=== PATIENT | male | born 1935 | race Caucasian/White ===

== ENCOUNTER 2019-02-04 09:13 | Emergency (ER) | payer OTHER ==
--- OUTSIDE RECORDS SUMMARY | 2019-02-04 09:15 | XMS REPORT ---
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
--- OUTSIDE RECORDS SUMMARY | 2019-02-04 09:15 | XMS REPORT ---
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 Problem Lumbago M54.5 Active Problem Benign hypertension I10 Active Problem Male erectile disorder N52.9 Active Problem Peripheral vascular disease I73.9 Active Medications Medication Code Code Instructions Start End Status Dosage System Date Date Verapamil HCl [facility] 64965299465 180 MG Orally Active 1 tablet ER Once a day Lisinopril [facility] 80816431294 40 MG Active TAKE 1 TABLET BY MOUTH ONCE DAILY Bactroban [facility] 76808960704 2 % Externally May Active 1 application Three times a 2018 to affected day area PredniSONE ND 22230917582 20 MG Oral Active not defined Verapamil HCl ND 96091236011 240 MG Orally April Active 1 tablet ER Once a day 2018 Atorvastatin ND 61299819497 20 MG Orally Active 1 tablet Calcium Once a day Results No Known Results Summary Purpose eClinicalWorks Submission
[2019-02-04] MEDS ORDERED: KETOROLAC 30 MG/ML INJ ONE (09:53)
[2019-02-04 10:03] LABS: Absolute Lymphocytes (CBC) 0.8 K/uL (0.7-4.9); Basophils % 0.6 % (0-1.3); Hematocrit 40.3 % (39.6-49.0); MPV 8.7 fL (7.6-11.3); RBC Red Blood Cell Count 4.33 M/uL (4.33-5.43)
[2019-02-04 10:16] LABS: Albumin 3.6 g/dL (3.4-5.0); Bilirubin Direct 0.2 mg/dL (0-0.2); Bilirubin Total 0.7 mg/dL (0.2-1.0); Potassium 4.7 mmol/L (3.5-5.1); Protein, Total 7.6 g/dL (6.4-8.2)
--- NOTE | 2019-02-04 10:17 | RAD REPORT ---
EXAM DESCRIPTION: CT - Stone Protocol - 02/04/2019 9:54 am CLINICAL HISTORY: Abdominal pain. COMPARISON: None. TECHNIQUE: Computed axial tomography of the abdomen pelvis was obtained without oral or IV contrast. Lack of IV and oral contrast limits evaluation of solid organs, bowel, and vessels. Coronal reformat donna images were obtained and reviewed. All CT scans are performed using dose optimization technique as appropriate and may include automated exposure control or mA/KV adjustment according to patient size. FINDINGS: Small bilateral nonobstructing renal calculi. No hydronephrosis. A ureteral calculus is no t seen. No bladder calculus. 2.7 centimeter low-density mass right kidney. Cholecystectomy A 4.1 centimeter partially calcified mass lies anterior superiorly to the pancreatic neck. Pancreas o therwise appears unremarkable The liver, spleen,and adrenals appear grossly normal Diverticula stem from the colon. Mild to moderate stranding adjacent to the mid descending colon. No free air Small umbilical hernia small bilateral inguinal hernias. 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 Exophytic pancreatic mass is less likely. It is recommended that the patient have an MRI with contrast for further evaluation
--- NOTE | 2019-02-04 11:17 | ER ---
Nurse's Notes [facility] [place], [place] Name: Carlos Guerra Age: 83 yrs Sex: Male : 1935 Arrival Date: 02/04/2019 Time: 09:14 Bed 19 Private MD: Luis Fontana Diagnosis: Left sided colitis;Left sided colitis without complications Presentation: 02/04 09:29 Presenting complaint: Patient states: left flank pain since yesterday, worse today, iw denies urinary s/s, feels like a kidney stone, no fever, no injury. Transition of care: patient was not received from another setting of care. Onset of symptoms was February 04, 2019. Risk Assessment: Do you want to hurt yourself or someone else? Patient reports no desire to harm self or others. Initial Sepsis Screen: Does the patient meet any 2 criteria? No. Patient's initial sepsis screen is negative. Does the patient have a suspected source of infection? No. Patient's initial sepsis screen is negative. Care prior to arrival: None. 09:29 Method Of Arrival: Wheelchair iw 09:29 Acuity: CLAIRE 3 iw Historical: - Allergies: 09:37 Codeine; sedation; iw - PMHx: 09:37 GERD; Hypertension; shingles; iw - PSHx: 09:37 Carotid surgery; back; shoulder - left; iw - Immunization history:: Adult Immunizations up to date. - Social history:: Smoking status: Patient/guardian denies using tobacco. - Ebola Screening: : Patient negative for fever greater than or equal to 101.5 degrees Fahrenheit, and additional compatible Ebola Virus Disease symptoms Patient denies exposure to infectious person Patient denies travel to an Ebola-affected area in the 21 days before illness onset No symptoms or risks identified at this time. Screenin:59 Abuse screen: Denies threats or abuse. Nutritional screening: No deficits noted. em Tuberculosis screening: No symptoms or risk factors identified. Fall Risk None identified. Assessment: 09:55 General: Appears in no apparent distress. comfortable, Behavior is calm, cooperative, em Denies fever. Pain: Complains of pain in left low back Pain currently is 6 out of 10 on a pain scale. Pain began 1 day ago. Neuro: Level of Consciousness is awake, alert, obeys commands, Oriented to person, place, time, situation, Appropriate for age. Cardiovascular: Denies chest pain, shortness of breath, Capillary refill < 3 seconds Patient's skin is warm and dry. Respiratory: GI: Abdomen is flat, Patient currently denies diarrhea, nausea, vomiting. : Denies burning with urination. Derm: Skin is intact, is healthy with good turgor, Skin is pink, warm \T\ dry. Musculoskeletal: Capillary refill < 3 seconds, Range of motion: intact in all extremities. 10:30 Reassessment: Patient appears in no apparent distress at this time. Patient and/or em family updated on plan of care and expected duration. Pain level reassessed. Patient is alert, oriented x 3, equal unlabored respirations, skin warm/dry/pink. Patient states feeling better. Patient states symptoms have improved. Vital Signs: 09:37 BP 165 / 83; Pulse 77; Resp 16; Temp 98.4; Pulse Ox 100% on R/A; Weight 44 kg; Pain iw 5/10; 10:45 BP 170 / 64; Pulse 63; Resp 20; Pulse Ox 97% on R/A; em ED Course: 09:14 Patient arrived in ED. mr 09:15 Madhu Reis MD is Attending Physician. kdr 09:22 Luis Fontana MD is Private Physician. mr 09:36 Triage completed. iw 09:38 Arm band placed on. iw 09:39 Zeferino Blackwood LVN is Primary Nurse. em 09:54 CT completed. Patient tolerated procedure well. Patient moved back from CT. bq 09:55 CT Stone Protocol In Process Unspecified. EDMS 09:59 Patient has correct armband on for positive identification. Placed in gown. Bed in low em position. Call light in reach. Adult w/ patient. Pulse ox on. NIBP on. 10:39 Inserted saline lock: 22 gauge in right forearm, using aseptic technique. Blood jb1 collected. 11:16 Luis Fontana MD is Referral Physician. kdr 11:33 No provider procedures requiring assistance completed. IV discontinued, intact, em bleeding controlled, No redness/swelling at site. Pressure dressing applied. Administered Medications: 10:00 Drug: TORadol - Ketorolac 15 mg Route: IVP; Site: right forearm; iw 10:30 Follow up: Response: No adverse reaction; Pain is decreased em Outcome: 11:17 Discharge ordered by . kdr 11:34 Discharged to home via wheelchair, with family. em 11:34 Condition: good 11:34 Discharge instructions given to patient, family, Instructed on discharge instructions, follow up and referral plans. medication usage, Demonstrated understanding of instructions, follow-up care, medications, Prescriptions given X 3. 11:34 Patient left the ED. em Signatures: Dispatcher [employer] Mick Nobles [email or web address] Madhu Reis MD MD kdr Rivera, Mary mr Priti Polk Edgar, IMPROVEMENT LEADER IMPROVEMENT LEADER Nemo Castillo, RN RN iw
--- NOTE | 2019-02-04 11:17 | EDPHYS ---
Physician Documentation [facility] Name: Carlos Guerra Age: 83 yrs Sex: Male : 1935 Arrival Date: 02/04/2019 Time: 09:14 Bed 19 Private MD: Luis Fontana ED Physician Madhu Reis HPI: 02/04 09:32 This 83 yrs old Male presents to ER via Unassigned with complaints of Flank kdr Pain. 09:32 The patient complains of pain in the left low back. The pain does not radiate. Onset: kdr The symptoms/episode began/occurred suddenly, this morning. Modifying factors: The symptoms are alleviated by nothing. the symptoms are aggravated by movement. Associated signs and symptoms: The patient has no apparent associated signs or symptoms. Severity of pain: At its worst the pain was mild moderate just prior to arrival, in the emergency department the pain is unchanged. The patient has not recently seen a physician. Historical: - Allergies: 09:37 Codeine; sedation; iw - PMHx: 09:37 GERD; Hypertension; shingles; iw - PSHx: 09:37 Carotid surgery; back; shoulder - left; iw - Immunization history:: Adult Immunizations up to date. - Social history:: Smoking status: Patient/guardian denies using tobacco. - Ebola Screening: : Patient negative for fever greater than or equal to 101.5 degrees Fahrenheit, and additional compatible Ebola Virus Disease symptoms Patient denies exposure to infectious person Patient denies travel to an Ebola-affected area in the 21 days before illness onset No symptoms or risks identified at this time. ROS: 09:32 Constitutional: Negative for fever, chills, and weight loss, Eyes: Negative for injury, kdr pain, redness, and discharge, ENT: Negative for injury, pain, and discharge, Neck: Negative for injury, pain, and swelling, Cardiovascular: Negative for chest pain, palpitations, and edema, Respiratory: Negative for shortness of breath, cough, wheezing, and pleuritic chest pain, Back: Negative for injury and pain, : Negative for injury, bleeding, discharge, and swelling, MS/Extremity: Negative for injury and deformity, Skin: Negative for injury, rash, and discoloration, Neuro: Negative for headache, weakness, numbness, tingling, and seizure activity. Psych: Negative for depression, anxiety, suicide ideation, homicidal ideation, and hallucinations, Allergy/Immunology: Negative for hives, rash, and allergies, Endocrine: Negative for neck swelling, polydipsia, polyuria, polyphagia, and marked weight changes, Hematologic/Lymphatic: Negative for swollen nodes, abnormal bleeding, and unusual bruising. 09:32 Abdomen/GI: Positive for Left flank pain, Negative for nausea and vomiting, nausea, vomiting, and diarrhea, abdominal cramps, abdominal distension, black/tarry stool, rectal pain, Pain is brief/sharp and occasionally stabbing. Exam: 09:32 Constitutional: This is a well developed, well nourished patient who is awake, alert, kdr and in no acute distress. Head/Face: Normocephalic, atraumatic. Eyes: Pupils equal round and reactive to light, extra-ocular motions intact. Lids and lashes normal. Conjunctiva and sclera are non-icteric and not injected. Cornea within normal limits. Periorbital areas with no swelling, redness, or edema. Neck: Trachea midline, no thyromegaly or masses palpated, and no cervical lymphadenopathy. Supple, full range of motion without nuchal rigidity, or vertebral point tenderness. No Meningismus. Chest/axilla: Normal chest wall appearance and motion. Nontender with no deformity. No lesions are appreciated. Cardiovascular: Regular rate and rhythm with a normal S1 and S2. No gallops, murmurs, or rubs. Normal PMI, no JVD. No pulse deficits. Respiratory: Lungs have equal breath sounds bilaterally, clear to auscultation and percussion. No rales, rhonchi or wheezes noted. No increased work of breathing, no retractions or nasal flaring. Back: No spinal tenderness. No costovertebral tenderness. Full range of motion. Skin: Warm, dry with normal turgor. Normal color with no rashes, no lesions, and no evidence of cellulitis. MS/ Extremity: Pulses equal, no cyanosis. Neurovascular intact. Full, normal range of motion. Neuro: Awake and alert, GCS 15, oriented to person, place, time, and situation. Cranial nerves II-XII grossly intact. Motor strength 5/5 in all extremities. Sensory grossly intact. Cerebellar exam normal. Normal gait. Psych: Awake, alert, with orientation to person, place and time. Behavior, mood, and affect are within normal limits. 09:32 Abdomen/GI: Inspection: abdomen appears normal, Bowel sounds: active, Palpation: abdomen is soft and non-tender, rebound tenderness, is not appreciated. Vital Signs: 09:37 BP 165 / 83; Pulse 77; Resp 16; Temp 98.4; Pulse Ox 100% on R/A; Weight 44 kg; Pain iw 5/10; 10:45 BP 170 / 64; Pulse 63; Resp 20; Pulse Ox 97% on R/A; em MDM: 11:17 Patient medically screened. kdr 11:26 Data reviewed: vital signs, nurses notes, lab test result(s), radiologic studies. kdr Counseling: I had a detailed discussion with the patient and/or guardian regarding: the historical points, exam findings, and any diagnostic results supporting the discharge/admit diagnosis, lab results, radiology results, the need for outpatient follow up. 02/04 09:32 Order name: Basic Metabolic Panel; Complete Time: 10:21 kdr 02/04 09:32 Order name: CBC with Diff; Complete Time: 10:21 kdr 02/04 09:32 Order name: Creatinine for Radiology; Complete Time: 10:21 kdr 02/04 09:32 Order name: Hepatic Function; Complete Time: 10:21 kdr 02/04 09:32 Order name: Lipase; Complete Time: 10:21 kdr 1207 11:09 Order name: Urine Dipstick--Ancillary (enter results) eb 02/04 09:32 Order name: IV Saline Lock; Complete Time: 10:09 kdr 02/04 09:32 Order name: Labs collected and sent; Complete Time: 10:09 kdr 02/04 09:32 Order name: CT Stone Protocol; Complete Time: 10:49 kdr 02/04 09:32 Order name: Urine Dipstick-Ancillary (obtain specimen); Complete Time: 11:33 kdr Administered Medications: 10:00 Drug: TORadol - Ketorolac 15 mg Route: IVP; Site: right forearm; iw 10:30 Follow up: Response: No adverse reaction; Pain is decreased em Disposition: 02/04/19 11:17 Discharged to Home. Impression: Left sided colitis, Left sided colitis without complications. - Condition is Stable. - Discharge Instructions: Abdominal Pain, Adult, Oxvn-bh-Gktd, Flank Pain, Iarb-ee-Roht, Colitis. - Prescriptions for Cipro 500 mg Oral Tablet - take 1 tablet by ORAL route every 12 hours for 10 days; 20 tablet. Flagyl 500 mg Oral Tablet - take 1 tablet by ORAL route every 6 hours for 10 days; 40 tablet. Tramadol 50 mg Oral Tablet - take 1 tablet by ORAL route every 8 hours as needed; 12 tablet. - Medication Reconciliation Form, Thank You Letter, Antibiotic Education, Prescription Opioid Use form. - Follow up: Luis Fontana MD; When: 2 - 3 days; Reason: If symptoms return, Further diagnostic work-up, Recheck today's complaints, Continuance of care, Re-evaluation by your physician. - Problem is new. - Symptoms have improved. Signatures: Dispatcher [employer] Madhu Mcgrath MD MD [facility] Zeferino Blackwood, SENIOR BACKUP ADMINISTRATOR SENIOR BACKUP ADMINISTRATOR em Nemo Castrejon RN RN iw Corrections: (The following items were deleted from the chart) 11:34 11:17 02/04/2019 11:17 Discharged to Home. Impression: Left sided colitis; Left sided em colitis without complications. Condition is Stable. Forms are Medication Reconciliation Form, Thank You Letter, Antibiotic Education, Prescription Opioid Use. Follow up: Luis Fontana; When: 2 - 3 days; Reason: If symptoms return, Further diagnostic work-up, Recheck today's complaints, Continuance of care, Re-evaluation by your physician. Problem is new. Symptoms have improved. kdr
[2019-02-04 12:03] LABS: Urine Blood NEGATIVE (NEG); Urine Glucose NEGATIVE (NEG); Urine Protein 1+ (NEG); Urine Specific Gravity 1.025 (1.005-1.030); Urine pH 5.5 (5.0-7.0)
[2019-02-04 12:13] VITALS: BP 116/85; TEMP 97.4; O2SAT 98
== END 2019-02-04 11:34 | disposition home or self-care (01) ==
LOC: ER 09:13
DX: K52.9 Noninfective gastroenteritis and colitis, unspecified (principal); Z88.6 Allergy status to analgesic agent
CPT/HCPCS: 36415; 74176; 76377; 80048; 80076; 81003; 83690; 85025; 96374; 99284

== ENCOUNTER 2019-02-17 17:33 | Emergency (ER) | payer OTHER ==
--- OUTSIDE RECORDS SUMMARY | 2019-02-17 17:35 | XMS REPORT ---
[...] Status Dosage System Date Date Verapamil HCl [facility] 86458706014 180 MG Orally Active 1 tablet ER Once a day Lisinopril [facility] 08793795603 40 MG Active TAKE 1 TABLET BY MOUTH ONCE DAILY Bactroban [facility] 04372268036 2 % Externally May Active 1 application Three times a 2018 to affected day area PredniSONE ND 47835296423 20 MG Oral Active not defined Verapamil HCl ND 51184626775 240 MG Orally April Active 1 tablet ER Once a day 2018 Atorvastatin ND 10578340384 20 MG Orally Active 1 tablet Calcium Once a day Results No Known Results Summary Purpose eClinicalWorks Submission
--- OUTSIDE RECORDS SUMMARY | 2019-02-17 17:35 | XMS REPORT ---
[...] Date Status Dosage System Date Verapamil HCl [facility] 90055287615 180 MG Orally Active 1 tablet ER Once a day Results No Known Results Summary Purpose eClinicalWorks Submission
[2019-02-17] MEDS ORDERED: MORPHINE 2 MG/ML SYR ONE (18:19)
[2019-02-17] MEDS ORDERED: ONDANSETRON 4 MG/2 ML VIAL ONE (18:19)
[2019-02-17 18:29] LABS: Absolute Lymphocytes (CBC) 0.6 K/uL (0.7-4.9); Basophils % 0.2 % (0-1.3); Hematocrit 39.6 % (39.6-49.0); Lymphocytes % 5.5 % (15.3-44.8); MPV 8.9 fL (7.6-11.3); RBC Red Blood Cell Count 4.27 M/uL (4.33-5.43)
[2019-02-17 18:48] LABS: Albumin 3.3 g/dL (3.4-5.0); Bilirubin Total 0.5 mg/dL (0.2-1.0); Potassium 4.8 mmol/L (3.5-5.1); Protein, Total 6.9 g/dL (6.4-8.2)
--- NOTE | 2019-02-17 18:54 | RAD REPORT ---
EXAM DESCRIPTION: RAD - Knee Left 3 View - 02/17/2019 6:24 pm CLINICAL HISTORY: Left knee pain FINDINGS: No fracture or dislocation is seen. The bones are osteoporotic. Mild medial joint space narrowing. Vascular calcifications
--- NOTE | 2019-02-17 20:02 | ER ---
Nurse's Notes [facility] Name: Carlos Guerra Age: 84 yrs Sex: Male : 1935 Arrival Date: 02/17/2019 Time: 17:41 Bed 19 Private MD: Diagnosis: Synovial cyst of popliteal space [Hernández] Presentation: 02/17 17:41 Presenting complaint: EMS states: he was just on bed 2 days ago when he started mg2 complaining of pain in the left leg and neck pain today. denies trauma. tylenol 1 gm taken \T\ 1300 and it relieved him. Transition of care: patient was not received from another setting of care. Onset of symptoms was February 16, 2019. Risk Assessment: Do you want to hurt yourself or someone else? Patient reports no desire to harm self or others. Initial Sepsis Screen: Does the patient meet any 2 criteria? No. Patient's initial sepsis screen is negative. Does the patient have a suspected source of infection? No. Patient's initial sepsis screen is negative. Care prior to arrival: Medication(s) given: Tylenol, 1000 mg, \T\ 1720. 17:41 Method Of Arrival: EMS: [facility] mg2 17:41 Acuity: CLAIRE 4 mg2 Historical: - Allergies: 17:45 Codeine; sedation; mg2 - Home Meds: 17:45 Hydrochlorothiazide Oral [Active]; Lipitor 10 mg Oral tab [Active]; lisinopril Oral mg2 [Active]; Norvasc Oral [Active]; - PMHx: 17:45 GERD; Hypertension; shingles; mg2 - Immunization history:: Flu vaccine is up to date. - Social history:: Smoking status: Patient/guardian denies using tobacco, Patient/guardian denies using alcohol, street drugs, IV drugs. - Ebola Screening: : No symptoms or risks identified at this time. Screenin:01 Abuse screen: Denies threats or abuse. Denies injuries from another. Nutritional mg2 screening: No deficits noted. Tuberculosis screening: No symptoms or risk factors identified. Fall Risk Gait- Weak (10 pts.). Assessment: 17:59 General: Appears in no apparent distress. comfortable, Behavior is calm, cooperative. mg2 Pain: Complains of pain in neck and left knee or leg Pain does not radiate. Pain currently is 6 out of 10 on a pain scale. Quality of pain is described as aching, Pain began gradually, 2-3 days ago. Is intermittent. Neuro: Level of Consciousness is awake, alert, obeys commands, Oriented to person, place, time, situation. Cardiovascular: Capillary refill < 3 seconds Patient's skin is warm and dry. Respiratory: Airway is patent Respiratory effort is even, unlabored, Respiratory pattern is regular, symmetrical. GI: No signs and/or symptoms were reported involving the gastrointestinal system. : No signs and/or symptoms were reported regarding the genitourinary system. EENT: No signs and/or symptoms were reported regarding the EENT system. Derm: Skin is intact, is healthy with good turgor, Skin is pink, warm \T\ dry. normal. Musculoskeletal: Circulation, motion, and sensation intact. Capillary refill < 3 seconds, Reports pain in left leg and neck. 19:45 Reassessment: Patient and/or family updated on plan of care and expected duration. Pain ch2 level reassessed. Patient is alert, oriented x 3, equal unlabored respirations, skin warm/dry/pink. physician at bedside, discussing discharge plan. General: Appears in no apparent distress. comfortable, Behavior is calm, cooperative, appropriate for age. Neuro: No deficits noted. Level of Consciousness is awake, alert, obeys commands, Oriented to person, place, time, situation, Appropriate for age. Cardiovascular: Capillary refill Patient's skin is warm and dry. Respiratory: Respiratory effort is even, unlabored, Respiratory pattern is regular, symmetrical. Musculoskeletal: Reports weakness in right leg and left leg. Vital Signs: 17:43 BP 158 / 53; Pulse 84; Resp 18; Temp 98.4; Pulse Ox 98% on R/A; Weight 74.84 kg; Height mg2 6 ft. 2 in. (187.96 cm); Pain 6/10; 19:43 BP 167 / 76; Pulse 80; Resp 18; Pulse Ox 99% ; ch2 17:43 Body Mass Index 21.18 (74.84 kg, 187.96 cm) mg2 ED Course: 17:41 Patient arrived in ED. mg2 17:43 Triage completed. mg2 17:45 Arm band placed on. mg2 17:47 Darinel Don PA is PHCP. [facility] 17:47 Randy Mejía MD is Attending Physician. mary 17:59 Jin Rodriguez, RN is Primary Nurse. mg2 18:02 Patient has correct armband on for positive identification. mg2 18:02 No provider procedures requiring assistance completed. Patient did not have IV access mg2 during this emergency room visit. 18:24 Knee Left 3 View XRAY In Process Unspecified. EDMS 19:29 US Extremity Venous Unilateral Ltd In Process Unspecified. EDMS Administered Medications: 18:58 Drug: Zofran 4 mg Route: IVP; Site: right antecubital; mg2 18:58 Drug: morphine 2 mg Route: IVP; Site: right antecubital; mg2 19:06 Not Given (Physician Discretion): fentaNYL (PF) 25 mcg IVP once; RASS on ADMIN: mg2 Combtv4, Very Agttd3, Agttd2, Rstlss1, AlertClm0, Drwsy-1, Lt Sdtn-2, Mod Sdtn-3, Dp Sdtn-4, UnArsble-5 Outcome: 20:01 Discharge ordered by . juliette 20:34 Discharged to home via wheelchair, with family. ch2 20:34 Condition: stable 20:34 Discharge instructions given to patient, significant other, Instructed on discharge instructions, follow up and referral plans. Demonstrated understanding of instructions, follow-up care, medications, Prescriptions given X 1. 20:35 Patient left the ED. ch2 Signatures: Dispatcher [employer] EDMS Darinel Don PA PA jmm Hanna, Candace, RN RN ch2 Jin Rodriguez, RN RN mg2
--- NOTE | 2019-02-17 20:02 | EDPHYS ---
Physician Documentation [facility] Name: Carlos Guerra Age: 84 yrs Sex: Male : 1935 Arrival Date: 02/17/2019 Time: 17:41 Bed 19 Private MD: ED Physician Randy Mejía HPI: 02/17 19:52 This 84 yrs old Male presents to ER via EMS with complaints of left knee pain.jmm 19:52 The patient presents with pain. Onset: The symptoms/episode began/occurred gradually, 2 jmm day(s) ago. Modifying factors: the symptoms are aggravated by bending knee. Associated signs and symptoms: Pertinent negatives fever. This is an 84 year old male with a history of htn, shingles, that presents to the ED with complaints of left knee pain for 2 days and neck pain beginning today. Denies fever or chills. . Historical: - Allergies: 17:45 Codeine; sedation; mg2 - Home Meds: 17:45 Hydrochlorothiazide Oral [Active]; Lipitor 10 mg Oral tab [Active]; lisinopril Oral mg2 [Active]; Norvasc Oral [Active]; - PMHx: 17:45 GERD; Hypertension; shingles; mg2 - Immunization history:: Flu vaccine is up to date. - Social history:: Smoking status: Patient/guardian denies using tobacco, Patient/guardian denies using alcohol, street drugs, IV drugs. - Ebola Screening: : No symptoms or risks identified at this time. ROS: 19:52 Constitutional: Negative for fever, chills, and weight loss, Cardiovascular: Negative jmm for chest pain, palpitations, and edema, Respiratory: Negative for shortness of breath, cough, wheezing, and pleuritic chest pain. 19:52 Neck: Positive for pain with movement. 19:52 MS/extremity: Positive for pain, swelling. 19:52 All other systems are negative. Exam: 19:52 Constitutional: This is a well developed, well nourished patient who is awake, alert, jmm and in no acute distress. Head/Face: atraumatic. Eyes: EOMI, no conjunctival erythema appreciated ENT: Moist Mucus Membranes 19:52 Chest/axilla: Normal chest wall appearance and motion. Cardiovascular: Regular rate and rhythm. No edema appreciated Respiratory: Normal respirations, no respiratory distress appreciated Abdomen/GI: Non distended, soft Back: Normal ROM Skin: General appearance color normal 19:52 Neck: ROM/movement: is normal. 19:52 Musculoskeletal/extremity: left knee swelling, painful rom, compartments are soft, NVI. 19:52 Skin: Appearance: Color: normal in color. 19:52 Neuro: Orientation: is normal, Mentation: is normal, Memory: is normal. 19:52 Psych: Behavior/mood is pleasant, cooperative. Vital Signs: 17:43 BP 158 / 53; Pulse 84; Resp 18; Temp 98.4; Pulse Ox 98% on R/A; Weight 74.84 kg; Height mg2 6 ft. 2 in. (187.96 cm); Pain 6/10; 19:43 BP 167 / 76; Pulse 80; Resp 18; Pulse Ox 99% ; ch2 17:43 Body Mass Index 21.18 (74.84 kg, 187.96 cm) mg2 MDM: 17:53 Patient medically screened. [facility] 19:48 Data reviewed: vital signs, nurses notes. Counseling: I had a detailed discussion with [facility] the patient and/or guardian regarding: the historical points, exam findings, and any diagnostic results supporting the discharge/admit diagnosis, the need for outpatient follow up, to return to the emergency department if symptoms worsen or persist or if there are any questions or concerns that arise at home. 19:58 ED course: I do not suspect septic joint. Afebrile, non toxic. Advised to follow up [facility] with ortho for reevaluation and otherwise given strict return precautions. Patient understood and agrees with the plan of care. . 02/17 18:04 Order name: CBC with Diff; Complete Time: 18:32 [facility] 02/17 18:04 Order name: CMP; Complete Time: 18:52 [facility] 02/17 18:04 Order name: US Extremity Venous Unilateral Ltd [facility] 02/17 18:04 Order name: Knee Left 3 View XRAY; Complete Time: 18:58 [facility] 02/17 18:06 Order name: Uric Acid; Complete Time: 18:52 [facility] 02/17 18:07 Order name: ESR; Complete Time: 18:52 [facility] 02/17 18:04 Order name: Saline Lock; Complete Time: 18:14 [facility] Administered Medications: 18:58 Drug: Zofran 4 mg Route: IVP; Site: right antecubital; mg2 18:58 Drug: morphine 2 mg Route: IVP; Site: right antecubital; mg2 19:06 Not Given (Physician Discretion): fentaNYL (PF) 25 mcg IVP once; RASS on ADMIN: mg2 Combtv4, Very Agttd3, Agttd2, Rstlss1, AlertClm0, Drwsy-1, Lt Sdtn-2, Mod Sdtn-3, Dp Sdtn-4, UnArsble-5 Disposition: 02/17/19 20:01 Discharged to Home. Impression: Synovial cyst of popliteal space [Hernández]. - Condition is Stable. - Discharge Instructions: Hernández Cyst. - Prescriptions for Ultracet 37.5- 325 mg Oral Tablet - take 1 tablet by ORAL route every 6 hours - for up to 5 days; do not exceed 8 tablets per day.; 12 tablet. - Medication Reconciliation Form, Thank You Letter, Antibiotic Education, Prescription Opioid Use form. - Follow up: Private Physician; When: 2 - 3 days; Reason: Recheck today's complaints, Continuance of care, Re-evaluation by your physician. Addendum: 02/23/2019 07:07 Co-signature as Attending Physician, Randy Mejía MD. r n Signatures: Dispatcher [employer] EDMS Darinel Don PA PA jm Randy Mejía MD MD rn Hanna, Candace, RN RN ch2 Jin Rodriguez RN RN mg2 Corrections: (The following items were deleted from the chart) 02/17 20:35 20:01 02/17/2019 20:01 Discharged to Home. Impression: Synovial cyst of popliteal space ch2 [Hernández]. Condition is Stable. Forms are Medication Reconciliation Form, Thank You Letter, Antibiotic Education, Prescription Opioid Use. Follow up: Private Physician; When: 2 - 3 days; Reason: Recheck today's complaints, Continuance of care, Re-evaluation by your physician. cornel
--- NOTE | 2019-02-17 20:49 | RAD REPORT ---
EXAM DESCRIPTION: USExtremity Venous Uni Ltd02/17/2019 7:29 pm CLINICAL HISTORY: left leg pain and swelling. COMPARISON: None. FINDINGS: Left common femoral, superficial femoral, popliteal and posterior tibial veins are compre ssible and demonstrate augmentation. Doppler demonstrates good flow. 4 centimeter Hernández's cyst IMPRESSION: No evidence of deep venous thrombosis involving the left lower extremity. 4 centimeter Hernández's cyst
[2019-02-17 23:00] VITALS: TEMP 98.4
[2019-02-17 23:01] VITALS: BP 167/76; O2SAT 99
== END 2019-02-17 20:35 | disposition home or self-care (01) ==
LOC: ER 17:33
DX: M71.22 Synovial cyst of popliteal space [Baker], left knee (principal); Z88.6 Allergy status to analgesic agent; I10 Essential (primary) hypertension
CPT/HCPCS: 36415; 80053; 84550; 85025; 85652; 93971; 96374; 96375; 99284; J2270; J2405

== ENCOUNTER 2019-02-18 16:46 | Inpatient (IN) | payer OTHER ==
--- OUTSIDE RECORDS SUMMARY | 2019-02-18 16:48 | XMS REPORT ---
[...] Status Dosage System Date Date Verapamil HCl [facility] 76487970590 180 MG Orally Active 1 tablet ER Once a day Lisinopril [facility] 82637584952 40 MG Active TAKE 1 TABLET BY MOUTH ONCE DAILY Bactroban [facility] 47051493989 2 % Externally May Active 1 application Three times a 2018 to affected day area Predni[place] 33530714030 20 MG Oral Active not defined Verapamil HCl ND 90258589483 240 MG Orally April Active 1 tablet ER Once a day 2018 Atorvastatin [place] 71891776490 20 MG Orally Active 1 tablet Calcium Once a day Results No Known Results Summary Purpose eClinicalWorks Submission
--- OUTSIDE RECORDS SUMMARY | 2019-02-18 16:48 | XMS REPORT ---
[...] Date Status Dosage System Date Verapamil HCl [facility] 31841088436 180 MG Orally Active 1 tablet ER Once a day Results No Known Results Summary Purpose eClinicalWorks Submission
[2019-02-18] MEDS ORDERED: NA CHLORIDE 0.9% 1,000 ML ONE (17:52)
[2019-02-18 18:07] LABS: Protime INR 1.16
[2019-02-18 18:08] LABS: Absolute Lymphocytes (CBC) 0.7 K/uL (0.7-4.9); Basophils % 0.4 % (0-1.3); Hematocrit 41.7 % (39.6-49.0); Lymphocytes % 5.1 % (15.3-44.8); MPV 8.9 fL (7.6-11.3); RBC Red Blood Cell Count 4.42 M/uL (4.33-5.43)
--- NOTE | 2019-02-18 18:14 | RAD REPORT ---
EXAM DESCRIPTION: Elizabeth Single View02/18/2019 5:42 pm CLINICAL HISTORY: cough COMPARISON: none FINDINGS: The lungs appear clear of acute infiltrate. The heart is normal size IMPRESSION: No acute abnormalities displayed
[2019-02-18 18:28] LABS: ALT/SGPT 25 U/L (12-78); AST/SGOT 54 U/L (15-37); Alkaline Phosphatase 74 U/L (45-117); BUN Blood Urea Nitrogen 24 mg/dL (7-18); Bicarbonate 24 mmol/L (21-32); Bilirubin Direct 0.3 mg/dL (0-0.2); Bilirubin Total 0.9 mg/dL (0.2-1.0); Glucose Level 126 mg/dL (74-106); Magnesium 2.1 mg/dL (1.8-2.4); NT PRO-BNP 2067 pg/mL (<450); Potassium 4.8 mmol/L (3.5-5.1); Sodium Level 135 mmol/L (136-145); Troponin (Emerg Dept Use Only) < 0.02 ng/mL (0.0-0.045)
[2019-02-18] MEDS ORDERED: HYDRALAZINE HCL 20 MG/ML VIAL ONE (18:55)
[2019-02-18] MEDS ORDERED: LIDOCAINE 1% MPF 30 ML VIAL ONE (19:11)
[2019-02-18] MEDS ORDERED: NA CHLORIDE 0.9% 500 ML ONE (20:34)
[2019-02-18] MEDS ORDERED: VANCOMYCIN 1 GM/VIAL ONE (20:34)
[2019-02-18] MEDS ORDERED: CEFEPIME 1 GM/100 ML BAG IV ONE (20:34)
[2019-02-18] MEDS ORDERED: NA CHLORIDE 0.9% 250 ML ONE (20:34)
--- NOTE | 2019-02-18 21:08 | ER ---
Nurse's Notes [facility] Name: Carlos Guerra Age: 84 yrs Sex: Male : 1935 Arrival Date: 02/18/2019 Time: 17:10 Bed 13 Private MD: Diagnosis: Cellulitis of left lower limb Presentation: 02/18 17:54 Presenting complaint: EMS states: he is complaining of left leg pain and on the way rv here he complained of neck and back pain. Child states: he is not eating and drinking well at home. he was here yesterday for leg pain and he is not getting better. Transition of care: patient was not received from another setting of care. Onset of symptoms was February 18, 2019 at 15:00. Risk Assessment: Do you want to hurt yourself or someone else? Patient reports no desire to harm self or others. Initial Sepsis Screen: Does the patient meet any 2 criteria? No. Patient's initial sepsis screen is negative. Does the patient have a suspected source of infection? No. Patient's initial sepsis screen is negative. Care prior to arrival: None. 17:54 Method Of Arrival: EMS: [facility] rv 17:54 Acuity: CLAIRE 3 rv Historical: - Allergies: 17:31 Codeine; sedation; rv - PMHx: 17:31 GERD; Hypertension; shingles; rv - Immunization history:: Adult Immunizations up to date. - Social history:: Smoking status: Patient/guardian denies using tobacco. - Ebola Screening: : No symptoms or risks identified at this time. Screenin:58 Abuse screen: Denies threats or abuse. Denies injuries from another. Nutritional rv screening: No deficits noted. Tuberculosis screening: No symptoms or risk factors identified. Fall Risk None identified. Assessment: 17:57 General: Appears in no apparent distress. Behavior is calm, cooperative. Pain: rv Complains of pain in neck, back, left leg. Neuro: Level of Consciousness is awake, alert, obeys commands, Oriented to person, place, time, situation. Cardiovascular: Patient's skin is warm and dry. Respiratory: Airway is patent. GI: Parent/caregiver reports the patient having anorexia. Derm: Skin with poor turgor. Vital Signs: 17:00 BP 198 / 81; Pulse 16; Resp 99; Temp 98.7; Pulse Ox 100% on R/A; Pain 8/10; rv 17:59 BP 151 / 75; Pulse 117; Resp 19; Pulse Ox 96% on R/A; rv 18:30 BP 170 / 82; Pulse 113; Resp 19; Pulse Ox 97% on R/A; rv 19:00 BP 158 / 79; Pulse 112; Resp 17; Pulse Ox 96% on R/A; rv 19:15 BP 149 / 68; Pulse 114; Resp 18; Pulse Ox 96% on R/A; rv 20:00 BP 155 / 81; Pulse 113; Resp 18; Pulse Ox 98% on R/A; rv 20:30 BP 147 / 78; Pulse 106; Resp 18; Pulse Ox 99% on R/A; rv 21:00 BP 150 / 79; Pulse 101; Resp 18; Pulse Ox 98% on R/A; rv 22:00 BP 130 / 94; Pulse 99; Resp 17; Pulse Ox 99% on R/A; rv 22:30 BP 142 / 71; Pulse 95; Resp 18; Pulse Ox 98% on R/A; rv ED Course: 17:10 Patient arrived in ED. jr8 17:11 José Oswald PA is PHCP. jr8 17:11 Karen Manning MD is Attending Physician. jr8 17:30 Arm band placed on. rv 17:34 Rivera Marcos, BOBBY is Primary Nurse. rv 17:43 XRAY Chest (1 view) In Process Unspecified. EDMS 17:45 Inserted saline lock: 20 gauge in right forearm, using aseptic technique. Blood rv collected. 17:45 First set of blood cultures drawn by me. rv 17:57 Triage completed. rv 17:58 Patient has correct armband on for positive identification. Bed in low position. Call rv light in reach. Side rails up X 1. Pulse ox on. NIBP on. 21:06 Karen Solorio MD is Hospitalizing Provider. jr8 23:05 No provider procedures requiring assistance completed. IV discontinued, intact, rv bleeding controlled, No redness/swelling at site. Pressure dressing applied. Administered Medications: 17:59 Drug: NS 0.9% 1000 ml Route: IV; Rate: 1000 ml; Site: right forearm; rv 19:21 Follow up: IV Status: Completed infusion; IV Intake: 1000ml rv 19:02 Drug: hydrALAZINE 10 mg Route: IV; Rate: calculated rate; Site: right antecubital; rv 22:56 Follow up: Response: Blood pressure is lowered; IV Status: Completed infusion rv 20:48 Drug: vancoMYCIN 1 grams Route: IVPB; Infused Over: 2 hrs; Site: right forearm; rv 22:57 Follow up: IV Status: Completed infusion; IV Intake: 250ml rv 20:49 Drug: Cefepime 1 grams Route: IVPB; Rate: 200 ml/hr; Infused Over: 30 mins; Site: right rv forearm; 22:57 Follow up: IV Status: Completed infusion; IV Intake: 100ml rv 20:49 Drug: NS 0.9% 1000 ml Route: IV; Rate: 75 ml/hr; Site: right forearm; rv 22:57 Follow up: IV Status: Completed infusion rv 22:40 Drug: fentaNYL (PF) 50 mcg {Note: rass 0.} Route: IVP; Site: right forearm; rv 22:58 Follow up: Response: No adverse reaction; RASS: Alert and Calm (0) rv 22:40 Drug: Zofran 4 mg Route: IVP; Site: right forearm; rv 22:58 Follow up: Response: No adverse reaction rv Intake: 19:21 IV: 1000ml; Total: 1000ml. rv 22:57 IV: 250ml; Total: 1250ml. rv 22:57 IV: 100ml; Total: 1350ml. rv Outcome: 21:06 Decision to Hospitalize by Provider. angie 23:05 Admitted to Med/surg accompanied by nurse, via wheelchair, room 232, with chart, Report rv called to [facility] 23:05 Condition: good 23:05 Instructed on the need for admit. 23:06 Patient left the ED. rv Signatures: Dispatcher [employer] EDMS José Oswald PA PA jr8 Rivera Marcos, RN RN rv
--- NOTE | 2019-02-18 21:09 | EDPHYS ---
Physician Documentation [facility] Name: Carlos Guerra Age: 84 yrs Sex: Male : 1935 Arrival Date: 02/18/2019 Time: 17:10 Bed 13 Private MD: ED Physician Karen Manning HPI: 02/18 21:02 This 84 yrs old Male presents to ER via EMS with complaints of knee pain. jr8 21:02 The complaints affect the left knee. Onset: The symptoms/episode began/occurred jr8 gradually, 2 day(s) ago. Modifying factors: The symptoms are alleviated by nothing. the symptoms are aggravated by movement, weight bearing, bending knee. Associated signs and symptoms: Pertinent positives: swelling, weakness. Severity of symptoms: At their worst the symptoms were moderate, in the emergency department the symptoms are unchanged. The patient has not experienced similar symptoms in the past. The patient has not recently seen a physician. Patient seen yesterday for knee pain and diagnosed with bakers cyst. Stated that today pain is worse and feeling fatigued. Not wanting to eat or drink . Historical: - Allergies: 17:31 Codeine; sedation; rv - PMHx: 17:31 GERD; Hypertension; shingles; rv - Immunization history:: Adult Immunizations up to date. - Social history:: Smoking status: Patient/guardian denies using tobacco. - Ebola Screening: : No symptoms or risks identified at this time. ROS: 21:02 Eyes: Negative for injury, pain, redness, and discharge, ENT: Negative for injury, jr8 pain, and discharge, Neck: Negative for injury, pain, and swelling, Cardiovascular: Negative for chest pain, palpitations, and edema, Respiratory: Negative for shortness of breath, cough, wheezing, and pleuritic chest pain, Abdomen/GI: Negative for abdominal pain, nausea, vomiting, diarrhea, and constipation, Back: Negative for injury and pain, Skin: Negative for injury, rash, and discoloration, Neuro: Negative for headache, weakness, numbness, tingling, and seizure. 21:02 MS/extremity: Positive for decreased range of motion, erythema, pain, swelling, tenderness, warmth, of the left knee. Exam: 21:02 Eyes: Pupils equal round and reactive to light, extra-ocular motions intact. Lids and jr8 lashes normal. Conjunctiva and sclera are non-icteric and not injected. Cornea within normal limits. Periorbital areas with no swelling, redness, or edema. ENT: Nares patent. No nasal discharge, no septal abnormalities noted. Tympanic membranes are normal and external auditory canals are clear. Oropharynx with no redness, swelling, or masses, exudates, or evidence of obstruction, uvula midline. Mucous membranes moist. Neck: Trachea midline, no thyromegaly or masses palpated, and no cervical lymphadenopathy. Supple, full range of motion without nuchal rigidity, or vertebral point tenderness. No Meningismus. Cardiovascular: Regular rate and rhythm with a normal S1 and S2. No gallops, murmurs, or rubs. Normal PMI, no JVD. No pulse deficits. Respiratory: Lungs have equal breath sounds bilaterally, clear to auscultation and percussion. No rales, rhonchi or wheezes noted. No increased work of breathing, no retractions or nasal flaring. Abdomen/GI: Soft, non-tender, with normal bowel sounds. No distension or tympany. No guarding or rebound. No evidence of tenderness throughout. Back: No spinal tenderness. No costovertebral tenderness. Full range of motion. Skin: Warm, dry with normal turgor. Normal color with no rashes, no lesions, and no evidence of cellulitis. Neuro: Awake and alert, GCS 15, oriented to person, place, time, and situation. Cranial nerves II-XII grossly intact. Motor strength 5/5 in all extremities. Sensory grossly intact. Cerebellar exam normal. Normal gait. 21:02 Musculoskeletal/extremity: Extremities: grossly normal except: noted in the left knee: decreased ROM, erythema, pain, swelling, tenderness, anterior effusion noted to left knee with surrounding erythema and warmth, ROM: Decreased ROM secondary to pain and effusion , Circulation is intact in all extremities. Sensation intact. Vital Signs: 17:00 BP 198 / 81; Pulse 16; Resp 99; Temp 98.7; Pulse Ox 100% on R/A; Pain 8/10; rv 17:59 BP 151 / 75; Pulse 117; Resp 19; Pulse Ox 96% on R/A; rv 18:30 BP 170 / 82; Pulse 113; Resp 19; Pulse Ox 97% on R/A; rv 19:00 BP 158 / 79; Pulse 112; Resp 17; Pulse Ox 96% on R/A; rv 19:15 BP 149 / 68; Pulse 114; Resp 18; Pulse Ox 96% on R/A; rv 20:00 BP 155 / 81; Pulse 113; Resp 18; Pulse Ox 98% on R/A; rv 20:30 BP 147 / 78; Pulse 106; Resp 18; Pulse Ox 99% on R/A; rv 21:00 BP 150 / 79; Pulse 101; Resp 18; Pulse Ox 98% on R/A; rv 22:00 BP 130 / 94; Pulse 99; Resp 17; Pulse Ox 99% on R/A; rv 22:30 BP 142 / 71; Pulse 95; Resp 18; Pulse Ox 98% on R/A; rv Procedures: 21:02 Joint Treatment: Aspiration of left knee using 18 gauge needle, Lidocaine, Removed 25 jr8 ml's of yellow fluid, Specimen sent to lab. Dressed with 4x4s, Patient tolerated well. MDM: 17:11 Patient medically screened. jr8 21:02 Data reviewed: vital signs, nurses notes, old medical records, lab test result(s), and jr8 as a result, I will admit patient. Data interpreted: Pulse oximetry: on room air is 96 %. Interpretation: normal. Counseling: I had a detailed discussion with the patient and/or guardian regarding: the historical points, exam findings, and any diagnostic results supporting the discharge/admit diagnosis, lab results, radiology results, the need for further work-up and treatment in the hospital. ED course: Dr. Solorio consulted and will admit patient . 22:19 ED course: Dr. Pritchett consulted and will see patient . 02/18 17:25 Order name: Blood Culture Adult (2) 02/18 17:25 Order name: Procalcitonin; Complete Time: 19:06 8 02/18 17:25 Order name: Basic Metabolic Panel; Complete Time: 19:06 8 02/18 17:25 Order name: CBC with Diff; Complete Time: 19:06 8 02/18 17:25 Order name: LFT's; Complete Time: 19:06 8 02/18 17:25 Order name: Magnesium; Complete Time: 19:06 8 02/18 17:25 Order name: NT PRO-BNP; Complete Time: 19:06 jr8 21 17:25 Order name: PT-INR; Complete Time: 19:06 02/18 17:25 Order name: Troponin (emerg Dept Use Only); Complete Time: 19:02/18 17:25 Order name: XRAY Chest (1 view); Complete Time: 19:06 02/18 20:26 Order name: Fluid Crystals; Complete Time: 20:56 02/18 20:26 Order name: Fluid Cell Count,Body; Complete Time: 22:29 02/18 20:26 Order name: Fluid Source 02/18 17:25 Order name: EKG; Complete Time: 17:26 02/18 17:25 Order name: Cardiac monitoring; Complete Time: 18:07 02/18 17:25 Order name: EKG - Nurse/Tech; Complete Time: 18:07 02/18 17:25 Order name: IV Saline Lock; Complete Time: 18:07 02/18 17:25 Order name: Labs collected and sent; Complete Time: 18:07 02/18 17:25 Order name: O2 Per Protocol; Complete Time: 18:07 02/18 17:25 Order name: O2 Sat Monitoring; Complete Time: 18:07 Administered Medications: 17:59 Drug: NS 0.9% 1000 ml Route: IV; Rate: 1000 ml; Site: right forearm; rv 19:21 Follow up: IV Status: Completed infusion; IV Intake: 1000ml rv 19:02 Drug: hydrALAZINE 10 mg Route: IV; Rate: calculated rate; Site: right antecubital; rv 22:56 Follow up: Response: Blood pressure is lowered; IV Status: Completed infusion rv 20:48 Drug: vancoMYCIN 1 grams Route: IVPB; Infused Over: 2 hrs; Site: right forearm; rv 22:57 Follow up: IV Status: Completed infusion; IV Intake: 250ml rv 20:49 Drug: Cefepime 1 grams Route: IVPB; Rate: 200 ml/hr; Infused Over: 30 mins; Site: right rv forearm; 22:57 Follow up: IV Status: Completed infusion; IV Intake: 100ml rv 20:49 Drug: NS 0.9% 1000 ml Route: IV; Rate: 75 ml/hr; Site: right forearm; rv 22:57 Follow up: IV Status: Completed infusion rv 22:40 Drug: fentaNYL (PF) 50 mcg {Note: rass 0.} Route: IVP; Site: right forearm; rv 22:58 Follow up: Response: No adverse reaction; RASS: Alert and Calm (0) rv 22:40 Drug: Zofran 4 mg Route: IVP; Site: right forearm; rv 22:58 Follow up: Response: No adverse reaction rv Disposition: 02/18/19 21:06 Hospitalization ordered by Karen Solorio for Inpatient Admission. Preliminary diagnosis is Cellulitis of left lower limb. - Bed requested for Telemetry/MedSurg (Inpatient). - Status is Inpatient Admission. rv - Condition is Stable. - Problem is new. - Symptoms have improved. UTI on Admission? No Addendum: 02/20/2019 15:17 Co-signature as Attending Physician, Karen Manning MD. m a2 Signatures: Dispatcher [employer] EDCT Shirlene Dickerson RN RN mw Roszak, Josh, PA PA jr8 Karen Manning MD MD il2 Rivera Marcos RN RN rv Corrections: (The following items were deleted from the chart) 02/18 22:03 21:06 Hospitalization Ordered by Karen Solorio MD for Inpatient Admission. Preliminary diagnosis is Cellulitis of left lower limb. Bed requested for Telemetry/MedSurg (Inpatient). Status is Inpatient Admission. Condition is Stable. Problem is new. Symptoms have improved. UTI on Admission? No. jr8 23:06 22:03 02/18/2019 21:06 Hospitalization Ordered by Karen Solorio MD for Inpatient rv Admission. Preliminary diagnosis is Cellulitis of left lower limb. Bed requested for Telemetry/MedSurg (Inpatient). Status is Inpatient Admission. Condition is Stable. Problem is new. Symptoms have improved. UTI on Admission? No. mw
[2019-02-18 21:19] LABS: Body Fluid Source SYNOVIAL
[2019-02-18 21:33] LABS: Appearance TURBID (CLEAR)
[2019-02-18 21:34] LABS: Color of fluid Pink (COLORLESS)
[2019-02-18 22:21] LABS: Body Fluid WBC 18092 /mm^3
[2019-02-18] MEDS ORDERED: ONDANSETRON 4 MG/2 ML VIAL ONE (22:37)
[2019-02-18] MEDS ORDERED: FENTANYL CITR 100 MCG/2 ML ONE (22:37)
[2019-02-18] MEDS ORDERED: PNEUMOCOCCAL VACCINE 0.5 ML IMVAC ONE (23:03)
[2019-02-18] MEDS: NA CHLORIDE 0.9% 1,000 ML IV SCH (23:22)
[2019-02-18 23:46] LABS: Urine Appearance CLEAR; Urine Bilirubin NEGATIVE (NEG); Urine Blood 1+ (NEG); Urine Color YELLOW; Urine Glucose NEGATIVE (NEG); Urine Protein 1+ (NEG); Urine Specific Gravity 1.015 (1.005-1.030); Urine Urobilinogen 0.2 mg/dL (0.2-1.0)
[2019-02-19 00:10] LABS: Urine Microscopic Reflex ORDER UMIC
[2019-02-19] MEDS: ONDANSETRON 4 MG/2 ML VIAL IV PRN ×2 (01:01→05:05)
[2019-02-19] MEDS: MORPHINE 4 MG/ML SYR IV PRN ×4 (01:01→20:32)
[2019-02-19 01:08] LABS: Urine Bacteria <20 /HPF (NONE SEEN); Urine Culture Reflex Order NOT NEEDED; Urine RBC <5 /HPF (NONE SEEN)
[2019-02-19 02:38] VITALS: BMI 19.9
--- NOTE | 2019-02-19 04:00 | P.HP ---
Certification for Inpatient Patient admitted to: Observation With expected LOS: <2 Midnights Patient will require the following post-hospital care: None Practitioner: I am a practitioner with admitting privileges, knowledge of patient current condition, hospital course, and medical plan of care. Services: Services provided to patient in accordance with Admission requirements found in Title 42 Section 412.3 of the Code of Federal Regulations Patient History Date of Service: 02/18/19 Reason for admission: Joint pain and joint effusion History of Present Illness: Patient is an 84-year-old gentleman who is been in the emergency room on multiple occasions for musculoskeletal pain and abdominal pain. His workups have been unremarkable. He started having pain in his left knee any came into the emergency room for evaluation. He had actually called EMS to bring him out to the hospital. His left knee is erythematous and swollen. He had minimal fluid drained from his left knee by the physician assistant professor of education in the emergency room. The laboratory data from the fluids are pending. I was told why the emergency room that he had calcium pyrophosphate crystals. 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 He will be admitted to the hospital for further evaluation. I was also notified that the skin overlying the left leg was also erythema this. I evaluated him after he had the arthrocentesis, and he does have some erythema and tenderness. this may be related to an inflammatory condition affecting the left knee. I doubt this is cellulitis. Will await labs before discontinuing the antibiotics. Allergies codeine Allergy (Verified 02/18/19 22:58) Rash Home Medications: Verapamil HCl [Verapamil ER] 1 tab PO DAILY 02/18/19 lisinopriL [Lisinopril] 1 tab PO DAILY 02/18/19 - Past Medical/Surgical History Diabetic: No -: gerd -: hypertension -: shingles -: carpel tunnel surgery -: carotid endarterectomy 1999 -: gall baldder removed -: colitis - Family History Mother Medical History: Cancer Father Medical History: Cancer - Social History Smoking Status: Never smoker Alcohol use: No CD- Drugs: No Caffeine use: Yes Place of Residence: Home Review of Systems 10-point ROS is otherwise unremarkable Physical Examination - Vital Signs Temperature: 98.1 F Blood Pressure: 170/82 Pulse: 108 Respirations: 20 Pulse Ox (%): 97 - Physical Exam General: Alert, In no apparent distress, Oriented x3 HEENT: Atraumatic, PERRLA, Mucous membr. moist/pink, EOMI, Sclerae nonicteric Neck: Supple, 2+ carotid pulse no bruit, No LAD, Without JVD or thyroid abnormality Respiratory: Clear to auscultation bilaterally, Normal air movement Cardiovascular: Regular rate/rhythm, Normal S1 S2, Systolic murmur Gastrointestinal: Normal bowel sounds, Soft and benign, Non-distended, No tenderness Musculoskeletal: Swelling, Erythema, Tenderness Integumentary: No rashes Neurological: Normal speech, Normal tone, Sensation intact, Cranial nerves 3-12 intact, Normal affect, Abnormal gait, Abnormal strength Lymphatics: No axilla or inguinal lymphadenopathy - Studies Laboratory Data (last 24 hrs) 02/18/19 17:45: PT 13.6 H, INR 1.16 02/18/19 17:45: WBC 13.5 H D, Hgb 13.6, Hct 41.7, Plt Count 192 02/18/19 17:45: Sodium 135 L, Potassium 4.8, BUN 24 H, Creatinine 1.73 H, Glucose 126 H, Magnesium 2.1, Total Bilirubin 0.9, AST 54 H, ALT 25, Alkaline Phosphatase 74 Assessment & Plan - Problems (Diagnosis) (1) Effusion of knee joint, left Current Visit: Yes Status: Acute (2) Cellulitis of leg, left Current Visit: Yes Status: Acute - Plan 1. Continue with IV antibiotic 2. Continue with local wound care 3. Orthopedic consultation 4. Gentle IV hydration 5. Monitor inflammatory markers; await cell count and Gram stain results 6. Strict blood sugar monitoring 7. Pain control with anti-inflammatories 8. GI and DVT prophylaxis Discharge Plan: Home Plan to discharge in: 48 Hours - Advance Directives Does patient have a Living Will: No Does patient have a Durable POA for Healthcare: No - Code Status/Comfort Care Code Status Assessed: Yes Code Status: Full Code Critical Care: No Time Spent Managing PTS Care (In Minutes): 45
[2019-02-19] MEDS: HYDROCORTISONE SUC 100 MG INJ IV SCH ×3 (05:05→20:33)
[2019-02-19 05:38] LABS: Absolute Lymphocytes (CBC) 0.8 K/uL (0.7-4.9); Basophils % 0.5 % (0-1.3); Hematocrit 36.7 % (39.6-49.0); Lymphocytes % 6.4 % (15.3-44.8); MPV 8.9 fL (7.6-11.3); RBC Red Blood Cell Count 3.94 M/uL (4.33-5.43)
[2019-02-19 05:57] LABS: Albumin 2.6 g/dL (3.4-5.0); Bilirubin Total 0.7 mg/dL (0.2-1.0); Potassium 4.7 mmol/L (3.5-5.1); Protein, Total 6.4 g/dL (6.4-8.2)
[2019-02-19] MEDS ORDERED: VANCOMYCIN 1.25 GM in NA CHLORIDE 0.9% 250 ML IVPB SCH (08:00)
[2019-02-19] MEDS ORDERED: VANCOMYCIN 1 GM in NA CHLORIDE 0.9% 500 ML IVPB SCH (09:00)
[2019-02-19] MEDS: lisinopriL 20 MG TAB PO SCH (09:06)
[2019-02-19] MEDS: VERAPAMIL SR 180 MG TAB PO SCH (09:07)
[2019-02-19] MEDS: ACETAMINOPHEN 500 MG TAB PO PRN (09:09)
[2019-02-19] MEDS ORDERED: PNEUMOCOCCAL VACCINE 0.5 ML IMVAC ONE (10:00)
[2019-02-19] MEDS: AMPICILLIN/SULB 1.5 GM/100 ML BAG IV SCH ×3 (10:08→16:00)
--- NOTE | 2019-02-19 10:41 | P.PN ---
Subjective Date of Service: 02/19/19 Chief Complaint: Joint pain and joint effusion Patient states his left knee pain and swelling have gone down. He is afebrile. Status post joint in the ED. Fluid analysis demonstrating crystals and elevated WBC. He is also complaining of posterior neck pain. Physical Examination - Vital Signs Temperature: 98.3 F Blood Pressure: 189/82 Pulse: 85 Respirations: 17 Pulse Ox (%): 97 - Physical Exam General: Alert, In no apparent distress, Oriented x3 Neck: Supple Respiratory: Clear to auscultation bilaterally, Normal air movement Cardiovascular: No edema, Regular rate/rhythm Gastrointestinal: Normal bowel sounds, Soft and benign, No tenderness Musculoskeletal: Other (Left knee is swollen and tender to palpation, and has reduced ROM.) - Studies Laboratory Data (last 24 hrs) 02/18/19 17:45: PT 13.6 H, INR 1.16 02/18/19 17:45: WBC 13.5 H D, Hgb 13.6, Hct 41.7, Plt Count 192 02/18/19 17:45: Sodium 135 L, Potassium 4.8, BUN 24 H, Creatinine 1.73 H, Glucose 126 H, Magnesium 2.1, Total Bilirubin 0.9, AST 54 H, ALT 25, Alkaline Phosphatase 74 Assessment And Plan - Current Problems (Diagnosis) (1) Pseudogout Current Visit: Yes Status: Acute (2) Effusion of knee joint, left Current Visit: Yes Status: Acute (3) Essential hypertension Current Visit: Yes Status: Acute - Plan Orthopedic input appreciated. Will continue IV steroid and antibiotics Pain management. PT and OT Follow joint fluid culture. Obtain CT cervical spine to further evaluate neck pain. Continue home antihypertensives.
--- NOTE | 2019-02-19 11:49 | RAD REPORT ---
EXAM DESCRIPTION: CT - C Spine Wo Con - 02/19/2019 11:38 am CLINICAL HISTORY: neck pain Headache, neck pain, radiculopathy COMPARISON: Chest Single View dated 02/18/2019 FINDINGS: The bones are mildly osteopenic. The cervical vertebral body heights and disc spaces are m aintained. Mild facet hypertrophy. The lower cervical spine. No evidence of acute cervical spine fracture or subluxation. Prevertebral soft tissues are normal in thickness. Atherosclerosis. IMPRESSION: Negative for acute cervical spine abnormality. Mild mid and lower cervical degenerative changes. All CT scans are performed using dose optimization technique as appropriate and may include automated exposure control or mA/KV adjustment according to patient size.
[2019-02-19] MEDS ORDERED: AMPICILLIN/SULBACT 1.5GM VIAL IVPB SCH (12:00)
[2019-02-19] MEDS: NA CHLORIDE 0.9% 1,000 ML IV SCH (12:51)
--- NOTE | 2019-02-19 16:46 | CON ---
Date of Consultation: 02/19/2019 Reason For Consultation: Left knee pain. History Of Present Illness: Mr. Guerra is an 84-year-old male, who reports increasing pain in his left knee over the last 2 weeks. He denies any injury to the left knee. He reports progressive pain with difficulty with ambulation. Patient denies any prior knee pain similar to this episode or any other joint pain similar to this type of pain. While in the emergency room he had an aspiration of his left knee, which demonstrated calcium pyrophosphate crystals. He was admitted to the floor for further evaluation and treatment recommendations. Past Medical History: Includes hypertension, GERD. Past Surgical History: Includes carpal tunnel surgery, carotid endarterectomy, and cholecystectomy. Social History: Denies tobacco, alcohol, or drug use. Lives at home. Physical Examination: General: No apparent distress. HEENT: Normocephalic, atraumatic. Neck: Supple. Cardiovascular: Brisk cap refill to all digits. Chest: Nonlabored breathing. Abdomen: Nondistended. Psychiatric: Response to exam. Musculoskeletal: Left lower extremity pain with range of motion in the left knee. Mild effusion of the left knee. No significant erythema or signs of an infection. Range of motion from 10 to 100 degrees with pain at extreme motion. Bilateral upper extremities functional range of motion without pain. No gross deformities, no obvious dislocations. Right lower extremity functional range of motion without pain. No gross deformities. No obvious dislocations. X-rays: X-rays of the left knee demonstrate no obvious fractures or dislocations. There are some degenerative changes with joint space narrowing and osteophyte formation, calcification of his vessels in the popliteal fossa also noted. Assessment And Plan: Mr. Guerra is an 84-year-old male with pseudogout flare up of his left knee. I discussed with Dr. Russo treatment measures. No surgical intervention indicated at this time. May proceed with conservative treatment measures. Appears to be a pseudogout flare up and proceeded to anti- inflammatories. Once patient is stable, mobilizing safely, may be discharged and can follow up in clinic as needed. CV/MODL Voice ID: [id number] Report ID: [id number] YUMIKO
[2019-02-20] MEDS: AMPICILLIN/SULB 1.5 GM/100 ML BAG IV SCH ×3 (00:45→16:34)
[2019-02-20] MEDS: NA CHLORIDE 0.9% 1,000 ML IV SCH ×3 (00:47→14:36)
[2019-02-20 05:02] LABS: Absolute Lymphocytes (CBC) 0.5 K/uL (0.7-4.9); Basophils % 0.2 % (0-1.3); Hematocrit 36.9 % (39.6-49.0); Lymphocytes % 3.5 % (15.3-44.8); MPV 8.8 fL (7.6-11.3); RBC Red Blood Cell Count 3.93 M/uL (4.33-5.43)
[2019-02-20 05:13] LABS: Potassium 4.7 mmol/L (3.5-5.1); Uric Acid 5.5 mg/dL (3.5-7.2)
[2019-02-20 05:22] LABS: Blood Morphology Comment NOT SEEN (NOT SEEN); Platelet Estimate ADEQ
[2019-02-20] MEDS: ACETAMINOPHEN 500 MG TAB PO PRN (08:37)
[2019-02-20] MEDS: VERAPAMIL SR 180 MG TAB PO SCH (08:38)
[2019-02-20] MEDS: lisinopriL 20 MG TAB PO SCH (08:38)
[2019-02-20] MEDS: HYDROCORTISONE SUC 100 MG INJ IV SCH (08:39)
[2019-02-20 10:49] VITALS: O2SAT 97
--- NOTE | 2019-02-20 12:44 | P.DS ---
Admission Date: 02/20/19 Discharge Date: 02/20/19 Disposition: ID HOME/HOME HEALTH CARE Discharge Condition: FAIR Reason for Admission: Joint pain and joint effusion Consultations: Orthopedic surgery-Dr. Pritchett. - Problems (1) Pseudogout Current Visit: Yes Status: Acute (2) Effusion of knee joint, left Current Visit: Yes Status: Acute (3) Essential hypertension Current Visit: Yes Status: Acute Brief History of Present Illness: 84-year-old gentleman with a history of hypertension presents to the ED with a complaint of left knee pain and swelling. He had mild leukocytosis in the ED. Joint aspiration was done in the ED and patient noted to have crystals. Joint fluid WBC count was up to 18,000. The patient was admitted for further management. Hospital Course: Patient admitted to the medical floor and started on IV steroid and IV antibiotic-Unasyn and vancomycin. He was seen and evaluated by Orthopedic Surgery-Dr. Pritchett recommended medical treatment with steroids. He received 2 days of antibiotics and IV steroid. His knee pain and swelling improved significantly. The patient reported very much improvement in his knee pain. ROM about the left knee joint also improved significantly. The patient was able to ambulate without assistance. He and the spouse was to follow up with Dr. Penaloza within 1 week. He is prescribed a short course of prednisone and empirical Augmentin. Weightbearing as tolerated. He is deemed clinically stable for discharge. Vital Signs/Physical Exam: Temp Pulse Resp BP Pulse Ox 97.9 F 78 20 165/77 H 97 02/20/19 08:00 02/20/19 08:38 02/20/19 08:00 02/20/19 08:38 02/20/19 08:00 General: Alert, In no apparent distress, Oriented x3 HEENT: Mucous membr. moist/pink Neck: Supple, JVD not distended Respiratory: Clear to auscultation bilaterally, Normal air movement Cardiovascular: No edema, Regular rate/rhythm, Normal S1 S2 Gastrointestinal: Soft and benign, No tenderness Musculoskeletal: Other (Left knee joint swelling and tenderness have resolved.) Integumentary: No rashes, No erythema Neurological: Normal speech, Normal strength at 5/5 x4 extr Laboratory Data at Discharge: WBC 13.3 K/uL (4.3-10.9) H 02/20/19 04:40 Hgb 12.2 g/dL (13.6-17.9) L 02/20/19 04:40 Hct 36.9 % (39.6-49.0) L 02/20/19 04:40 Plt Count 201 K/uL (152-406) 02/20/19 04:40 PT 13.6 SECONDS (9.5-12.5) H 02/18/19 17:45 INR 1.16 02/18/19 17:45 Sodium 138 mmol/L (136-145) 02/20/19 04:40 Potassium 4.7 mmol/L (3.5-5.1) 02/20/19 04:40 BUN 23 mg/dL (7-18) H 02/20/19 04:40 Creatinine 1.51 mg/dL (0.55-1.3) H 02/20/19 04:40 Glucose 129 mg/dL (74-106) H 02/20/19 04:40 Uric Acid 5.5 mg/dL (3.5-7.2) D 02/20/19 04:40 Magnesium 2.1 mg/dL (1.8-2.4) 02/18/19 17:45 Total Bilirubin 0.7 mg/dL (0.2-1.0) 02/19/19 05:23 AST 55 U/L (15-37) H 02/19/19 05:23 ALT 24 U/L (12-78) 02/19/19 05:23 Alkaline Phosphatase 68 U/L (45-117) 02/19/19 05:23 Home Medications: Verapamil HCl [Verapamil ER] 1 tab PO DAILY 02/18/19 lisinopriL [Lisinopril] 1 tab PO DAILY 02/18/19 Amox/Clavulanate [Augmentin 875-125 Tab] 1 each PO BID #14 tab 02/20/19 Tramadol HCl [Ultram] 50 mg PO Q6H PRN #30 tablet 02/20/19 predniSONE [Deltasone] 20 mg PO DAILY #5 tab 02/20/19 New Medications: Amox/Clavulanate [Augmentin 875-125 Tab] 1 each PO BID #14 tab predniSONE [Deltasone] 20 mg PO DAILY #5 tab Tramadol HCl [Ultram] 50 mg PO Q6H PRN #30 tablet PRN Reason: Knee pain Diet: AHA Activity: Fall precautions Followup: Hunter Penaloza MD [ACTIVE - CAN ADMIT] - 1 Week Time spent managing pt's care (in minutes): 36
[2019-02-20 13:56] LABS: Rheumatoid Factor NEG (NEG)
[2019-02-20 17:59] VITALS: BP 171/74; TEMP 97.1
== END 2019-02-20 18:49 | disposition home health service (06) | DRG 554 ==
LOC: ER 16:46 → 2ND 22:15 → OBSVTOIN 02-20 08:02
PROVIDERS: ADMIT Hospitalist; ATTEND Internal Medicine
PROC: 0S9D3ZX Drainage of Left Knee Joint, Percutaneous Approach, Diagnostic (ICD-10-PCS; principal; 2019-02-20)
DX: M11.262 Other chondrocalcinosis, left knee (principal); M25.462 Effusion, left knee; I10 Essential (primary) hypertension; K21.9 Gastro-esophageal reflux disease without esophagitis
CPT/HCPCS: 36415; 71045; 72125; 80048; 80053; 80076; 81003; 81015; 83735; 83880; 84145; 84484; 84550; 85025; 85610; 85652; 86038; 86140; 86200; 86225; 86430; 87040; 89050; 89060; 90471; 90670; 93971; 96361; 96365; 96366; 96367; 96368; 96374; 96375; 97116; 97161; 97530; 99284; 99285; G0378; J0295; J0360; J0692; J1720; J2270; J2405; J3010; J7030; J7040

== ENCOUNTER 2019-03-01 13:13 | Observation (INO) | payer OTHER ==
--- OUTSIDE RECORDS SUMMARY | 2019-03-01 13:15 | XMS REPORT ---
[...] Date Status Dosage System Date Verapamil HCl [facility] 92462363223 180 MG Orally Active 1 tablet ER Once a day Results No Known Results Summary Purpose eClinicalWorks Submission
--- OUTSIDE RECORDS SUMMARY | 2019-03-01 13:15 | XMS REPORT ---
[...] Status Dosage System Date Date Verapamil HCl [facility][NOTE 3] 98870461228 180 MG Orally Active 1 tablet ER Once a day Lisinopril [facility][NOTE 3] 35591710155 40 MG Active TAKE 1 TABLET BY MOUTH ONCE DAILY Bactroban [facility][NOTE 3] 17989345691 2 % Externally May Active 1 application Three times a 2018 to affected day area PredniSONE ND 38419991470 20 MG Oral Active not defined Verapamil HCl ND 26023275990 240 MG Orally April Active 1 tablet ER Once a day 2018 Atorvastatin ND 02763391472 20 MG Orally Active 1 tablet Calcium Once a day Results No Known Results Summary Purpose eClinicalWorks Submission
[2019-03-01 14:23] LABS: Absolute Lymphocytes (CBC) 0.6 K/uL (0.7-4.9); Basophils % 0.2 % (0-1.3); Hematocrit 41.7 % (39.6-49.0); Lymphocytes % 5.2 % (15.3-44.8); MPV 9.1 fL (7.6-11.3); RBC Red Blood Cell Count 4.46 M/uL (4.33-5.43)
[2019-03-01 14:26] LABS: Bilirubin Total 0.8 mg/dL (0.2-1.0); Potassium 5.3 mmol/L (3.5-5.1); Protein, Total 7.4 g/dL (6.4-8.2)
[2019-03-01] MEDS ORDERED: KETOROLAC 30 MG/ML INJ ONE (14:26)
[2019-03-01] MEDS ORDERED: METHYLPREDNISOLONE 125 MG INJ ONE (14:26)
[2019-03-01] MEDS ORDERED: NA CHLORIDE 0.9% 1,000 ML ONE (14:27)
[2019-03-01] MEDS ORDERED: ALBUTEROL 2.5 MG/3 ML NEB SOL ONE (15:32)
[2019-03-01] MEDS ORDERED: FUROSEMIDE 20 MG/ 2ML VIAL ONE (15:32)
[2019-03-01] MEDS ORDERED: D50W 25 GM/50 ML SYRINGE/VIAL IV ONE (15:33)
[2019-03-01] MEDS ORDERED: INSULIN -REGULAR HUMAN 50 UNIT/0.5 ML ML ONE (15:33)
--- NOTE | 2019-03-01 15:35 | ER ---
Nurse's Notes [facility] Name: Carlos Guerra Age: 84 yrs Sex: Male : 1935 Arrival Date: 03/01/2019 Time: 13:11 Bed 20 Private MD: Diagnosis: Other specified arthritis, left knee Presentation: 03/01 13:13 Presenting complaint: EMS states: Left knee pain that began yesterday, redness and sg swelling to the left knee that began today, reports having fluid removed from the knee several weeks ago, this is similar to that event. pt complaining of pain only in knee at this time, denies trauma or injury. Transition of care: patient was not received from another setting of care. Onset of symptoms was March 01, 2019. Risk Assessment: Do you want to hurt yourself or someone else? Patient reports no desire to harm self or others. Initial Sepsis Screen: Does the patient meet any 2 criteria? No. Patient's initial sepsis screen is negative. Does the patient have a suspected source of infection? No. Patient's initial sepsis screen is negative. Care prior to arrival: Medication(s) given: Tylenol, 1000 mg. 13:13 Method Of Arrival: EMS: [facility] sg 13:13 Acuity: CLAIRE 4 sg Historical: - Allergies: 13:15 Codeine; sedation; sg - Home Meds: 16:57 Hydrochlorothiazide Oral [Active]; Lipitor 10 mg Oral tab [Active]; lisinopril Oral iw [Active]; Norvasc Oral [Active]; - PMHx: 13:15 GERD; Hypertension; shingles; sg - Immunization history:: Adult Immunizations up to date. - Social history:: Smoking status: Patient/guardian denies using tobacco, Patient/guardian denies using alcohol, street drugs, The patient lives with family, . - Ebola Screening: : Patient negative for fever greater than or equal to 101.5 degrees Fahrenheit, and additional compatible Ebola Virus Disease symptoms Patient denies exposure to infectious person Patient denies travel to an Ebola-affected area in the 21 days before illness onset No symptoms or risks identified at this time. - Family history:: not pertinent. Screenin:20 Abuse screen: Denies threats or abuse. Denies injuries from another. Nutritional sg screening: No deficits noted. Tuberculosis screening: No symptoms or risk factors identified. Never had TB. Fall Risk None identified. Assessment: 13:20 General: Appears in no apparent distress. well groomed, well developed, well nourished, sg Behavior is calm, cooperative, appropriate for age. Pain: Complains of pain in left knee Quality of pain is described as aching, throbbing. Neuro: Level of Consciousness is awake, alert, obeys commands, Oriented to person, place, time, Speech is normal. Cardiovascular: Denies chest pain, diaphoresis, fatigue, lightheadedness, Capillary refill is brisk in bilateral fingers Chest pain is denied. Respiratory: Airway is patent Respiratory effort is even, unlabored, Respiratory pattern is regular, symmetrical. GI: Abdomen is flat, non-distended, Reports tolerance of fluids, tolerance of food. : No signs and/or symptoms were reported regarding the genitourinary system. EENT: No signs and/or symptoms were reported regarding the EENT system. Derm: Skin is pink, warm \T\ dry. Musculoskeletal: Circulation, motion, and sensation intact. Range of motion: intact in all extremities, Reports pain in left knee. Vital Signs: 13:12 BP 150 / 76; Pulse 83; Resp 20; Temp 97.6; Pulse Ox 97% on R/A; Weight 74.84 kg; Height sg 5 ft. 10 in. (177.80 cm); Pain 6/10; 16:40 BP 148 / 72; Pulse 82; Resp 20; Temp 97.6; Pulse Ox 98% on R/A; Pain 3/10; sg 13:12 Body Mass Index 23.67 (74.84 kg, 177.80 cm) ED Course: 13:11 Patient arrived in ED. sg 13:12 Karen Manning MD is Attending Physician. ma2 13:13 Arm band placed on. sg 13:15 Triage completed. sg 13:16 Hunter Dorado RN is Primary Nurse. sg 13:20 Patient has correct armband on for positive identification. Bed in low position. Call sg light in reach. Pulse ox on. NIBP on. 15:33 Luis Fontana MD is Hospitalizing Provider. ma2 17:10 No provider procedures requiring assistance completed. Patient admitted, IV remains in sg place. intact, No redness/swelling at site. Administered Medications: 14:30 Drug: NS 0.9% 1000 ml Route: IV; Rate: 1 bolus; Site: right forearm; sg 15:30 Follow up: Response: No adverse reaction; IV Status: Completed infusion; IV Intake: sg 1000ml 14:30 Drug: MethylPrednisoLONE 125 mg Route: IVP; Site: right forearm; sg 15:00 Follow up: Response: No adverse reaction sg 14:30 Drug: TORadol 30 mg Route: IVP; Site: right forearm; sg 15:40 Follow up: Response: No adverse reaction sg 15:40 Drug: Albuterol 2.5 mg Route: Inhalation; sg 15:40 Drug: Insulin Regular Human 5 units {Co-Signature: sv (Chely Plaza RN).} Route: sg IVP; Site: right forearm; 16:15 Follow up: Response: No adverse reaction sg 15:40 Drug: D50W 50 ml Route: IVP; Site: right forearm; sg 16:15 Follow up: Response: No adverse reaction sg 15:40 Drug: Lasix 20 mg Route: IVP; Site: right forearm; sg 16:00 Follow up: Response: No adverse reaction sg Intake: 15:30 IV: 1000ml; Total: 1000ml. sg Outcome: 15:34 Decision to Hospitalize by Provider. sherrill 17:10 Admitted to Med/surg sg 17:10 Condition: good 17:10 Instructed on the need for admit, safety practices, Demonstrated understanding of instructions. 17:17 Patient left the ED. sg Signatures: Hunter Dorado RN RN Nemo Castrejon RN RN Karen Manning MD MD nvIsaac patterson Corrections: (The following items were deleted from the chart) 13:48 13:20 Musculoskeletal: Circulation, motion, and sensation intact. Range of motion: sg intact in all extremities, sg
[2019-03-01] MEDS ORDERED: ACETAMINOPHEN 500 MG TAB PO PRN (15:36)
--- NOTE | 2019-03-01 15:36 | EDPHYS ---
Physician Documentation [facility] Name: Carlos Guerra Age: 84 yrs Sex: Male : 1935 Arrival Date: 03/01/2019 Time: 13:11 Bed 20 Private MD: ED Physician Karen Manning HPI: 03/01 15:25 This 84 yrs old Male presents to ER via EMS with complaints of Knee Pain. ma2 15:25 This 84 yrs old Male presents to ER via EMS with complaints of Knee Pain. ma2 15:25 Left knee arthritis diagnosed with pseudogout 10 days ago, resolved and now recurrent. ma2 Onset: The symptoms/episode began/occurred gradually, 1 week(s) ago. Severity of symptoms: At their worst the symptoms were severe in the emergency department the symptoms are unchanged. The patient has experienced a previous episode. Historical: - Allergies: 13:15 Codeine; sedation; sg - Home Meds: 16:57 Hydrochlorothiazide Oral [Active]; Lipitor 10 mg Oral tab [Active]; lisinopril Oral iw [Active]; Norvasc Oral [Active]; - PMHx: 13:15 GERD; Hypertension; shingles; sg - Immunization history:: Adult Immunizations up to date. - Social history:: Smoking status: Patient/guardian denies using tobacco, Patient/guardian denies using alcohol, street drugs, The patient lives with family, . - Ebola Screening: : Patient negative for fever greater than or equal to 101.5 degrees Fahrenheit, and additional compatible Ebola Virus Disease symptoms Patient denies exposure to infectious person Patient denies travel to an Ebola-affected area in the 21 days before illness onset No symptoms or risks identified at this time. - Family history:: not pertinent. ROS: 15:25 Constitutional: Negative for fever, chills, and weight loss. ma2 15:25 All other systems are negative. Exam: 15:25 Constitutional: This is a well developed, well nourished patient who is awake, alert, ma2 and in no acute distress. Chest/axilla: Normal chest wall appearance and motion. Nontender with no deformity. No lesions are appreciated. Cardiovascular: Regular rate and rhythm with a normal S1 and S2. No gallops, murmurs, or rubs. Normal PMI, no JVD. No pulse deficits. Respiratory: Lungs have equal breath sounds bilaterally, clear to auscultation and percussion. No rales, rhonchi or wheezes noted. No increased work of breathing, no retractions or nasal flaring. Abdomen/GI: Soft, non-tender, with normal bowel sounds. No distension or tympany. No guarding or rebound. No evidence of tenderness throughout. Skin: Warm, dry with normal turgor. Normal color with no rashes, no lesions, and no evidence of cellulitis. MS/ Extremity: + left knee effusion, Pulses equal, no cyanosis. Neurovascular intact. Full, normal range of motion. Neuro: Awake and alert, GCS 15, oriented to person, place, time, and situation. Cranial nerves II-XII grossly intact. Motor strength 5/5 in all extremities. Sensory grossly intact. Cerebellar exam normal. Normal gait. Vital Signs: 13:12 BP 150 / 76; Pulse 83; Resp 20; Temp 97.6; Pulse Ox 97% on R/A; Weight 74.84 kg; Height sg 5 ft. 10 in. (177.80 cm); Pain 6/10; 16:40 BP 148 / 72; Pulse 82; Resp 20; Temp 97.6; Pulse Ox 98% on R/A; Pain 3/10; sg 13:12 Body Mass Index 23.67 (74.84 kg, 177.80 cm) sg MDM: 13:12 Patient medically screened. ma2 15:25 Differential Diagnosis. Differential Diagnosis left knee arthritis, pseudogout vs gout ma2 . Data reviewed: vital signs, nurses notes. Counseling: I had a detailed discussion with the patient and/or guardian regarding: the historical points, exam findings, and any diagnostic results supporting the discharge/admit diagnosis, the presence of at least one elevated blood pressure reading (>120/80) during this emergency department visit, the need for outpatient follow up. Response to treatment: the patient's symptoms have mildly improved after treatment, the patient's symptoms have markedly improved after treatment. ED course: patient was diagnosed with pseudogout on 18/02/2019, that resolved with steroids, now he is back with same pain. also has hyperkalemia, given hyperkalemic treatment and steroid, he meets admission criteria as he is unable to walk, discussed with dr. Gallo, admitting physician, who advised to hold off IV steroid. . 03/01 13:40 Order name: CBC with Diff; Complete Time: 15:05 nc2 03/01 13:40 Order name: CMP; Complete Time: 14:44 nc2 03/01 13:40 Order name: ESR; Complete Time: 15:05 nc2 03/01 15:10 Interpretation: Abnormal. [facility] 03/01 13:40 Order name: CRP; Complete Time: 14:44 [facility] 03/01 15:42 Order name: CBC with Automated Diff EDMS 03/01 15:42 Order name: CBC with Automated Diff EDMS 03/01 15:42 Order name: Comprehensive Metabolic Panel EDMS 03/01 15:42 Order name: Comprehensive Metabolic Panel EDMS 03/01 15:42 Order name: CONS Pharmacy Consult EDMS 03/01 15:42 Order name: Regular EDMS 03/01 16:37 Order name: Diet Regular; Complete Time: 16:37 ms Administered Medications: 14:30 Drug: NS 0.9% 1000 ml Route: IV; Rate: 1 bolus; Site: right forearm; sg 15:30 Follow up: Response: No adverse reaction; IV Status: Completed infusion; IV Intake: sg 1000ml 14:30 Drug: MethylPrednisoLONE 125 mg Route: IVP; Site: right forearm; sg 15:00 Follow up: Response: No adverse reaction sg 14:30 Drug: TORadol 30 mg Route: IVP; Site: right forearm; sg 15:40 Follow up: Response: No adverse reaction sg 15:40 Drug: Albuterol 2.5 mg Route: Inhalation; sg 15:40 Drug: Insulin Regular Human 5 units {Co-Signature: sv Taylor Plaza RN).} Route: sg IVP; Site: right forearm; 16:15 Follow up: Response: No adverse reaction sg 15:40 Drug: D50W 50 ml Route: IVP; Site: right forearm; sg 16:15 Follow up: Response: No adverse reaction sg 15:40 Drug: Lasix 20 mg Route: IVP; Site: right forearm; sg 16:00 Follow up: Response: No adverse reaction sg Disposition: 03/01/19 15:34 Hospitalization ordered by Luis Fontana for Observation. Preliminary diagnosis is Other specified arthritis, left knee. - Bed requested for Telemetry/MedSurg (observation). - Status is Observation. sg - Condition is Stable. - Problem is new. - Symptoms are unchanged. UTI on Admission? No Signatures: Dispatcher [employer] Ruma Canales RN Hunter Youssef, RN Nemo Caro, RN BOBBY Karen Manning MD MD ma2 Chely Plaza RN sv Corrections: (The following items were deleted from the chart) 16:16 15:34 Hospitalization Ordered by Luis Fontana MD for Observation. Preliminary diagnosis dw is Other specified arthritis, left knee. Bed requested for Telemetry/MedSurg (observation). Status is Observation. Condition is Stable. Problem is new. Symptoms are unchanged. UTI on Admission? No. ma2 17:17 16:16 03/01/2019 15:34 Hospitalization Ordered by Luis Fontana MD for Observation. sg Preliminary diagnosis is Other specified arthritis, left knee. Bed requested for Telemetry/MedSurg (observation). Status is Observation. Condition is Stable. Problem is new. Symptoms are unchanged. UTI on Admission? No. dw
[2019-03-01 17:34] VITALS: O2SAT 98
[2019-03-01 17:54] VITALS: BMI 24.8
[2019-03-01] MEDS ORDERED: BISACODYL E.C. 5 MG TAB PO PRN (18:32)
[2019-03-01] MEDS ORDERED: IBUPROFEN 200 MG TAB PO PRN (18:32)
[2019-03-01] MEDS ORDERED: TRAMADOL HCL 50 MG TAB PO PRN (18:32)
[2019-03-01] MEDS ORDERED: ACETAMINOPHEN 325 MG TABLET PO PRN (18:32)
--- NOTE | 2019-03-01 18:44 | P.HP ---
Certification for Inpatient Patient admitted to: Observation With expected LOS: <2 Midnights Patient will require the following post-hospital care: Home Health Services Practitioner: I am a practitioner with admitting privileges, knowledge of patient current condition, hospital course, and medical plan of care. Services: Services provided to patient in accordance with Admission requirements found in Title 42 Section 412.3 of the Code of Federal Regulations Patient History Date of Service: 03/01/19 Primary Care Provider: Addi Reason for admission: Pseudogout History of Present Illness: Patient is an office patient of [employer]. He was in the hospital on 02/18. Had drainage of his knee which showed Calcium crystals. Was seen by Dr. Pritchett. There is no documentation of intrarticular injection. Was treated conservatively with NSAIDs. He went home. Was a little less active than normal. However for the past 3 days the patient has not been able to walk well. He has not fallen. Does not have any reported falls. The patient did not have injuries. He came to the ER. Was given IV steroids tonight. Which is not in the guidelines that I know of. Considering his advanced age and the risk of myopathy I felt it was prudent to keep him. Allergies codeine Allergy (Verified 03/01/19 17:25) Rash Home Medications: Verapamil HCl [Verapamil ER] 1 tab PO DAILY 02/18/19 lisinopriL [Lisinopril] 1 tab PO DAILY 02/18/19 Tramadol HCl [Ultram] 50 mg PO Q6H PRN #30 tablet 02/20/19 Acetaminophen [Tylenol] 1,000 mg PO Q6HP PRN 03/01/19 Ibuprofen [Advil] 200 mg PO Q6HP PRN 03/01/19 bisacodyL [Dulcolax] 5 mg PO DAILYPRN PRN 03/01/19 - Past Medical/Surgical History Has patient received pneumonia vaccine in the past: Yes Diabetic: No -: gerd -: hypertension -: shingles -: colitis -: carpel tunnel surgery -: carotid endarterectomy 1999 -: gall baldder removed -: colitis - Family History Mother -: Heart disease, Hypertension Notes: [place] Father -: Cancer - Social History Smoking Status: Former smoker Alcohol use: No CD- Drugs: No Caffeine use: Yes Place of Residence: Home Review of Systems 10-point ROS is otherwise unremarkable Musculoskeletal: Other (left knee pain) Physical Examination - Vital Signs Temperature: 97.6 F Blood Pressure: 148/72 Pulse: 82 Respirations: 20 - Physical Exam General: Alert, In no apparent distress HEENT: Atraumatic, PERRLA, Mucous membr. 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 ) Integumentary: No rashes Neurological: Normal gait, Normal speech, Normal strength at 5/5 x4 extr, Normal tone, Normal affect Lymphatics: No axilla or inguinal lymphadenopathy - Studies Laboratory Data (last 24 hrs) 03/01/19 13:59: Sodium 135 L, Potassium 5.3 H, BUN 28 H, Creatinine 1.73 H, Glucose 116 H, Total Bilirubin 0.8, AST 11 L, ALT 20, Alkaline Phosphatase 85 03/01/19 13:59: WBC 12.5 H, Hgb 13.7, Hct 41.7, Plt Count 243 D Assessment and Plan - Problems (Diagnosis) (1) Pseudogout Current Visit: No Status: Acute Plan: Will consider giving and intrarticular injection of the joint in the morning. Can continue the NSAIds. Will also see about having him evaluated by PT. Will see if we can get social problems specialist to get him some home health (2) Essential hypertension Current Visit: No Status: Acute Plan: Will start his verapamil. Control his pain. Adjust as needed (3) Protein-energy malnutrition Current Visit: Yes Status: Acute Plan: will check his albumin. However not needed for the diagnosis. He is an elderly patient who is less active. Will consider protein supplementations and PT Qualifiers: Protein-calorie malnutrition severity: mild Qualified Code(s): E44.1 - Mild protein-calorie malnutrition Discharge Plan: Home Plan to discharge in: 24 Hours - Advance Directives Does patient have a Living Will: No Does patient have a Durable POA for Healthcare: Yes - Code Status/Comfort Care Code Status Assessed: Yes Code Status: Do Not Attempt Resuscitat Physician Review: Patient Assessed, Agree with Above Assessment and Plan Critical Care: No Time Spent Managing Pts Care (In Minutes): 45
[2019-03-01] MEDS: INDOMETHACIN 25 MG CAP PO SCH (20:49)
[2019-03-02 04:25] LABS: Absolute Lymphocytes (CBC) 0.4 K/uL (0.7-4.9); Basophils % 0.1 % (0-1.3); Hematocrit 36.5 % (39.6-49.0); Lymphocytes % 2.6 % (15.3-44.8); MPV 9.3 fL (7.6-11.3); RBC Red Blood Cell Count 3.91 M/uL (4.33-5.43)
[2019-03-02 04:41] LABS: Albumin 2.5 g/dL (3.4-5.0); Bilirubin Total 0.5 mg/dL (0.2-1.0); Potassium 5.5 mmol/L (3.5-5.1); Protein, Total 6.6 g/dL (6.4-8.2)
[2019-03-02 06:59] LABS: Blood Morphology Comment NOT SEEN (NOT SEEN); Platelet Estimate ADEQ
[2019-03-02] MEDS ORDERED: lisinopriL 20 MG TAB PO SCH (09:00)
[2019-03-02] MEDS ORDERED: VERAPAMIL SR 180 MG TAB PO SCH (09:00)
[2019-03-02] MEDS ORDERED: TRIAMCINOLONE ACETON 40 MG/ML VIAL IM ONE (09:00)
[2019-03-02] MEDS ORDERED: LIDOCAINE 1% W/EPI 1:100,000 10 ML VIAL IV ONE (09:00)
[2019-03-02] MEDS: INDOMETHACIN 25 MG CAP PO SCH ×2 (10:30→15:58)
[2019-03-02] MEDS ORDERED: NA CHLORIDE 0.9% 500 ML IV SCH (11:00)
--- NOTE | 2019-03-02 11:08 | P.DS ---
Admission Date: 03/01/19 Discharge Date: 03/02/19 Primary Care Provider: Addi Disposition: ROUTINE DISCHARGE Discharge Condition: GOOD Reason for Admission: Pseudogout - Problems (1) Pseudogout Current Visit: No Status: Acute (2) Essential hypertension Current Visit: No Status: Acute (3) Protein-energy malnutrition Current Visit: Yes Status: Acute Qualifiers: Protein-calorie malnutrition severity: mild Qualified Code(s): E44.1 - Mild protein-calorie malnutrition (4) Hyperkalemia Current Visit: Yes Status: Acute (5) Acute on chronic renal failure Current Visit: Yes Status: Acute Qualifiers: Chronic kidney disease stage: stage 2 (mild) Brief History of Present Illness: Patient is an office patient of [employer]. He was in the hospital on 02/18. Had drainage of his knee which showed Calcium crystals. Was seen by Dr. Pritchett. There is no documentation of intrarticular injection. Was treated conservatively with NSAIDs. He went home. Was a little less active than normal. However for the past 3 days the patient has not been able to walk well. He has not fallen. Does not have any reported falls. The patient did not have injuries. He came to the ER. Was given IV steroids tonight. Which is not in the guidelines that I know of. Considering his advanced age and the risk of myopathy I felt it was prudent to keep him. Hospital Course: Patient presented for left knee pain. He was admitted as he was given 125mg of iv solumedrol. This concerned me for the risk of steroid myopathy. His knee pain is doing better after the steroid. His is at the bedside this morning. She gives more of the history. He was admitted for pseudogout on . Sent home on prednisone, tramadol and augmentin. The patients pain was controlled for 5 days, then he finished the course of prednisone. As per last night he then had 10 days of worsening pain. As this is his second admission for pseudogout made the decision to inject the knee. Will give him a list of probiotics to prevent diarrhea. Will send him home with indomethicin and protonix. Will also give him fluids for the hyperkalemia and the slight bump in his creatine. Will have him follow up with me. Thank you for allowing me to take part in her care Vital Signs/Physical Exam: Temp Pulse Resp BP Pulse Ox 97.3 F 57 18 185/80 H 96 03/02/19 08:00 03/02/19 08:00 03/02/19 08:00 03/02/19 08:00 03/02/19 08:00 General: Alert, In no apparent distress HEENT: Atraumatic, PERRLA, EOMI Neck: Supple, JVD not distended Respiratory: Clear to auscultation bilaterally, Normal air movement Cardiovascular: Regular rate/rhythm, Normal S1 S2 Gastrointestinal: Normal bowel sounds, No tenderness Musculoskeletal: No tenderness Integumentary: No rashes Neurological: Normal speech, Normal tone, Normal affect Lymphatics: No axilla or inguinal lymphadenopathy Laboratory Data at Discharge: WBC 14.5 K/uL (4.3-10.9) H D 03/02/19 03:50 Hgb 12.3 g/dL (13.6-17.9) L 03/02/19 03:50 Hct 36.5 % (39.6-49.0) L 03/02/19 03:50 Plt Count 224 K/uL (152-406) 03/02/19 03:50 Sodium 135 mmol/L (136-145) L 03/02/19 03:50 Potassium 5.5 mmol/L (3.5-5.1) H 03/02/19 03:50 BUN 35 mg/dL (7-18) H 03/02/19 03:50 Creatinine 1.95 mg/dL (0.55-1.3) H 03/02/19 03:50 Glucose 213 mg/dL (74-106) H 03/02/19 03:50 Total Bilirubin 0.5 mg/dL (0.2-1.0) 03/02/19 03:50 AST 8 U/L (15-37) L 03/02/19 03:50 ALT 17 U/L (12-78) 03/02/19 03:50 Alkaline Phosphatase 72 U/L (45-117) 03/02/19 03:50 Home Medications: RX: Verapamil HCl [Verapamil ER] 1 tab PO DAILY 02/18/19 RX: lisinopriL [Lisinopril] 1 tab PO DAILY 02/18/19 RX: Tramadol HCl [Ultram] 50 mg PO Q6H PRN #30 tablet 12/23/19 Acetaminophen [Tylenol] 1,000 mg PO Q6HP PRN 03/01/19 bisacodyL [Dulcolax] 5 mg PO DAILYPRN PRN 03/01/19 Pantoprazole Sodium [Protonix] 20 mg PO DAILY 14 Days #14 tablet. 03/02/19 RX: Indomethacin [Indocin*] 50 mg PO TID 6 Days #20 cap 03/02/19 New Medications: RX: Indomethacin [Indocin*] 50 mg PO TID 6 Days #20 cap Pantoprazole Sodium [Protonix] 20 mg PO DAILY 14 Days #14 tablet. Diet: AHA Activity: Fall precautions Time spent managing pt's care (in minutes): 45
[2019-03-02 18:27] VITALS: BP 144/63; TEMP 97.7
== END 2019-03-02 18:02 | disposition home health service (06) ==
LOC: ER 13:13 → ERHOLD 15:37 → 4TH 16:54
PROVIDERS: ADMIT Internal Medicine; ATTEND Internal Medicine
DX: M11.262 Other chondrocalcinosis, left knee (principal); I10 Essential (primary) hypertension; E44.1 Mild protein-calorie malnutrition; Z68.24 Body mass index [BMI] 24.0-24.9, adult; E87.5 Hyperkalemia; I12.9 Hypertensive chronic kidney disease with stage 1 through stage 4 chronic kidney disease, or unspecified chronic kidney disease; N18.2 Chronic kidney disease, stage 2 (mild); N17.9 Acute kidney failure, unspecified
CPT/HCPCS: 96361; 85025 ×2; 36415 ×2; 85652; 84134; 80053 ×2; 86140; 97116; 97161; 97530; 96375; 96374; 99285; J1940; J3301; J7040; J7030; J2930; G0378 ×3

== ENCOUNTER 2019-12-25 12:42 | Observation (INO) | payer OTHER ==
--- OUTSIDE RECORDS SUMMARY | 2019-12-25 12:50 | XMS REPORT | Clinical Summary ---
:1935 Author Organization [facility] Address [address] [place] [id number] Care Team Providers Name Role Phone Asked, No Pcp Primary Care Provider Unavailable Allergies Active Allergy Reactions Severity Noted Date Comments Codeine 12/03/2017 Hard to arouse Medications Medication Sig Dispensed Refills Start Date End Date Status lisinopril Take 20 mg by 0 Activ e (PRINIVIL,ZESTRIL) 20 mg mouth daily. tablet rivaroxaban (XARELTO) 20 Take 20 mg by 0 Active mg tablet mouth daily. metoprolol tartrate Take 25 mg by 0 Active (LOPRESSOR) 25 mg tablet mouth 2 (two) times a day. atorvastatin (LIPITOR) Take 40 mg by 0 Active 40 MG tablet mouth daily. amLODIPine (NORVASC) 10 Take 10 mg by 0 Active mg tablet mouth daily. Active Problems Not on file Surgical History Surgery Date Site/Laterality Comments CARDIAC ELECTROPHYSIOLOGY 12/03/2017 N/A Proced ure: Ep PROCEDURE cardioversion; Surgeon: Stacey Mir MD; Location: [facility]; Service: Cardiov ascular; Laterality: N/A; Medical History Medical History Date Comments Hypertension Hyperlipidemia Carotid artery occlusion Arrhythmia Social History Tobacco Use Types Packs/Day Years Used Date Former Smoker Smokeless Tobacco: Former User Alcohol Use Drinks/Week oz/Week Comments Yes Sex Assigned at Date Recorded Not on file Last Filed Vital Signs Not on file Plan of Treatment Not on file Results Not on fileafter 12/24/2018 Insurance Payer Benefit Plan / Subscriber ID Effective Phone Address T ype Group Dates MEDICARE MEDICARE PART [id number] 1999-Pres RHODES, T X Medicare A AND B ent STATE FARM INS STATE FARM INS [id number] 2017-Prese Commercial nt Advance Directives For more information, please contact: [phone] Type Date Recorded 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
--- OUTSIDE RECORDS SUMMARY | 2019-12-25 12:50 | XMS REPORT | Continuity of Care Document ---
:1935 Author Organization [employer] Care Team Providers Name Role Phone [employer] Unavailable Un available Problems No Data Provided for This Section Medications No Data Provided for This Section Allergies, Adverse Reactions, Alerts No Known Medication Allergies Immunizations No Data Provided for This Section Results No Data Provided for This Section Pathology Reports No Data Provided for This Section Diagnostic Reports No Data Provided for This Section Consultation Notes No Data Provided for This Section Discharge Summaries No Data Provided for This Section History and Physicals No Data Provided for This Section Vital Signs No Data Provided for This Section Encounters Location Location Encounter Encounter Reason Attending ADM TX Stat us Source Details Type Number For Provider Date Date Visit Outpatient [id number] ALY 04/13 Active [facility] [facility] Outside [id number] 06/22 06/24 [facility] Neurology Medical /2018 Neuro [place] Records Outpatient [id number] Aly 01/11 Active [facility] [place] Procedures No Data Provided for This Section Assessment and Plan No Data Provided for This Section Plan of Care No Data Provided for This Section Social History Social History Date Source No data available for this 06/24/2018 [facility] [place] Family History No Data Provided for This Section Advance Directives No Data Provided for This Section Functional Status No Data Provided for This Section
--- OUTSIDE RECORDS SUMMARY | 2019-12-25 12:50 | XMS REPORT | Continuity of Care Document ---
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 [facility] Pure Pure Problem Active [facility] hyperchole hyperchole Liana kes - sterolemia sterolemia [facility] BPH BPH Problem Active [facility] (benign (benign [facility] - prostatic prostatic Roger rio hypertroph hypertroph l y) with y) with Outpati urinary urinary ent obstructio obstructio Cl inics n n Male 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 [facility] 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 [facility] fibrillati fibrillati [facility] 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 l [facility]pat[facility] ent Clinics Allergies, Adverse Reactions, Alerts Allergy Allergy Status Severity Reaction(s) Onset Inactive Treating Comm ents Source Name Type Date Date Clinician Codeine Propensi Active 2017-03 Hard to [place] n ty to 0-05 arouse Methodi adverse 00:00: st reaction 00 s to drug codeine Adverse Active Info Not [facility] Reaction [facility] Social History Social Habit Start Date Stop Date Quantity Comments Source Sex Assigned At [facility] ethodi Social History 2018-06-24 2018-06-24 [facility] aleida 04:59:59 04:59:59 Tobacco use and 2017-12-09 2017-12-09 Former user [facility] [facility] exposure 00:00:00 00:00:00 Alcohol intake 2017-12-09 2017-12-09 Current drinker [place] [facility] 00:00:00 00:00:00 of alcohol (finding) Smoking Status Start Date Stop Date Source Former smoker 2017-12-09 00:00:00 2017-12-09 00:00:00 [facility] Medications Ordered Filled Start Stop Current Ordering Indication Dosage Frequency Signature Comments Components Source Medication Medication Date Date Medication? Clinician (SIG) Name Name lisinopril 2017-03 Yes 20mg QD Take 20 mg [place] (PRINIVIL,Z 0-05 by mouth Meth yasmine ESTRIL) 20 15:06: daily. st mg tablet 52 rivaroxaban 2017-03 Yes 20mg QD Take 20 mg [place] (XARELTO) 0-05 by mouth Method i 20 mg 15:06: daily. st tablet 52 metoprolol 2017-03 Yes 25mg Q.5D Take 25 mg [place] tartrate 0-05 by mouth 2 Metho di (LOPRESSOR) 15:06: (two) st 25 mg 52 times a tablet day. atorvastati 2017-03 Yes 40mg QD Take 40 mg [place] (LIPITOR) 0-05 by mouth Meth yasmine 40 MG 15:06: daily. st tablet 52 amLODIPine 2017-03 Yes 10mg QD Take 10 mg [place] (NORVASC) 0-05 by mouth Method i 10 mg 15:06: daily. st tablet 52 Verapamil Verapamil Yes Dave [address] [facility] HCl ER HCl ER [facility] ent Clinics Procedures This patient has no known procedures. Encounters Start End Encounter Admission Attending Care Care Encounter Source Date/Time Date/Time Type Type Clinicians Facility Department ID 2019-03-14 2019-03-14 Outpatient Jenni Domínguez [id number] [facility] 11:28:00 11:28:00 [facility] ent Clinics 2019-01-20 2019-01-20 Outpatient Jenni Domínguez [id number] [facility] 14:42:00 14:42:00 [facility] Medicine Outpati ent Clinics 2018-12-07 2018-12-07 [facility] [id number] [facility] 13:15:00 13:15:00 [facility] Medicine Outpati ent Clinics 2018-11-21 2018-11-21 [facility] [id number] [facility] 13:00:00 13:00:00 [facility] Medicine Outpati ent Clinics 2018-08-22 2018-08-22 [facility] [id number] [facility] 14:45:00 14:45:00 [facility] Medicine Outpat[facility] ent Clinics 2018-06-27 2018-06-27 [facility] [id number] [facility] 16:01:00 16:01:00 [facility] Medicine Outpat[facility] Clinics 2018-06-27 2018-06-27 [facility] [id number] [facility] 09:57:00 09:57:00 [facility] Medicine Outpat[facility] ent Clinics 2018-06-22 2018-06-23 Outpatient MHMISCHER MHMISCHER [id number] 13:07:00 23:59:59 00 2018-06-22 2018-06-23 Outpatient MHMISCHER MHMISCHER [id number] 13:07:00 23:59:59 00 2018-06-20 2018-06-20 [facility] [id number] [facility] 14:00:00 14:00:00 [facility] Medicine Outpat[facility] ent Clinics 2018-05-19 2018-05-19 [facility] [id number] [facility] 14:00:00 14:00:00 [facility] Medicine Out[facility] Clin[facility] 2018-05-05 2018-05-05 [facility] [id number] [facility] 14:30:00 14:30:00 [facility] Medicine Outpat[facility] ent Clinics 2017-09-07 2017-09-07 [facility] [id number] [address] 11:00:00 11:00:00 [facility] Medicine Outpati ent Clinics Results This patient has no known results.
--- NOTE | 2019-12-25 14:34 | RAD REPORT ---
EXAM DESCRIPTION: CT - Thorax Wo Con - 12/25/2019 2:04 pm CLINICAL HISTORY: right posterior rib pain, chest pain COMPARISON: Chest Single View dated 02/18/2019; Abdomen Wo Contrast dated 12/25/2019 TECHNIQUE: Axial 5 mm thick images of the chest were obtained without IV contrast. All CT scans are performed using dose optimization technique as appropriate and may include automated exposure control or mA/KV adjustment according to patient size. FINDINGS: Mild for age scarring changes are present in the lung parenchyma with no acute mass or inf iltrate. A few very small under 5 mm areas of nodularity are present. No pleural thickening or pleura l effusion. No pneumothorax. No abnormal mediastinal or hilar masses or lymphadenopathy seen. Ascending aorta is 3.9 cm in diamete r. Aortic arch is 3.2 cm in diameter in the midthoracic descending aorta is 2.9 cm in diameter. Calci fications are present in the vaca of the aortic arch and descending thoracic aorta. No displaced cherry cifications. Aortic assessment is incomplete in the absence of contrast. No pulmonary artery dilatati on. No pericardial effusion or thickening. No chest wall mass or abnormal axillary lymphadenopathy. No rib fracture or pathologic rib process. Upper thoracic kyphosis is present. No acute fracture. IMPRESSION: Chronic changes the chest as detailed. No acute findings.
--- NOTE | 2019-12-25 14:37 | RAD REPORT ---
EXAM DESCRIPTION: CT - Abdomen Wo Contrast - 12/25/2019 2:04 pm CLINICAL HISTORY: Right posterior rib pain s/p fall COMPARISON: No comparisons TECHNIQUE: Axial [address] imaging of the abdomen was performed. No IV contrast was adm inistered. No oral contrast administered. All CT scans are performed using dose optimization technique as appropriate and may include automated exposure control or mA/KV adjustment according to patient size. FINDINGS: No acute lung base finding. No rib fractures identified. No lumbar vertebral body compress ion fractures. Degenerative changes are present. No traumatic injury to the liver. Gallbladder is absent. No biliary tree dilatation. Pancreas and spl een show no suspicious findings. No hydronephrosis or suspicious renal mass. Isodense masses and pyelonephritis are not excluded on a non IV contrast study. A 1.7 centimeter cyst is present upper pole right kidney. A 2 point 8 centimet er cyst is present lower pole of the right kidney. No stranding or hematoma in the perinephric.No adr enal abnormality. No traumatic injury to the bowel. No acute bowel finding identifiable. No free air, free fluid or inf lammatory stranding. No mass or bulky lymphadenopathy. Exam sensitivity is decreased when no IV contrast is administered. IMPRESSION: Non contrast CT abdomen imaging showing no acute or emergent finding.
[2019-12-25] MEDS ORDERED: ACETAMINOPHEN 500 MG TAB ONE (14:52)
--- NOTE | 2019-12-25 14:59 | ER ---
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 Coronavirus screen: At this time, the client does not indicate any symptoms associated with coronavirus-19. Ebola Screen: Patient negative for fever greater than or equal to 101.5 degrees Fahrenheit, and additional compatible Ebola Virus Disease symptoms Patient denies exposure to infectious person. Patient denies travel to an Ebola-affected area in the 21 days before illness onset. No symptoms or risks identified at this time. Risk Assessment: Do you want to hurt yourself or someone else? Patient reports no desire to harm self or others. 12:55 Method Of Arrival: EMS: [facility] iw 12:55 Acuity: CLAIRE 3 iw 13:00 Initial Sepsis Screen: Does the patient meet any 2 criteria? No. Patient's initial iw sepsis screen is negative. Does the patient have a suspected source of infection? No. Patient's initial sepsis screen is negative. Onset of symptoms was December 09, 2019. Triage Assessment: 13:10 General: Appears in no apparent distress. Behavior is calm, cooperative. iw Musculoskeletal: Range of motion: intact in all extremities. Historical: - Allergies: 12:58 Codeine; sedation; iw - Home Meds: 16:15 verapamil 180 mg Oral C24P 1 cap once daily [Active]; finasteride 1 mg oral tab 1 tab iw once daily [Active]; Aricept 10 mg Oral tab 1 tab once daily [Active]; - PMHx: 12:58 GERD; Hypertension; shingles; iw - Immunization history:: Adult Immunizations up to date. - Social history:: Smoking status: Patient denies any tobacco usage or history of. Screenin:41 Abuse screen: Denies threats or abuse. Denies injuries from another. Nutritional iw screening: No deficits noted. Tuberculosis screening: No symptoms or risk factors identified. Fall Risk Fall in past 12 months (25 points). Assessment: 13:10 General: Appears in no apparent distress. Behavior is calm, cooperative, appropriate iw for age. Pain: Complains of pain in back and left leg. Neuro: Level of Consciousness is awake, alert, obeys commands, Oriented to person, place, time, situation, Moves all extremities. Full function. Cardiovascular: Denies chest pain, shortness of breath, Patient's skin is warm and dry. Respiratory: Respiratory effort is even, unlabored, Respiratory pattern is regular, symmetrical. GI: Abdomen is flat, non-distended. Derm: Skin is intact, is fragile, is thin. Musculoskeletal: Range of motion: intact in all extremities. 14:41 Reassessment: Patient appears in no apparent distress at this time. Patient and/or iw family updated on plan of care and expected duration. Pain level reassessed. pt requesting a tylenolMk notified. 15:09 Reassessment: Patient appears in no apparent distress at this time. Dr. Fontana at bedside to assess pt prior to d/c. 16:15 Reassessment: Patient appears in no apparent distress at this time. Patient and/or iw family updated on plan of care and expected duration. Pain level reassessed. Patient is alert, oriented x 3, equal unlabored respirations, skin warm/dry/pink. Vital Signs: 13:44 BP 215 / 103; Pulse 78; Resp 16; Temp 98.2; Pulse Ox 98% on R/A; iw 14:41 BP 198 / 96; Pulse 71; Resp 16; Pulse Ox 97% on R/A; iw 17:33 BP 159 / 85; Pulse 84; Resp 16; Pulse Ox 98% on R/A; iw ED Course: 12:44 Patient arrived in ED. iw 12:50 Nemo Castrejon, RN is Primary Nurse. iw 12:57 Triage completed. iw 12:58 Arm band placed on. iw 13:04 Mk Carter NP is PHCP. pm1 13:04 Jeffrey Dozier MD is Attending Physician. pm1 13:30 Patient has correct armband on for positive identification. iw 14:04 CT Chest Wo Con In Process Unspecified. EDMS 14:04 Abdomen Wo Contrast In Process Unspecified. EDMS 14:41 No provider procedures requiring assistance completed. Patient did not have IV access iw during this emergency room visit. 15:23 Luis Fontana MD is Hospitalizing Provider. pm1 15:50 Initial lab(s) drawn, by me, sent to lab. Inserted saline lock: 20 gauge in right iw antecubital area, using aseptic technique. Administered Medications: 14:42 Drug: Tylenol 500 mg Route: PO; iw 15:30 Follow up: Response: No adverse reaction iw 16:11 Drug: D5 -1/4 NS 250 ml Route: IV; Rate: bolus; Site: right antecubital; iw 16:49 Drug: hydrALAZINE 10 mg Route: IV; Rate: calculated rate; Site: right antecubital; iw Outcome: 14:58 Discharge ordered by . pm1 15:29 Decision to Hospitalize by Provider. pm1 17:46 Admitted to Med/surg accompanied by tech, family with patient, via stretcher, Report iw called to criselda 17:46 Condition: good 17:46 Discharge instructions given to patient, family, Instructed on the need for admit, Demonstrated understanding of instructions, follow-up care. 17:47 Patient left the ED. iw Signatures: Dispatcher [employer] Nemo Martinez RN RN iw Mk Carter NP RUBBER GOODS INSPECTOR pm1
--- NOTE | 2019-12-25 14:59 | EDPHYS ---
Physician Documentation [facility] Name: Carlos Guerra Age: 84 yrs Sex: Male : 1935 Arrival Date: 12/25/2019 Time: 12:44 Bed 13 Private MD: ED Physician Jeffrey Dozier HPI: 12/24 14:15 This 84 yrs old Male presents to ER via EMS with complaints of Left knee pm1 pain, Back Pain. 14:15 The patient presents with pain that is acute. The symptoms are located in the right mid pm1 back. Onset: The symptoms/episode began/occurred 2 week(s) ago. Associated signs and symptoms: Pertinent negatives: abdominal pain, chest pain, fever, headache, incontinence, numbness, tingling, weakness, shortness of breath. Severity of symptoms: in the emergency department the symptoms are unchanged. Patient with fall injury about two weeks ago. He was getting something out of the back of the car and when he tried to close the hatchback down he fell backwards. He fell against the closed garage door and slide down it. No headache, head injury or neck pain. He has had pain to right back area since the fall. No shortness of breath or chest pain present. Patient has chronic pain to left knee. Started March of this year. 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 No injury r swelling to left knee from fall. Historical: - Allergies: 12:58 Codeine; sedation; iw - Home Meds: 16:15 verapamil 180 mg Oral C24P 1 cap once daily [Active]; finasteride 1 mg oral tab 1 tab iw once daily [Active]; Aricept 10 mg Oral tab 1 tab once daily [Active]; - PMHx: 12:58 GERD; Hypertension; shingles; iw - Immunization history:: Adult Immunizations up to date. - Social history:: Smoking status: Patient denies any tobacco usage or history of. ROS: 14:15 Constitutional: Negative for fever, chills, and weight loss, Eyes: Negative for injury, pm1 pain, redness, and discharge, ENT: Negative for injury, pain, and discharge, Neck: Negative for injury, pain, and swelling, Cardiovascular: Negative for chest pain, palpitations, and edema, Respiratory: Negative for shortness of breath, cough, wheezing, and pleuritic chest pain, Abdomen/GI: Negative for abdominal pain, nausea, vomiting, diarrhea, and constipation. 14:15 Skin: Negative for injury, rash, and discoloration. 14:15 Back: Positive for injury or acute deformity, pain with movement, of the right mid back. 14:15 MS/extremity: Positive for pain, of the left knee, Negative for deformity, swelling. Exam: 14:15 Constitutional: This is a well developed, well nourished patient who is awake, alert, pm1 and in no acute distress. Head/Face: Normocephalic, atraumatic. Neck: Trachea midline, no thyromegaly or masses palpated, and no cervical lymphadenopathy. Supple, full range of motion without nuchal rigidity, or vertebral point tenderness. No Meningismus. 14:15 Skin: Warm, dry with normal turgor. Normal color with no rashes, no lesions, and no evidence of cellulitis. 14:15 Chest/axilla: Inspection: normal, Palpation: is normal. 14:15 Cardiovascular: Exam negative for acute changes, Rate: normal, Rhythm: regular, Pulses: no pulse deficits are appreciated. 14:15 Respiratory: Exam negative for acute changes, respiratory distress, shortness of breath. 14:15 Abdomen/GI: Exam negative for acute changes, Inspection: abdomen appears normal, Palpation: abdomen is soft and non-tender, in all quadrants. 14:15 Back: pain, that is mild, of the right mid back, tenderness, scoliosis vertebral tenderness, is not appreciated. 14:15 Musculoskeletal/extremity: Extremities: all appear grossly normal, with no appreciated pain with palpation, noted in the left knee: There is no evidence of deformity, pain, swelling, tenderness. 14:15 Neuro: Exam negative for acute changes, Orientation: is normal, Mentation: is normal, Motor: is normal, moves all fours, Sensation: is normal, no obvious gross deficits. Vital Signs: 13:44 BP 215 / 103; Pulse 78; Resp 16; Temp 98.2; Pulse Ox 98% on R/A; iw 14:41 BP 198 / 96; Pulse 71; Resp 16; Pulse Ox 97% on R/A; iw 17:33 BP 159 / 85; Pulse 84; Resp 16; Pulse Ox 98% on R/A; iw MDM: 13:04 Patient medically screened. hilda 14:40 ED course: Clarified with that she does not want imaging of his left knee because pm1 she said it is a chronic issue. 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 14:57 Data reviewed: vital signs. Data interpreted: Pulse oximetry: on room air is 97 %. pm1 Interpretation: normal. Counseling: I had a detailed discussion with the patient and/or guardian regarding: the historical points, exam findings, and any diagnostic results supporting the discharge/admit diagnosis, radiology results, the need for outpatient follow up, to return to the emergency department if symptoms worsen or persist or if there are any questions or concerns that arise at home. 15:21 Physician consultation: Luis Fontana MD in the emergency department to see patient at pm1 15:21, Labs, Food tray, bolus fluids and admission to the hospital. 16:20 ED course: Patient did not take his morning home medications. Blood pressure elevated. pm1 Will give hydralazine because patient will possibly be given home medication in the AM and I want to avoid overdosage with extended release verapamil. 12/24 15:20 Order name: CBC with Diff; Complete Time: 16:18 pm1 12/24 15:20 Order name: CMP; Complete Time: 16:28 pm1 12/24 13:33 Order name: CT Chest Wo Con; Complete Time: 14:41 pm1 12/24 15:20 Order name: Magnesium; Complete Time: 16:28 pm1 12/24 15:51 Order name: Vitamin D, 25 ([place]), TOTAL EDMS 12/24 13:41 Order name: Abdomen Wo Contrast; Complete Time: 14:41 EDMS 12/24 15:20 Order name: Diet Regular; Complete Time: 15:21 pm1 12/24 15:21 Order name: IV Saline Lock; Complete Time: 16:11 pm1 12/24 15:45 Order name: Social Service Consult EDMS Administered Medications: 14:42 Drug: Tylenol 500 mg Route: PO; iw 15:30 Follow up: Response: No adverse reaction iw 16:11 Drug: D5 -1/4 NS 250 ml Route: IV; Rate: bolus; Site: right antecubital; iw 16:49 Drug: hydrALAZINE 10 mg Route: IV; Rate: calculated rate; Site: right antecubital; iw Disposition: 12/25 08:02 Co-signature as Attending Physician, Jeffrey Dozier MD I agree with the assessment and hilda plan of care. Disposition: 12/25/19 15:29 Hospitalization ordered by Luis Fontana for Inpatient Admission. Preliminary diagnosis are Weakness - Generalized, Altered mental status, unspecified, Fall on same level, unspecified, Dorsalgia - right mid back. - Bed requested for Telemetry/MedSurg (Inpatient). - Status is Inpatient Admission. iw - Condition is Stable. - Problem is new. - Symptoms are unchanged. Signatures: Dispatcher [employer] EDND Ruma Dickson, Jeffrey Pinedo RN, MD MD cha Williams, Irene, RN RN iw Marinas, Patrick, WASH PLANT OPERATOR WASH PLANT OPERATOR pm1 Corrections: (The following items were deleted from the chart) 12/24 13:41 13:36 CT-ABDOMEN WITHOUT CONTRAST ordered. [facility] 15:18 14:58 12/25/2019 14:58 Discharged to Home. Impression: Contusion of right back wall of pm1 thorax. Condition is Stable. Forms are Medication Reconciliation Form, Thank You Letter, Antibiotic Education, Prescription Opioid Use. Follow up: Emergency Department; When: As needed; Reason: Worsening of condition. Follow up: Private Physician; When: 2 - 3 days; Reason: Recheck today's complaints, Continuance of care, Re-evaluation by your physician. Problem is new. Symptoms have improved. pm1 15:31 15:29 Hospitalization Ordered by Luis Fontana MD for Observation. Preliminary diagnosis pm1 is Weakness - Generalized; Altered mental status, unspecified. Bed requested for Telemetry/MedSurg (observation). Status is Observation. Condition is Stable. Problem is new. Symptoms are unchanged. pm1 15:32 15:31 12/25/2019 15:29 Hospitalization Ordered by Luis Fontana MD for Observation. pm1 Preliminary diagnosis is Weakness - Generalized; Altered mental status, unspecified; Fall on same level, unspecified; Dorsalgia - right mid back. Bed requested for Telemetry/MedSurg (observation). Status is Observation. Condition is Stable. Problem is new. Symptoms are unchanged. pm1 16:27 16:20 ED course: Patient did not take his morning home medications. Blood pressure pm1 elevated. Will order his home blood pressure medication. pm1 16:52 15:32 12/25/2019 15:29 Hospitalization Ordered by Luis Fontana MD for Inpatient dw Admission. Preliminary diagnosis is Weakness - Generalized; Altered mental status, unspecified; Fall on same level, unspecified; Dorsalgia - right mid back. Bed requested for Telemetry/MedSurg (Inpatient). Status is Inpatient Admission. Condition is Stable. Problem is new. Symptoms are unchanged. pm1 17:47 16:52 12/25/2019 15:29 Hospitalization Ordered by Luis Fontana MD for Inpatient iw Admission. Preliminary diagnosis is Weakness - Generalized; Altered mental status, unspecified; Fall on same level, unspecified; Dorsalgia - right mid back. Bed requested for Telemetry/MedSurg (Inpatient). Status is Inpatient Admission. Condition is Stable. Problem is new. Symptoms are unchanged. dw
--- NOTE | 2019-12-25 15:39 | P.HP ---
Certification for Inpatient Patient admitted to: Observation With expected LOS: <2 Midnights Patient will require the following post-hospital care: Retirement Practitioner: I am a practitioner with admitting privileges, knowledge of patient current condition, hospital course, and medical plan of care. Services: Services provided to patient in accordance with Admission requirements found in Title 42 Section 412.3 of the Code of Federal Regulations Patient History Date of Service: 12/25/19 Primary Care Provider: Addi Reason for admission: delirium History of Present Illness: Patient is an office patient of [employer]. He has a history of mild cognitive impairment and protein energy malnutrition. The patient was supposed to start home PT today. However his could not get him out of bed this morning She stated that he was too weak an could not stand up. As there was no way to get him up and she did not have anyone to call she called EMS. In the ER he had a negative ct scan of his back and had no complaints However his bp was very elevated. The patient asked repeatedly about going home. However his is not sure she can take him. He has had several near falls the entire time. Allergies codeine Allergy (Verified 03/01/19 17:25) Rash Home Medications: Verapamil HCl [Verapamil ER] 1 tab PO DAILY 02/18/19 lisinopriL [Lisinopril] 1 tab PO DAILY 02/18/19 Tramadol HCl [Ultram] 50 mg PO Q6H PRN #30 tablet 02/20/19 Acetaminophen [Tylenol] 1,000 mg PO Q6HP PRN 03/01/19 bisacodyL [Dulcolax] 5 mg PO DAILYPRN PRN 03/01/19 Indomethacin [Indocin*] 50 mg PO TID 6 Days #20 cap 03/02/19 Pantoprazole Sodium [Protonix] 20 mg PO DAILY 14 Days #14 tablet. 03/02/19 - Past Medical/Surgical History Diabetic: No -: gerd -: hypertension -: shingles -: colitis -: carpel tunnel surgery -: carotid endarterectomy 1999 -: gall baldder removed -: colitis - Family History Mother -: Heart disease, Hypertension Notes: [place] Father -: Cancer - Social History Alcohol use: No CD- Drugs: No Caffeine use: Yes Review of Systems 10-point ROS is otherwise unremarkable General: Weakness Musculoskeletal: Back Pain Neurological: Weakness, Confusion Physical Examination - Physical Exam General: Alert, In no apparent distress HEENT: Atraumatic, PERRLA, Mucous membr. moist/pink, EOMI, Sclerae nonicteric Neck: Supple, 2+ carotid pulse no bruit, No LAD, Without JVD or thyroid abnormality Respiratory: Clear to auscultation bilaterally, Normal air movement Cardiovascular: Regular rate/rhythm, Normal S1 S2 Gastrointestinal: Normal bowel sounds, No tenderness Musculoskeletal: No tenderness Integumentary: No rashes Neurological: Normal gait, Normal speech, Normal tone, Normal affect, Abnormal strength (He has slight weakness on the left side in comparison to the right. ) Lymphatics: No axilla or inguinal lymphadenopathy Assessment and Plan - Problems (Diagnosis) (1) Delirium due to another medical condition Current Visit: Yes Status: Acute Plan: patient has been geting weaker and more bed bound. He has been asking the same questions repeatedly. Has been having blood pressures in the 200's and is taking off his monitoring devices. Will admit. Put him on fall precautions. Have Pt ambulate the patient. (2) Severe protein-calorie malnutrition Current Visit: Yes Status: Acute Plan: As stated above. We may consider a snf or in pt rehab. However he is not very likely to qualify. Will discuss with the social work nurse in the morning. Hopefully if we can get him stronger and more mobile will improve his mentation and his home safety. (3) Essential hypertension Current Visit: No Status: Acute Plan: Patient is very elevated. He is on lisinopirl 40 only. Will check his kidney function. Start him on intermittent hydralazine to get his bp down to around 180 for tonight. Will try to get him lower tomorrow. However do not want to drop him too rapidly as that could be dangerous. Discharge Plan: LTAC Plan to discharge in: 48 Hours - Advance Directives Does patient have a Living Will: No Does patient have a Durable POA for Healthcare: Yes - Code Status/Comfort Care Code Status Assessed: Yes Code Status: Do Not Attempt Resuscitat Physician Review: Patient Assessed, Agree with Above Assessment and Plan Critical Care: No Time Spent Managing Pts Care (In Minutes): 45
[2019-12-25] MEDS ORDERED: D5 0.2 NS 1,000 ML IV ONE (15:44)
[2019-12-25 16:14] LABS: Absolute Lymphocytes (CBC) 0.9 K/uL (0.7-4.9); Basophils % 0.4 % (0-1.3); Hematocrit 45.6 % (39.6-49.0); Lymphocytes % 12.4 % (15.3-44.8); MPV 8.9 fL (7.6-11.3); RBC Red Blood Cell Count 4.87 M/uL (4.33-5.43)
[2019-12-25 16:27] LABS: Albumin 4.3 g/dL (3.4-5.0); Bilirubin Total 0.8 mg/dL (0.2-1.0); Magnesium 2.5 mg/dL (1.8-2.4); Potassium 4.2 mmol/L (3.5-5.1); Protein, Total 8.8 g/dL (6.4-8.2)
[2019-12-25] MEDS ORDERED: HYDRALAZINE HCL 20 MG/ML VIAL ONE (16:57)
[2019-12-25 18:16] VITALS: BMI 23.2
[2019-12-25] MEDS: ENOXAPARIN 30 MG/0.3 ML SQ SCH (18:31)
[2019-12-25] MEDS ORDERED: PNEUMOCOCCAL VACCINE 0.5 ML IMVAC ONE (20:00)
[2019-12-25] MEDS: DONEPEZIL HCL 5 MG TAB PO SCH (20:15)
[2019-12-25] MEDS: HYDRALAZINE HCL 20 MG/ML VIAL IV PRN (20:22)
[2019-12-25] MEDS ORDERED: D5 0.45 NS 500 ML IV SCH (21:00)
[2019-12-26 06:31] LABS: Magnesium 2.2 mg/dL (1.8-2.4); Potassium 4.4 mmol/L (3.5-5.1)
[2019-12-26] MEDS ORDERED: ACETAMINOPHEN 500 MG TAB PO PRN (08:39)
--- NOTE | 2019-12-26 08:42 | P.PN ---
Subjective Date of Service: 12/26/19 Primary Care Provider: Addi Chief Complaint: delirium Subjective: Improving (sitting up and eating breakfast) Review of Systems 10-point ROS is otherwise unremarkable General: Weakness Physical Examination - Vital Signs Temperature: 98.2 F Blood Pressure: 178/82 Pulse: 86 Respirations: 16 Pulse Ox (%): 94 - Physical Exam General: Alert, In no apparent distress HEENT: Atraumatic, PERRLA, EOMI Neck: Supple, JVD not distended Respiratory: Clear to auscultation bilaterally, Normal air movement Cardiovascular: Regular rate/rhythm, Normal S1 S2 Gastrointestinal: Normal bowel sounds, No tenderness Musculoskeletal: No tenderness Integumentary: No rashes Neurological: Normal speech, Normal tone, Normal affect Lymphatics: No axilla or inguinal lymphadenopathy Assessment & Plan - Problems (Diagnosis) (1) Acute on chronic renal failure Current Visit: No Status: Acute Plan: most likely prerenal or due to htn Controlling blood pressure he got some gentle fluids. The patient is almost back to baseline. Will hydrate him with another 250 cc on d5 1/2 N saline Qualifiers: Chronic kidney disease stage: stage 3 (moderate) (2) Delirium due to another medical condition Current Visit: Yes Status: Acute Plan: patient has been geting weaker and more bed bound. He has been asking the same questions repeatedly. Has been having blood pressures in the 200's and is taking off his monitoring devices. Will admit. Put him on fall precautions. Have Pt ambulate the patient. (3) Severe protein-calorie malnutrition Current Visit: Yes Status: Acute Plan: As stated above. We may consider a snf or in pt rehab. However he is not very likely to qualify. Will discuss with the sr. social media & mobile manager in the morning. Hopefully if we can get him stronger and more mobile will improve his mentation and his home safety. 12/25 discussed placement with social workers (4) Essential hypertension Current Visit: No Status: Acute Plan: Patient is very elevated. He is on lisinopirl 40 only. Will check his kidney function. Start him on intermittent hydralazine to get his bp down to around 180 for tonight. Will try to get him lower tomorrow. However do not want to drop him too rapidly as that could be dangerous. 12/25 He is at goal Will restart his home verapamil Discharge Plan: LTAC Plan to discharge in: 24 Hours - Code Status/Comfort Care Code Status Assessed: No Physician Review: Patient Assessed, Agree with Above Assessment and Plan Critical Care: No Time Spent Managing Pts Care (In Minutes): 20
[2019-12-26] MEDS: FINASTERIDE 1 MG PO SCH (08:48)
[2019-12-26] MEDS: VERAPAMIL SR 180 MG TAB PO SCH (09:00)
[2019-12-26] MEDS: HYDRALAZINE HCL 20 MG/ML VIAL IV PRN (12:26)
[2019-12-26] MEDS: ENOXAPARIN 30 MG/0.3 ML SQ SCH (16:09)
[2019-12-26] MEDS: D5 0.45 NS 1,000 ML IV SCH (16:13)
[2019-12-26 16:49] LABS: Urine Appearance CLEAR; Urine Bilirubin NEGATIVE (NEG); Urine Blood NEGATIVE (NEG); Urine Color YELLOW; Urine Glucose NEGATIVE (NEG); Urine Protein 2+ (NEG); Urine Specific Gravity 1.015 (1.005-1.030); Urine Urobilinogen 0.2 mg/dL (0.2-1.0)
[2019-12-26 17:23] LABS: Urine Bacteria <20 /HPF (NONE SEEN); Urine Culture Reflex Order NOT NEEDED; Urine RBC <5 /HPF (NONE SEEN)
[2019-12-26] MEDS: DONEPEZIL HCL 5 MG TAB PO SCH (20:34)
[2019-12-27] MEDS: D5 0.45 NS 1,000 ML IV SCH (05:48)
[2019-12-27] MEDS: FINASTERIDE 1 MG PO SCH (08:23)
[2019-12-27] MEDS: HYDRALAZINE HCL 20 MG/ML VIAL IV PRN (08:23)
[2019-12-27 08:27] VITALS: O2SAT 95
[2019-12-27] MEDS: VERAPAMIL SR 180 MG TAB PO SCH (09:00)
[2019-12-27] MEDS ORDERED: VERAPAMIL SR 240 MG TABLET PO SCH (09:00)
--- NOTE | 2019-12-27 09:04 | P.PN ---
Subjective Date of Service: 12/27/19 Primary Care Provider: Addi Chief Complaint: delirium Subjective: No new changes Review of Systems 10-point ROS is otherwise unremarkable Physical Examination - Vital Signs Temperature: 97.9 F Blood Pressure: 204/98 Pulse: 88 Respirations: 17 Pulse Ox (%): 95 - Physical Exam General: Alert, In no apparent distress HEENT: Atraumatic, PERRLA, EOMI Neck: Supple, JVD not distended Respiratory: Clear to auscultation bilaterally, Normal air movement Cardiovascular: Regular rate/rhythm, Normal S1 S2 Gastrointestinal: Normal bowel sounds, No tenderness Musculoskeletal: No tenderness Integumentary: No rashes Neurological: Normal speech, Normal tone, Normal affect Lymphatics: No axilla or inguinal lymphadenopathy Assessment & Plan - Problems (Diagnosis) (1) Acute on chronic renal failure Current Visit: No Status: Acute Plan: most likely prerenal or due to htn Controlling blood pressure he got some gentle fluids. The patient is almost back to baseline. Will hydrate him with another 250 cc on d5 / N saline 12/26 Patient is doing well. Will d/c fluids he is almost back at baseline Qualifiers: Chronic kidney disease stage: stage 3 (moderate) (2) Severe protein-calorie malnutrition Current Visit: Yes Status: Acute Plan: As stated above. We may consider a snf or in pt rehab. However he is not very likely to qualify. Will discuss with the manager social responsibility in the morning. Hopefully if we can get him stronger and more mobile will improve his mentation and his home safety. 12/26 discussed placement with manager social responsibility. He ambulated 130 feet yesterday. He seems to be a good candidate for inpatient rehab (3) Essential hypertension Current Visit: No Status: Acute Plan: Patient is very elevated. He is on lisinopirl 40 only. Will check his kidney function. Start him on intermittent hydralazine to get his bp down to around 180 for tonight. Will try to get him lower tomorrow. However do not want to drop him too rapidly as that could be dangerous. 12/25 He is at goal Will restart his home verapamil (4) Delirium due to another medical condition Current Visit: Yes Status: Resolved Plan: patient has been geting weaker and more bed bound. He has been asking the same questions repeatedly. Has been having blood pressures in the 200's and is taking off his monitoring devices. Will admit. Put him on fall precautions. Have Pt ambulate the patient. 12/26 PT back at baseline Discharge Plan: LTAC Plan to discharge in: 24 Hours - Code Status/Comfort Care Code Status Assessed: No Physician Review: Patient Assessed, Agree with Above Assessment and Plan Critical Care: No Time Spent Managing Pts Care (In Minutes): 20
--- NOTE | 2019-12-27 11:06 | P.DS ---
Admission Date: 12/25/19 Discharge Date: 12/27/19 Primary Care Provider: Addi Disposition: TRANSFER TO INPATIENT REHAB Discharge Condition: GOOD Reason for Admission: delirium - Problems (1) Acute on chronic renal failure Current Visit: No Status: Acute Qualifiers: Chronic kidney disease stage: stage 3 (moderate) (2) Severe protein-calorie malnutrition Current Visit: Yes Status: Acute (3) Essential hypertension Current Visit: No Status: Acute (4) Delirium due to another medical condition Current Visit: Yes Status: Resolved Brief History of Present Illness: Patient is an office patient of [employer]. He has a history of mild cognitive impairment and protein energy malnutrition. The patient was supposed to start home PT today. However his could not get him out of bed this morning She stated that he was too weak an could not stand up. As there was no way to get him up and she did not have anyone to call she called EMS. In the ER he had a negative ct scan of his back and had no complaints However his bp was very elevated. The patient asked repeatedly about going home. However his is not sure she can take him. He has had several near falls the entire time. Hospital Course: Patient was admitted for delirum, acute on chronic renal failure and sever protein energy malnutrition. He was put on gently hydration on the floor. Ambulated with PT and the patient was evaluated by in patient rehab. He was accepted today and we will be transfering him upstairs. Will have him follow up with me after his discharge. Vital Signs/Physical Exam: Temp Pulse Resp BP Pulse Ox 97.9 F 88 17 204/98 H 95 12/27/19 09:03 12/27/19 10:30 12/27/19 09:03 12/27/19 10:30 12/27/19 09:03 General: Alert, In no apparent distress HEENT: Atraumatic, PERRLA, EOMI Neck: Supple, JVD not distended Respiratory: Clear to auscultation bilaterally, Normal air movement Cardiovascular: Regular rate/rhythm, Normal S1 S2 Gastrointestinal: Normal bowel sounds, No tenderness Musculoskeletal: No tenderness Integumentary: No rashes Neurological: Normal speech, Normal tone, Normal affect Lymphatics: No axilla or inguinal lymphadenopathy Laboratory Data at Discharge: WBC 7.6 K/uL (4.3-10.9) 12/25/19 15:50 Hgb 15.6 g/dL (13.6-17.9) 12/25/19 15:50 Hct 45.6 % (39.6-49.0) 12/25/19 15:50 Plt Count 190 K/uL (152-406) 12/25/19 15:50 Sodium 142 mmol/L (136-145) 12/26/19 06:02 Potassium 4.4 mmol/L (3.5-5.1) 12/26/19 06:02 BUN 24 mg/dL (7-18) H 12/26/19 06:02 Creatinine 1.87 mg/dL (0.55-1.3) H 12/26/19 06:02 Glucose 115 mg/dL (74-106) H 12/26/19 06:02 Magnesium 2.2 mg/dL (1.8-2.4) 12/26/19 06:02 Total Bilirubin 0.8 mg/dL (0.2-1.0) 12/25/19 15:50 AST 28 U/L (15-37) 12/25/19 15:50 ALT 21 U/L (12-78) 12/25/19 15:50 Alkaline Phosphatase 135 U/L (45-117) H 12/25/19 15:50 Home Medications: Verapamil HCl [Verapamil ER] 1 tab PO DAILY 02/18/19 Acetaminophen [Tylenol] 1,000 mg PO Q6HP PRN 03/01/19 bisacodyL [Dulcolax] 5 mg PO DAILYPRN PRN 03/01/19 Pantoprazole Sodium [Protonix] 20 mg PO DAILY 14 Days #14 tablet. 03/02/19 Donepezil [Aricept*] 10 mg PO BEDTIME 12/25/19 Finasteride [Propecia] 1 mg PO DAILY 12/25/19 Diet: Regular Activity: Fall precautions Followup: Luis Fontana MD [Primary Care Provider] - (1 month )
[2019-12-27 12:48] VITALS: BP 146/80; TEMP 97.7
== END 2019-12-27 12:55 ==
LOC: SUPCPDRO 12:42 → ER 12:42 → ERHOLD 15:47 → 2ND 17:24
PROVIDERS: ADMIT Internal Medicine; ATTEND Internal Medicine
DX: N17.9 Acute kidney failure, unspecified (principal); I12.9 Hypertensive chronic kidney disease with stage 1 through stage 4 chronic kidney disease, or unspecified chronic kidney disease; N18.30 Chronic kidney disease, stage 3 unspecified; E43 Unspecified severe protein-calorie malnutrition; F05 Delirium due to known physiological condition; Z20.828 Contact with and (suspected) exposure to other viral communicable diseases; K21.9 Gastro-esophageal reflux disease without esophagitis; Z66 Do not resuscitate
CPT/HCPCS: 36415; 71250; 74150; 80048; 80053; 81001; 82306; 82947; 83735; 85025; 96374; 97116; 97161; 97530; 99285; G0378; J0360; J1650; J7799; U0003

== ENCOUNTER 2019-12-27 08:33 | Inpatient (IN) | payer OTHER ==
--- NOTE | 2019-12-27 10:08 | R.PREADM ---
PRE-ADMISSION SCREENING FORM SCREENING DATE AND TIME 12/27/2019 09:01 (CDT) ANTICIPATED REHAB ADMISSION DATE 12/29/2019 REFERRING FACILITY [facility] REFERRAL DATE AND TIME 12/27/2019 09:01 (CDT) REFERRAL ROOM# 232 ACUTE ADMIT DATE 12/27/2019 Previous Rehabilitation(s): No. 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 Nishant Garcia M.D. MR# [id number] NAME ORESTES KIDD ADDRESS [address] [facility] [id number] DATE OF 1935 AGE 84 SSN# [id number] GENDER male MARITAL STATUS RACE unknown race ADMIT FROM 02 - [facility] PRE-HOSPITAL LIVING SETTING 01 - Home (private home/apt. board/care, assisted living, half-way, transitional living) HOME TYPE AND DETAILS Type of home: single family house # of levels in the residence: 1 # of steps within the residence: 0 # of steps to enter the residence: 0 PRE-HOSPITAL LIVING WITH Family/Relatives FAMILY SUPPORT Yes PRIMARY FAMILY CONTACT NAME MARTI NUNEZ PRIMARY FAMILY CONTACT PHONE PRIMARY FAMILY CONTACT RELATIONSHIP Spouse PHONE PRIMARY FAMILY CONTACT ON ADM.? no IS PRIMARY FAMILY CONTACT AUTH. REP.? no 1ST EMERGENCY CONTACT MARTI NUNEZ 1ST CONTACT PHONE 1ST CONTACT RELATIONSHIP Spouse PHONE 1ST CONTACT ON ADM. no IS 1ST CONTACT AUTH. REP.? no PHONE 2ND CONTACT ON ADM.? no PATIENT EMPLOYMENT STATUS Retired (for age) PATIENT EMPLOYER No Employer PAYOR INFORMATION: 1ST PAYOR NAME MEDICARE 1ST PAYOR PHONE 1ST PAYOR INJURY/ILLNESS DUE TO ACCIDENT? No ANOTHER REPUBLICAN RESPONSIBLE? No PRIMARY REHAB/ACUTE DIAGNOSIS: MALNUTRITION, DEHYDRATION, WEAKNESS, FALLS ONSET DATE 12/25/2019 REHAB IMPAIRMENT CATEGORY (ABIGAIL): 20 Miscellaneous (Misc) does NOT meet 60% rule PRIMARY DIAGNOSIS-RELATED SURGERIES: No surgeries related to the primary diagnosis were performed. SUMMARY OF ACUTE HOSPITALIZATION: Pt. is a 84 yo Right-handed male of unknown race. On 12/25/2019 he was admitted to [facility] with diagnosis MALNUTRITION, DEHYDRATION, WE AKNESS, FALLS. His impairment category is Debility 16 - Debility (16). Pre-morbidly, Pt. was independent/mod-I in Locomotion, Safety Awareness, Self-Care, Communication, an d Social Cognition; and he had good Balance and Sphincter Control. Currently, he has deficits of Locomotion, Balance, Transfers Control, Endurance, and Sphincter Contro l. Pt. is now referred to [facility] for acute in-patient rehabilitation in order to maximize patient's functional independence in activities of daily living, strength, ROM, and mobi lity. Patient has realistic goal of being discharged at assistance level 7-Ind to reside at Home with Fami ly/Relatives. PAST MEDICAL HISTORY GERD HYPERTENSION SHINGLES COLITIS PAST SURGICAL HISTORY: CARPEL TUNNEL SURGERY CAROTID ENDARTERECTOMY 1999 GALL BLADDER REMOVED COLITIS MEDICATION ALLERGIES: No Known Drug Allergies (NKDA) ENVIRONMENTAL ALLERGIES: - Substance Allergies None Known - Other Allergies None Known CODE STATUS: Do not resuscitate(DNR) WEIGHT/HEIGHT/BMI: WEIGHT 161 lbs HEIGHT 5' 11" BMI 22.5 DIET: - Diet Type Regular - Diet - Solid Texture Regular - Diet - Liquid Texture Regular - Tube Feed N/A REVIEW OF SYSTEMS: - Gen Alert and awake Lying in bed No apparent distress Oriented to: person, time, and place - Vital Signs Temperature: 97.8 F SBP/DBP: 148/68 Pulse: 71 Resp: 16 Vital signs stable, afebrile - CVS RRR VITAL SIGNS Temperature: 97.8 F SBP/DBP: 148/68 Pulse: 71 Resp: 16 Vital signs stable, afebrile MEDICATIONS/TREATMENT: Other- See attached MAR (Medication Administration Record). CURRENT SPHINCTER CONTROL: Pre-hospital bladder status: unspecified # of bladder accidents in the last 7 days prior to screenin Pre-hospital bowel status: unspecified # of bowel accidents in the last 7 days prior to screenin Last Bowel Movement Date: 12/27/2019 CURRENT LOCOMOTION STATUS: distance walked 130 feet WITH ROLLING WALKER DETAILED CURRENT FUNCTIONAL STATUS: - Bladder accident frequency: Ind - No accidents in the past 7 days - Bowel accident frequency: Ind - No accidents in the past 7 days - Walking score based on distance walked: 0(N/A) score based on distance walked: 2(5149ft) - Wheelchair score based on distance traveled: 0(N/A) QI SCORES: - Self-Care A. Eating 03-Partial/moderate assistance B. Oral hygiene 03-Partial/moderate assistance C. Toileting hygiene 03-Partial/moderate assistance E. Shower/bathe self 03-Partial/moderate assistance F. Upper body dressing 04-Supervision or touching assistance G. Lower body dressing 04-Supervision or touching assistance H. Putting on/taking off footwear 88-Not attempted due to medical condition or safety concerns - Mobility A. Roll left and right 04-Supervision or touching assistance B. Sit to lying 04-Supervision or touching assistance C. Lying to sitting on side of bed 04-Supervision or touching assistance D. Sit to stand 03-Partial/moderate assistance E. Chair/dan-ow-cbnwz transfer 03-Partial/moderate assistance F. Toilet transfer 03-Partial/moderate assistance G. Car transfer 88-Not attempted due to medical condition or safety concerns I. Walk 10 feet 88-Not attempted due to medical condition or safety concerns J. Walk 50 feet with two turns 88-Not attempted due to medical condition or safety concerns K. Walk 150 feet 88-Not attempted due to medical condition or safety concerns L. Walking 10 feet on uneven surfaces 88-Not attempted due to medical condition or safety concerns M. 1 step (curb) 88-Not attempted due to medical condition or safety concerns N. 4 steps 88-Not attempted due to medical condition or safety concerns O. 12 steps 88-Not attempted due to medical condition or safety concerns P. Picking up object 88-Not attempted due to medical condition or safety concerns R. Wheel 50 feet with two turns 88-Not attempted due to medical condition or safety concerns S. Wheel 150 feet 88-Not attempted due to medical condition or safety concerns - Bladder and Bowel Bladder continence Bowel continence - Endurance Good - Balance Good - Safety Awareness Good CURRENT FUNC. DEFICITS: Self-Care and Mobility HISTORY OF FALLS. HAS THE PATIENT HAD TWO OR MORE FALLS IN THE PAST YEAR OR ANY FALL WITH INJURY IN T HE PAST YEAR?: Yes PRIOR SURGERY. DID THE PATIENT HAVE MAJOR SURGERY DURING THE 100 DAYS PRIOR TO ADMISSION?: No THERAPY NOTES FROM ACUTE CARE: Attached. SPECIAL NEEDS: - Safety Concerns Skin breakdown precautions needed due to skin breakdown risk PATIENT NEEDS ACTIVE AND ONGOING THERAPEUTIC INTERVENTION OF MULTIPLE THERAPY DISCIPLINES, INCLUDING: - Dietary and Nutrition Adequate Nutrition. Nutritional Education. Nutritional Supplements. PATIENT NEEDS CLOSE MEDICAL SUPERVISION BY A REHABILITATION PHYSICIAN FOR: Coordination of Treatment Team PATIENT REQUIRES 24X7 REHAB NURSING FOR MEDICAL AND FUNCTIONAL MGT. 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 - Consensus on plan Discharge plan has been discussed with primary caregiver. Patient/Family is in agreement with the ashley n. Primary caregiver is in agreement with the plan. - Patient/Family Goals Return home independently. - Planned Living Setting Upon Discharge Home, to live with Family/Relatives. Transitional Living. RECOMMENDED CARE LEVEL: IRF RECOMMENDATION DETAILS: Recommended Admission to Comprehensive Rehabilitation Program to Increase Functional [place] SCREENER'S COMPLETENESS CONFIRMATION: - Screening Confirmation The patient data collection on this preadmission screening form is finished PHYSICIANS REVIEW AND ADMISSION DETERMINATION Admit - Based on my review of the Pre-Admission Screening results, in my medical judgment and experie nce, I concur with the findings and recommend admission to [facility], as this patient requires an IRF level of care. SIGNATURE PANEL: Vibration Technician - [electronically] signed by Joy Gramajo on 12/27/2019 at 09:35 (CDT) Clinical Liaison - [electronically] signed by Kamini Nava RN on 12/27/2019 at 09:43 (CDT) Physician Reviewer - [electronically] signed by Dr. Nishant Garcia M.D. on 12/27/2019 at 10:07 (CDT )
--- OUTSIDE RECORDS SUMMARY | 2019-12-27 13:04 | XMS REPORT | Continuity of Care Document ---
:1935 Author Organization [employer] [facility] Medical Care Team Providers Name Role Phone Pilot Systems Unavailable Un available Problems No Data Provided [...] Location Location Encounter Encounter Reason Attending ADM [place] Stat us Source Details Type Number For Provider Date Date Visit Outpatient [id number] ALY 04/13 Active [facility] [place] [facility] Outside [id number] 06/22 06/24 [facility] Neurology Medical /2018 Neuro [place] Records Outpatient [id number] Aly 01/11 Active [facility] [place] Procedures No Data Provided for This Section Assessment and Plan No Data Provided for This Section Plan of Care No Data Provided for This Section Social History Social History Date Source No data available for this 06/24/2018 [facility] [place] Family History No Data Provided for This Section Advance Directives No Data Provided for This Section Functional Status No Data Provided for This Section
--- OUTSIDE RECORDS SUMMARY | 2019-12-27 13:04 | XMS REPORT | Continuity of Care Document ---
:1935 Author Organization [facility] t Address [address] [place] [address] Care Team Providers Name Role Phone Asked, [...] Date Quantity Comments Source Sex Assigned At [facility] ethodi Social History 2018-06-24 2018-06-24 [facility] aleida 04:59:59 04:59:59 Tobacco use and 2017-12-09 2017-12-09 Former user [place] [employer] exposure 00:00:00 00:00:00 Alcohol intake 2017-12-09 2017-12-09 Current drinker [place] [facility] [employer] 00:00:00 00:00:00 of alcohol (finding) Smoking Status Start Date Stop Date Source Former smoker 2017-12-09 00:00:00 2017-12-09 00:00:00 [place] [employer] Medications Ordered Filled Start Stop Current Ordering [...] tablet [facility] HCl ER HCl ER [facility] ent Clinics Procedures This patient has no known procedures. Encounters Start End Encounter Admission Attending Care Care Encounter Source Date/Time Date/Time Type Type Clinicians Facility Department ID 2019-03-14 2019-03-14 Outpatient Jenni Domínguez [id number] [facility] 11:28:00 11:28:00 [facility] ent Clinics 2019-01-20 2019-01-20 Outpatient Jenni Domínguez [id number] [facility] 14:42:00 14:42:00 [facility] Medicine Outpati ent Clinics 2018-12-07 2018-12-07 [facility] [id number] [facility] 13:15:00 13:15:[address] [facility] Medicine Outpati ent Clinics 2018-11-21 2018-11-21 [facility] [id number] [facility] 13:00:00 13:00:00 [facility] Medicine Outpati ent Clinics 2018-08-22 2018-08-22 [facility] [id number] [facility] 14:45:00 14:45:00 [facility] Medicine Outpati ent Clinics 2018-06-27 2018-06-27 [facility] [id number] [facility] 16:01:00 16:01:00 [facility] Medicine Outpati ent Clinics 2018-06-27 2018-06-27 [facility] [id number] [facility] 09:57:00 09:57:00 [facility] Medicine Outpati ent Clinics 2018-06-22 2018-06-23 Outpatient MHMISCHER MHMISCHER [id number] 13:07:00 23:59:59 00 2018-06-22 2018-06-23 Outpatient MHMISCHER MHMISCHER [id number] 13:07:00 23:59:59 00 2018-06-20 2018-06-20 [facility] [id number] [facility] 14:00:00 14:00:00 [facility] Medicine Outpati ent Clinics 2018-05-19 2018-05-19 [facility] [id number] [facility] 14:00:00 14:00:00 [facility] Medicine Outpati ent Clinics 2018-05-05 2018-05-05 [facility] [id number] [facility] 14:30:00 14:30:00 [facility] Medicine Outpati ent Clinics 2017-09-07 2017-09-07 [facility] [id number] [facility] 11:00:00 11:00:00 [facility] Medicine Outpati ent Clinics Results This patient has no known results.
--- OUTSIDE RECORDS SUMMARY | 2019-12-27 13:04 | XMS REPORT | Clinical Summary ---
:1935 Author Organization [employer] Address [address] [place] [id number] Care Team Providers Name Role Phone Asked, [...] Proced ure: Ep PROCEDURE cardioversion; Surgeon: Stacey iMr MD; Location: [facility] Pattern Chart Writer Invasive Locatio n; Service: Cardiov ascular; Laterality: [...] Not on file Results Not on fileafter 12/26/2018 Insurance Payer Benefit Plan / Subscriber ID Effective Phone Address T ype Group Dates MEDICARE MEDICARE PART [id number] 1999-Pres [place], T X Medicare A AND B ent STATE FARM INS STATE FARM INS [id number] 2017-Prese Commercial nt Advance Directives For more information, please contact: [phone] Type Date Recorded Patient Motor Boss Explanati on Advance Directives, Living Will and Medical Power of Conveyor Console Operator
[2019-12-27] MEDS ORDERED: ACETAMINOPHEN 500 MG TAB PO PRN (13:38)
[2019-12-27] MEDS ORDERED: BISACODYL E.C. 5 MG TAB PO PRN (13:42)
[2019-12-27] MEDS ORDERED: DOCUSATE NA/SENNA CONC 1 TAB PO PRN (14:23)
[2019-12-27] MEDS ORDERED: ENOXAPARIN 40 MG/0.4 ML SQ SCH (17:00)
--- NOTE | 2019-12-27 17:15 | R.HP ---
HISTORY AND PHYSICAL FACILITY: [facility] ENCOUNTER DATE AND TIME: 12/27/2019 17:07 (CDT) MR#: [id number] NAME ORESTES KIDD ADDRESS: [address] CITY: [place]IP [address] PHONE: DATE OF : 1935 AGE: 84 SSN# [id number] GENDER: Male DEXTERITY Right-handed MARITAL STATUS RACE Unknown race PRE-HOSPITAL LIVING SETTING 01 - Home (private home/apt. board/care, assisted living, prison, transitional living) PRE-HOSPITAL LIVING WITH Family/Relatives ENCOUNTER PHYSICIAN: Dr. Nishant Garcia M.D. REFERRING DOCTOR: JONATAN GRACIA DATE OF ADMISSION: 12/27/2019 11:01 (CDT) REFERRING FACILITY [facility] PRIMARY CARE PHYSICIAN [place] TYPE AND DETAILS: Type of home: single family house # of levels in the residence: 1 # of steps within the residence: 0 # of steps to enter the residence: 0 ONSET DATE: 12/25/2019 PRIMARY DIAGNOSIS-RELATED SURGERIES: No surgeries related to the primary diagnosis were performed. HISTORY OF PRESENT ILLNESS (HPI): Pt. is a 84 yo Right-handed male of unknown race. On 12/25/2019 he was admitted to [facility] with diagnosis MALNUTRITION, DEHYDRATION, WE AKNESS, FALLS. His impairment category is Debility 16 - Debility (16). Pre-morbidly, Pt. was independent/mod-I in Locomotion, Safety Awareness, Self-Care, Communication, an d Social Cognition; and he had good Balance and Sphincter Control. Currently, he has deficits of Locomotion, Balance, Transfers Control, Endurance, and Sphincter Contro l. Pt. is now referred to [facility] for acute in-patient rehabilitation in order to maximize patient's functional independence in activities of daily living, strength, ROM, and mobi lity. Patient has realistic goal of being discharged at assistance level 7-Ind to reside at Home with Fami ly/Relatives. MEDICATION ALLERGIES: No Known Drug Allergies (NKDA) ENVIRONMENTAL ALLERGIES: - Substance Allergies None Known - Other Allergies None Known PAST MEDICAL HISTORY: GERD HYPERTENSION SHINGLES COLITIS PAST SURGICAL HISTORY: CARPEL TUNNEL SURGERY CAROTID ENDARTERECTOMY 1999 GALL BLADDER REMOVED COLITIS SOCIAL HISTORY: - Home Living Family/Relatives REVIEW OF SYSTEMS: - Gen No Chills Fatigue No Fever - Eyes No Double Vision No itchiness - ENMT No Difficulty Swallowing - CVS No Chest Discomfort No Chest Pain Fatigue No Weight Gain - Resp No Cough No Shortness of Breath - GI Continent No Abdominal Pain No Constipation No Diarrhea - Continent No Kidney Pain No Painful Urination No Urinary Urgency - MSK No Joint Pain Muscle Cramps No Stiffness - Skin No Itching No Rash No Suspicious Lesions - Neuro Coordination Difficulty No Difficulty with Concentration No Memory Loss No Seizures Weakness - Psych No Anxiety No Depression No HIV Exposure No Persistent Infections No Seasonal Allergies - Endo No Cold/Heat Intolerance No Excessive Hunger No Excessive Thirst No Excessive Urination PHYSICAL EXAM - Gen Alert and awake Lying in bed No apparent distress Oriented to: person, time, and place - Skin No skin breakdown. No abnormalities - Eyes No abnormalities - ENMT No abnormalities - Neck No abnormalities - CVS RRR - Chest No abnormalities - Resp No wheezing - Abd Soft - GI + bowel sounds Deferred - No abnormalities - Ext Mild bilateral lower extremity edema. - MSK 4/5 weakness in both lower extremities. - Neuro No focal deficits - Psych No abnormalities VITAL SIGNS Temperature: 97.8 F SBP/DBP: 139/60 Pulse: 72 Resp: 16 NURSING: - Shower allowing shower ACTIVITIES OOB only with supervision QI SCORES: - Self-Care A. Eating 03-Partial/moderate assistance B. Oral hygiene 03-Partial/moderate assistance C. Toileting hygiene 03-Partial/moderate assistance E. Shower/bathe self 03-Partial/moderate assistance F. Upper body dressing 04-Supervision or touching assistance G. Lower body dressing 04-Supervision or touching assistance H. Putting on/taking off footwear 88-Not attempted due to medical condition or safety concerns - Mobility A. Roll left and right 04-Supervision or touching assistance B. Sit to lying 04-Supervision or touching assistance C. Lying to sitting on side of bed 04-Supervision or touching assistance D. Sit to stand 03-Partial/moderate assistance E. Chair/aip-fe-owbic transfer 03-Partial/moderate assistance F. Toilet transfer 03-Partial/moderate assistance G. Car transfer 88-Not attempted due to medical condition or safety concerns I. Walk 10 feet 88-Not attempted due to medical condition or safety concerns J. Walk 50 feet with two turns 88-Not attempted due to medical condition or safety concerns K. Walk 150 feet 88-Not attempted due to medical condition or safety concerns L. Walking 10 feet on uneven surfaces 88-Not attempted due to medical condition or safety concerns M. 1 step (curb) 88-Not attempted due to medical condition or safety concerns N. 4 steps 88-Not attempted due to medical condition or safety concerns O. 12 steps 88-Not attempted due to medical condition or safety concerns P. Picking up object 88-Not attempted due to medical condition or safety concerns R. Wheel 50 feet with two turns 88-Not attempted due to medical condition or safety concerns S. Wheel 150 feet 88-Not attempted due to medical condition or safety concerns - Bladder and Bowel Bladder continence Bowel continence - Endurance Good - Balance Good - Safety Awareness Good CURRENT FUNC. DEFICITS: Self-Care and Mobility MEDICATIONS: - Other See attached MAR (Medication Administration Record) ASSESSMENT: Pt. is a 84 yo Right-handed male of unknown race.On 12/25/2019 he was admitted to [facility] with diagnosis MALNUTRITION, DEHYDRATION, WEAKNESS, FALLS.His impairment category is Debility 16 - Debility (16).Pre-morbidly, Pt. was independent/mod-I in Locomotion, Safety Awareness, Self-Care, Communication, and Social Cognition; and he had good Balance and Sphincter Control.Currently, he has deficits of Locomotion, Balance, Transfers Control, Endurance, and Sphincter Control.Pt. is now refe rred to [facility] for acute in-patient rehabilitation in order to maximize pete elliott's functional independence in activities of daily living, strength, ROM, and mobility.- Rehab Go al Patient has realistic goal of being discharged at assistance level 7-Ind to reside at Home with Fami ly/Relatives. - Physical Therapy Inability to transfer - to improve, our physical therapists will perform initial evaluation of pt's s tatus upon admission and devise an individualized program for Bed mobility Need for home safety evaluation - to improve, our physical therapists will perform initial evaluation of pt's status upon admission and devise an individualized program for Home Evaluation Need in caregiver upon discharge - to improve, our physical therapists will perform initial evaluatio n of pt's status upon admission and devise an individualized program for Caregiver Training New precaution - to improve, our physical therapists will perform initial evaluation of pt's status u blayne admission and devise an individualized program for Patient precaution education Edema - to improve, our physical therapists will perform initial evaluation of pt's status upon admi ssion and devise an individualized program for Elevation Training, and Lymphedema Therapy Poor balance - to improve, our physical therapists will perform initial evaluation of pt's status upo n admission and devise an individualized program for Balance Training Poor endurance - to improve, our physical therapists will perform initial evaluation of pt's status u blayne admission and devise an individualized program for Endurance Training Achieving independence - to improve, our physical therapists will perform initial evaluation of pt's status upon admission and devise an individualized program for Community Reintegration Activities - Occupational Therapy Need for med care manager - to improve, our occupation therapists will perform initial evaluation of pt's s tatus upon admission and devise an individualized program for Caregiver Training MEDICAL PLAN: - Diet Type Start Regular - Diet - Liquid Texture Start Regular - Tube Feed Start N/A - Other See attached MAR (Medication Administration Record) - Diet - Solid Texture Regular - Shower shower DISCHARGE PLAN: - Estimated Length of Stay (days) 13. - Consensus on plan Discharge plan has been discussed with primary caregiver. Patient/Family is in agreement with the ashley n. Primary caregiver is in agreement with the plan. - Patient/Family Goals Return home independently. - Planned Living Setting Upon Discharge Home, to live with Family/Relatives. Transitional Living. SIGNATURE PANEL: (CDT)
--- NOTE | 2019-12-27 17:16 | PAPE ---
POST ADMISSION PHYSICIAN EVALUATION PATIENT: [facility] MR# [id number] REFERRING DOCTOR JONATAN GRACIA PRIMARY CARE PHYSICIAN [facility] EVALUATION DATE AND TIME 12/27/2019 17:15 (CDT) NAME ORESTES KIDD DATE OF 1935 AGE 84 PHONE SSN# [id number] GENDER male EVALUATING PHYSICIAN Dr. Nishant Garcia M.D. ADMISSION DIAGNOSIS: MALNUTRITION, DEHYDRATION, WEAKNESS, FALLS ONSET DATE 12/25/2019 POST-ADMISSION FUNCTIONAL/MEDICAL STATUS: - Bladder Same accident frequency: Ind - No accidents in the past 7 days - Bowel Same accident frequency: Ind - No accidents in the past 7 days - Walking Same score based on distance walked: 0(N/A) Same score based on distance walked: 2(5149ft) - Wheelchair Same score based on distance traveled: 0(N/A) STATUS CHANGE EVALUATION: No change in Functional or Medical Status is identified compared with Pre-Admission screening. PATIENT NEEDS CLOSE MEDICAL SUPERVISION BY A REHABILITATION PHYSICIAN FOR: Coordination of Treatment Team PATIENT REQUIRES 24X7 REHAB NURSING FOR MEDICAL AND FUNCTIONAL MGT. OF THE FOLLOWING DEFICITS: Disease Management Medication Management Patient/Family Education Providing Safe Environment PATIENT REQUIRES INTENSIVE, COORDINATED INTERDISCIPLINARY APPROACH TO REHAB: Arranging Home Equipment/Services Discharge Planning Family Intervention/Training Body Design Checker/Case Management LIST OF IDENTIFIED AND POTENTIAL PROBLEMS: Alteration in leisure activities Bladder, Incontinence Bowel, Incontinence Infection, Actual or Potential Mobility Impaired Pain, Alteration in Comfort Self Care Deficit Skin Integrity, Actual or Potential Urinary Tract Infection (UTI), Actual or Potential PATIENT COULD BE AT RISK FOR COMPLICATIONS FROM ADVERSE MEDICAL CONDITIONS DUE TO HIS/HER COMORBIDITI ES AND THE RIGORS OF THE INTENSIVE REHABILLITATION PROGRAM. METHODS OR INTERVENTIONS TO AVOID COMPLIC ATIONS INCLUDE: - Infection Clinical staff to assess and manage the signs and symptoms of infection including fever, redness, war mth, etc. - Urinary Tract Infection - Falls Patient will be evaluated for Fall Precautions and will be placed on Fall Precautions as indicated pe r protocol. - Skin Breakdown Nursing will assess skin daily using assessment tool and will place on Skin Breakdown Precautions as indicated per protocol. - Pain Clinical staff may employ non-medication methods such as massage, distraction, decrease stimulus, etc . as needed. Clinical staff will assess patient's pain level every shift per protocol to assess and e nsure pain management effectiveness. Medications will be given and the pain level re-assessed. PRELIMINARY PLAN OF CARE: - Physical Therapy Patient needs Physical Therapy for a daily minimum of 1.5 hours at least 5 out of 7 days, to improve: Mobility, Strengthening, Transfers, Stretching, ROM, Endurance, Ability to manage stairs, Gait, and Balance. - Speech Therapy Patient needs Speech Therapy for a daily minimum of 0.5 hours at least 5 out of 7 days, to improve: S wallowing, Cognition, Language Skills, and Compensatory Strategies. - Rehabilitation Nursing Patient requires 24x7 Rehabilitation Nursing for: Pain Issues, Identifying and preventing risk factor s, Monitoring and reporting current medical conditions, Assisting with ambulation and transfer, Bryan ting with all ADL-s, Teaching patients about disease process and medications, Family teaching, Provid ing safe environment, Bowel and Bladder Issues, Skin Integrity, and Medication Management. Patient needs Body Design Checker and/or Case Management for: Discharge Planning, Arranging Home Equipmen t or Services, and Family Interventions. - Dietary and Nutrition Services Patient needs Dietary and Nutrition Services for: Adequate Nutrition, Nutritional Supplements, and Nu tritional Education. - Occupational Therapy Patient needs Occupational Therapy for a daily minimum of 1.5 hours at least 5 out of 7 days, to impr ove Activities of Daily Living, including: Eating, Grooming, Bathing, Dressing, Toileting, Toilet Tra nsfers, Community Reintegration, Higher functional activities, Adaptive Equipment, Splinting, Househo ld Tasks, and Other activities as determined. QI SCORES: - Self-Care A. Eating 03-Partial/moderate assistance B. Oral hygiene 03-Partial/moderate assistance C. Toileting hygiene 03-Partial/moderate assistance E. Shower/bathe self 03-Partial/moderate assistance F. Upper body dressing 04-Supervision or touching assistance G. Lower body dressing 04-Supervision or touching assistance H. Putting on/taking off footwear 88-Not attempted due to medical condition or safety concerns - Mobility A. Roll left and right 04-Supervision or touching assistance B. Sit to lying 04-Supervision or touching assistance C. Lying to sitting on side of bed 04-Supervision or touching assistance D. Sit to stand 03-Partial/moderate assistance E. Chair/qay-pj-uyzxd transfer 03-Partial/moderate assistance F. Toilet transfer 03-Partial/moderate assistance G. Car transfer 88-Not attempted due to medical condition or safety concerns I. Walk 10 feet 88-Not attempted due to medical condition or safety concerns J. Walk 50 feet with two turns 88-Not attempted due to medical condition or safety concerns K. Walk 150 feet 88-Not attempted due to medical condition or safety concerns L. Walking 10 feet on uneven surfaces 88-Not attempted due to medical condition or safety concerns M. 1 step (curb) 88-Not attempted due to medical condition or safety concerns N. 4 steps 88-Not attempted due to medical condition or safety concerns O. 12 steps 88-Not attempted due to medical condition or safety concerns P. Picking up object 88-Not attempted due to medical condition or safety concerns R. Wheel 50 feet with two turns 88-Not attempted due to medical condition or safety concerns S. Wheel 150 feet 88-Not attempted due to medical condition or safety concerns - Bladder and Bowel Bladder continence Bowel continence - Endurance Good - Balance Good - Safety Awareness Good POTENTIAL FUNCTIONAL GOALS FOR PATIENT TO ACHIEVE BY DISCHARGE: - Safety Precaution Patient will remain free from falls or injury at time of discharge. - Bed Mobility Patient will perform bed mobility at 4-[place] level of assistance. - Transfers Patient will complete transfers from bed to chair at 4-[place] level of assistance. - Mobility Patient will ambulate 150 ft with 4-[place] level of assistance with RW. PATIENT REHAB POTENTIAL Kelle KIDD is able and expected to receive 3 hours of individualized therapy daily on at least 5 of ever y 7 days Kelle KIDD's prognosis for significant practical improvement within a reasonable period of time appears Good Expected level of measurable improvement will be of a practical value to Kelle KIDD's functional capacit y or adaptations to impairments Has a viable Discharge Plan Medically appropriate; condition is sufficiently stable to participate in intensive rehab program DISCHARGE PLAN: - Estimated Length of Stay (days) 13. - Consensus on plan Discharge plan has been discussed with primary caregiver. Patient/Family is in agreement with the ashley n. Primary caregiver is in agreement with the plan. - Patient/Family Goals Return home independently. - Planned Living Setting Upon Discharge Home, to live with Family/Relatives. Transitional Living. CONCLUSION ON REHABILITATION NECESSITY: I have evaluated patient's pre-admission functional status and, comparing it to the patient's post-ad mission functional status now, I conclude that the pre-admission assessment was accurate. Patient's c ondition on admission supports the medical necessity of admission to IR[facility]. It is safe to proceed with patient's therapy program. SIGNATURE PANEL: (CDT)
[2019-12-27 19:10] LABS: Urine Appearance CLEAR; Urine Bilirubin NEGATIVE (NEG); Urine Blood NEGATIVE (NEG); Urine Color YELLOW; Urine Glucose NEGATIVE (NEG); Urine Protein 1+ (NEG); Urine Specific Gravity 1.015 (1.005-1.030); Urine Urobilinogen 0.2 mg/dL (0.2-1.0); Urine pH 5.5 (5.0-7.0)
[2019-12-27 19:40] LABS: Urine Bacteria <20 /HPF (NONE SEEN); Urine Culture Reflex Order NOT NEEDED; Urine RBC <5 /HPF (NONE SEEN)
[2019-12-27] MEDS: DONEPEZIL HCL 5 MG TAB PO SCH (20:04)
[2019-12-27] MEDS: MELATONIN 3 MG TABLET PO PRN (20:04)
[2019-12-28 06:42] LABS: Absolute Lymphocytes (CBC) 0.9 K/uL (0.7-4.9); Basophils % 0.6 % (0-1.3); Hematocrit 39.2 % (39.6-49.0); Lymphocytes % 13.5 % (15.3-44.8); MPV 8.5 fL (7.6-11.3); RBC Red Blood Cell Count 4.17 M/uL (4.33-5.43)
[2019-12-28 07:08] LABS: Magnesium 2.2 mg/dL (1.8-2.4); Potassium 4.4 mmol/L (3.5-5.1); Prealbumin 24.4 mg/dL (20-40)
[2019-12-28] MEDS: FINASTERIDE 5 MG TAB PO SCH (08:21)
[2019-12-28] MEDS: PANTOPRAZOLE 40MG TABLET PO SCH (08:21)
[2019-12-28] MEDS: VERAPAMIL SR 180 MG TAB PO SCH (08:22)
[2019-12-28] MEDS: LIDOCAINE 4% PATCH TOP SCH (08:22)
--- NOTE | 2019-12-28 17:27 | R.PN ---
PROGRESS NOTES ENCOUNTER DATE AND TIME: 12/28/2019 17:17 (CDT) NAME ORESTES KIDD DATE OF : 1935 DATE OF ADMISSION: 12/27/2019 11:01 (CDT) MALNUTRITION, DEHYDRATION, WEAKNESS, FALLSCHIEF COMPLAINT: Debility, malnutrition, diffuse weakness SUBJECTIVE: Pt denied any depression. Pt denied any Shortness of Breath. WBC 6.9, Hgb 13.2, Plt 169, Rate Marker 2.0, prealbumin 24.4. Ambulated 800' with contact guard assistance using a rolling walker. VITAL SIGNS Temperature: 97.5 F SBP/DBP: 154/59 Pulse: 64 Resp: 16 MEDICATION ALLERGIES: No Known Drug Allergies (NKDA) ENVIRONMENTAL ALLERGIES: - Substance Allergies None Known - Other Allergies None Known NURSING: - Shower allowing shower ACTIVITIES OOB only with supervision THERAPIES: - Dietary and Nutrition Adequate Nutrition. Nutritional Education. Nutritional Supplements. PHYSICAL EXAM - Gen Alert and awake Lying in bed No apparent distress Oriented to: person, time, and place - Skin No skin breakdown. No abnormalities - Eyes No abnormalities - ENMT No abnormalities - Neck No abnormalities - CVS RRR - Chest No abnormalities - Resp No wheezing - Abd Soft - GI + bowel sounds Deferred - No abnormalities - Ext Mild bilateral lower extremity edema. - MSK 4/5 weakness in both lower extremities. - Neuro No focal deficits - Psych No abnormalities ASSESSMENT: Pt. is a 84 yo Right-handed male of unknown race.On 12/25/2019 he was admitted to [facility] with diagnosis MALNUTRITION, DEHYDRATION, WEAKNESS, FALLS.His impairment category is Debility 16 - Debility (16).Pre-morbidly, Pt. was independent/mod-I in Locomotion, Safety Awareness, Self-Care, Communication, and Social Cognition; and he had good Balance and Sphincter Control.Currently, he has deficits of Locomotion, Balance, Transfers Control, Endurance, and Sphincter Control.Pt. is now refe rred to [facility] for acute in-patient rehabilitation in order to maximize pete elliott's functional independence in activities of daily living, strength, ROM, and mobility.- Rehab Go al Patient has realistic goal of being discharged at assistance level 7-Ind to reside at Home with Fami ly/Relatives. MDM/PLAN: - Physical Therapy Inability to transfer - to improve, our physical therapists will perform initial evaluation of pt's status upon admission and devise an individualized program for Bed mobility Need for home safety evaluation - to improve, our physical therapists will perform initial evaluatio n of pt's status upon admission and devise an individualized program for Home Evaluation Need in caregiver upon discharge - to improve, our physical therapists will perform initial evaluati on of pt's status upon admission and devise an individualized program for Caregiver Training New precaution - to improve, our physical therapists will perform initial evaluation of pt's status upon admission and devise an individualized program for Patient precaution education Edema - to improve, our physical therapists will perform initial evaluation of pt's status upon admis nina and devise an individualized program for Elevation Training, and Lymphedema Therapy Poor balance - to improve, our physical therapists will perform initial evaluation of pt's status up on admission and devise an individualized program for Balance Training Poor endurance - to improve, our physical therapists will perform initial evaluation of pt's status upon admission and devise an individualized program for Endurance Training Achieving independence - to improve, our physical therapists will perform initial evaluation of pt's status upon admission and devise an individualized program for Community Reintegration Activities - Occupational Therapy Need for nonfarm animal caretaker - to improve, our occupation therapists will perform initial evaluation of pt's status upon admission and devise an individualized program for Caregiver Training - Other See attached MAR (Medication Administration Record) - Diet Type Continue Regular - Diet - Liquid Texture Continue Regular - Tube Feed Continue N/A - Diet - Solid Texture Continue Regular - Shower allowing shower FUNCTIONAL STATUS: UPDATED AT WEEKLY TEAM CONFERENCE - Bladder Same accident frequency: 7-Ind - No accidents in the past 7 days - Bowel Same accident frequency: 7-Ind - No accidents in the past 7 days - Walking Same score based on distance walked: 0(N/A) Same score based on distance walked: 2(50-149ft) - Wheelchair Same score based on distance traveled: 0(N/A) FUNCTIONAL STATUS: - Self-Care A. Eating Ind B. Grooming Alf C. Bathing sup D. Dressing - Upper Alf E. Dressing - Lower sup F. Toileting Alf - Sphincter Control G. Bladder control sup H. Bowel control Alf - Transfers Control I. Bed/Chair/Wheelchair Corona J. Toilet oCrona K. Tub/Shower Corona - Locomotion L. Walk/Wheelchair (B) Corona M. Stairs ADNO - Communication N. Comprehension (B) Alf O. Expression (B) Alf - Social Cognition P. Social Interaction Alf Q. Problem Solving Alf R. Memory Alf - Endurance Good - Balance Fair - Safety Awareness Fair QI SCORES: - Self-Care A. Eating 03-Partial/moderate assistance B. Oral hygiene 03-Partial/moderate assistance C. Toileting hygiene 03-Partial/moderate assistance E. Shower/bathe self 03-Partial/moderate assistance F. Upper body dressing 04-Supervision or touching assistance G. Lower body dressing 04-Supervision or touching assistance H. Putting on/taking off footwear 88-Not attempted due to medical condition or safety concerns - Mobility A. Roll left and right 04-Supervision or touching assistance B. Sit to lying 04-Supervision or touching assistance C. Lying to sitting on side of bed 04-Supervision or touching assistance D. Sit to stand 03-Partial/moderate assistance E. Chair/kwm-zp-jadlh transfer 03-Partial/moderate assistance F. Toilet transfer 03-Partial/moderate assistance G. Car transfer 88-Not attempted due to medical condition or safety concerns I. Walk 10 feet 88-Not attempted due to medical condition or safety concerns J. Walk 50 feet with two turns 88-Not attempted due to medical condition or safety concerns K. Walk 150 feet 88-Not attempted due to medical condition or safety concerns L. Walking 10 feet on uneven surfaces 88-Not attempted due to medical condition or safety concerns M. 1 step (curb) 88-Not attempted due to medical condition or safety concerns N. 4 steps 88-Not attempted due to medical condition or safety concerns O. 12 steps 88-Not attempted due to medical condition or safety concerns P. Picking up object 88-Not attempted due to medical condition or safety concerns R. Wheel 50 feet with two turns 88-Not attempted due to medical condition or safety concerns S. Wheel 150 feet 88-Not attempted due to medical condition or safety concerns - Bladder and Bowel Bladder continence Bowel continence - Endurance Good - Balance Good - Safety Awareness Good CURRENT FUNC. DEFICITS: Self-Care and Mobility SIGNATURE PANEL: (CDT)
[2019-12-28] MEDS: ENOXAPARIN 30 MG/0.3 ML SQ SCH (17:30)
[2019-12-28] MEDS: MELATONIN 3 MG TABLET PO PRN (20:03)
[2019-12-28] MEDS: DONEPEZIL HCL 5 MG TAB PO SCH (20:03)
[2019-12-28] MEDS: lisinopriL 5 MG TAB PO SCH (20:55)
[2019-12-29] MEDS: PANTOPRAZOLE 40MG TABLET PO SCH (06:57)
[2019-12-29] MEDS: VERAPAMIL SR 180 MG TAB PO SCH (07:43)
[2019-12-29] MEDS: FINASTERIDE 5 MG TAB PO SCH (07:43)
[2019-12-29] MEDS: LIDOCAINE 4% PATCH TOP SCH (08:57)
--- NOTE | 2019-12-29 09:54 | P.RH.PN ---
Estimated Length of Stay: 9 Expected Discharge Date: 01/04/20 Discharge Disposition Plan: Home Family Support: Yes [employer] Goal: Mobility, Transfers, Self Care Vital Signs: Last Vital Signs Temp 98.1 F 12/29/19 08:00 Pulse 78 12/29/19 08:00 Resp 18 12/29/19 08:00 BP 159/71 H 12/29/19 08:00 Pulse Ox 96 12/29/19 08:00 Laboratory: Laboratory Last Values WBC 6.9 K/uL (4.3-10.9) 12/28/19 06:32 RBC 4.17 M/uL (4.33-5.43) L 12/28/19 06:32 Hgb 13.2 g/dL (13.6-17.9) L 12/28/19 06:32 Hct 39.2 % (39.6-49.0) L 12/28/19 06:32 MCV 94.0 fL (80-100) 12/28/19 06:32 MCH 31.8 pg (27.0-35.0) 12/28/19 06:32 MCHC 33.8 g/dL (32.0-36.0) 12/28/19 06:32 RDW 13.3 % (12.1-15.2) 12/28/19 06:32 Plt Count 169 K/uL (152-406) 12/28/19 06:32 MPV 8.5 fL (7.6-11.3) 12/28/19 06:32 Neutrophils % 73.2 % (41.7-73.7) 12/28/19 06:32 Lymphocytes % 13.5 % (15.3-44.8) L 12/28/19 06:32 Monocytes % 10.4 % (3.3-12.3) 12/28/19 06:32 Eosinophils % 2.3 % (0-4.4) 12/28/19 06:32 Basophils % 0.6 % (0-1.3) 12/28/19 06:32 Absolute Neutrophils 5.1 K/uL (1.8-8.0) 12/28/19 06:32 Absolute Lymphocytes 0.9 K/uL (0.7-4.9) 12/28/19 06:32 Absolute Monocytes 0.7 K/uL (0.1-1.3) 12/28/19 06:32 Absolute Eosinophils 0.2 K/uL (0-0.5) 12/28/19 06:32 Absolute Basophils 0.0 K/uL (0-0.5) 12/28/19 06:32 Sodium 141 mmol/L (136-145) 12/28/19 06:32 Potassium 4.4 mmol/L (3.5-5.1) 12/28/19 06:32 Chloride 112 mmol/L (98-107) H 12/28/19 06:32 Carbon Dioxide 24 mmol/L (21-32) 12/28/19 06:32 BUN 28 mg/dL (7-18) H 12/28/19 06:32 Creatinine 2.00 mg/dL (0.55-1.3) H 12/28/19 06:32 Estimated GFR 32 mL/min (=/>90) L 12/28/19 06:32 Glucose 107 mg/dL (74-106) H 12/28/19 06:32 Calcium 8.7 mg/dL (8.5-10.1) 12/28/19 06:32 Magnesium 2.2 mg/dL (1.8-2.4) 12/28/19 06:32 Albumin 3.0 g/dL (3.4-5.0) L D 12/28/19 06:32 Prealbumin 24.4 mg/dL (20-40) 12/28/19 06:32 Urine Color Yellow 12/27/19 17:25 Urine Appearance Clear 12/27/19 17:25 Urine pH 5.5 (5.0-7.0) 12/27/19 17:25 Ur Specific [place] 1.015 (1.005-1.030) 12/27/19 17:25 Glucose (UA)(Auto) Negative (NEG) 12/27/19 17:25 Urine Ketones Negative (NEG) 12/27/19 17:25 Urine Blood Negative (NEG) 12/27/19 17:25 Urine Nitrite Negative (NEG) 12/27/19 17:25 Urine Bilirubin Negative (NEG) 12/27/19 17:25 Urine Urobilinogen 0.2 mg/dL (0.2-1.0) 12/27/19 17:25 Ur Leukocyte Esterase Negative (NEG) 12/27/19 17:25 Urine RBC <5 /HPF (NONE SEEN) 12/27/19 17:25 Urine WBC <5 /HPF (<5) 12/27/19 17:25 Ur Squamous Epith Cells <5 /HPF (NONE SEEN) 12/27/19 17:25 Urine Bacteria <20 /HPF (NONE SEEN) 12/27/19 17:25 Urine Culture Reflexed Not needed 12/27/19 17:25 Urine Total Protein 1+ (NEG) H 12/27/19 17:25 Weight: 157 lb Wound Present: No Closed Surgical Incision Present: No Negative Pressure Wound Therapy Present: No Physician Update: Mild elevation in Psychiatric Nurse. Will increase free water. He is doing well. 250' contact guard, transfers are contact guard. Kyphotic posture but doing well overall. His is minimum assistance for bathing and transfers, grooming, otherwise standby assistance for bathing due to poor balance. Functional Improvement: pt presents with mild <-> moderate strength deficits in the L LE. pt demonstrates reduced balance and stability during ambulation and functional transfers. pt does require some mild steadying assist. pt exhibits reduced trunk strength. pt experiences poor tolerance to functional activity due to fatigue, weakness, and pain. pt c/o back pain during ambulation and is unable to achieve upright posturing. Skilled PT services are necessary to address the above mentioned impairments and functional limitations. Summary: Patient's care plan and rn long term care goals have been reviewed and revised as necessary. Please see the Rehabilitation Signature page for all necessary signatures.
[2019-12-29] MEDS: ENOXAPARIN 30 MG/0.3 ML SQ SCH (17:28)
[2019-12-29] MEDS: lisinopriL 5 MG TAB PO SCH (20:24)
[2019-12-29] MEDS: DONEPEZIL HCL 5 MG TAB PO SCH (20:24)
[2019-12-29] MEDS: MELATONIN 3 MG TABLET PO PRN (20:26)
[2019-12-30 05:27] VITALS: BMI 22.3
[2019-12-30] MEDS: PANTOPRAZOLE 40MG TABLET PO SCH (09:19)
[2019-12-30] MEDS: VERAPAMIL SR 180 MG TAB PO SCH (09:19)
[2019-12-30] MEDS: FINASTERIDE 5 MG TAB PO SCH (09:19)
[2019-12-30] MEDS: LIDOCAINE 4% PATCH TOP SCH (09:20)
[2019-12-30] MEDS: ENOXAPARIN 30 MG/0.3 ML SQ SCH (16:59)
[2019-12-30] MEDS: DONEPEZIL HCL 5 MG TAB PO SCH (19:24)
[2019-12-30] MEDS: lisinopriL 5 MG TAB PO SCH (19:24)
[2019-12-31] MEDS: VERAPAMIL SR 180 MG TAB PO SCH (07:04)
[2019-12-31] MEDS: PANTOPRAZOLE 40MG TABLET PO SCH (07:04)
[2019-12-31] MEDS: LIDOCAINE 4% PATCH TOP SCH (07:04)
[2019-12-31] MEDS: FINASTERIDE 5 MG TAB PO SCH (09:44)
[2019-12-31] MEDS: ENOXAPARIN 30 MG/0.3 ML SQ SCH (16:16)
[2019-12-31] MEDS: lisinopriL 5 MG TAB PO SCH (20:36)
[2019-12-31] MEDS: DONEPEZIL HCL 5 MG TAB PO SCH (20:36)
[2019-12-31] MEDS: MELATONIN 3 MG TABLET PO PRN (20:37)
[2020-01-01 06:38] LABS: Potassium 4.7 mmol/L (3.5-5.1)
[2020-01-01] MEDS: LIDOCAINE 4% PATCH TOP SCH (06:57)
[2020-01-01] MEDS: VERAPAMIL SR 180 MG TAB PO SCH (06:57)
[2020-01-01] MEDS: FINASTERIDE 5 MG TAB PO SCH (06:57)
[2020-01-01] MEDS: PANTOPRAZOLE 40MG TABLET PO SCH (06:57)
[2020-01-01] MEDS: ENOXAPARIN 30 MG/0.3 ML SQ SCH (16:32)
--- NOTE | 2020-01-01 17:39 | R.PN ---
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 Pt denied any Shortness of Breath. WBC 6.9, Hgb 13.2, Plt 169, [place] Sewer 2.05, prealbumin 24.4. Ambulated 500' with contact guard assistance using a rolling walker. Up and down 12 steps with bilate ral hand rails with contact guard assistance. VITAL SIGNS Temperature: 98.8 F SBP/DBP: 173/80 Pulse: 78 Resp: 16 MEDICATION ALLERGIES: No Known Drug Allergies (NKDA) ENVIRONMENTAL ALLERGIES: - Substance Allergies None Known - Other Allergies None Known NURSING: - Shower allowing shower ACTIVITIES OOB only with supervision THERAPIES: - Dietary and Nutrition Adequate Nutrition. Nutritional Education. Nutritional Supplements. PHYSICAL EXAM - Gen Alert and awake Lying in bed No apparent distress Oriented to: person, time, and place - Skin No skin breakdown. No abnormalities - Eyes No abnormalities - ENMT No abnormalities - Neck No abnormalities - CVS RRR - Chest No abnormalities - Resp No wheezing - Abd Soft - GI + bowel sounds Deferred - No abnormalities - Ext Mild bilateral lower extremity edema. - MSK 4/5 weakness in both lower extremities. - Neuro No focal deficits - Psych No abnormalities ASSESSMENT: Pt. is a 84 yo Right-handed male of unknown race.On 12/25/2019 he was admitted to [facility] with diagnosis MALNUTRITION, DEHYDRATION, WEAKNESS, FALLS.His impairment category is Debility 16 - Debility (16).Pre-morbidly, Pt. was independent/mod-I in Locomotion, Safety Awareness, Self-Care, Communication, and Social Cognition; and he had good Balance and Sphincter Control.Currently, he has deficits of Locomotion, Balance, Transfers Control, Endurance, and Sphincter Control.Pt. is now refe rred to [facility] for acute in-patient rehabilitation in order to maximize pete elliott's functional independence in activities of daily living, strength, ROM, and mobility.- Rehab Go al Patient has realistic goal of being discharged at assistance level 7-Ind to reside at Home with Fami ly/Relatives. MDM/PLAN: - Physical Therapy Inability to transfer - to improve, our physical therapists will perform initial evaluation of pt's status upon admission and devise an individualized program for Bed mobility Need for home safety evaluation - to improve, our physical therapists will perform initial evaluatio n of pt's status upon admission and devise an individualized program for Home Evaluation Need in caregiver upon discharge - to improve, our physical therapists will perform initial evaluati on of pt's status upon admission and devise an individualized program for Caregiver Training New precaution - to improve, our physical therapists will perform initial evaluation of pt's status upon admission and devise an individualized program for Patient precaution education Edema - to improve, our physical therapists will perform initial evaluation of pt's status upon admi ssion and devise an individualized program for Elevation Training, and Lymphedema Therapy Poor balance - to improve, our physical therapists will perform initial evaluation of pt's status up on admission and devise an individualized program for Balance Training Poor endurance - to improve, our physical therapists will perform initial evaluation of pt's status upon admission and devise an individualized program for Endurance Training Achieving independence - to improve, our physical therapists will perform initial evaluation of pt's status upon admission and devise an individualized program for Community Reintegration Activities - Occupational Therapy Need for respiratory care practitioner - to improve, our occupation therapists will perform initial evaluation of pt's status upon admission and devise an individualized program for Caregiver Training - Other See attached MAR (Medication Administration Record) - Diet Type Continue Regular - Diet - Liquid Texture Continue Regular - Tube Feed Continue N/A - Diet - Solid Texture Continue Regular - Shower allowing shower FUNCTIONAL STATUS: UPDATED AT WEEKLY TEAM CONFERENCE - Bladder Same accident frequency: 7-Ind - No accidents in the past 7 days - Bowel Same accident frequency: 7-Ind - No accidents in the past 7 days - Walking Same score based on distance walked: 0(N/A) Same score based on distance walked: 2(50-149ft) - Wheelchair Same score based on distance traveled: 0(N/A) FUNCTIONAL STATUS: - Self-Care A. Eating Ind B. Grooming Alf C. Bathing sup D. Dressing - Upper Alf E. Dressing - Lower sup F. Toileting Alf - Sphincter Control G. Bladder control sup H. Bowel control Alf - Transfers Control I. Bed/Chair/Wheelchair Corona J. Toilet Corona K. Tub/Shower Corona - Locomotion L. Walk/Wheelchair (B) [place]ona M. Stairs ADNO - Communication N. Comprehension (B) Alf O. Expression (B) Alf - Social Cognition P. Social Interaction Alf Q. Problem Solving Alf R. Memory Alf - Endurance Good - Balance Fair - Safety Awareness Fair QI SCORES: - Self-Care A. Eating 03-Partial/moderate assistance B. Oral hygiene 03-Partial/moderate assistance C. Toileting hygiene 03-Partial/moderate assistance E. Shower/bathe self 03-Partial/moderate assistance F. Upper body dressing 04-Supervision or touching assistance G. Lower body dressing 04-Supervision or touching assistance H. Putting on/taking off footwear 88-Not attempted due to medical condition or safety concerns - Mobility A. Roll left and right 04-Supervision or touching assistance B. Sit to lying 04-Supervision or touching assistance C. Lying to sitting on side of bed 04-Supervision or touching assistance D. Sit to stand 03-Partial/moderate assistance E. Chair/lay-qm-ywphh transfer 03-Partial/moderate assistance F. Toilet transfer 03-Partial/moderate assistance G. Car transfer 88-Not attempted due to medical condition or safety concerns I. Walk 10 feet 88-Not attempted due to medical condition or safety concerns J. Walk 50 feet with two turns 88-Not attempted due to medical condition or safety concerns K. Walk 150 feet 88-Not attempted due to medical condition or safety concerns L. Walking 10 feet on uneven surfaces 88-Not attempted due to medical condition or safety concerns M. 1 step (curb) 88-Not attempted due to medical condition or safety concerns N. 4 steps 88-Not attempted due to medical condition or safety concerns O. 12 steps 88-Not attempted due to medical condition or safety concerns P. Picking up object 88-Not attempted due to medical condition or safety concerns R. Wheel 50 feet with two turns 88-Not attempted due to medical condition or safety concerns S. Wheel 150 feet 88-Not attempted due to medical condition or safety concerns - Bladder and Bowel Bladder continence Bowel continence - Endurance Good - Balance Good - Safety Awareness Good CURRENT FUNC. 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
[2020-01-01] MEDS: MELATONIN 3 MG TABLET PO PRN (20:22)
[2020-01-01] MEDS: DONEPEZIL HCL 5 MG TAB PO SCH (20:22)
[2020-01-01] MEDS: lisinopriL 5 MG TAB PO SCH (20:23)
[2020-01-02] MEDS: PANTOPRAZOLE 40MG TABLET PO SCH (06:51)
[2020-01-02] MEDS: LIDOCAINE 4% PATCH TOP SCH (06:52)
[2020-01-02] MEDS: FINASTERIDE 5 MG TAB PO SCH (08:03)
[2020-01-02] MEDS: VERAPAMIL SR 180 MG TAB PO SCH (08:03)
[2020-01-02] MEDS: ENOXAPARIN 30 MG/0.3 ML SQ SCH (17:19)
--- NOTE | 2020-01-02 17:29 | R.PN ---
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 Pt denied any Shortness of Breath. 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 Ambulated 500' with contact guard assistance using a rolling walker. Up and down 12 steps with bilate ral hand rails with contact guard assistance. VITAL SIGNS Temperature: 99.0 F SBP/DBP: 144/620 Pulse: 70 Resp: 16 MEDICATION ALLERGIES: No Known Drug Allergies (NKDA) ENVIRONMENTAL ALLERGIES: - Substance Allergies None Known - Other Allergies None Known NURSING: - Shower allowing shower ACTIVITIES OOB only with supervision THERAPIES: - Dietary and Nutrition Adequate Nutrition. Nutritional Education. Nutritional Supplements. PHYSICAL EXAM - Gen Alert and awake Lying in bed No apparent distress Oriented to: person, time, and place - Skin No skin breakdown. No abnormalities - Eyes No abnormalities - ENMT No abnormalities - Neck No abnormalities - CVS RRR - Chest No abnormalities - Resp No wheezing - Abd Soft - GI + bowel sounds Deferred - No abnormalities - Ext Mild bilateral lower extremity edema. - MSK 4/5 weakness in both lower extremities. - Neuro No focal deficits - Psych No abnormalities ASSESSMENT: Pt. is a 84 yo Right-handed male of unknown race.On 12/25/2019 he was admitted to [facility] with diagnosis MALNUTRITION, DEHYDRATION, WEAKNESS, FALLS.His impairment category is Debility 16 - Debility (16).Pre-morbidly, Pt. was independent/mod-I in Locomotion, Safety Awareness, Self-Care, Communication, and Social Cognition; and he had good Balance and Sphincter Control.Currently, he has deficits of Locomotion, Balance, Transfers Control, Endurance, and Sphincter Control.Pt. is now refe rred to [facility] for acute in-patient rehabilitation in order to maximize pete elliott's functional independence in activities of daily living, strength, ROM, and mobility.- Rehab Go al Patient has realistic goal of being discharged at assistance level 7-Ind to reside at Home with Fami ly/Relatives. MDM/PLAN: - Physical Therapy Inability to transfer - to improve, our physical therapists will perform initial evaluation of pt's status upon admission and devise an individualized program for Bed mobility Need for home safety evaluation - to improve, our physical therapists will perform initial evaluatio n of pt's status upon admission and devise an individualized program for Home Evaluation Need in caregiver upon discharge - to improve, our physical therapists will perform initial evaluati on of pt's status upon admission and devise an individualized program for Caregiver Training New precaution - to improve, our physical therapists will perform initial evaluation of pt's status upon admission and devise an individualized program for Patient precaution education Edema - to improve, our physical therapists will perform initial evaluation of pt's status upon admi ssion and devise an individualized program for Elevation Training, and Lymphedema Therapy Poor balance - to improve, our physical therapists will perform initial evaluation of pt's status up on admission and devise an individualized program for Balance Training Poor endurance - to improve, our physical therapists will perform initial evaluation of pt's status upon admission and devise an individualized program for Endurance Training Achieving independence - to improve, our physical therapists will perform initial evaluation of pt's status upon admission and devise an individualized program for Community Reintegration Activities - Occupational Therapy Need for care consultant - to improve, our occupation therapists will perform initial evaluation of pt's status upon admission and devise an individualized program for Caregiver Training - Other See attached MAR (Medication Administration Record) - Diet Type Continue Regular - Diet - Liquid Texture Continue Regular - Tube Feed Continue N/A - Diet - Solid Texture Continue Regular - Shower allowing shower FUNCTIONAL STATUS: UPDATED AT WEEKLY TEAM CONFERENCE - Bladder Same accident frequency: 7-Ind - No accidents in the past 7 days - Bowel Same accident frequency: 7-Ind - No accidents in the past 7 days - Walking Same score based on distance walked: 0(N/A) Same score based on distance walked: 2(50-149ft) - Wheelchair Same score based on distance traveled: 0(N/A) FUNCTIONAL STATUS: - Self-Care A. Eating Ind B. Grooming Alf C. Bathing sup D. Dressing - Upper Alf E. Dressing - Lower sup F. Toileting Alf - Sphincter Control G. Bladder control sup H. Bowel control Alf - Transfers Control I. Bed/Chair/Wheelchair Corona J. Toilet Corona K. Tub/Shower Corona - Locomotion L. Walk/Wheelchair (B) Corona M. Stairs ADNO - Communication N. Comprehension (B) Alf O. Expression (B) Alf - Social Cognition P. Social Interaction Alf Q. Problem Solving Alf R. Memory Alf - Endurance Good - Balance Fair - Safety Awareness Fair QI SCORES: - Self-Care A. Eating 03-Partial/moderate assistance B. Oral hygiene 03-Partial/moderate assistance C. Toileting hygiene 03-Partial/moderate assistance E. Shower/bathe self 03-Partial/moderate assistance F. Upper body dressing 04-Supervision or touching assistance G. Lower body dressing 04-Supervision or touching assistance H. Putting on/taking off footwear 88-Not attempted due to medical condition or safety concerns - Mobility A. Roll left and right 04-Supervision or touching assistance B. Sit to lying 04-Supervision or touching assistance C. Lying to sitting on side of bed 04-Supervision or touching assistance D. Sit to stand 03-Partial/moderate assistance E. Chair/yrp-sd-zwrwt transfer 03-Partial/moderate assistance F. Toilet transfer 03-Partial/moderate assistance G. Car transfer 88-Not attempted due to medical condition or safety concerns I. Walk 10 feet 88-Not attempted due to medical condition or safety concerns J. Walk 50 feet with two turns 88-Not attempted due to medical condition or safety concerns K. Walk 150 feet 88-Not attempted due to medical condition or safety concerns L. Walking 10 feet on uneven surfaces 88-Not attempted due to medical condition or safety concerns M. 1 step (curb) 88-Not attempted due to medical condition or safety concerns N. 4 steps 88-Not attempted due to medical condition or safety concerns O. 12 steps 88-Not attempted due to medical condition or safety concerns P. Picking up object 88-Not attempted due to medical condition or safety concerns R. Wheel 50 feet with two turns 88-Not attempted due to medical condition or safety concerns S. Wheel 150 feet 88-Not attempted due to medical condition or safety concerns - Bladder and Bowel Bladder continence Bowel continence - Endurance Good - Balance Good - Safety Awareness Good CURRENT FUNC. 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
[2020-01-02] MEDS: lisinopriL 5 MG TAB PO SCH (20:06)
[2020-01-02] MEDS: DONEPEZIL HCL 5 MG TAB PO SCH (20:06)
[2020-01-02] MEDS: MELATONIN 3 MG TABLET PO PRN (20:06)
[2020-01-03] MEDS: PANTOPRAZOLE 40MG TABLET PO SCH (07:11)
[2020-01-03] MEDS: VERAPAMIL SR 180 MG TAB PO SCH (08:08)
[2020-01-03] MEDS: FINASTERIDE 5 MG TAB PO SCH (08:08)
[2020-01-03] MEDS: LIDOCAINE 4% PATCH TOP SCH (11:05)
[2020-01-03] MEDS: ENOXAPARIN 30 MG/0.3 ML SQ SCH (17:10)
--- NOTE | 2020-01-03 18:36 | R.PN ---
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 Pt denied any Shortness of Breath. 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 Ambulated 280' with contact guard assistance using a rolling walker. VITAL SIGNS Temperature: 97.8 F SBP/DBP: 156/76 Pulse: 66 Resp: 16 MEDICATION ALLERGIES: No Known Drug Allergies (NKDA) ENVIRONMENTAL ALLERGIES: - Substance Allergies None Known - Other Allergies None Known NURSING: - Shower allowing shower ACTIVITIES OOB only with supervision THERAPIES: - Dietary and Nutrition Adequate Nutrition. Nutritional Education. Nutritional Supplements. PHYSICAL EXAM - Gen Alert and awake Lying in bed No apparent distress Oriented to: person, time, and place - Skin No skin breakdown. No abnormalities - Eyes No abnormalities - ENMT No abnormalities - Neck No abnormalities - CVS RRR - Chest No abnormalities - Resp No wheezing - Abd Soft - GI + bowel sounds Deferred - No abnormalities - Ext Mild bilateral lower extremity edema. - MSK 4/5 weakness in both lower extremities. - Neuro No focal deficits - Psych No abnormalities ASSESSMENT: Pt. is a 84 yo Right-handed male of unknown race.On 12/25/2019 he was admitted to [facility] with diagnosis MALNUTRITION, DEHYDRATION, WEAKNESS, FALLS.His impairment category is Debility 16 - Debility (16).Pre-morbidly, Pt. was independent/mod-I in Locomotion, Safety Awareness, Self-Care, Communication, and Social Cognition; and he had good Balance and Sphincter Control.Currently, he has deficits of Locomotion, Balance, Transfers Control, Endurance, and Sphincter Control.Pt. is now refe rred to [facility] for acute in-patient rehabilitation in order to maximize epte elliott's functional independence in activities of daily living, strength, ROM, and mobility.- Rehab Go al Patient has realistic goal of being discharged at assistance level 7-Ind to reside at Home with Fami ly/Relatives. MDM/PLAN: - Physical Therapy Inability to transfer - to improve, our physical therapists will perform initial evaluation of pt's status upon admission and devise an individualized program for Bed mobility Need for home safety evaluation - to improve, our physical therapists will perform initial evaluatio n of pt's status upon admission and devise an individualized program for Home Evaluation Need in caregiver upon discharge - to improve, our physical therapists will perform initial evaluati on of pt's status upon admission and devise an individualized program for Caregiver Training New precaution - to improve, our physical therapists will perform initial evaluation of pt's status upon admission and devise an individualized program for Patient precaution education Edema - to improve, our physical therapists will perform initial evaluation of pt's status upon admi ssion and devise an individualized program for Elevation Training, and Lymphedema Therapy Poor balance - to improve, our physical therapists will perform initial evaluation of pt's status up on admission and devise an individualized program for Balance Training Poor endurance - to improve, our physical therapists will perform initial evaluation of pt's status upon admission and devise an individualized program for Endurance Training Achieving independence - to improve, our physical therapists will perform initial evaluation of pt's status upon admission and devise an individualized program for Community Reintegration Activities - Occupational Therapy Need for adult care manager - to improve, our occupation therapists will perform initial evaluation of pt's status upon admission and devise an individualized program for Caregiver Training - Other See attached MAR (Medication Administration Record) - Diet Type Continue Regular - Diet - Liquid Texture Continue Regular - Tube Feed Continue N/A - Diet - Solid Texture Continue Regular - Shower allowing shower FUNCTIONAL STATUS: UPDATED AT WEEKLY TEAM CONFERENCE - Bladder Same accident frequency: 7-Ind - No accidents in the past 7 days - Bowel Same accident frequency: 7-Ind - No accidents in the past 7 days - Walking Same score based on distance walked: 0(N/A) Same score based on distance walked: 2(50-149ft) - Wheelchair Same score based on distance traveled: 0(N/A) FUNCTIONAL STATUS: - Self-Care A. Eating Ind B. Grooming Alf C. Bathing sup D. Dressing - Upper Alf E. Dressing - Lower sup F. Toileting Alf - Sphincter Control G. Bladder control sup H. Bowel control Alf - Transfers Control I. Bed/Chair/Wheelchair Corona J. Toilet Corona K. Tub/Shower Corona - Locomotion L. Walk/Wheelchair (B) Corona M. Stairs ADNO - Communication N. Comprehension (B) Alf O. Expression (B) Alf - Social Cognition P. Social Interaction Alf Q. Problem Solving Alf R. Memory Alf - Endurance Good - Balance Fair - Safety Awareness Fair QI SCORES: - Self-Care A. Eating 03-Partial/moderate assistance B. Oral hygiene 03-Partial/moderate assistance C. Toileting hygiene 03-Partial/moderate assistance E. Shower/bathe self 03-Partial/moderate assistance F. Upper body dressing 04-Supervision or touching assistance G. Lower body dressing 04-Supervision or touching assistance H. Putting on/taking off footwear 88-Not attempted due to medical condition or safety concerns - Mobility A. Roll left and right 04-Supervision or touching assistance B. Sit to lying 04-Supervision or touching assistance C. Lying to sitting on side of bed 04-Supervision or touching assistance D. Sit to stand 03-Partial/moderate assistance E. Chair/emk-bt-uqaxa transfer 03-Partial/moderate assistance F. Toilet transfer 03-Partial/moderate assistance G. Car transfer 88-Not attempted due to medical condition or safety concerns I. Walk 10 feet 88-Not attempted due to medical condition or safety concerns J. Walk 50 feet with two turns 88-Not attempted due to medical condition or safety concerns K. Walk 150 feet 88-Not attempted due to medical condition or safety concerns L. Walking 10 feet on uneven surfaces 88-Not attempted due to medical condition or safety concerns M. 1 step (curb) 88-Not attempted due to medical condition or safety concerns N. 4 steps 88-Not attempted due to medical condition or safety concerns O. 12 steps 88-Not attempted due to medical condition or safety concerns P. Picking up object 88-Not attempted due to medical condition or safety concerns R. Wheel 50 feet with two turns 88-Not attempted due to medical condition or safety concerns S. Wheel 150 feet 88-Not attempted due to medical condition or safety concerns - Bladder and Bowel Bladder continence Bowel continence - Endurance Good - Balance Good - Safety Awareness Good CURRENT FUNC. DEFICITS: Self-Care and Mobility SIGNATURE PANEL: (KIER BOILER)
[2020-01-03 19:28] VITALS: TEMP 98.2
[2020-01-03] MEDS: DONEPEZIL HCL 5 MG TAB PO SCH (19:45)
[2020-01-03] MEDS: MELATONIN 3 MG TABLET PO PRN (19:45)
[2020-01-03] MEDS: lisinopriL 5 MG TAB PO SCH (19:46)
[2020-01-04 06:10] LABS: Absolute Lymphocytes (CBC) 1.2 K/uL (0.7-4.9); Basophils % 0.8 % (0-1.3); Hematocrit 39.3 % (39.6-49.0); Lymphocytes % 19.2 % (15.3-44.8); MPV 8.7 fL (7.6-11.3); RBC Red Blood Cell Count 4.15 M/uL (4.33-5.43)
[2020-01-04 06:52] LABS: Albumin 3.4 g/dL (3.4-5.0); Magnesium 2.5 mg/dL (1.8-2.4); Potassium 5.1 mmol/L (3.5-5.1); Prealbumin 29.5 mg/dL (20-40)
[2020-01-04 07:36] VITALS: BP 159/86
[2020-01-04] MEDS: VERAPAMIL SR 180 MG TAB PO SCH (08:39)
[2020-01-04] MEDS: PANTOPRAZOLE 40MG TABLET PO SCH (08:40)
[2020-01-04] MEDS: FINASTERIDE 5 MG TAB PO SCH (08:40)
[2020-01-04] MEDS: LIDOCAINE 4% PATCH TOP SCH (08:40)
--- NOTE | 2020-01-04 18:03 | R.PN ---
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 Pt denied any Shortness of Breath. WBC 6.3, Hgb 13.3, Plt 175, Lay Out Technician 2.31, prealbumin 29.5. Ambulated 220' with contact guard assistance using a rolling walker. VITAL SIGNS Temperature: 98.2 F SBP/DBP: 156/86 Pulse: 77 Resp: 16 MEDICATION ALLERGIES: No Known Drug Allergies (NKDA) ENVIRONMENTAL ALLERGIES: - Substance Allergies None Known - Other Allergies None Known NURSING: - Shower allowing shower ACTIVITIES OOB only with supervision THERAPIES: - Dietary and Nutrition Adequate Nutrition. Nutritional Education. Nutritional Supplements. PHYSICAL EXAM - Gen Alert and awake Lying in bed No apparent distress Oriented to: person, time, and place - Skin No skin breakdown. No abnormalities - Eyes No abnormalities - ENMT No abnormalities - Neck No abnormalities - CVS RRR - Chest No abnormalities - Resp No wheezing - Abd Soft - GI + bowel sounds Deferred - No abnormalities - Ext Mild bilateral lower extremity edema. - MSK 4/5 weakness in both lower extremities. - Neuro No focal deficits - Psych No abnormalities ASSESSMENT: Pt. is a 84 yo Right-handed male of unknown race.On 12/25/2019 he was admitted to [facility] with diagnosis MALNUTRITION, DEHYDRATION, WEAKNESS, FALLS.His impairment category is Debility 16 - Debility (16).Pre-morbidly, Pt. was independent/mod-I in Locomotion, Safety Awareness, Self-Care, Communication, and Social Cognition; and he had good Balance and Sphincter Control.Currently, he has deficits of Locomotion, Balance, Transfers Control, Endurance, and Sphincter Control.Pt. is now refe rred to [facility] for acute in-patient rehabilitation in order to maximize pete elliott's functional independence in activities of daily living, strength, ROM, and mobility.- Rehab Go al Patient has realistic goal of being discharged at assistance level 7-Ind to reside at Home with Fami ly/Relatives. MDM/PLAN: - Physical Therapy Inability to transfer - to improve, our physical therapists will perform initial evaluation of pt's status upon admission and devise an individualized program for Bed mobility Need for home safety evaluation - to improve, our physical therapists will perform initial evaluatio n of pt's status upon admission and devise an individualized program for Home Evaluation Need in caregiver upon discharge - to improve, our physical therapists will perform initial evaluati on of pt's status upon admission and devise an individualized program for Caregiver Training New precaution - to improve, our physical therapists will perform initial evaluation of pt's status upon admission and devise an individualized program for Patient precaution education Edema - to improve, our physical therapists will perform initial evaluation of pt's status upon admi ssion and devise an individualized program for Elevation Training, and Lymphedema Therapy Poor balance - to improve, our physical therapists will perform initial evaluation of pt's status up on admission and devise an individualized program for Balance Training Poor endurance - to improve, our physical therapists will perform initial evaluation of pt's status upon admission and devise an individualized program for Endurance Training Achieving independence - to improve, our physical therapists will perform initial evaluation of pt's status upon admission and devise an individualized program for Community Reintegration Activities - Occupational Therapy Need for animal care technician - to improve, our occupation therapists will perform initial evaluation of pt's status upon admission and devise an individualized program for Caregiver Training - Other See attached MAR (Medication Administration Record) - Diet Type Continue Regular - Diet - Liquid Texture Continue Regular - Tube Feed Continue N/A - Diet - Solid Texture Continue Regular - Shower allowing shower FUNCTIONAL STATUS: UPDATED AT WEEKLY TEAM CONFERENCE - Bladder Same accident frequency: 7-Ind - No accidents in the past 7 days - Bowel Same accident frequency: 7-Ind - No accidents in the past 7 days - Walking Same score based on distance walked: 0(N/A) Same score based on distance walked: 2(50-149ft) - Wheelchair Same score based on distance traveled: 0(N/A) FUNCTIONAL STATUS: - Self-Care A. Eating Ind B. Grooming Alf C. Bathing sup D. Dressing - Upper Alf E. Dressing - Lower sup F. Toileting Alf - Sphincter Control G. Bladder control sup H. Bowel control Alf - Transfers Control I. Bed/Chair/Wheelchair Corona J. Toilet Corona K. Tub/Shower Corona - Locomotion L. Walk/Wheelchair (B) Corona M. Stairs ADNO - Communication N. Comprehension (B) Alf O. Expression (B) Alf - Social Cognition P. Social Interaction Alf Q. Problem Solving Alf R. Memory Alf - Endurance Good - Balance Fair - Safety Awareness Fair QI SCORES: - Self-Care A. Eating 03-Partial/moderate assistance B. Oral hygiene 03-Partial/moderate assistance C. Toileting hygiene 03-Partial/moderate assistance E. Shower/bathe self 03-Partial/moderate assistance F. Upper body dressing 04-Supervision or touching assistance G. Lower body dressing 04-Supervision or touching assistance H. Putting on/taking off footwear 88-Not attempted due to medical condition or safety concerns - Mobility A. Roll left and right 04-Supervision or touching assistance B. Sit to lying 04-Supervision or touching assistance C. Lying to sitting on side of bed 04-Supervision or touching assistance D. Sit to stand 03-Partial/moderate assistance E. Chair/xrm-bh-kyuvi transfer 03-Partial/moderate assistance F. Toilet transfer 03-Partial/moderate assistance G. Car transfer 88-Not attempted due to medical condition or safety concerns I. Walk 10 feet 88-Not attempted due to medical condition or safety concerns J. Walk 50 feet with two turns 88-Not attempted due to medical condition or safety concerns K. Walk 150 feet 88-Not attempted due to medical condition or safety concerns L. Walking 10 feet on uneven surfaces 88-Not attempted due to medical condition or safety concerns M. 1 step (curb) 88-Not attempted due to medical condition or safety concerns N. 4 steps 88-Not attempted due to medical condition or safety concerns O. 12 steps 88-Not attempted due to medical condition or safety concerns P. Picking up object 88-Not attempted due to medical condition or safety concerns R. Wheel 50 feet with two turns 88-Not attempted due to medical condition or safety concerns S. Wheel 150 feet 88-Not attempted due to medical condition or safety concerns - Bladder and Bowel Bladder continence Bowel continence - Endurance Good - Balance Good - Safety Awareness Good CURRENT FUNC. 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
== END 2020-01-04 14:46 | disposition home or self-care (01) | DRG 948 ==
LOC: 5TH 13:01
PROVIDERS: ADMIT Psychiatry & Neurology Neurology with Special Qualifications in Child Neurology; ATTEND Psychiatry & Neurology Neurology with Special Qualifications in Child Neurology
DX: R53.81 Other malaise (principal); E46 Unspecified protein-calorie malnutrition; R53.1 Weakness; R79.89 Other specified abnormal findings of blood chemistry; Z68.22 Body mass index [BMI] 22.0-22.9, adult; Z20.828 Contact with and (suspected) exposure to other viral communicable diseases
CPT/HCPCS: 36415; 71250; 74150; 80048; 80053; 81001; 82040; 82306; 82947; 83735; 84134; 85025; 87086; 87088; 92523; 96374; 97110; 97116; 97127; 97161; 97530; 99285; G0378; J0360; J1650; J7799; U0002; U0003

== ENCOUNTER 2020-05-08 10:37 | Inpatient (IN) | payer OTHER ==
--- OUTSIDE RECORDS SUMMARY | 2020-05-08 10:40 | XMS REPORT | Continuity of Care Document ---
:1935 Author Organization [facility] t Address [address] [place] [address] Care Team Providers Name Role Phone Asked, Pcp Primary Care Physician Unavailable Herber Farrell Attending Clinician Problems Condition Condition Condition Status Onset Resolution [...] scalp of scalp l Outpati ent Clinics Carotid Problem Active 2020-03-01 Roger rio bruit 01:43:49 l (finding) Carotid Herm brandon bruit (finding) Active Problem 03/01/2020 [facility] Dementia Problem Active 2020-03-01 Mem oria (disorder) 01:43:49 l Dementia Ady n (disorder) Active Problem 03/01/2020 [facility] Hypertensi Problem Active 2020-03-01 M emoria ve 01:43:49 l disorder, [place] systemic Hypertensi arterial ve (disorder) disorder, systemic arterial (disorder) Active Problem 03/01/2020 [facility] Allergies, Adverse Reactions, Alerts Allergy Allergy Status Severity Reaction(s) Onset Inactive Treating Comm ents Source Name Type Date Date Clinician Rafaine Propensi Active 2017-03 Hard to [place] ty to 0-05 arouse Methodi adverse 00:00: st reaction 00 s to drug codeine Adverse Active Info Not [facility] Reaction Available [facility] codeine codeine Active Walt l [place] Social History Social Habit Start Date Stop Date Quantity Comments Source Social History 2020-01-12 2020-01-12 [facility] aleida 18:09:38 18:09:38 Tobacco use and 2017-12-09 2017-12-09 Former user Sabael Druze exposure 00:00:00 00:00:00 Alcohol intake 2017-12-09 2017-12-09 Current drinker [place] 00:00:00 00:00:00 of alcohol (finding) Sex Assigned At [birth year] [facility] ethodist 00:00:00 00:00:00 Smoking Status Start Date Stop Date Source Former smoker 2017-12-09 00:00:00 2017-12-09 00:00:00 [facility] Medications Ordered Filled Start Stop Current Ordering Indication Dosage Frequency Signature Comments Components Source Medication Medication Date Date Medication? Clinician (SIG) Name Name Memantine 2019-03 Yes 5 mg = 1 Roger rio hydrochlori 2-29 tab, PO, l de 5 MG 18:04: BID, # 60 Shweta nn Oral Tablet 00 tab, 3 [Namenda] Refill(s), Pharmacy: [id number], 177.8, cm, 02/27/20 11:51:00 MANAGER AUDIT, Height, 73.182, kg, 02/27/20 11:51:00 MANAGER AUDIT, Weight pantoprazol 2019-03 Yes 40 mg = 1 M emoria e 40 MG 1-13 tab, PO, l Enteric 17:56: Daily, 0 Ady n Coated 00 Refill(s) Tablet [Protonix] verapamil 2019-03 Yes 180 mg = 1 Me moria 180 mg oral 1-13 cap, PO, l capsule, 17:56: Daily, 0 Shweta nn extended 00 Refill(s) release Donepezil 2019-03 Yes 10 mg = 1 Mem oria hydrochlori 1-13 tab, PO, l de 10 MG 17:56: Bedtime, 0 Her khan Oral Tablet 00 Refill(s) [Aricept] lisinopril 2019-03 Yes 2.5 mg = 1 M emoria 2.5 mg oral 1-13 tab, PO, l tablet 17:56: Daily, 0 [place] 00 Refill(s) finasteride 2019-03 Yes 5 mg = 1 Me moria 5 mg oral 1-13 tab, PO, l tablet 17:56: Daily, # [place] 00 30 tab, 0 Refill(s) atorvastati 2017-03 Yes 40mg QD Take 40 mg [place] (LIPITOR) 0-05 by mouth Meth yasmine 40 MG 15:06: daily. st tablet 52 amLODIPine 2017-03 Yes 10mg QD Take 10 mg [place] (NORVASC) 0-05 by mouth Method i 10 mg 15:06: daily. st tablet 52 lisinopril 2017-03 Yes 20mg QD Take 20 [...] 25 mg 52 times a tablet day. Verapamil Verapamil Yes Dave [address] [facility] HCl ER HCl ER [facility] Vital Signs Vital Name Observation Time Observation Value Comments Source Systolic (mm Hg) 2020-02-27 17:39:00 Roger Fitch Diastolic (mm Hg) 2020-02-27 17:39:00 David Fitch Heart Rate 2020-02-27 17:39:00 [facility] Respitory Rate 2020-02-27 17:39:00 Carlitos al [place] Height 2020-02-27 17:39:00 177.8 cm [facility] Weight 2020-02-27 17:39:00 [facility] BMI Calculated 2020-02-27 17:39:00 [facility] Height 2020-01-12 17:46:00 180.34 cm [facility] Weight 2020-01-12 17:46:00 [facility] BMI Calculated 2020-01-12 17:46:00 [facility] [address] Procedures Procedure Date / Time Performed Performing Clinician Sour e Carotid endarterectomy [facility] Encounters Start End Encounter Admission Attending Care Care Encounter Source Date/Time Date/Time Type Type Clinicians Facility Department ID 2020-02-27 2020-02-27 Outpatient DANIELLE FarrellSCHTORSTEN MISCHER [id number] 11:15:00 23:59:59 Roger 02 Herber 2020-01-12 2020-01-12 Outpatient DANIELLE FarrellSCHTORSTEN MISCHER [id number] 11:30:00 23:59:59 Roger 01 Herber 2019-03-14 2019-03-14 [place] [place] [id number] [facility] 11:28:00 11:28:00 [facility] Clinics 2019-01-20 2019-01-20 [place] [id number] [facility] 14[facility]42:00 14:42:00 [facility] Out[facility] Clinics 2018-12-07 2018-12-07 [facility] [id number] [facility] 13:15:00 13:15:00 [facility] Medicine Outpati ent Clinics 2018-11-21 2018-11-21 [place] [id number] [facility] 13:00:00 13:00:00 [facility] Medicine Outpati ent Clinics 2018-08-22 2018-08-22 [place] [id number] [facility] 14:45:00 14:45:00 [facility] Outpat[facility] Clinics 2018-06-27 2018-06-27 [place] [id number] [facility] 16:01:00 16:01:00 [facility] Out[facility] Clinics 2018-06-27 2018-06-27 [place] [id number] [facility] 09:57:00 09:57:00 [facility] Outpat[facility] Clinics 2018-06-22 2018-06-23 Outpatient MHMISCHER MHMISCHER [id number] 13:07:00 23:59:59 00 2018-06-22 2018-06-23 Outpatient MHMISCHER MHMISCHER [id number] 13:07:00 23:59:59 00 2018-06-20 2018-06-20 [facility] [id number] [facility] 14:00:00 14:00:00 [facility] Clin[facility] 2018-05-19 2018-05-19 [facility] [id number] [facility] 14:00:00 14:00:00 [facility] Out[facility] Clinics 2018-05-05 2018-05-05 [facility] [id number] [facility] 14:30:00 14:30:00 [facility] Out[facility] Clinics 2017-09-07 2017-09-07 [facility] [id number] [facility] 11:00:00 11:00:00 [facility] Out[facility] Clinics Results This patient has no known results.
[2020-05-08] MEDS ORDERED: NA CHLORIDE 0.9% 500 ML ONE (11:12)
--- NOTE | 2020-05-08 11:18 | RAD REPORT ---
EXAM DESCRIPTION: RAD - Chest Single View - 05/08/2020 11:00 am CLINICAL HISTORY: COUGH Chest pain. COMPARISON: Chest Single View dated 02/18/2019 FINDINGS: Portable technique limits examination quality. The lungs are mildly emphysematous but grossly clear. The heart is normal in size. Tortuous thoracic aorta. No displaced fractures. IMPRESSION: No acute intrathoracic process suspected.
[2020-05-08 11:27] LABS: Absolute Lymphocytes (CBC) 0.6 K/uL (0.7-4.9); Basophils % 0.4 % (0-1.3); Hematocrit 38.5 % (39.6-49.0); Lymphocytes % 7.5 % (15.3-44.8); MPV 8.5 fL (7.6-11.3); RBC Red Blood Cell Count 3.98 M/uL (4.33-5.43)
[2020-05-08 11:47] LABS: C-Reactive Protein 63.6 mg/L (<3.00); Ferritin 284.2 ng/mL (26-388); Potassium 4.1 mmol/L (3.5-5.1)
[2020-05-08 15:22] LABS: SARS-COV-2 RT PCR POSITIVE (NEGATIVE)
--- NOTE | 2020-05-08 15:28 | EDPHYS ---
Physician Documentation [facility] Name: Carlos Guerra Age: 85 yrs Sex: Male : 1935 Arrival Date: 05/08/2020 Time: 10:38 Bed 18 Private MD: ED Physician Randy Mejía HPI: 05/08 11:15 This 85 yrs old Male presents to ER via EMS with complaints of Weakness. rn 11:15 The patient presents to the emergency department with weakness of the entire body, rn generalized weakness. Onset: The symptoms/episode began/occurred this morning. Context: occurred at home. Severity of symptoms: At their worst the symptoms were moderate in the emergency department the symptoms have improved. Current symptoms: Currently, the patient is not experiencing any symptoms. It is unknown whether or not the patient has had similar symptoms in the past. The patient has not recently seen a physician. Family called [address] Fontana, reported to him that patient difficult to wake up this morning, wakes up with stimulation then goes back to sleep. Patient reports "this is normal for me". Denies chest pain/sob/abd pain/vomiting/diarrhea. States not eating or drinking much water lately without clear reason. + several family members with COVID in household. Currently staying in hotel. . Historical: - Allergies: 10:50 Codeine; sedation; tw2 - Home Meds: 10:50 Aricept 10 mg Oral tab 1 tab once daily [Active]; finasteride 1 mg Oral tab 1 tab once tw2 daily [Active]; Hydrochlorothiazide Oral [Active]; Lipitor 10 mg Oral tab [Active]; lisinopril Oral [Active]; Norvasc Oral [Active]; verapamil 180 mg Oral C24P 1 cap once daily [Active]; - PMHx: 10:50 GERD; Hypertension; shingles; tw2 - Immunization history:: Adult Immunizations. - Social history:: Smoking status: . - Family history:: not pertinent. - Hospitalizations: : No recent hospitalization is reported. ROS: 11:15 Constitutional: Negative for fever, chills, and weight loss, Eyes: Negative for injury, rn pain, redness, and discharge, Neck: Negative for injury, pain, and swelling, Cardiovascular: Negative for chest pain, palpitations, and edema, Respiratory: Negative for shortness of breath, wheezing, and pleuritic chest pain, Abdomen/GI: Negative for abdominal pain, nausea, vomiting, diarrhea, and constipation, Back: Negative for injury and pain, : Negative for injury, bleeding, discharge, and swelling, MS/Extremity: Negative for injury and deformity, Skin: Negative for injury, rash, and discoloration, Neuro: Negative for headache, numbness, tingling, and seizure. 11:15 All other systems are negative. Exam: 11:15 Constitutional: Thin male, awake, talkative. Head/Face: Normocephalic, atraumatic. rn patient care: dry MM Neck: Supple, full range of motion without nuchal rigidity, or vertebral point tenderness. No Meningismus. Cardiovascular: Regular rate and rhythm. No pulse deficits. Respiratory: No increased work of breathing, no retractions or nasal flaring. Abdomen/GI: soft, non-tender Skin: Warm, dry MS/ Extremity: Pulses equal, no cyanosis. Neurovascular intact. Full, normal range of motion. Equal circumference. Neuro: Awake and alert, GCS 15, moves all 4 extremities with equal strength Vital Signs: 10:45 Pulse 85; Resp 17; Temp 99.5(O); Pulse Ox 99% on R/A; Weight 74.84 kg (R); Height 5 ft. tw2 8 in. (172.72 cm); Pain 0/10; 10:45 BP 193 / 85; tw2 11:46 BP 192 / 79; Pulse 80; Resp 17; Pulse Ox 97% on R/A; tw2 12:23 BP 190 / 71; Pulse 83; Resp 16; Pulse Ox 95% on R/A; zb 13:00 BP 157 / 116; Pulse 97; Resp 16; Pulse Ox 97% on R/A; zb 14:00 BP 196 / 75; Pulse 84; Resp 16; Pulse Ox 97% on R/A; zb 15:00 BP 201 / 80; Pulse 85; Resp 16; Pulse Ox 97% on R/A; zb 16:00 BP 200 / 79; Pulse 79; Resp 16; Pulse Ox 100% on R/A; zb 17:00 BP 203 / 78; Pulse 82; Resp 18; Pulse Ox 97% on R/A; zb 18:01 BP 214 / 88; Pulse 83; Resp 18; Pulse Ox 96% on R/A; zb 18:13 BP 210 / 75; Pulse 84; Resp 16; Pulse Ox 97% on R/A; zb 19:35 BP 177 / 68; Pulse 83; Resp 16; Pulse Ox 94% on R/A; zb 10:45 Body Mass Index 25.09 (74.84 kg, 172.72 cm) tw2 MDM: 10:39 Patient medically screened. rn 14:44 Data reviewed: vital signs, nurses notes, lab test result(s), radiologic studies, plain rn films, and as a result, I will admit patient. 15:26 Counseling: I had a detailed discussion with the patient and/or guardian regarding: the rn historical points, exam findings, and any diagnostic results supporting the discharge/admit diagnosis, lab results, radiology results, the need for further work-up and treatment in the hospital. Response to treatment: the patient's symptoms have mildly improved after treatment, and as a result, I will admit patient. Admission orders: after a detailed discussion of the patient's condition and case, the admit orders are written by me. ED course: Patient evaluated by Dr. Fontana, will admit for COVID and weakness, as unable to ambulate. . 05/08 10:44 Order name: Blood Culture Adult (2) rn 05/08 10:44 Order name: BMP rn 05/08 10:44 Order name: C-Reactive Protein rn 05/08 10:44 Order name: CBC with Diff rn 05/08 10:44 Order name: Ferritin rn 05/08 10:44 Order name: Lactate; Complete Time: 12:33 rn 05/08 10:44 Order name: Procalcitonin; Complete Time: 12:33 rn 05/08 10:44 Order name: Urine Microscopic Only rn 05/08 10:44 Order name: Blood Culture EDNJ 05/08 10:44 Order name: Basic Metabolic Panel; Complete Time: 12:33 EDNJ 05/08 10:44 Order name: C-Reactive Protein; Complete Time: 12:33 EDNJ 05/08 10:44 Order name: CBC with Automated Diff; Complete Time: 12:33 EDNJ 05/08 10:44 Order name: CXR XRAY; Complete Time: 11:19 rn 05/08 10:44 Order name: EKG; Complete Time: 10:44 rn 05/08 10:44 Order name: Cardiac monitoring; Complete Time: 12:00 rn 05/08 10:44 Order name: Droplet/Contact Precautions; Complete Time: 12:00 rn 05/08 10:44 Order name: EKG - Nurse/Tech; Complete Time: 12:05 rn 05/08 10:44 Order name: IV Start; Complete Time: 12:00 rn 05/08 10:44 Order name: Labs collected and sent; Complete Time: 12:00 rn 05/08 10:44 Order name: O2 Per Protocol; Complete Time: 12:00 rn 05/08 10:44 Order name: O2 Sat Monitoring; Complete Time: 12:00 rn 05/08 10:44 Order name: Ferritin; Complete Time: 12:33 EDMS 05/08 15:09 Order name: COVID-19/FLU A+B EDMS 05/09 06:35 Order name: CBC with Automated Diff EDMS 05/09 06:58 Order name: Comprehensive Metabolic Panel EDMS Administered Medications: 11:13 Drug: NS 0.9% 500 ml Route: IV; Rate: bolus; Site: right antecubital; tw2 11:59 Follow up: Response: No adverse reaction; IV Status: Completed infusion; IV Intake: tw2 500ml 17:11 Drug: SOLU-Medrol 125 mg Route: IVP; Site: right antecubital; zb 18:19 Follow up: Response: No adverse reaction zb 18:12 Drug: Norvasc 10 mg Route: PO; zb 19:36 Follow up: Response: No adverse reaction; Blood pressure is lowered zb Disposition: 05/08/20 15:27 Hospitalization ordered by Luis Fontana for Observation. Preliminary diagnosis are Coronavirus infection, unspecified, Weakness, Dehydration. - Bed requested for Telemetry/MedSurg (observation). - Status is Observation. bp - Condition is Stable. - Problem is new. - Symptoms have improved. Signatures: Dispatcher [employer] EDMS Randy Mejía MD MD rn Calderon, Audri, RN RN aa5 Anai Esparza RN RN tl1 Zee Lee RN RN tw2 Yemi Joseph RN RN Divya Campbell RN RN zb Corrections: (The following items were deleted from the chart) 13:55 10:44 Influenza Screen (A \\T\\ B)+BA.LAB.BRZ ordered. EDMS EDMS 13:55 10:44 CORONAVIRUS+MR.LAB.BRZ ordered. EDMS EDMS 16:46 15:27 Hospitalization Ordered by Luis Fontana MD for Observation. Preliminary diagnosis aa5 is Coronavirus infection, unspecified; Weakness; Dehydration. Bed requested for Telemetry/MedSurg (observation). Status is Observation. Condition is Stable. Problem is new. Symptoms have improved. rn 05/09 05:40 05/08 16:46 05/08/2020 15:27 Hospitalization Ordered by Luis Fontana MD for tl1 Observation. Preliminary diagnosis is Coronavirus infection, unspecified; Weakness; Dehydration. Bed requested for [facility] ER HOLD. Status is Observation. Condition is Stable. Problem is new. Symptoms have improved. aa5 05/09 07:49 05:40 05/08/2020 15:27 Hospitalization Ordered by Luis Fontana MD for Observation. bp Preliminary diagnosis is Coronavirus infection, unspecified; Weakness; Dehydration. Bed requested for Telemetry/MedSurg (observation). Status is Observation. Condition is Stable. Problem is new. Symptoms have improved. tl1
--- NOTE | 2020-05-08 15:28 | P.HP ---
Certification for Inpatient Patient admitted to: Inpatient With expected LOS: >2 Midnights Patient will require the following post-hospital care: Penitentiary Practitioner: I am a practitioner with admitting privileges, knowledge of patient current condition, hospital course, and medical plan of care. Services: Services provided to patient in accordance with Admission requirements found in Title 42 Section 412.3 of the Code of Federal Regulations Patient History Date of Service: 05/08/20 Primary Care Provider: Addi Reason for admission: covid 19 History of Present Illness: Patient is an office patient of [employer]. He has a history of mild cognitive impairment, htn, ckd stage 3. He recently moved in to a hotel. he has 2 daughters who tested positive for covid. I had wanted to start him on the prophylactic protochol. However he did not get the medication yesterday. Today his called. Stated he was very weak. the patient was not able to get out of bed. Was not eating. As she was not able to wake him up she called the office. Had asked her to send him to the ER. he was found to be covid positive. The patient is also very week. When asking him to sit up in the er bed he was not able to. The creatine is at baseline. His bp is elevated. Allergies codeine Allergy (Verified 12/27/19 14:32) Rash Home Medications: Verapamil HCl [Verapamil ER] 180 mg PO DAILY 02/18/19 Acetaminophen [Tylenol] 1,000 mg PO Q6HP PRN 03/01/19 Donepezil [Aricept*] 10 mg PO BEDTIME 12/25/19 Finasteride [Propecia] 5 mg PO DAILY 12/25/19 Pantoprazole Sodium [Protonix] 40 mg PO DAILY 12/27/19 Docusate/Senna [Senokot-S*] 2 tab PO BEDTIME PRN #60 tab 01/04/20 Lidocaine 4% Patch [Lidoderm 5% Patch*] 1 patch TOP DAILY patch 01/04/20 lisinopriL [Prinivil*] 2.5 mg PO BEDTIME #30 tab 01/04/20 - Past Medical/Surgical History Diabetic: No -: gerd -: hypertension -: shingles -: colitis -: pancreatitis -: carpel tunnel surgery -: carotid endarterectomy 1999 -: gall baldder removed -: colitis - Family History Mother -: Heart disease, Hypertension Notes: [place] Father -: Cancer - Social History Alcohol use: Yes CD- Drugs: No Caffeine use: Yes Review of Systems 10-point ROS is otherwise unremarkable General: Weakness Neurological: Weakness, Confusion Physical Examination - Physical Exam General: Alert, In no apparent distress HEENT: Atraumatic, PERRLA, Mucous membr. moist/pink, EOMI, Sclerae nonicteric Neck: Supple, 2+ carotid pulse no bruit, No LAD, Without JVD or thyroid abnormality Respiratory: Clear to auscultation bilaterally, Normal air movement Cardiovascular: Regular rate/rhythm, Normal S1 S2 Gastrointestinal: Normal bowel sounds, No tenderness Musculoskeletal: No tenderness Integumentary: No rashes Neurological: Normal gait, Normal speech, Normal strength at 5/5 x4 extr, Normal tone, Normal affect Lymphatics: No axilla or inguinal lymphadenopathy - Studies Laboratory Data (last 24 hrs) 05/08/20 11:12: WBC 7.40, Hgb 12.9 L, Hct 38.5 L, Plt Count 170 05/08/20 11:12: Sodium 135 L, Potassium 4.1, BUN 31 H, Creatinine 2.04 H, Glucose 105 Assessment and Plan - Problems (Diagnosis) (1) COVID-19 Current Visit: Yes Status: Acute Plan: Will start the patient on the I-Mask protochol. Will have his test as well. Will put in a consult to Dr. Wilkins. (2) CKD (chronic kidney disease) stage 3, GFR 30-59 ml/min Current Visit: Yes Status: Acute Plan: Patient is at his baseline. Will hold his lisinopril and monitor his creatine. We may restart it in the am. Qualifiers: Chronic kidney disease stage 3 subtype: stage 3a (GFR 45-59) Qualified Code(s): N18.31 - Chronic kidney disease, stage 3a (3) Essential hypertension Current Visit: No Status: Acute Plan: Restart his verapamil. Will add prn hydralazine (4) Protein-energy malnutrition Current Visit: No Status: Acute Plan: will consult PT on the patient. He is currently living in a hotel with his elderly as his family is positive. Will consider rehab as an outpatient. Qualifiers: Protein-calorie malnutrition severity: severe Qualified Code(s): E43 - Unspecified severe protein-calorie malnutrition (5) Delirium due to another medical condition Current Visit: No Status: Resolved Plan: Most likely due to his weakness Discharge Plan: Home Plan to discharge in: Greater than 2 days - Advance Directives Does patient have a Living Will: Yes Does patient have a Durable POA for Healthcare: Yes - Code Status/Comfort Care Code Status Assessed: No Physician Review: Patient Assessed, Agree with Above Assessment and Plan Critical Care: No Time Spent Managing Pts Care (In Minutes): 65
--- NOTE | 2020-05-08 15:28 | ER ---
Nurse's Notes [facility] Name: Carlos Guerra Age: 85 yrs Sex: Male : 1935 Arrival Date: 05/08/2020 Time: 10:38 Bed 18 Private MD: Diagnosis: Coronavirus infection, unspecified;Weakness;Dehydration Presentation: 05/08 10:45 Chief complaint: EMS states: pt from a hotel room because his daughter has Covid and tw2 spouse called saying he was possibly dehydrated, called Dr. Lara was told to come here, [id number]\\[id number]\\[id number], has dementia, vs stable. Coronavirus screen: Client denies travel out of the [place] in the last 14 days. At this time, the client does not indicate any symptoms associated with coronavirus-19. Ebola Screen: Patient denies travel to an Ebola-affected area in the 21 days before illness onset. Initial Sepsis Screen: Does the patient meet any 2 criteria? No. Patient's initial sepsis screen is negative. Does the patient have a suspected source of infection? No. Patient's initial sepsis screen is negative. Risk Assessment: Do you want to hurt yourself or someone else? Patient reports no desire to harm self or others. Onset of symptoms was May 08, 2020. Care prior to arrival: IV initiated. 20 GA, in the right antecubital area. 10:45 Method Of Arrival: EMS: [facility] tw2 10:45 Acuity: CLAIRE 3 tw2 Triage Assessment: 10:50 General: Appears in no apparent distress. slender, well groomed, Behavior is calm, tw2 cooperative, appropriate for age. Pain: Denies pain. EENT: No signs and/or symptoms were reported regarding the EENT system. Neuro: Level of Consciousness is awake, alert, obeys commands, Oriented to person, place, situation. Cardiovascular: Patient's skin is warm and dry. Respiratory: Airway is patent Respiratory effort is even, unlabored, Respiratory pattern is regular, symmetrical. GI: No signs and/or symptoms were reported involving the gastrointestinal system. Abdomen is flat. : No signs and/or symptoms were reported regarding the genitourinary system. Derm: No signs and/or symptoms reported regarding the dermatologic system. Musculoskeletal: Range of motion: intact in all extremities. Historical: - Allergies: 10:50 Codeine; sedation; tw2 - Home Meds: 10:50 Aricept 10 mg Oral tab 1 tab once daily [Active]; finasteride 1 mg Oral tab 1 tab once tw2 daily [Active]; Hydrochlorothiazide Oral [Active]; Lipitor 10 mg Oral tab [Active]; lisinopril Oral [Active]; Norvasc Oral [Active]; verapamil 180 mg Oral C24P 1 cap once daily [Active]; - PMHx: 10:50 GERD; Hypertension; shingles; tw2 - Immunization history:: Adult Immunizations. - Social history:: Smoking status: . - Family history:: not pertinent. - Hospitalizations: : No recent hospitalization is reported. Screenin:53 Abuse screen: Denies threats or abuse. Nutritional screening: No deficits noted. tw2 Tuberculosis screening: No symptoms or risk factors identified. Fall Risk Secondary diagnosis (15 points) impaired mobility. Assessment: 10:52 Reassessment: xray at bedside, see triage assessment. tw2 11:46 Reassessment: Patient appears in no apparent distress at this time. No changes from tw2 previously documented assessment. Patient and/or family updated on plan of care and expected duration. Pain level reassessed. Patient is alert, oriented x 3, equal unlabored respirations, skin warm/dry/pink. 12:16 General: Appears in no apparent distress. comfortable, Behavior is calm, cooperative, zb Reports fatigue for >3 days, Denies fever, feeling ill, chills. Pain: Complains of pain in left leg Pain currently is 6 out of 10 on a pain scale. Neuro: Level of Consciousness is awake, alert, obeys commands, Oriented to person, place, time, situation. Neuro: Kick Boxer are equal bilaterally Weakness in left leg(s) Gait is steady, Speech is normal. Cardiovascular: Heart tones S1 S2 present Murmur present Capillary refill < 3 seconds in bilateral fingers Patient's skin is warm and dry. Respiratory: Airway is patent Respiratory effort is even, unlabored, Respiratory pattern is regular, symmetrical. GI: Abdomen is round Bowel sounds present X 4 quads. : No signs and/or symptoms were reported regarding the genitourinary system. EENT: No signs and/or symptoms were reported regarding the EENT system. Derm: Skin. Musculoskeletal: Range of motion: intact in all extremities. 13:00 Reassessment: Patient appears in no apparent distress at this time. Patient and/or zb family updated on plan of care and expected duration. Pain level reassessed. Patient is alert, oriented x 3, equal unlabored respirations, skin warm/dry/pink. hospitalist at bedside. 18:00 Reassessment: notified ecp that patients blood pressure has continued to be high. zb patient remains asymptomatic. 19:34 Reassessment: blood pressure decreased. 177/68. pt remains asymptomatic. zb Vital Signs: 10:45 Pulse 85; Resp 17; Temp 99.5(O); Pulse Ox 99% on R/A; Weight 74.84 kg (R); Height 5 ft. tw2 8 in. (172.72 cm); Pain 0/10; 10:45 BP 193 / 85; tw2 11:46 BP 192 / 79; Pulse 80; Resp 17; Pulse Ox 97% on R/A; tw2 12:23 BP 190 / 71; Pulse 83; Resp 16; Pulse Ox 95% on R/A; zb 13:00 BP 157 / 116; Pulse 97; Resp 16; Pulse Ox 97% on R/A; zb 14:00 BP 196 / 75; Pulse 84; Resp 16; Pulse Ox 97% on R/A; zb 15:00 BP 201 / 80; Pulse 85; Resp 16; Pulse Ox 97% on R/A; zb 16:00 BP 200 / 79; Pulse 79; Resp 16; Pulse Ox 100% on R/A; zb 17:00 BP 203 / 78; Pulse 82; Resp 18; Pulse Ox 97% on R/A; zb 18:01 BP 214 / 88; Pulse 83; Resp 18; Pulse Ox 96% on R/A; zb 18:13 BP 210 / 75; Pulse 84; Resp 16; Pulse Ox 97% on R/A; zb 19:35 BP 177 / 68; Pulse 83; Resp 16; Pulse Ox 94% on R/A; zb 10:45 Body Mass Index 25.09 (74.84 kg, 172.72 cm) tw2 ED Course: 10:38 Patient arrived in ED. am2 10:39 Randy Mejía MD is Attending Physician. rn 10:40 Bed in low position. Call light in reach. Side rails up X2. monitor car operator on. Pulse tw2 ox on. NIBP on. 10:44 Zee Lee, RN is Primary Nurse. tw2 10:49 Triage completed. tw2 10:53 Arm band placed on. tw2 11:00 CXR XRAY In Process Unspecified. EDMS 12:21 Divya Gomes RN is Primary Nurse. zb 15:27 Luis Fontana MD is Hospitalizing Provider. rn 05/09 00:25 IV is patent, is intact, 20 GA right AC. sf 00:25 Patient admitted, IV remains in place. sf 06:04 No provider procedures requiring assistance completed. sf 06:58 Primary Nurse role handed off by Divya Gomes RN bp 06:58 Yemi Joseph, BOBBY is Primary Nurse. bp 07:02 Report given to BOBBY Bragg. sf Administered Medications: 05/08 11:13 Drug: NS 0.9% 500 ml Route: IV; Rate: bolus; Site: right antecubital; tw2 11:59 Follow up: Response: No adverse reaction; IV Status: Completed infusion; IV Intake: tw2 500ml 17:11 Drug: SOLU-Medrol 125 mg Route: IVP; Site: right antecubital; zb 18:19 Follow up: Response: No adverse reaction zb 18:12 Drug: Norvasc 10 mg Route: PO; zb 19:36 Follow up: Response: No adverse reaction; Blood pressure is lowered zb Intake: 11:59 IV: 500ml; Total: 500ml. tw2 Outcome: 15:27 Decision to Hospitalize by Provider. rn 05/09 00:00 Admitted to ER Hold. Please see [facility] for further documentation. sf Condition: good Instructed on the need for admit. 06:02 Admitted to Tele Report called to no one. Attempted to call report to floor ([id number]) not sf able to take report, staff states "house said they wouldn't be coming up until after shift change" 07:49 Patient left the ED. bp Signatures: Dispatcher [employer] EDMS Randy Mejía MD MD rn Wise, Tara, RN RN tw2 [place] [facility] am2 Yemi Joseph RN RN bp Divya Gomes RN RN zb Ardon, Hunter, RN RN sf
[2020-05-08] MEDS ORDERED: ACETAMINOPHEN 500 MG TAB PO PRN (15:35)
[2020-05-08] MEDS ORDERED: METHYLPREDNISOLONE 40 MG INJ ONE (16:46)
[2020-05-08] MEDS ORDERED: AMLODIPINE 10 MG TAB ONE (18:28)
[2020-05-08] MEDS: ASCORBIC ACID 500 MG TABLET PO SCH (21:00)
[2020-05-08] MEDS: MELATONIN 3 MG TABLET PO SCH (21:00)
[2020-05-08] MEDS: DONEPEZIL HCL 5 MG TAB PO SCH (21:00)
[2020-05-08] MEDS ORDERED: ASCORBIC ACID 500 MG TABLET ONE (22:20)
[2020-05-09 01:02] VITALS: BMI 25.0
--- NOTE | 2020-05-09 05:13 | EKG ---
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
[2020-05-09 06:24] LABS: Absolute Lymphocytes (CBC) 0.4 K/uL (0.7-4.9); Basophils % 0.2 % (0-1.3); Hematocrit 40.9 % (39.6-49.0); Lymphocytes % 5.5 % (15.3-44.8); MPV 8.6 fL (7.6-11.3); RBC Red Blood Cell Count 4.27 M/uL (4.33-5.43)
[2020-05-09 06:57] LABS: Albumin 3.2 g/dL (3.4-5.0); Bilirubin Total 0.8 mg/dL (0.2-1.0); Potassium 4.7 mmol/L (3.5-5.1); Protein, Total 8.3 g/dL (6.4-8.2)
[2020-05-09] MEDS: VERAPAMIL SR 180 MG TAB PO SCH (08:14)
[2020-05-09] MEDS: IVERMECTIN 3 MG TABLET PO SCH (08:14)
[2020-05-09] MEDS: FINASTERIDE 5 MG TAB PO SCH (08:16)
[2020-05-09] MEDS: VITAMIN D 5,000 UNIT CAP PO SCH (08:16)
[2020-05-09] MEDS: PANTOPRAZOLE 40MG TABLET PO SCH (08:16)
[2020-05-09] MEDS: ZINC SULFATE 220 MG CAP PO SCH (08:17)
[2020-05-09] MEDS: ASPIRIN 81 MG CHEWABLE TABLET PO SCH (08:17)
[2020-05-09] MEDS: ASCORBIC ACID 500 MG TABLET PO SCH ×2 (08:17→21:53)
[2020-05-09] MEDS ORDERED: FINASTERIDE 1 MG PO SCH (09:00)
[2020-05-09] MEDS ORDERED: HOME MED 1 EA UNK (Pantoprazole Sodium [Protonix] 20 MG Tablet.Dr) PO SCH (09:00)
--- NOTE | 2020-05-09 09:12 | P.PN ---
Subjective Date of Service: 05/09/20 Primary Care Provider: Addi Chief Complaint: covid 19 Subjective: Improving Review of Systems 10-point ROS is otherwise unremarkable Physical Examination - Vital Signs Temperature: 98.2 F Blood Pressure: 158/78 Pulse: 88 Respirations: 16 Pulse Ox (%): 92 - Physical Exam General: Alert, In no apparent distress HEENT: Atraumatic, PERRLA, EOMI Neck: Supple, JVD not distended Respiratory: Clear to auscultation bilaterally, Normal air movement Cardiovascular: Regular rate/rhythm, Normal S1 S2 Gastrointestinal: Normal bowel sounds, No tenderness Musculoskeletal: No tenderness Integumentary: No rashes Neurological: Normal speech, Normal tone, Normal affect Lymphatics: No axilla or inguinal lymphadenopathy - Studies Laboratory Data (last 24 hrs) 05/08/20 11:12: WBC 7.40, Hgb 12.9 L, Hct 38.5 L, Plt Count 170 05/08/20 11:12: Sodium 135 L, Potassium 4.1, BUN 31 H, Creatinine 2.04 H, Glucose 105 Assessment & Plan - Problems (Diagnosis) (1) COVID-19 Current Visit: Yes Status: Acute Plan: Will start the patient on the I-Mask protochol. Will have his test as well. Will put in a consult to Dr. Wilkins. (2) Protein-energy malnutrition Current Visit: No Status: Acute Plan: will consult PT on the patient. He is currently living in a hotel with his elderly as his family is positive. Will consider rehab as an outpatient. 05/09 Patient is doing well from a medical standpoint. Will have him seen by PT. He has poor social support. Will consider discharge planning based on the physical therapy evaluation. Qualifiers: Protein-calorie malnutrition severity: severe Qualified Code(s): E43 - Unspecified severe protein-calorie malnutrition (3) CKD (chronic kidney disease) stage 3, GFR 30-59 ml/min Current Visit: Yes Status: Acute Plan: Patient is at his baseline. Will hold his lisinopril and monitor his creatine. We may restart it in the am. Qualifiers: Chronic kidney disease stage 3 subtype: stage 3a (GFR 45-59) Qualified Code(s): N18.31 - Chronic kidney disease, stage 3a (4) Essential hypertension Current Visit: No Status: Acute Plan: Restart his verapamil. Will add prn hydralazine Discharge Plan: Home Plan to discharge in: 24 Hours - Code Status/Comfort Care Code Status Assessed: No Physician Review: Patient Assessed, Agree with Above Assessment and Plan Critical Care: No Time Spent Managing Pts Care (In Minutes): 20
[2020-05-09 09:40] LABS: Blood Morphology Comment NOT SEEN (NOT SEEN); Platelet Estimate ADEQ; White Blood Cell Scan OK (OK)
[2020-05-09] MEDS: MELATONIN 3 MG TABLET PO SCH (21:00)
[2020-05-09] MEDS: DONEPEZIL HCL 5 MG TAB PO SCH (21:50)
[2020-05-10 05:01] LABS: Absolute Lymphocytes (CBC) 0.5 K/uL (0.7-4.9); Basophils % 0.5 % (0-1.3); Lymphocytes % 4.1 % (15.3-44.8); MPV 9.3 fL (7.6-11.3); RBC Red Blood Cell Count 3.68 M/uL (4.33-5.43)
[2020-05-10 05:28] LABS: Albumin 2.8 g/dL (3.4-5.0); Bilirubin Total 0.4 mg/dL (0.2-1.0); Potassium 4.3 mmol/L (3.5-5.1)
[2020-05-10] MEDS: VERAPAMIL SR 180 MG TAB PO SCH (09:46)
[2020-05-10] MEDS: IVERMECTIN 3 MG TABLET PO SCH (09:46)
[2020-05-10] MEDS: ASCORBIC ACID 500 MG TABLET PO SCH ×2 (09:47→20:56)
[2020-05-10] MEDS: ASPIRIN 81 MG CHEWABLE TABLET PO SCH (09:47)
[2020-05-10] MEDS: PANTOPRAZOLE 40MG TABLET PO SCH (09:47)
[2020-05-10] MEDS: FINASTERIDE 5 MG TAB PO SCH (09:47)
[2020-05-10] MEDS: ZINC SULFATE 220 MG CAP PO SCH (09:48)
[2020-05-10] MEDS: VITAMIN D 5,000 UNIT CAP PO SCH (09:48)
--- NOTE | 2020-05-10 09:52 | P.DS ---
Admission Date: 05/08/20 Discharge Date: 05/10/20 Primary Care Provider: Addi Disposition: ROUTINE DISCHARGE Reason for Admission: covid 19 - Problems (1) COVID-19 Current Visit: Yes Status: Acute (2) Protein-energy malnutrition Current Visit: No Status: Acute Qualifiers: Protein-calorie malnutrition severity: severe Qualified Code(s): E43 - Unspecified severe protein-calorie malnutrition (3) CKD (chronic kidney disease) stage 3, GFR 30-59 ml/min Current Visit: Yes Status: Acute Qualifiers: Chronic kidney disease stage 3 subtype: stage 3a (GFR 45-59) Qualified Code(s): N18.31 - Chronic kidney disease, stage 3a (4) Essential hypertension Current Visit: No Status: Acute Brief History of Present Illness: Patient is an office patient of [employer]. He has a history of mild cognitive impairment, htn, ckd stage 3. He recently moved in to a hotel. he has 2 daughters who tested positive for covid. I had wanted to start him on the prophylactic protochol. However he did not get the medication yesterday. Today his called. Stated he was very weak. the patient was not able to get out of bed. Was not eating. As she was not able to wake him up she called the office. Had asked her to send him to the ER. he was found to be covid positive. The patient is also very week. When asking him to sit up in the er bed he was not able to. The creatine is at baseline. His bp is elevated. Hospital Course: Patient was admitted for weakness Was found to be positive for covid. The patient daughter had tested positive. The patient was put on the floor. Started on ivermectin. He has been doing well. However was very week. was seen by PT. Patient is doing better. Got 3 days of ivermectin. Is asymptomatic. Have spoken with his and daughter. WE can send him home today. [facility] Will send an order from the office. Vital Signs/Physical Exam: Temp Pulse Resp BP Pulse Ox 98.5 F 101 H 23 H 120/54 L 91 05/10/20 08:00 05/10/20 08:00 05/10/20 08:00 05/10/20 08:00 05/10/20 08:00 General: Alert, In no apparent distress HEENT: Atraumatic, PERRLA, EOMI Neck: Supple, JVD not distended Respiratory: Clear to auscultation bilaterally, Normal air movement Cardiovascular: Regular rate/rhythm, Normal S1 S2 Gastrointestinal: Normal bowel sounds, No tenderness Musculoskeletal: No tenderness Integumentary: No rashes Neurological: Normal speech, Normal tone, Normal affect Lymphatics: No axilla or inguinal lymphadenopathy Laboratory Data at Discharge: WBC 12.50 K/uL (4.3-10.9) H D 05/10/20 03:40 Hgb 11.7 g/dL (13.6-17.9) L 05/10/20 03:40 Hct 35.0 % (39.6-49.0) L 05/10/20 03:40 Plt Count 196 K/uL (152-406) 05/10/20 03:40 Sodium 133 mmol/L (136-145) L 05/10/20 03:40 Potassium 4.3 mmol/L (3.5-5.1) 05/10/20 03:40 BUN 70 mg/dL (7-18) H D 05/10/20 03:40 Creatinine 2.42 mg/dL (0.55-1.3) H 05/10/20 03:40 Glucose 121 mg/dL (74-106) H 05/10/20 03:40 Total Bilirubin 0.4 mg/dL (0.2-1.0) 05/10/20 03:40 AST 33 U/L (15-37) 05/10/20 03:40 ALT 25 U/L (12-78) 05/10/20 03:40 Alkaline Phosphatase 81 U/L (45-117) 05/10/20 03:40 Home Medications: Donepezil HCl [Aricept] 10 mg PO BEDTIME 05/09/20 Finasteride [Proscar] 5 mg PO DAILY 05/09/20 Folic Acid/Vit B Complex and C [Folbee Plus Tablet] 2.5 mg PO DAILY 05/09/20 Memantine HCl [Namenda*] 1 tab PO BID 05/09/20 Verapamil HCl [Verapamil ER] 180 mg PO DAILY 05/09/20 Diet: Regular Activity: Ad marlene Followup: Luis Fontana MD [Primary Care Provider] - 05/13/20 Physician Review: Patient Assessed, Agree with Above Assessment and Plan Time spent managing pt's care (in minutes): 45
[2020-05-10 10:32] LABS: Blood Morphology Comment NOT SEEN (NOT SEEN); Platelet Estimate ADEQ; White Blood Cell Scan OK (OK)
[2020-05-10] MEDS: MELATONIN 3 MG TABLET PO SCH (20:56)
[2020-05-10] MEDS: DONEPEZIL HCL 5 MG TAB PO SCH (20:56)
[2020-05-11 04:46] LABS: Absolute Lymphocytes (CBC) 0.6 K/uL (0.7-4.9); Basophils % 0.4 % (0-1.3); Hematocrit 36.1 % (39.6-49.0); Lymphocytes % 5.5 % (15.3-44.8); MPV 8.6 fL (7.6-11.3); RBC Red Blood Cell Count 3.77 M/uL (4.33-5.43)
[2020-05-11 05:17] LABS: Albumin 2.7 g/dL (3.4-5.0); Bilirubin Total 0.6 mg/dL (0.2-1.0); Potassium 4.3 mmol/L (3.5-5.1); Protein, Total 6.9 g/dL (6.4-8.2)
[2020-05-11] MEDS: ASPIRIN 81 MG CHEWABLE TABLET PO SCH (09:04)
[2020-05-11] MEDS: PANTOPRAZOLE 40MG TABLET PO SCH (09:05)
[2020-05-11] MEDS: ASCORBIC ACID 500 MG TABLET PO SCH ×2 (09:05→21:48)
[2020-05-11] MEDS: ZINC SULFATE 220 MG CAP PO SCH (09:05)
[2020-05-11] MEDS: FINASTERIDE 5 MG TAB PO SCH (09:05)
[2020-05-11] MEDS: VITAMIN D 5,000 UNIT CAP PO SCH (09:05)
[2020-05-11] MEDS: VERAPAMIL SR 180 MG TAB PO SCH (09:05)
--- NOTE | 2020-05-11 10:26 | P.PN ---
Subjective Date of Service: 05/11/20 Primary Care Provider: Addi Chief Complaint: covid 19 Subjective: Worsening (Pt stated that the patient is not able to go home. Is very week this morning. minimal appetite per nursing.) Review of Systems 10-point ROS is otherwise unremarkable General: Weakness Physical Examination - Vital Signs Temperature: 98.4 F Blood Pressure: 150/67 Pulse: 70 Respirations: 22 Pulse Ox (%): 92 - Physical Exam General: Alert, In no apparent distress HEENT: Atraumatic, PERRLA, EOMI Neck: Supple, JVD not distended Respiratory: Clear to auscultation bilaterally, Normal air movement Cardiovascular: Regular rate/rhythm, Normal S1 S2 Gastrointestinal: Normal bowel sounds, No tenderness Musculoskeletal: No tenderness Integumentary: No rashes Neurological: Normal speech, Normal tone, Normal affect Lymphatics: No axilla or inguinal lymphadenopathy Assessment & Plan - Problems (Diagnosis) (1) COVID-19 Current Visit: Yes Status: Acute Plan: Will start the patient on the I-Mask protochol. Will have his test as well. Will put in a consult to Dr. Wilkins. (2) Protein-energy malnutrition Current Visit: No Status: Acute Plan: will consult PT on the patient. He is currently living in a hotel with his elderly as his family is positive. Will consider rehab as an outpatient. 05/11 He is definetly weaker today. Per PT recomendation will place him in SNF. Have discussed this with his daughter yesterday Qualifiers: Protein-calorie malnutrition severity: severe Qualified Code(s): E43 - Unspecified severe protein-calorie malnutrition (3) CKD (chronic kidney disease) stage 3, GFR 30-59 ml/min Current Visit: Yes Status: Acute Plan: Patient is at his baseline. Will hold his lisinopril and monitor his creatine. We may restart it in the am. Qualifiers: Chronic kidney disease stage 3 subtype: stage 3a (GFR 45-59) Qualified Code(s): N18.31 - Chronic kidney disease, stage 3a (4) Essential hypertension Current Visit: No Status: Acute Plan: Restart his verapamil. Will add prn hydralazine Discharge Plan: Other (snf or inpt PT center.) - Code Status/Comfort Care Code Status Assessed: No Physician Review: Patient Assessed, Agree with Above Assessment and Plan Critical Care: No Time Spent Managing Pts Care (In Minutes): 20
[2020-05-11] MEDS: D5 0.45 NS 1,000 ML IV SCH (11:47)
[2020-05-11] MEDS ORDERED: ENSURE HIGH PROTEIN 237 ML CAN PO SCH (14:00)
[2020-05-11] MEDS ORDERED: BENZONATATE 100 MG CAP PO PRN (20:32)
[2020-05-11] MEDS: ENSURE HIGH PROTEIN 237 ML CAN PO SCH (21:00)
[2020-05-11] MEDS: MELATONIN 3 MG TABLET PO SCH (21:00)
[2020-05-11] MEDS: DONEPEZIL HCL 5 MG TAB PO SCH (21:48)
[2020-05-12] MEDS: FINASTERIDE 5 MG TAB PO SCH (07:49)
[2020-05-12] MEDS: ASPIRIN 81 MG CHEWABLE TABLET PO SCH (07:49)
[2020-05-12] MEDS: ASCORBIC ACID 500 MG TABLET PO SCH ×2 (07:50→20:30)
[2020-05-12] MEDS: ZINC SULFATE 220 MG CAP PO SCH (07:50)
[2020-05-12] MEDS: VITAMIN D 5,000 UNIT CAP PO SCH (07:50)
[2020-05-12] MEDS: PANTOPRAZOLE 40MG TABLET PO SCH (07:50)
[2020-05-12] MEDS: ENSURE HIGH PROTEIN 237 ML CAN PO SCH ×4 (07:51→21:00)
[2020-05-12] MEDS: D5 0.45 NS 1,000 ML IV SCH (07:51)
[2020-05-12] MEDS: VERAPAMIL SR 180 MG TAB PO SCH (07:53)
--- NOTE | 2020-05-12 12:30 | P.PN ---
Subjective Date of Service: 05/12/20 Primary Care Provider: Addi Chief Complaint: covid 19 Patient is more alert today. moves better. Is not able to sit up on his own however Review of Systems 10-point ROS is otherwise unremarkable General: Weakness Physical Examination - Vital Signs Temperature: 97.9 F Blood Pressure: 151/69 Pulse: 67 Respirations: 20 Pulse Ox (%): 92 - Physical Exam General: Alert, In no apparent distress HEENT: Atraumatic, PERRLA, EOMI Neck: Supple, JVD not distended Respiratory: Clear to auscultation bilaterally, Normal air movement Cardiovascular: Regular rate/rhythm, Normal S1 S2 Gastrointestinal: Normal bowel sounds, No tenderness Musculoskeletal: No tenderness Integumentary: No rashes Neurological: Normal speech, Normal tone, Normal affect Lymphatics: No axilla or inguinal lymphadenopathy Assessment & Plan - Problems (Diagnosis) (1) Protein-energy malnutrition Current Visit: No Status: Acute Plan: will consult PT on the patient. He is currently living in a hotel with his elderly as his family is positive. Will consider rehab as an outpatient. 05/12 Slight improvement. plan for disharge to snf facility tomorrow when arrangements can be made Qualifiers: Protein-calorie malnutrition severity: severe Qualified Code(s): E43 - Unspecified severe protein-calorie malnutrition (2) COVID-19 Current Visit: Yes Status: Acute Plan: Will start the patient on the I-Mask protochol. Will have his test as well. Will put in a consult to Dr. Wilkins. (3) CKD (chronic kidney disease) stage 3, GFR 30-59 ml/min Current Visit: Yes Status: Acute Plan: Patient is at his baseline. Will hold his lisinopril and monitor his creatine. We may restart it in the am. Qualifiers: Chronic kidney disease stage 3 subtype: stage 3a (GFR 45-59) Qualified Code(s): N18.31 - Chronic kidney disease, stage 3a (4) Essential hypertension Current Visit: No Status: Acute Plan: Restart his verapamil. Will add prn hydralazine Discharge Plan: Other (snf) Plan to discharge in: 24 Hours - Code Status/Comfort Care Code Status Assessed: No Physician Review: Patient Assessed, Agree with Above Assessment and Plan Critical Care: No Time Spent Managing Pts Care (In Minutes): 20
[2020-05-12] MEDS: guaiFENesin 100 MG/5 ML UCUP PO PRN (16:17)
[2020-05-12] MEDS: DONEPEZIL HCL 5 MG TAB PO SCH (20:30)
[2020-05-12] MEDS: MELATONIN 3 MG TABLET PO SCH (20:31)
[2020-05-13] MEDS: guaiFENesin 100 MG/5 ML UCUP PO PRN ×2 (02:20→08:32)
[2020-05-13] MEDS: D5 0.45 NS 1,000 ML IV SCH (03:00)
[2020-05-13] MEDS: ASPIRIN 81 MG CHEWABLE TABLET PO SCH (08:27)
[2020-05-13] MEDS: ENSURE HIGH PROTEIN 237 ML CAN PO SCH ×2 (08:28→13:00)
[2020-05-13] MEDS: ZINC SULFATE 220 MG CAP PO SCH (08:28)
[2020-05-13] MEDS: PANTOPRAZOLE 40MG TABLET PO SCH (08:28)
[2020-05-13] MEDS: FINASTERIDE 5 MG TAB PO SCH (08:28)
[2020-05-13] MEDS: ASCORBIC ACID 500 MG TABLET PO SCH (08:28)
[2020-05-13] MEDS: VERAPAMIL SR 180 MG TAB PO SCH (08:29)
[2020-05-13] MEDS: VITAMIN D 5,000 UNIT CAP PO SCH (08:29)
--- NOTE | 2020-05-13 13:57 | P.DS ---
Admission Date: 05/10/20 Discharge Date: 05/13/20 Primary Care Provider: Addi Disposition: ROUTINE DISCHARGE Discharge Condition: FAIR Reason for Admission: covid 19 - Problems (1) Protein-energy malnutrition Current Visit: No Status: Acute Qualifiers: Protein-calorie malnutrition severity: severe Qualified Code(s): E43 - Unspecified severe protein-calorie malnutrition (2) COVID-19 Current Visit: Yes Status: Acute (3) CKD (chronic kidney disease) stage 3, GFR 30-59 ml/min Current Visit: Yes Status: Acute Qualifiers: Chronic kidney disease stage 3 subtype: stage 3a (GFR 45-59) Qualified Code(s): N18.31 - Chronic kidney disease, stage 3a (4) Essential hypertension Current Visit: No Status: Acute Brief History of Present Illness: Patient is an office patient of [employer]. He has a history of mild cognitive impairment, htn, ckd stage 3. He recently moved in to a hotel. he has 2 daughters who tested positive for covid. I had wanted to start him on the prophylactic protochol. However he did not get the medication yesterday. Today his called. Stated he was very weak. the patient was not able to get out of bed. Was not eating. As she was not able to wake him up she called the off ice. Had asked her to send him to the ER. he was found to be covid positive. The patient is also very week. When asking him to sit up in the er bed he was not able to. The creatine is at baseline. His bp is elevated. Hospital Course: Patient was admitted for weakness Was found to be positive for covid. The patient daughter had tested positive. The patient was put on the floor. Started on ivermectin. He has been doing well. However was very week. was seen by PT. Patient is doing better. Got 3 days of ivermectin. Is asymptomatic. Have spoken with his and daughter. He was very week in the hospital. Discharge was held. Will send him to a SNF for PT. Will have him follow up after discharge. Vital Signs/Physical Exam: Temp Pulse Resp BP Pulse Ox 97.1 F 72 18 172/70 H 96 05/13/20 12:00 05/13/20 12:00 05/13/20 12:00 05/13/20 12:00 05/13/20 12:00 General: Alert, In no apparent distress HEENT: Atraumatic, PERRLA, EOMI Neck: Supple, JVD not distended Respiratory: Clear to auscultation bilaterally, Normal air movement Cardiovascular: Regular rate/rhythm, Normal S1 S2 Gastrointestinal: Normal bowel sounds, No tenderness Musculoskeletal: No tenderness Integumentary: No rashes Neurological: Normal speech, Normal tone, Normal affect Lymphatics: No axilla or inguinal lymphadenopathy Laboratory Data at Discharge: WBC 11.10 K/uL (4.3-10.9) H 05/11/20 04:32 Hgb 12.0 g/dL (13.6-17.9) L 05/11/20 04:32 Hct 36.1 % (39.6-49.0) L 05/11/20 04:32 Plt Count 175 K/uL (152-406) 05/11/20 04:32 Sodium 134 mmol/L (136-145) L 05/11/20 04:32 Potassium 4.3 mmol/L (3.5-5.1) 05/11/20 04:32 BUN 56 mg/dL (7-18) H 05/11/20 04:32 Creatinine 2.39 mg/dL (0.55-1.3) H 05/11/20 04:32 Glucose 122 mg/dL (74-106) H 05/11/20 04:32 Total Bilirubin 0.6 mg/dL (0.2-1.0) 05/11/20 04:32 AST 29 U/L (15-37) 05/11/20 04:32 ALT 23 U/L (12-78) 05/11/20 04:32 Alkaline Phosphatase 78 U/L (45-117) 05/11/20 04:32 Home Medications: Donepezil HCl [Aricept] 10 mg PO BEDTIME 05/09/20 Finasteride [Proscar] 5 mg PO DAILY 05/09/20 Folic Acid/Vit B Complex and C [Folbee Plus Tablet] 2.5 mg PO DAILY 05/09/20 Memantine HCl [Namenda*] 1 tab PO BID 05/09/20 Verapamil HCl [Verapamil ER] 180 mg PO DAILY 05/09/20 Diet: Regular Activity: Fall precautions Followup: Luis Fontana MD [Primary Care Provider] - (call to schedule appointment after discharge from snf) Time spent managing pt's care (in minutes): 25
[2020-05-13 16:11] VITALS: O2SAT 95
[2020-05-13 16:12] VITALS: BP 141/62; TEMP 97.4
== END 2020-05-13 16:18 | DRG 177 ==
LOC: ER 10:37 → ERHOLD 15:13 → 4TH 05-09 07:37 → OBSVTOIN 05-10 09:55
PROVIDERS: ADMIT Internal Medicine; ATTEND Internal Medicine
DX: U07.1 COVID-19 (principal); E43 Unspecified severe protein-calorie malnutrition; F05 Delirium due to known physiological condition; I12.9 Hypertensive chronic kidney disease with stage 1 through stage 4 chronic kidney disease, or unspecified chronic kidney disease; N18.31 Chronic kidney disease, stage 3a; K21.9 Gastro-esophageal reflux disease without esophagitis; Z68.25 Body mass index [BMI] 25.0-25.9, adult; Z88.5 Allergy status to narcotic agent; Z79.899 Other long term (current) drug therapy
CPT/HCPCS: 0240U; 36415; 71045; 80048; 80053; 82728; 83605; 84145; 85025; 86140; 87040; 93005; 96361; 96374; 97116; 97161; 97530; 99285; G0378; J2920; J7040; J7799

== ENCOUNTER 2020-12-15 21:42 | Emergency (ER) | payer OTHER ==
[2020-12-15] MEDS ORDERED: ONDANSETRON 4 MG (ODT) TAB ONE (22:54)
[2020-12-15] MEDS ORDERED: FENTANYL CITR 100 MCG/2 ML ONE (22:54)
--- NOTE | 2020-12-15 23:23 | ER ---
Nurse's Notes [facility] Name: Carlos Guerra Age: 85 yrs Sex: Male : 1935 Arrival Date: 12/15/2020 Time: 22:01 Bed 15 Private MD: Diagnosis: Fracture of upper end of humerus-left Presentation: 12/15 22:03 Chief complaint: Patient states: BIBA. Pt states he was walking around corner in home bc5 and tripped landing on left shoulder. Pt c/o pain with movement. +CMS. A\T\O x 3, RR is even and unlabored, speaking in clear and complete sentences at this time. Coronavirus screen: Vaccine status: Patient reports receiving the 2nd dose of the covid vaccine. Ebola Screen: Patient negative for fever greater than or equal to 101.5 degrees Fahrenheit, and additional compatible Ebola Virus Disease symptoms Patient denies exposure to infectious person. Patient denies travel to an Ebola-affected area in the 21 days before illness onset. No symptoms or risks identified at this time. Initial Sepsis Screen: Does the patient meet any 2 criteria? No. Patient's initial sepsis screen is negative. Does the patient have a suspected source of infection? No. Patient's initial sepsis screen is negative. Risk Assessment: Do you want to hurt yourself or someone else? Patient reports no desire to harm self or others. Onset of symptoms was December 15, 2020. 22:03 Method Of Arrival: EMS: [facility] bc5 22:03 Acuity: CLAIRE 3 bc5 Triage Assessment: 22:07 General: Appears in no apparent distress. comfortable, Behavior is calm, cooperative, bc5 appropriate for age. Pain: Denies pain. Musculoskeletal: Tenderness present in left arm. Injury Description: Deformity sustained to left arm. Historical: - Allergies: 22:06 Codeine; sedation; bc5 - Home Meds: 22:09 finasteride 1 mg Oral tab 1 tab once daily [Active]; Aricept 10 mg Oral tab 1 tab once bc5 daily [Active]; - PMHx: 22:06 GERD; Hypertension; shingles; bc5 - Immunization history:: Client reports receiving the 2nd dose of the Covid vaccine. - Social history:: Smoking status: Patient denies any tobacco usage or history of. Screenin:08 Abuse screen: Denies threats or abuse. Denies injuries from another. Nutritional bc5 screening: No deficits noted. Tuberculosis screening: No symptoms or risk factors identified. Fall Risk Fall in past 12 months (25 points). No secondary diagnosis (0 pts). No IV (0 pts). Ambulatory Aid- None/Bed Rest/Nurse Assist (0 pts). Gait- Normal/Bed Rest/Wheelchair (0 pts) Mental Status- Oriented to own ability (0 pts). Total Joe Fall Scale indicates Low Risk Score (25-44 pts). Side Rails Up X 2 Placed close to Nursing Station Frequent Obs/Assesments occuring Family Present and informed to notify staff if they need to leave bedside. Assessment: 22:11 Neuro: No deficits noted. Cardiovascular: No deficits noted. Respiratory: No deficits bc5 noted. Vital Signs: 22:03 BP 149 / 59; Pulse 65; Resp 15; Temp 98(O); Pulse Ox 98% on R/A; Weight 80.74 kg; bc5 Height 6 ft. 2 in. (187.96 cm) (R); Pain 1/10; 12/16 00:07 BP 135 / 87; Pulse 65; Resp 16; Temp 98.5(O); Pulse Ox 100% on R/A; Pain 5/10; bc5 12/15 22:03 Body Mass Index 22.85 (80.74 kg, 187.96 cm) bc5 ED Course: 12/15 22:01 Patient arrived in ED. ja2 22:03 Nikki Swanson, BBOBY is Primary Nurse. bc5 22:03 Mk Carter NP is PHCP. pm1 22:03 Patrick Davila MD is Attending Physician. pm1 22:06 Triage completed. bc5 22:09 Arm band placed on right wrist. bc5 22:09 Patient has correct armband on for positive identification. Bed in low position. Call bc5 light in reach. Side rails up X2. 23:02 Humerus Left XRAY In Process Unspecified. EDMS 23:02 Forearm Left XRAY In Process Unspecified. EDMS 23:21 Hunter Penaloza MD is Referral Physician. pm1 12/16 00:06 No provider procedures requiring assistance completed. Patient did not have IV access bc5 during this emergency room visit. Administered Medications: 12/15 22:33 Drug: fentaNYL (PF) 25 mcg Route: IM; Site: right deltoid; 5 23:45 Follow up: Response: Pain is decreased 5 22:33 Drug: Zofran (Ondansetron) 4 mg Route: PO; bc5 23:45 Follow up: Response: No adverse reaction 5 12/16 00:04 Drug: traMADol 50 mg Route: PO; 5 00:07 Follow up: Response: Medication administered at discharge. 5 Outcome: 12/15 23:21 Discharge ordered by . pm1 12/16 00:06 Discharged to home ambulatory, with significant other. bc5 Condition: improved Discharge instructions given to patient, significant other, Instructed on discharge instructions, follow up and referral plans. medication usage. Prescriptions given X 1. 00:08 Patient left the ED. 5 Signatures: Dispatcher [employer] EDMS Mk Carter NP INFORMATION SYSTEMS ANALYST pm1 Mara Roman Bella, RN RN bc5
--- NOTE | 2020-12-15 23:23 | EDPHYS ---
Physician Documentation [facility] Name: Carlos Guerra Age: 85 yrs Sex: Male : 1935 Arrival Date: 12/15/2020 Time: 22:01 Bed 15 Private MD: ED Physician Patrick Davila HPI: 12/15 22:11 This 85 yrs old Male presents to ER via EMS with complaints of Arm Injury. pm1 22:11 The patient or guardian complains of pain, that is acute. The complaints affect the pm1 left arm. Context: The problem was sustained at home, resulted from Trip and fall. Onset: The symptoms/episode began/occurred just prior to arrival. Treatment prior to arrival includes: sling, By EMS. Modifying factors: The symptoms are alleviated by remaining still, the symptoms are aggravated by movement. Associated signs and symptoms: Pertinent negatives: numbness, tingling. The patient has not experienced similar symptoms in the past. The patient has not recently seen a physician. Historical: - Allergies: 22:06 Codeine; sedation; bc5 - Home Meds: 22:09 finasteride 1 mg Oral tab 1 tab once daily [Active]; Aricept 10 mg Oral tab 1 tab once bc5 daily [Active]; - PMHx: 22:06 GERD; Hypertension; shingles; bc5 - Immunization history:: Client reports receiving the 2nd dose of the Covid vaccine. - Social history:: Smoking status: Patient denies any tobacco usage or history of. ROS: 22:11 Constitutional: Negative for fever, chills, and weight loss, Cardiovascular: Negative pm1 for chest pain, palpitations, and edema, Respiratory: Negative for shortness of breath, cough, wheezing, and pleuritic chest pain. 22:11 Skin: Negative for injury, rash, and discoloration. 22:11 Neuro: Negative for headache, weakness, numbness, tingling, and seizure. 22:11 MS/extremity: Positive for pain, of the left arm. 22:11 All other systems are negative. Exam: 22:11 Constitutional: This is a well developed, well nourished patient who is awake, alert, pm1 and in no acute distress. Head/Face: Normocephalic, atraumatic. Neck: Trachea midline, no thyromegaly or masses palpated, and no cervical lymphadenopathy. Supple, full range of motion without nuchal rigidity, or vertebral point tenderness. No Meningismus. 22:11 Skin: Warm, dry with normal turgor. Normal color with no rashes, no lesions, and no evidence of cellulitis. 22:11 Eyes: Exam is negative for acute changes, Extraocular movements: no acute changes, Conjunctiva: no acute changes, no injection. 22:11 ENT: Exam is negative for acute changes, Mouth: no acute changes, Lips: normal, moist, Oral mucosa: normal, pink and intact, moist. 22:11 Neck: Exam negative for acute changes, C-spine: vertebral tenderness, is not appreciated. 22:11 Cardiovascular: Exam negative for acute changes, Rate: normal, Rhythm: regular, Pulses: no pulse deficits are appreciated. 22:11 Respiratory: Exam negative for acute changes, respiratory distress, shortness of breath. 22:11 Musculoskeletal/extremity: Extremities: grossly normal except: noted in the left proximal lateral humerus: tenderness, Pulses: noted to be 2+ in the left radial artery, the left arm Sensation intact. 22:11 Neuro: Exam negative for acute changes, Orientation: is normal, Mentation: is normal, Motor: is normal, moves all fours. Vital Signs: 22:03 BP 149 / 59; Pulse 65; Resp 15; Temp 98(O); Pulse Ox 98% on R/A; Weight 80.74 kg; bc5 Height 6 ft. 2 in. (187.96 cm) (R); Pain 1/10; 12/16 00:07 BP 135 / 87; Pulse 65; Resp 16; Temp 98.5(O); Pulse Ox 100% on R/A; Pain 5/10; bc5 12/15 22:03 Body Mass Index 22.85 (80.74 kg, 187.96 cm) bc5 MDM: 12/15 22:04 Patient medically screened. pm1 23:20 Data reviewed: vital signs. Data interpreted: Pulse oximetry: on room air is 98 %. pm1 Interpretation: normal. Counseling: I had a detailed discussion with the patient and/or guardian regarding: the historical points, exam findings, and any diagnostic results supporting the discharge/admit diagnosis, radiology results, the need for outpatient follow up, for definitive care, a orthopedic surgeon, to return to the emergency department if symptoms worsen or persist or if there are any questions or concerns that arise at home. 23:30 ED course: SPOOL CLEANER HAND aware reviewed. pm1 12/15 22:11 Order name: Humerus Left XRAY pm1 12/15 22:11 Order name: Forearm Left XRAY pm1 12/15 22:11 Order name: Sling pm1 Administered Medications: 22:33 Drug: fentaNYL (PF) 25 mcg Route: IM; Site: right deltoid; bc5 23:45 Follow up: Response: Pain is decreased bc5 22:33 Drug: Zofran (Ondansetron) 4 mg Route: PO; bc5 23:45 Follow up: Response: No adverse reaction bc5 12/16 00:04 Drug: traMADol 50 mg Route: PO; bc5 00:07 Follow up: Response: Medication administered at discharge. 5 Disposition: 05:05 Co-signature as Attending Physician, Patrick Davila MD. pkl Disposition Summary: 12/15/20 23:21 Discharge Ordered Location: Home pm1 Problem: new pm1 Symptoms: have improved pm1 Condition: Stable pm1 Diagnosis - Fracture of upper end of humerus - left pm1 Followup: pm1 - With: Hunter Penaloza MD - When: 2 - 3 days - Reason: Recheck today's complaints, Continuance of care, Re-evaluation by your physician Discharge Instructions: - Discharge Summary Sheet pm1 - Humerus Fracture Treated With Immobilization pm1 - How to Use a Sling pm1 Forms: - Medication Reconciliation Form pm1 - Thank You Letter pm1 - Antibiotic Education pm1 - Prescription Opioid Use pm1 Prescriptions: - Tramadol 50 mg Oral Tablet - take 1 tablet by ORAL route every 8 hours As needed as needed; 12 tablet; pm1 Refills: 0, Product Selection Permitted Signatures: Dispatcher [employer] EDPatrick Rosas MD MD pkl Mk Carter, JVUENCIO BUSHEL GIRL pm1 Nikki Swanson, RN RN bc5
[2020-12-16] MEDS ORDERED: TRAMADOL HCL 50 MG TAB ONE (00:15)
[2020-12-16 00:42] VITALS: BP 135/87; TEMP 98.5; O2SAT 100
--- NOTE | 2020-12-16 07:42 | RAD REPORT ---
EXAM DESCRIPTION: RAD - Forearm Left - 12/15/2020 11:02 pm CLINICAL HISTORY: PAIN COMPARISON: No comparisons FINDINGS: No acute fracture. No malalignment. Spurring of the olecranon. IMPRESSION: No acute osseous abnormality involving the left forearm.
--- NOTE | 2020-12-16 07:43 | RAD REPORT ---
EXAM DESCRIPTION: RAD - Humerus Left - 12/15/2020 11:02 pm CLINICAL HISTORY: PAIN COMPARISON: No comparisons FINDINGS: Comminuted multipart fracture of the humeral head. This involves the surgical in greater t uberosity . No dislocation. IMPRESSION: Comminuted left humeral head fracture.
== END 2020-12-16 00:08 | disposition home or self-care (01) ==
LOC: ER 21:42
DX: S42.202A Unspecified fracture of upper end of left humerus, initial encounter for closed fracture (principal); W01.0XXA Fall on same level from slipping, tripping and stumbling without subsequent striking against object, initial encounter; I10 Essential (primary) hypertension; Z88.5 Allergy status to narcotic agent
CPT/HCPCS: 73090; 73060; 96372; 99284; J3010

== ENCOUNTER 2021-01-26 17:56 | Emergency (ER) | payer OTHER ==
--- OUTSIDE RECORDS SUMMARY | 2021-01-26 17:59 | XMS REPORT | Continuity of Care Document ---
:1935 Author Organization [facility] Address [address] [place] [address] Care Team Providers Name Role Phone Unavailable Unavailable Unavailable Problems Condition Condition Condition Status Onset [...] ents Source Name Type Date Date Clinician codeine Adverse Active Info Not [facility] Reaction Available [facility] Medications Ordered Filled Start Stop Current Ordering Indication Dosage Frequency Signature Comments Components Source Medication Medication Date Date Medication? Clinician (SIG) Name Name Verapamil Verapamil Yes Dave [address] [facility] HCl ER HCl ER Gasca [facility] Procedures This patient has no known procedures. Encounters Start End Encounter Admission Attending Care Care Encounter Source Date/Time Date/Time Type Type Clinicians Facility Department ID 2019-03-14 2019-03-14 [facility] [id number] [facility] 11:28:00 11:28:[address] [facility] Medicine Outpat[facility] Clinics 2019-01-20 2019-01-20 [facility] [id number] [facility] 14:42:00 14:42:[address] [facility] Medicine Outpat[facility] Clinics 2018-12-07 2018-12-07 [facility] [id number] [facility] 13:15:00 13:15:00 t [facility] Medicine Medicine Outpati ent Clinics 2018-11-21 2018-11-21 [facility] [id number] [facility] 13:00:00 13:00:[address] [facility] Medicine Outpati [facility] Clinics 2018-08-22 2018-08-22 [facility] [id number] [facility] 14:45:00 14:45:[address] [facility] Medicine Outpati ent Clinics 2018-06-27 2018-06-27 [facility] [id number] [facility] 16:01:00 16:01:[address] [facility] Medicine Outpati ent Clinics 2018-06-27 2018-06-27 [facility] [id number] [facility] 09:57:00 09:57:[address] [facility] Medicine Outpati ent Clinics 2018-06-20 2018-06-20 [facility] [id number] [facility] 14:00:00 14:00:00 t [facility] Medicine Medicine Outpati ent Clinics 2018-05-19 2018-05-19 [facility] [id number] [facility] 14:00:00 14:00:[address] [facility] Medicine Outpati ent Clinics 2018-05-05 2018-05-05 [facility] [id number] [facility] 14:30:00 14:30:[address] [facility] Medicine Outpati ent Clinics 2017-09-07 2017-09-07 [facility] [id number] [facility] 11:00:00 11:00:00 [facility] Medicine Medicine Outpati ent Clinics Results This patient has no known results.
[2021-01-26 19:10] LABS: Protime INR 1.06
[2021-01-26 19:11] LABS: Absolute Lymphocytes (CBC) 0.8 K/uL (0.7-4.9); Basophils % 0.7 % (0-1.3); Hematocrit 41.9 % (39.6-49.0); Lymphocytes % 8.8 % (15.3-44.8); MPV 8.1 fL (7.6-11.3); RBC Red Blood Cell Count 4.42 M/uL (4.33-5.43)
[2021-01-26 19:23] LABS: ALT/SGPT 22 U/L (12-78); AST/SGOT 17 U/L (15-37); Albumin 3.9 g/dL (3.4-5.0); Alkaline Phosphatase 138 U/L (45-117); BUN Blood Urea Nitrogen 29 mg/dL (7-18); Bicarbonate 25 mmol/L (21-32); Bilirubin Direct 0.2 mg/dL (0-0.2); Bilirubin Total 0.5 mg/dL (0.2-1.0); Glucose Level 102 mg/dL (74-106); Magnesium 2.1 mg/dL (1.8-2.4); Potassium 4.6 mmol/L (3.5-5.1); Protein, Total 9.1 g/dL (6.4-8.2); Sodium Level 140 mmol/L (136-145)
[2021-01-26 19:26] LABS: Troponin (Emerg Dept Use Only) < 0.02 ng/mL (0.0-0.045)
--- NOTE | 2021-01-26 19:26 | RAD REPORT ---
EXAM DESCRIPTION: CT - Abdomen Pelvis Wo Contrast - 01/26/2021 7:08 pm CLINICAL HISTORY: Abdominal pain. ABD PAIN COMPARISON: Stone Protocol dated 02/04/2019; Abdomen Wo Contrast dated 12/25/2019 TECHNIQUE: CT imaging of the abdomen and pelvis was performed without contrast. Solid organ, bowel a nd vascular assessment is limited due to lack of IV and oral contrast. All CT scans are performed using dose optimization technique as appropriate and may include automated exposure control or mA/KV adjustment according to patient size. FINDINGS: The lower lung bowman are clear.Small hiatal hernia. Noncontrast imaging of the liver shows no solid mass or biliary dilatation. Cholecystectomy clips.The spleen adrenal glands are within normal limits. 4 cm partially calcified lesion in close proximity t o the pancreatic shows no interval change. Small nonobstructing calculus inferior pole right kidney. Punctate stones are present in the calices of the left kidney. No bowel obstruction, free air, free fluid or abscess. Diverticulosis the colon is present without di verticulitis. The appendix is not identified as a discrete structure, however, no secondary findings of appendicitis are identified. Aortoiliac atherosclerosis. Mild lumbar degenerative changes. IMPRESSION: No acute intra-abdominal or pelvic findings. Punctate bilateral nephrolithiasis without hydronephrosis. Unchanged 4 cm lesion in close proximity to the pancreatic head noted. A limited non-contrast examination was performed as detailed.
[2021-01-26] MEDS ORDERED: PANTOPRAZOLE 40 MG INJ ONE (19:54)
[2021-01-26] MEDS ORDERED: NA CHLORIDE 0.9% 250 ML ONE (19:54)
--- NOTE | 2021-01-26 20:34 | EDPHYS ---
Physician Documentation [facility] Name: Carlos Guerra Age: 85 yrs Sex: Male : 1935 Arrival Date: 01/26/2021 Time: 18:07 Bed 20 Private MD: ED Physician Alexander Castle HPI: 01/26 19:32 This 85 yrs old Male presents to ER via EMS with complaints of Rectal bleeding. mh7 19:32 The patient presents to the emergency department with rectal bleeding, a moderate mh7 amount, bright red blood with bowel movement, with multiple such episodes. Onset: The symptoms/episode began/occurred today. Abdominal pain: none is appreciated. Modifying factors: The symptoms are alleviated by nothing, the symptoms are aggravated by nothing. Associated signs and symptoms: Pertinent negatives: anorexia, chest pain, constipation, diarrhea, dizziness at rest, dizziness when standing, fever, shortness of breath, syncope, near-syncope, vomiting. Severity of symptoms: At their worst the symptoms were moderate today, in the emergency department the symptoms have improved moderately. Historical: - Allergies: 18:38 Codeine; sedation; sl2 - PMHx: 18:38 GERD; Hypertension; shingles; sl2 - Immunization history:: Adult Immunizations up to date, Client reports receiving the 2nd dose of the Covid vaccine. - Social history:: Smoking status: Patient denies any tobacco usage or history of. ROS: 19:32 Constitutional: Negative for fever, chills, and weight loss, Eyes: Negative for injury, mh7 pain, redness, and discharge, ENT: Negative for injury, pain, and discharge, Neck: Negative for injury, pain, and swelling, Cardiovascular: Negative for chest pain, palpitations, and edema, Respiratory: Negative for shortness of breath, cough, wheezing, and pleuritic chest pain, Back: Negative for injury and pain. 19:32 : Negative for injury, bleeding, discharge, and swelling, MS/Extremity: Negative for injury and deformity, Skin: Negative for injury, rash, and discoloration, Neuro: Negative for headache, weakness, numbness, tingling, and seizure, Psych: Negative for depression, anxiety, suicide ideation, homicidal ideation, and hallucinations, Allergy/Immunology: Negative for hives, rash, and allergies, Endocrine: Negative for neck swelling, polydipsia, polyuria, polyphagia, and marked weight changes, Hematologic/Lymphatic: Negative for swollen nodes, abnormal bleeding, and unusual bruising. 19:32 Abdomen/GI: Negative for abdominal pain, nausea and vomiting, nausea, vomiting, and diarrhea, nausea, vomiting, diarrhea, constipation, abdominal cramps, abdominal distension, anorexia, dysphagia, hematemesis, black/tarry stool, rectal pain, bowel incontinence, flatulence. Exam: 19:32 Constitutional: This is a well developed, well nourished patient who is awake, alert, mh7 and in no acute distress. Head/Face: Normocephalic, atraumatic. Eyes: Pupils equal round and reactive to light, extra-ocular motions intact. Lids and lashes normal. Conjunctiva and sclera are non-icteric and not injected. Cornea within normal limits. Periorbital areas with no swelling, redness, or edema. Neck: Trachea midline, no thyromegaly or masses palpated, and no cervical lymphadenopathy. Supple, full range of motion without nuchal rigidity, or vertebral point tenderness. No Meningismus. Chest/axilla: Normal chest wall appearance and motion. Nontender with no deformity. No lesions are appreciated. Cardiovascular: Regular rate and rhythm with a normal S1 and S2. No gallops, murmurs, or rubs. Normal PMI, no JVD. No pulse deficits. Respiratory: Lungs have equal breath sounds bilaterally, clear to auscultation and percussion. No rales, rhonchi or wheezes noted. No increased work of breathing, no retractions or nasal flaring. 19:32 Back: No spinal tenderness. No costovertebral tenderness. Full range of motion. Skin: Warm, dry with normal turgor. Normal color with no rashes, no lesions, and no evidence of cellulitis. MS/ Extremity: Pulses equal, no cyanosis. Neurovascular intact. Full, normal range of motion. Neuro: Awake and alert, GCS 15, oriented to person, place, time, and situation. Cranial nerves II-XII grossly intact. Motor strength 5/5 in all extremities. Sensory grossly intact. Cerebellar exam normal. Normal gait. Psych: Awake, alert, with orientation to person, place and time. Behavior, mood, and affect are within normal limits. 19:32 Abdomen/GI: Inspection: abdomen appears normal, Bowel sounds: normal, in all quadrants, Palpation: abdomen is soft and non-tender, in all quadrants, Rectal exam: rectal tone normal, Stool: grossly bloody, guaiac positive, hemorrhoid(s), are not appreciated, mass, is not appreciated, swelling, is not appreciated, tenderness, is not appreciated, fecal impaction, is not appreciated, the exam is chaperoned by the nurse, Indicators: McBurney's point is not tender, Lowry's sign is negative, Rovsing's sign is negative, Obturator sign is negative, Psoas sign is negative, Liver: no appreciated palpable abnormalities, Hernia: not appreciated. Vital Signs: 17:59 BP 176 / 72; Pulse 72; Resp 18; Temp 98.4(O); Pulse Ox 99% on R/A; sl2 20:29 BP 177 / 85; Pulse 74; Resp 16 S; Pulse Ox 99% on R/A; bb 21:01 BP 141 / 93; Pulse 76; Resp 16; Temp 98.4(O); Pulse Ox 98% ; bb 21:30 BP 140 / 77; Pulse 73; Resp 16; Pulse Ox 97% on R/A; bb MDM: 20:30 Differential diagnosis: gastritis, diverticulitis, hemorrhoids, hemorrhagic shock, mh7 varices. Data reviewed: vital signs, nurses notes, old medical records, lab test result(s), CBC, electrolytes, EKG, radiologic studies, CT scan. Data interpreted: Pulse oximetry: on room air is 99 %. Interpretation: normal. Counseling: I had a detailed discussion with the patient and/or guardian regarding: the historical points, exam findings, and any diagnostic results supporting the discharge/admit diagnosis, the presence of at least one elevated blood pressure reading (>120/80) during this emergency department visit, lab results, radiology results, the need to transfer to another facility, [facility] does not immediately have the required specialist. Response to treatment: the patient's symptoms have mildly improved after treatment. 20:33 Patient medically screened. 7 01/26 18:12 Order name: Basic Metabolic Panel sp3 01/26 18:12 Order name: CBC with Diff sp3 01/26 18:12 Order name: LFT's; Complete Time: 19:36 3 01/26 18:12 Order name: Magnesium; Complete Time: 19:36 sp3 01/26 18:12 Order name: PT-INR; Complete Time: 19:27 sp3 01/26 18:12 Order name: Troponin (emerg Dept Use Only); Complete Time: 19:36 sp3 01/26 18:13 Order name: Basic Metabolic Panel; Complete Time: 19:36 EDMS 01/26 18:13 Order name: CBC with Automated Diff; Complete Time: 19:27 EDMS 01/26 18:41 Order name: Abdomen ; Complete Time: 19:27 EDMS 01/26 18:55 Order name: Type And Screen sp3 01/26 18:56 Order name: SARS-COV-2 RT PCR (Document "Date of Onset" if Symptomatic) em1 01/26 18:56 Order name: Type and Screen EDMS 01/26 20:56 Order name: ABO/RH no charge EDMS 01/26 18:12 Order name: EKG; Complete Time: 18:13 3 01/26 18:12 Order name: Cardiac monitoring; Complete Time: 18:40 3 01/26 18:12 Order name: EKG - Nurse/Tech; Complete Time: 21:01 sp3 01/26 18:12 Order name: IV Saline Lock; Complete Time: 20:29 sp3 01/26 18:12 Order name: Labs collected and sent; Complete Time: 20:29 sp3 01/26 18:12 Order name: O2 Per Protocol; Complete Time: 18:40 3 01/26 18:12 Order name: O2 Sat Monitoring; Complete Time: 20:29 3 01/26 18:12 Order name: NPO; Complete Time: 20:29 sp3 Administered Medications: 20:00 Drug: ProTONIX (pantoprazole) 80 mg Route: IVP; Site: right antecubital; bb 21:00 Follow up: Response: No adverse reaction bb 20:00 Drug: ProTONIX (pantoprazole) 8 mg/hr Route: IV; Rate: 25 ml/hr; Site: right bb antecubital; 22:02 Follow up: IV Status: Infusion continued upon transfer bb Point of Care Testing: Guaiac: 19:33 Stool Guaiac: Positive; Stool Hemoccult Control: Pass; bb Disposition Summary: 01/26/21 20:33 Transfer Ordered Transfer Location: [facility] mh7 Reason: Higher level of care mh7 Condition: Stable mh7 Problem: new mh7 Symptoms: have improved mh7 Accepting Physician: Dr. Vogel(01/26/21 22:03) ita Diagnosis - Lower GI Bleed mh7 Forms: - Medication Reconciliation Form mh7 - SBAR form mh7 Signatures: Dispatcher [employer] EDMS Peg Palencia RN RN bb Alexander Castle MD MD 7 Damian Gasca MD MD sp3 Jacqueline Maldonado RN RN sl2 Corrections: (The following items were deleted from the chart) 18:41 18:13 Abdomen Pelvis W Con+CT.RAD.BRZ ordered. EDVT EDMS 22:03 20:33 Dr. Vogel mh7 bb
--- NOTE | 2021-01-26 20:34 | ER ---
Nurse's Notes [facility] Jenni Name: Carlos Guerra Age: 85 yrs Sex: Male : 1935 Arrival Date: 01/26/2021 Time: 18:07 Bed 20 Private MD: Diagnosis: Lower GI Bleed Presentation: 01/26 17:59 Chief complaint: Patient states: Rectal bleeding: Presents to ED via [facility] - sl2 transferred from [facility] with c/o rectal bleeding onset today. 17:59 Coronavirus screen: Vaccine status: Patient reports being unvaccinated. Ebola Screen: sl2 Patient negative for fever greater than or equal to 101.5 degrees Fahrenheit, and additional compatible Ebola Virus Disease symptoms Patient denies exposure to infectious person. Patient denies travel to an Ebola-affected area in the 21 days before illness onset. No symptoms or risks identified at this time. Initial Sepsis Screen: Does the patient have a suspected source of infection? No. Patient's initial sepsis screen is negative. Risk Assessment: Do you want to hurt yourself or someone else? Patient reports no desire to harm self or others. Onset of symptoms was January 26, 2021. 17:59 Method Of Arrival: EMS: [facility] sl2 17:59 Acuity: CLAIRE 2 sl2 19:34 Initial Sepsis Screen: Does the patient meet any 2 criteria? No. Patient's initial bb sepsis screen is negative. Triage Assessment: 18:39 General: Appears in no apparent distress. well groomed, well developed, Behavior is sl2 calm, cooperative, appropriate for age. Pain: Denies pain. Historical: - Allergies: 18:38 Codeine; sedation; sl2 - PMHx: 18:38 GERD; Hypertension; shingles; sl2 - Immunization history:: Adult Immunizations up to date, Client reports receiving the 2nd dose of the Covid vaccine. - Social history:: Smoking status: Patient denies any tobacco usage or history of. Screenin:29 Abuse screen: Denies threats or abuse. Denies injuries from another. Nutritional ld1 screening: No deficits noted. Tuberculosis screening: No symptoms or risk factors identified. Fall Risk Fall in past 12 months (25 points). No secondary diagnosis (0 pts). IV access (20 points). Ambulatory Aid- Crutches/Cane/Walker (15 pts). Gait- Impaired (20 pts.). Mental Status- Oriented to own ability (0 pts). Total Joe Fall Scale indicates High Risk Score (45 or more points). Fall prevention measures have been instituted. Side Rails Up X 2 Placed Close to Nursing Station Frequent Obs/Assessments Occuring As available patient and family educated on Fall Prevention Program and Strategies. Assessment: 19:33 General: Appears in no apparent distress. Behavior is calm, cooperative. Neuro: Level bb of Consciousness is awake, alert, obeys commands, Oriented to person, place, time, situation. Cardiovascular: Capillary refill < 3 seconds Patient's skin is warm and dry. Respiratory: Respiratory effort is even, unlabored. GI: Abdomen is non-distended, Reports rectal bleeding. Derm: Skin is dry, Skin is pale, Skin temperature is warm. Musculoskeletal: Circulation, motion, and sensation intact. Reports broken left shoulder. 20:24 Reassessment: Patient is alert, oriented x 3, equal unlabored respirations, skin bb warm/dry/pink. pt had bowel movement of approx 300 mLs of dark blood, Dr Castle notified, pt awaiting transfer. 21:26 Reassessment: report called to [facility]. report given to cloth sponger Tayo. kd3 21:40 Reassessment: Patient is alert, oriented x 3, equal unlabored respirations, skin bb warm/dry/pink. EMS at bedside for transfer of pt to [facility]. IV site to R AC intact, patent with fluids infusing, IV site to left AC intact. Pt cleaned of small amount of coagulated blood from rectum prior to transfer, family at bedside. Vital Signs: 17:59 BP 176 / 72; Pulse 72; Resp 18; Temp 98.4(O); Pulse Ox 99% on R/A; sl2 20:29 BP 177 / 85; Pulse 74; Resp 16 S; Pulse Ox 99% on R/A; bb 21:01 BP 141 / 93; Pulse 76; Resp 16; Temp 98.4(O); Pulse Ox 98% ; bb 21:30 BP 140 / 77; Pulse 73; Resp 16; Pulse Ox 97% on R/A; bb ED Course: 18:07 Patient arrived in ED. em1 18:34 Jacqueline Maldonado, RN is Primary Nurse. sl2 18:38 Triage completed. sl2 18:39 Arm band placed on right wrist. sl2 18:50 Inserted saline lock: 20 gauge in right antecubital area, using aseptic technique. ld1 Blood collected. 19:00 Alexander Castle MD is Attending Physician. 7 19:08 Abdomen In Process Unspecified. EDMS 19:29 Patient has correct armband on for positive identification. Placed in gown. Bed in low ld1 position. Call light in reach. Side rails up X2. 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 bb 19:58 started initiated transfer for patient to [facility], information given to Hilario. She cs9 asked if patient would be ok going to [facility]. Patient said yes. Call was made at 1957. 20:18 called transfer center back to let know that patient is actively bleeding spoke with csHung Tuttle. 20:29 Type And Screen Sent. bb 20:29 CBC with Diff Sent. bb 20:29 Basic Metabolic Panel Sent. bb 20:31 Primary Nurse role handed off by Jacqueline Maldonado, RN bb 20:31 Peg Palenica, RN is Primary Nurse. bb 20:38 called [facility] transfer center with negative result for Covid. cs9 20:46 Faxed covid results and facesheet to transfer center. Patient approved at [address] to [address] Abhilash Srinivasan. 21:19 :[facility] enroute for transport. cs9 22:02 Patient transferred, IV remains in place. bb Administered Medications: 20:00 Drug: ProTONIX (pantoprazole) 80 mg Route: IVP; Site: right antecubital; bb 21:00 Follow up: Response: No adverse reaction bb 20:00 Drug: ProTONIX (pantoprazole) 8 mg/hr Route: IV; Rate: 25 ml/hr; Site: right bb antecubital; 22:02 Follow up: IV Status: Infusion continued upon transfer bb Point of Care Testing: Guaiac: 19:33 Stool Guaiac: Positive; Stool Hemoccult Control: Pass; bb Intake: 21:02 rectal bleeding bb Output: 21:02 EBL: 300ml; Total: 300ml. bb 21:02 rectal bleeding bb Outcome: 20:33 ER care complete, transfer ordered by MD. redmond 22:02 Transferred by ground EMS Transfer form completed. X-rays sent w/ patient. ita 22:02 Condition: stable 22:02 Instructed on the need for transfer. 22:03 Patient left the ED. ita Signatures: Dispatcher [employer] EDMS Peg Palencia RN RN ita Cosme, Danish em1 Alexander Castle MD MD [id number] Carol Escobar RN RN andry1 Alem Hicks [facility] Jacqueline Maldonado RN RN sl2 Sharon Concepcion RN RN kd3
[2021-01-26 22:24] VITALS: TEMP 98.4
[2021-01-26 22:29] VITALS: BP 140/77; O2SAT 97
== END 2021-01-26 22:03 | disposition short-term general hospital (02) ==
LOC: ER 17:56
DX: K92.2 Gastrointestinal hemorrhage, unspecified (principal); I10 Essential (primary) hypertension; Z88.5 Allergy status to narcotic agent; Z20.822 Contact with and (suspected) exposure to COVID-19
CPT/HCPCS: 96365; 93005; 85025; 80048; 36415; 86900; 83735; 86850; 85610; 86901; 80076; 84484; 74176; 99285; 96366; U0003; C9113; J7050

== ENCOUNTER 2021-02-24 18:21 | Inpatient (IN) | payer OTHER ==
--- OUTSIDE RECORDS SUMMARY | 2021-02-24 18:24 | XMS REPORT | Continuity of Care Document ---
:1935 Author Organization [facility] t Address [address] [place] [address] Care Team Providers Name Role Phone Carrie HUGHES Attending Clinician Unavailable JESSICA ORELLANA Attending Clinician Unavailable JESSICA ORELLANA Admitting Clinician Unavailable Payers Payer Name Policy Type Policy Number Effective Date Expiration Date S abrahan MEDICARE A B [id number] 2021 00:00:00 GENERIC COMMERCIAL [id number] 2011 00:00:00 Problems Condition Condition Condition Status Onset Resolution [...] ents Source Name Type Date Date Clinician CODEINE Allergy Active 2020-[address] [facility] codeine Adverse Active Info Not [facility] Reaction Available [facility] Medications Ordered Filled Start Stop Current Ordering Indication Dosage Frequency Signature Comments Components Source Medication Medication Date Date Medication? Clinician (SIG) Name Name Verapamil Verapamil Yes Dave [address] [facility] HCl ER HCl ER [facility] Vital Signs Vital Name Observation Time Observation Value Comments Source HEIGHT 2021-01-26 23:20:00 188 cm WEIGHT 2021-01-26 23:20:00 73.437 kg HEIGHT 2021-01-26 23:20:00 188 cm WEIGHT 2021-01-26 23:20:00 73.437 kg Procedures This patient has no known procedures. Encounters Start End Encounter Admission Attending Care Care Encounter Source Date/Time Date/Time Type Type Clinicians Facility Department ID 2021-01-26 2021-01-29 Inpatient ER [facility], [facility] Internal [id number] [facility] 22:55:00 17:00:00 [facility] 2019-03-14 2019-03-14 [facility] [id number] [facility] 11[facility]28[facility]00 11:28:00 [facility] 2019-01-20 2019-01-20 [facility] [id number] [facility] 14:42:00 14:42:00 [facility] 2018-12-07 2018-12-07 [facility] [id number] [facility] 13[facility]15:00 13:15:00 [facility] 2018-11-21 2018-11-21 [facility] [id number] 13:00:00 13:00:00 [facility] 2018-08-22 2018-08-22 [facility] [id number] [facility] 14[facility]45:00 14:45:00 [facility] 2018-06-27 2018-06-27 [facility] [id number] 16:01:00 16:01:00 [facility] 2018-06-27 2018-06-27 [facility] [id number] 09:57:00 09:57:00 [facility] Outpati ent Clinics 2018-06-20 2018-06-20 [facility] [id number] 14:00:00 14:00:00 [facility] 2018-05-19 2018-05-19 [facility] [id number] [facility] 14:00:00 14:00:00 [facility] 2018-05-05 2018-05-05 [facility] [id number] [facility] 14:30:00 14:30:00 [facility] 2017-09-07 2017-09-07 [facility] [id number] [address] 11:00:00 11:00:00 [facility] Outpati ent Clinics Results Test Description Test Time Test Comments Results Result Comments Source POCT-GLUCOSE METER 2021-01-29 15:42:37 Test Item Value Reference Range Interpretation Comme nts POC-GLUCOSE METER (BEAKER) 127 mg/dL 70-110 H : TESTED AT [facility] [address] [facility] (test code = 1538) [facility] [id number]: Plating Technician/Techni kaley ID = [id number] for Grover, Samaria dominik POCT-GLUCOSE [id number] 12:07:15 Test Item Value Reference Range Interpretation Comments POC-GLUCOSE METER 140 mg/dL 70-110 H : TESTED A T [facility] 1317 (BEAKER) (test code [facility], = 1538) [facility] 77 478: Plating Technician/Techni kaley ID = [id number] for Cerv antes, Crystal BASIC METABOLIC [id number] 05:43:03 Test Item Value Reference Range Interpretation Comments SODIUM (BEAKER) 139 meq/L 135-148 (test code = 381) POTASSIUM (BEAKER) 4.4 meq/L 3.6-5.5 (test code = 379) CHLORIDE (BEAKER) 108 meq/L 98-106 H (test code = 382) CO2 (BEAKER) (test 19 meq/L 20-29 L code = 355) BLOOD UREA NITROGEN 25 mg/dL 10-26 (BEAKER) (test code = 354) CREATININE (BEAKER) 1.96 mg/dL 0.50-1.20 H (test code = 358) GLUCOSE RANDOM 96 mg/dL 70-110 (BEAKER) (test code = 652) CALCIUM (BEAKER) 8.4 mg/dL 8.5-10.5 L (test code = 697) EGFR (BEAKER) (test 33 mL/min/1.73 ESTIMA MIRELA GFR IS code = 1092) sq m NOT ACCURATE CREATININE CLEARANCE IN PREDICTING GLOMERULAR FILTRATION RATE . ESTIMATED GFR I S NOT APPLICABLE FOR DIALYSIS PATIEN TS. Plating Technician ID - DSENSONOperator ID - DSENSONOperator ID - DSENSONOperator ID - DSENSONOperator ID - DSENSONOperator ID - DSENSONOperator ID - DSENSONOperator ID - DSENSONOperator ID - DSENSONOperator ID - DSENSONOperator ID - DSENSONOperator ID - DSENSONOperator ID - DSENSONCBC W/PLT COUNT & AUTO [id number] 05:21:56 Test Item Value Reference Range Interpretation Comments WHITE BLOOD CELL COUNT (BEAKER) 8.8 K/ L 4.0-10.0 (test code = 775) RED BLOOD CELL COUNT (BEAKER) 3.22 M/ L 4.20-5.80 L (test code = 761) HEMOGLOBIN (BEAKER) (test code = 10.0 GM/DL 13.0-16.8 L 410) HEMATOCRIT (BEAKER) (test code = 31.0 % 36.0-50.0 L 411) MEAN CORPUSCULAR VOLUME (BEAKER) 96.3 fL 82.0-99.0 (test code = 753) MEAN CORPUSCULAR HEMOGLOBIN 31.1 pg 27.0-33.0 (BEAKER) (test code = 751) MEAN CORPUSCULAR HEMOGLOBIN CONC 32.3 GM/DL 32.0-36.0 (BEAKER) (test code = 752) RED CELL DISTRIBUTION WIDTH 13.0 % 12.0-15.0 (BEAKER) (test code = 412) PLATELET COUNT (BEAKER) (test 176 K/CU MM 150-430 code = 756) MEAN PLATELET VOLUME (BEAKER) 10.8 fL 6.0-11.5 (test code = 754) NUCLEATED RED BLOOD CELLS 0 /100 WBC 0-0 (BEAKER) (test code = 413) NEUTROPHILS RELATIVE PERCENT 69 % (BEAKER) (test code = 429) LYMPHOCYTES RELATIVE PERCENT 16 % (BEAKER) (test code = 430) MONOCYTES RELATIVE PERCENT 10 % (BEAKER) (test code = 431) EOSINOPHILS RELATIVE PERCENT 4 % (BEAKER) (test code = 432) BASOPHILS RELATIVE PERCENT 1 % (BEAKER) (test code = 437) NEUTROPHILS ABSOLUTE COUNT 6.07 K/ L 1.80-8.00 (BEAKER) (test code = 670) LYMPHOCYTES ABSOLUTE COUNT 1.45 K/ L 1.48-4.50 L (BEAKER) (test code = 414) MONOCYTES ABSOLUTE COUNT (BEAKER) 0.87 K/ L 0.00-1.30 (test code = 415) EOSINOPHILS ABSOLUTE COUNT 0.37 K/ L 0.00-0.50 (BEAKER) (test code = 416) BASOPHILS ABSOLUTE COUNT (BEAKER) 0.04 K/ L 0.00-0.20 (test code = 417) IMMATURE GRANULOCYTES-RELATIVE 0 % 0-0 PERCENT (BEAKER) (test code = 2801) SARS-COV2/RT-PCR ([facility])2021-01-28 17:42:47 Test Item Value Reference Range Interpretation Comments SARS-COV2/RT-PCR Negative Negative The SARS-Co V-2 target (test code = nucleic acids a re not [id number]) detected in thi s specimen. Negative result s do not preclude SARS-C oV-2 infection and s hould not be used as the juan antonio e basis for patient managem ent decisions. Nega tive results must be combine d with clinical observ ations, patient history , and epidemiological information. A false negativ e result may occur if a spec imen is improperly megan ected, transported or handled. This SARS CoV-2 test is a rapid, real-kay e RT-PCR test intended for th e qualitative detection of nu cleic acid from SARS-CoV-2 in a nasopharyngeal swab specimen collected from individuals suspected of CO VID-19 by their healthcar e provider. This test has been authorized by FDA under an EUA for use by authorized laboratories. This test is only authorized for the duration of the declaration that circumstances exist justifying the authorization of emergency use of in vitro diagnostic tests for detection and/or diagnosis of COVID-19 under Section 564(b)(1) of the Federal Food, Drug and Cosmetic Act, 21 U.S.C. 360bbb- 3(b)(1), unless the authorization is terminated or revoked sooner. Fact Sheet for Healthcare Providers: https://www.Evermind/Documents/Xpert%20Xpress%20SARS%20CoV-2/Fact%20Sheets/302-3802%20SARS-COV -2%20HEALTHCARE%20PROVIDERS%20FACT%20SHEET.pdf Fact Sheet for Healthcare Patients: https://www.eÓtica/Documents/Xpert %20Xpress%20SARS%20CoV-2/Fact%20Sheets/3023801%30NMSG-JYI-7%20PATIENT%20FACT%20 SHEET.pdfBASI METABOLIC [id number] 05:10:34 Test Item Value Reference Range Interpretation Comments SODIUM (BEAKER) 137 meq/L 135-148 (test code = 381) POTASSIUM (BEAKER) 4.3 meq/L 3.6-5.5 (test code = 379) CHLORIDE (BEAKER) 109 meq/L 98-106 H (test code = 382) CO2 (BEAKER) (test 19 meq/L 20-29 L code = 355) BLOOD UREA NITROGEN 23 mg/dL 10-26 (BEAKER) (test code = 354) CREATININE (BEAKER) 1.81 mg/dL 0.50-1.20 H (test code = 358) GLUCOSE RANDOM 100 mg/dL 70-110 (BEAKER) (test code = 652) CALCIUM (BEAKER) 8.5 mg/dL 8.5-10.5 (test code = 697) EGFR (BEAKER) (test 36 mL/min/1.73 ESTIMA MIRELA GFR IS code = 1092) sq m NOT ACCURATE CREATININE CLEARANCE IN PREDICTING GLOMERULAR FILTRATION RATE . ESTIMATED GFR I S NOT APPLICABLE FOR DIALYSIS PATIEN TS. Plating Technician ID - [id number] ID - [id number] ID - [id number] ID - TSPB17Ovtpsqmb ID - CMNT15Tgndmttl ID - YAQC83Snxiluea ID - JLPQ44Kgllgknx ID - VJCS86Hmodrchj ID - CQJN84Lpcsmsxt ID - SLMB73Drmiedpi ID - TFRN87Qtsodazn ID - OTOF66Zqvumjyv ID - CARP69OCK W/PLT COUNT & AUTO [id number] 04:43:13 Test Item Value Reference Range Interpretation Comments WHITE BLOOD CELL COUNT (BEAKER) 7.5 K/ L 4.0-10.0 (test code = 775) RED BLOOD CELL COUNT (BEAKER) 3.26 M/ L 4.20-5.80 L (test code = 761) HEMOGLOBIN (BEAKER) (test code = 10.2 GM/DL 13.0-16.8 L 410) HEMATOCRIT (BEAKER) (test code = 31.1 % 36.0-50.0 L 411) MEAN CORPUSCULAR VOLUME (BEAKER) 95.4 fL 82.0-99.0 (test code = 753) MEAN CORPUSCULAR HEMOGLOBIN 31.3 pg 27.0-33.0 (BEAKER) (test code = 751) MEAN CORPUSCULAR HEMOGLOBIN CONC 32.8 GM/DL 32.0-36.0 (BEAKER) (test code = 752) RED CELL DISTRIBUTION WIDTH 13.0 % 12.0-15.0 (BEAKER) (test code = 412) PLATELET COUNT (BEAKER) (test 176 K/CU MM 150-430 code = 756) MEAN PLATELET VOLUME (BEAKER) 10.3 fL 6.0-11.5 (test code = 754) NUCLEATED RED BLOOD CELLS 0 /100 WBC 0-0 (BEAKER) (test code = 413) NEUTROPHILS RELATIVE PERCENT 73 % (BEAKER) (test code = 429) LYMPHOCYTES RELATIVE PERCENT 12 % (BEAKER) (test code = 430) MONOCYTES RELATIVE PERCENT 10 % (BEAKER) (test code = 431) EOSINOPHILS RELATIVE PERCENT 5 % (BEAKER) (test code = 432) BASOPHILS RELATIVE PERCENT 1 % (BEAKER) (test code = 437) NEUTROPHILS ABSOLUTE COUNT 5.40 K/ L 1.80-8.00 (BEAKER) (test code = 670) LYMPHOCYTES ABSOLUTE COUNT 0.87 K/ L 1.48-4.50 L (BEAKER) (test code = 414) MONOCYTES ABSOLUTE COUNT (BEAKER) 0.74 K/ L 0.00-1.30 (test code = 415) EOSINOPHILS ABSOLUTE COUNT 0.35 K/ L 0.00-0.50 (BEAKER) (test code = 416) BASOPHILS ABSOLUTE COUNT (BEAKER) 0.06 K/ L 0.00-0.20 (test code = 417) IMMATURE GRANULOCYTES-RELATIVE 0 % 0-0 PERCENT (BEAKER) (test code = 2801) CBC W/PLT COUNT & AUTO [id number] 18:12:06 Test Item Value Reference Range Interpretation Comments WHITE BLOOD CELL COUNT (BEAKER) 8.2 K/ L 4.0-10.0 (test code = 775) RED BLOOD CELL COUNT (BEAKER) 3.16 M/ L 4.20-5.80 L (test code = 761) HEMOGLOBIN (BEAKER) (test code = 10.0 GM/DL 13.0-16.8 L 410) HEMATOCRIT (BEAKER) (test code = 30.5 % 36.0-50.0 L 411) MEAN CORPUSCULAR VOLUME (BEAKER) 96.5 fL 82.0-99.0 (test code = 753) MEAN CORPUSCULAR HEMOGLOBIN 31.6 pg 27.0-33.0 (BEAKER) (test code = 751) MEAN CORPUSCULAR HEMOGLOBIN CONC 32.8 GM/DL 32.0-36.0 (BEAKER) (test code = 752) RED CELL DISTRIBUTION WIDTH 13.0 % 12.0-15.0 (BEAKER) (test code = 412) PLATELET COUNT (BEAKER) (test 183 K/CU MM 150-430 code = 756) MEAN PLATELET VOLUME (BEAKER) 10.1 fL 6.0-11.5 (test code = 754) NUCLEATED RED BLOOD CELLS 0 /100 WBC 0-0 (BEAKER) (test code = 413) NEUTROPHILS RELATIVE PERCENT 75 % (BEAKER) (test code = 429) LYMPHOCYTES RELATIVE PERCENT 11 % (BEAKER) (test code = 430) MONOCYTES RELATIVE PERCENT 10 % (BEAKER) (test code = 431) EOSINOPHILS RELATIVE PERCENT 4 % (BEAKER) (test code = 432) BASOPHILS RELATIVE PERCENT 1 % (BEAKER) (test code = 437) NEUTROPHILS ABSOLUTE COUNT 6.15 K/ L 1.80-8.00 (BEAKER) (test code = 670) LYMPHOCYTES ABSOLUTE COUNT 0.88 K/ L 1.48-4.50 L (BEAKER) (test code = 414) MONOCYTES ABSOLUTE COUNT (BEAKER) 0.78 K/ L 0.00-1.30 (test code = 415) EOSINOPHILS ABSOLUTE COUNT 0.31 K/ L 0.00-0.50 (BEAKER) (test code = 416) BASOPHILS ABSOLUTE COUNT (BEAKER) 0.06 K/ L 0.00-0.20 (test code = 417) IMMATURE GRANULOCYTES-RELATIVE 0 % 0-0 PERCENT (BEAKER) (test code = 2801) HEMORRHAGE IMAGING, [id number] 16:36:00Unlisted Reason for Exam - Click Yes and Enter Reason Below->No [facility] 1935 Sex: MFINAL REPORT PROCEDURE: HEMORRHAGE STUDY with RBCs CPT CODE: 23002 INDICATION: Gastrointestinal Bleeding PROTOCOL: 26.1 mCi of Tc-99m was injected intravenously as labeled autologous red blood cells. Flow images of the abdomen were obtained, followed by serial images over approximately 60 minutes. Additional images were obtained at four hours post injection. FINDINGS: No active hemorrhage is seen. Additional images will be obtained in the morning IMPRESSION: Interim Report Signed: Mk Brooke [facility] Verified Date/Time: 116:36:49 CBC W/PLT COUNT & AUTO [id number] 10:20:36 Test Item Value Reference Range Interpretation Comments WHITE BLOOD CELL COUNT (BEAKER) 8.0 K/ L 4.0-10.0 (test code = 775) RED BLOOD CELL COUNT (BEAKER) 3.24 M/ L 4.20-5.80 L (test code = 761) HEMOGLOBIN (BEAKER) (test code = 10.1 GM/DL 13.0-16.8 L 410) HEMATOCRIT (BEAKER) (test code = 30.8 % 36.0-50.0 L 411) MEAN CORPUSCULAR VOLUME (BEAKER) 95.1 fL 82.0-99.0 (test code = 753) MEAN CORPUSCULAR HEMOGLOBIN 31.2 pg 27.0-33.0 (BEAKER) (test code = 751) MEAN CORPUSCULAR HEMOGLOBIN CONC 32.8 GM/DL 32.0-36.0 (BEAKER) (test code = 752) RED CELL DISTRIBUTION WIDTH 13.0 % 12.0-15.0 (BEAKER) (test code = 412) PLATELET COUNT (BEAKER) (test 178 K/CU MM 150-430 code = 756) MEAN PLATELET VOLUME (BEAKER) 10.1 fL 6.0-11.5 (test code = 754) NUCLEATED RED BLOOD CELLS 0 /100 WBC 0-0 (BEAKER) (test code = 413) NEUTROPHILS RELATIVE PERCENT 79 % (BEAKER) (test code = 429) LYMPHOCYTES RELATIVE PERCENT 8 % (BEAKER) (test code = 430) MONOCYTES RELATIVE PERCENT 8 % (BEAKER) (test code = 431) EOSINOPHILS RELATIVE PERCENT 3 % (BEAKER) (test code = 432) BASOPHILS RELATIVE PERCENT 1 % (BEAKER) (test code = 437) NEUTROPHILS ABSOLUTE COUNT 6.32 K/ L 1.80-8.00 (BEAKER) (test code = 670) LYMPHOCYTES ABSOLUTE COUNT 0.67 K/ L 1.48-4.50 L (BEAKER) (test code = 414) MONOCYTES ABSOLUTE COUNT (BEAKER) 0.63 K/ L 0.00-1.30 (test code = 415) EOSINOPHILS ABSOLUTE COUNT 0.27 K/ L 0.00-0.50 (BEAKER) (test code = 416) BASOPHILS ABSOLUTE COUNT (BEAKER) 0.07 K/ L 0.00-0.20 (test code = 417) IMMATURE GRANULOCYTES-RELATIVE 0 % 0-0 PERCENT (BEAKER) (test code = 2801) RAD, SHOULDER, COMPLETE (MIN 2 VIEWS), [id number] 07:36:00Reason for exam:- >trauma to left [facility] : 1935 Sex: MFINAL REPORT LEFT SHOULDER 2 VIEWS HISTORY: Left shoulder trauma COMPARISON: None FINDINGS: AP and transscapular Y lateral views of the left shoulder were obtained. There is acomminuted fracture of the proximal humerus involving the surgical neck and greater tuberosity. There is mild anterior displacement of the distal humeral fracture fragment. There is mild lateral displacement of the greater tuberosity fracture fragments. Minimal acromioclavicular joint osteoarthritis. Acromial shape is type II. No advanced changes of osteoarthritis are visualized in the glenohumeral joint. The ulnohumeral joint evaluation limited by projection. IMPRESSION: 1. Fractures in the surgical neck and greater tuberosity of the proximal left humerus. Signed: [place] Randall MDReport Verified Date/Time: 01/27/2021 07:36:50 Reading Location: [facility] Radiology Reading Room BASIC METABOLIC [id number] 05:57:08 Test Item Value Reference Range Interpretation Comments SODIUM (BEAKER) 138 meq/L 135-148 (test code = 381) POTASSIUM (BEAKER) 4.4 meq/L 3.6-5.5 (test code = 379) CHLORIDE (BEAKER) 111 meq/L 98-106 H (test code = 382) CO2 (BEAKER) (test 20 meq/L 20-29 code = 355) BLOOD UREA NITROGEN 28 mg/dL 10-26 H (BEAKER) (test code = 354) CREATININE (BEAKER) 1.93 mg/dL 0.50-1.20 H (test code = 358) GLUCOSE RANDOM 95 mg/dL 70-110 (BEAKER) (test code = 652) CALCIUM (BEAKER) 8.5 mg/dL 8.5-10.5 (test code = 697) EGFR (BEAKER) (test 33 mL/min/1.73 ESTIMA MIRELA GFR IS code = 1092) sq m NOT ACCURATE CREATININE CLEARANCE IN PREDICTING GLOMERULAR FILTRATION RATE . ESTIMATED GFR I S NOT APPLICABLE FOR DIALYSIS PATIEN TS. Plating Technician ID - ERINYOperator ID - ERINYOperator ID - ERINYOperator ID - ERINYOperator ID - ERINYOperator ID - ERINYOperator ID - ERINYOperator ID - ERINYOperator ID - ERINYOperator ID - ERINYOperator ID- ERINYOperator ID - ERINY CBC W/PLT COUNT & AUTO [id number] 05:41:08 Test Item Value Reference Range Interpretation Comments WHITE BLOOD CELL COUNT (BEAKER) 8.3 K/ L 4.0-10.0 (test code = 775) RED BLOOD CELL COUNT (BEAKER) 3.32 M/ L 4.20-5.80 L (test code = 761) HEMOGLOBIN (BEAKER) (test code = 10.4 GM/DL 13.0-16.8 L 410) HEMATOCRIT (BEAKER) (test code = 31.8 % 36.0-50.0 L 411) MEAN CORPUSCULAR VOLUME (BEAKER) 95.8 fL 82.0-99.0 (test code = 753) MEAN CORPUSCULAR HEMOGLOBIN 31.3 pg 27.0-33.0 (BEAKER) (test code = 751) MEAN CORPUSCULAR HEMOGLOBIN CONC 32.7 GM/DL 32.0-36.0 (BEAKER) (test code = 752) RED CELL DISTRIBUTION WIDTH 13.0 % 12.0-15.0 (BEAKER) (test code = 412) PLATELET COUNT (BEAKER) (test 162 K/CU MM 150-430 code = 756) MEAN PLATELET VOLUME (BEAKER) 9.6 fL 6.0-11.5 (test code = 754) NUCLEATED RED BLOOD CELLS 0 /100 WBC 0-0 (BEAKER) (test code = 413) NEUTROPHILS RELATIVE PERCENT 75 % (BEAKER) (test code = 429) LYMPHOCYTES RELATIVE PERCENT 10 % (BEAKER) (test code = 430) MONOCYTES RELATIVE PERCENT 11 % (BEAKER) (test code = 431) EOSINOPHILS RELATIVE PERCENT 4 % (BEAKER) (test code = 432) BASOPHILS RELATIVE PERCENT 1 % (BEAKER) (test code = 437) NEUTROPHILS ABSOLUTE COUNT 6.18 K/ L 1.80-8.00 (BEAKER) (test code = 670) LYMPHOCYTES ABSOLUTE COUNT 0.84 K/ L 1.48-4.50 L (BEAKER) (test code = 414) MONOCYTES ABSOLUTE COUNT (BEAKER) 0.87 K/ L 0.00-1.30 (test code = 415) EOSINOPHILS ABSOLUTE COUNT 0.32 K/ L 0.00-0.50 (BEAKER) (test code = 416) BASOPHILS ABSOLUTE COUNT (BEAKER) 0.07 K/ L 0.00-0.20 (test code = 417) IMMATURE GRANULOCYTES-RELATIVE 0 % 0-0 PERCENT (BEAKER) (test code = 2801) CBC W/PLT COUNT & AUTO [id number] 00:53:04 Test Item Value Reference Range Interpretation Comments WHITE BLOOD CELL COUNT (BEAKER) 8.8 K/ L 4.0-10.0 (test code = 775) RED BLOOD CELL COUNT (BEAKER) 3.43 M/ L 4.20-5.80 L (test code = 761) HEMOGLOBIN (BEAKER) (test code = 10.7 GM/DL 13.0-16.8 L 410) HEMATOCRIT (BEAKER) (test code = 32.7 % 36.0-50.0 L 411) MEAN CORPUSCULAR VOLUME (BEAKER) 95.3 fL 82.0-99.0 (test code = 753) MEAN CORPUSCULAR HEMOGLOBIN 31.2 pg 27.0-33.0 (BEAKER) (test code = 751) MEAN CORPUSCULAR HEMOGLOBIN CONC 32.7 GM/DL 32.0-36.0 (BEAKER) (test code = 752) RED CELL DISTRIBUTION WIDTH 13.0 % 12.0-15.0 (BEAKER) (test code = 412) PLATELET COUNT (BEAKER) (test 186 K/CU MM 150-430 code = 756) MEAN PLATELET VOLUME (BEAKER) 10.2 fL 6.0-11.5 (test code = 754) NUCLEATED RED BLOOD CELLS 0 /100 WBC 0-0 (BEAKER) (test code = 413) NEUTROPHILS RELATIVE PERCENT 78 % (BEAKER) (test code = 429) LYMPHOCYTES RELATIVE PERCENT 10 % (BEAKER) (test code = 430) MONOCYTES RELATIVE PERCENT 8 % (BEAKER) (test code = 431) EOSINOPHILS RELATIVE PERCENT 3 % (BEAKER) (test code = 432) BASOPHILS RELATIVE PERCENT 1 % (BEAKER) (test code = 437) NEUTROPHILS ABSOLUTE COUNT 6.87 K/ L 1.80-8.00 (BEAKER) (test code = 670) LYMPHOCYTES ABSOLUTE COUNT 0.87 K/ L 1.48-4.50 L (BEAKER) (test code = 414) MONOCYTES ABSOLUTE COUNT (BEAKER) 0.72 K/ L 0.00-1.30 (test code = 415) EOSINOPHILS ABSOLUTE COUNT 0.28 K/ L 0.00-0.50 (BEAKER) (test code = 416) BASOPHILS ABSOLUTE COUNT (BEAKER) 0.06 K/ L 0.00-0.20 (test code = 417) IMMATURE GRANULOCYTES-RELATIVE 0 % 0-0 PERCENT (BEAKER) (test code = 2801) [id number] 00:36:35 Test Item Value Reference Range Interpretation Comments MAGNESIUM (BEAKER) (test code = 1.8 mg/dL 1.5-3.0 627) Plating Technician ID - ERINYOperator ID - ERINYOperator ID - ERINYOperator ID - ERINY HEPATIC FUNCTION [id number] 00:36:29 Test Item Value Reference Range Interpretation Comments TOTAL PROTEIN (BEAKER) (test code = 6.5 gm/dL 6.0-8.5 770) ALBUMIN (BEAKER) (test code = 1145) 3.4 g/dL 3.5-5.0 L BILIRUBIN TOTAL (BEAKER) (test code 0.6 mg/dL 0.1-1.2 = 377) BILIRUBIN DIRECT (BEAKER) (test 0.2 mg/dL 0.0-0.4 code = 706) ALKALINE PHOSPHATASE (BEAKER) (test 94 U/L 30-115 code = 346) AST (SGOT) (BEAKER) (test code = 14 U/L 5-40 353) ALT (SGPT) (BEAKER) (test code = 13 U/L 5-50 347) Plating Technician ID - ERINYOperator ID - ERINYOperator ID - ERINYOperator ID - ERINYOperator ID - ERINYOperator ID - ERINYOperator ID - ERINYBASIC METABOLIC [id number] 00:34:38 Test Item Value Reference Range Interpretation Comments SODIUM (BEAKER) 139 meq/L 135-148 (test code = 381) POTASSIUM (BEAKER) 4.4 meq/L 3.6-5.5 (test code = 379) CHLORIDE (BEAKER) 110 meq/L 98-106 H (test code = 382) CO2 (BEAKER) (test 20 meq/L 20-29 code = 355) BLOOD UREA NITROGEN 26 mg/dL 10-26 (BEAKER) (test code = 354) CREATININE (BEAKER) 2.06 mg/dL 0.50-1.20 H (test code = 358) GLUCOSE RANDOM 105 mg/dL 70-110 (BEAKER) (test code = 652) CALCIUM (BEAKER) 8.6 mg/dL 8.5-10.5 (test code = 697) EGFR (BEAKER) (test 31 mL/min/1.73 ESTIMA MIRELA GFR IS code = 1092) sq m NOT ACCURATE CREATININE CLEARANCE IN PREDICTING GLOMERULAR FILTRATION RATE . ESTIMATED GFR I S NOT APPLICABLE FOR DIALYSIS PATIEN TS. Plating Technician ID - ERINYOperator ID - ERINYOperator ID - ERINYOperator ID - ERINYOperator ID - ERINYOperator ID - ERINYOperator ID - ERINYOperator ID - ERINYOperator ID - [id number] 00:32:54 Test Item Value Reference Range Interpretation Comments PHOSPHORUS (BEAKER) (test code = 3.1 mg/dL 2.5-4.5 604) Plating Technician ID - ERINYPROTHROMBIN [id number] 00:31:37 Test Item Value Reference Range Interpretation Comments PROTIME (BEAKER) 11.2 seconds 9.3-12.0 Final Infor mation (test code = 759) (Auto Outp ut) INR (BEAKER) (test 1.01 See_Comment Final Inf ormation code = 370) (Auto Output) [Automated mess age] The system [employer] generated this result transmitted ref erence range: <=5.90. The reference range was not used to int erpret this result as normal/abnormal . RECOMMENDED COUMADIN/WARFARIN INR THERAPY RANGESSTANDARD DOSE: 2.0 - 3.0 Includes: PROPHYLAXIS forvenous thrombosis, systemic embolization; TREATMENT for venous thrombosis and/or pulmonary embolus.HIGH RISK: Target INR is 2.5-3.5 for patients with mechanical heart valves.
--- NOTE | 2021-02-24 20:25 | RAD REPORT ---
EXAM DESCRIPTION: RAD - Chest Single View - 02/24/2021 8:08 pm CLINICAL HISTORY: COUGH Chest pain. COMPARISON: Chest Single View dated 05/08/2020; Chest Single View dated 02/18/2019 FINDINGS: Portable technique limits examination quality. Moderate bilateral interstitial lung opacities are present, most severe in the right lower lobe likel y representing pneumonia. The heart is upper limit normal in size. No displaced fractures.
[2021-02-24 22:16] LABS: Absolute Lymphocytes (CBC) 0.7 K/uL (0.7-4.9); Hematocrit 39.5 % (39.6-49.0); Lymphocytes % 7.9 % (15.3-44.8); MPV 9.1 fL (7.6-11.3); RBC Red Blood Cell Count 4.11 M/uL (4.33-5.43)
[2021-02-24 22:17] LABS: Protime INR 1.15
[2021-02-24] MEDS ORDERED: Levofloxacin 750mg IV 0 MG/0 ML BAG IV ONE (22:23)
[2021-02-24] MEDS ORDERED: NA CHLORIDE 0.9% 1,000 ML ONE (22:24)
[2021-02-24] MEDS ORDERED: CEFTRIAXONE 1000 MG/VIAL ONE (22:28)
[2021-02-24] MEDS ORDERED: NA CHLORIDE 0.9% 100 ML ONE (22:31)
[2021-02-24 22:50] LABS: Albumin 2.8 g/dL (3.4-5.0); Bilirubin Direct 0.2 mg/dL (0-0.2); Bilirubin Total 0.4 mg/dL (0.2-1.0); Potassium 5.1 mmol/L (3.5-5.1); Protein, Total 7.4 g/dL (6.4-8.2); Troponin (Emerg Dept Use Only) 0.17 ng/mL (0.0-0.045)
--- NOTE | 2021-02-24 23:10 | ER ---
Nurse's Notes [facility] Name: Carlos Guerra Age: 86 yrs Sex: Male : 1935 Arrival Date: 02/24/2021 Time: 18:49 Bed 23 Private MD: Diagnosis: Pneumonia, unspecified organism;Acute kidney failure, unspecified Vital Signs: 02/25 00:26 BP 127 / 71; Pulse 73; Resp 19; Temp 97.3; Pulse Ox 91% ; Weight 72.57 kg; Height 6 ft. cg 0 in. (182.88 cm); Pain 0/10; 00:26 Body Mass Index 21.70 (72.57 kg, 182.88 cm) cg ED Course: 02/24 18:49 Patient arrived in ED. ds1 19:02 Jeffrey Robbins PA is PHCP. cp 19:02 Jeffrey Dozier MD is Attending Physician. cp 20:08 XRAY Chest (1 view) In Process Unspecified. EDMS 22:00 Initial lab(s) drawn, by me, sent to lab. First set of blood cultures drawn by me. lt3 Inserted saline lock: 22 gauge in right forearm, using aseptic technique. 22:20 Second set of blood cultures drawn by me. Inserted saline lock: 22 gauge in left lt3 antecubital area, using aseptic technique. 22:49 EKG done, by ED staff, reviewed by Jeffrey ROUSSEAU. lt3 22:49 COVID swab sent to lab. lt3 23:09 Luis Fontana MD is Hospitalizing Provider. cp Administered Medications: 22:34 Drug: NS 0.9% 250 ml Route: IV; Rate: bolus; Site: right forearm; bb 22:34 Drug: NS 0.9% 750 ml Route: IV; Rate: 75 ml/hr; Site: right forearm; bb 22:34 Drug: Rocephin - (cefTRIAXone) 1 grams Route: IVPB; Infused Over: 30 mins; Site: right bb forearm; 02/25 00:36 Drug: Lovenox (enoxaparin) 1 mg/kg Route: Sub-Q; Site: abdomen; cg 00:36 Drug: Aspirin Chewable Tablet 324 mg Route: PO; cg 00:37 Drug: LevaQUIN (levofloxacin) 500 mg Volume: 100 ml; Route: IVPB; Infused Over: 60 cg mins; Site: right forearm; Outcome: 02/24 23:10 Decision to Hospitalize by Provider. murali 02/25 16:50 Patient left the ED. alberta Signatures: Dispatcher [employer] EDMS HoangPeg Durant RN RN bb Jeffrey Robbins PA PA Michelle Rivas RN RN cg Aguilar, Jose, RN RN ja1 Tran, Leah 3 Corrections: (The following items were deleted from the chart) 00:20 02/24 22:49 COVID-19/FLU A+B+MOL.LAB.BRZ drawn and sent. 3 [facility]
--- NOTE | 2021-02-24 23:11 | EDPHYS ---
Physician Documentation [facility] Name: Carlos Guerra Age: 86 yrs Sex: Male : 1935 Arrival Date: 02/24/2021 Time: 18:49 Bed 23 Private MD: ED Physician Jeffrey Dozier HPI: 02/24 19:20 This 86 yrs old Male presents to ER via Unassigned with complaints of Cough. cp 19:20 The patient or guardian reports cough, that is intermittent. Onset: The cp symptoms/episode began/occurred at an unknown time. Severity of symptoms: in the emergency department the symptoms are unchanged, despite EMS interventions. 19:20 Associated signs and symptoms: Pertinent negatives: chest pain, fever, vomiting. cp ROS: 19:25 Constitutional: Positive for poor PO intake, Negative for fever. cp 19:25 Eyes: Negative for injury, pain, redness, and discharge. cp 19:25 ENT: Negative for ear pain, sore throat, difficulty swallowing, difficulty handling secretions. 19:25 Cardiovascular: Negative for chest pain. 19:25 Respiratory: Positive for cough. 19:25 Abdomen/GI: Negative for abdominal pain, nausea, vomiting, and diarrhea. 19:25 Neuro: Negative for altered mental status, headache. 19:25 All other systems are negative. Exam: 19:30 Constitutional: The patient appears in no acute distress, alert, awake, cp non-diaphoretic, non-toxic, well developed, well nourished. 19:30 Head/Face: Normocephalic, atraumatic. cp 19:30 Eyes: Periorbital structures: appear normal, Conjunctiva: normal, no exudate, no injection, Sclera: no appreciated abnormality, Lids and lashes: appear normal, bilaterally. 19:30 ENT: External ear(s): are unremarkable, Nose: is normal, Mouth: Lips: dry, Oral mucosa: dry, Posterior pharynx: Airway: no evidence of obstruction, patent. 19:30 Neck: ROM/movement: is normal, is supple, no meningismus, no nuchal rigidity. 19:30 Chest/axilla: Inspection: normal. 19:30 Cardiovascular: Rate: normal, Rhythm: regular, Edema: is not appreciated, JVD: is not appreciated. 19:30 Respiratory: the patient does not display signs of respiratory distress, Respirations: normal, no use of accessory muscles, no retractions, Breath sounds: bronchial sounds, that are mild, are heard diffusely, decreased breath sounds, that are mild, diffuse, stridor, is not appreciated, wheezing: is not appreciated. 19:30 Abdomen/GI: Inspection: abdomen appears normal, Palpation: abdomen is soft and non-tender, in all quadrants. 19:30 Back: pain, is absent, ROM is normal. 19:30 Neuro: Orientation: to person, situation, Mentation: able to follow commands. 22:50 ECG was reviewed by the Attending Physician. Vital Signs: 02/25 00:26 BP 127 / 71; Pulse 73; Resp 19; Temp 97.3; Pulse Ox 91% ; Weight 72.57 kg; Height 6 ft. cg 0 in. (182.88 cm); Pain 0/10; 00:26 Body Mass Index 21.70 (72.57 kg, 182.88 cm) cg MDM: 02/24 19:03 Patient medically screened. [facility] [place] 23:10 Data reviewed: vital signs, nurses notes, lab test result(s), EKG, radiologic studies, plain films. 23:10 Physician consultation: Luis Fontana MD was called at 23:10, was contacted at 23:10, regarding admission, to the telemetry unit. patient's condition, would like medications started, Levaquin. 02/24 19:11 Order name: Basic Metabolic Panel 02/24 19:11 Order name: CBC with Diff 02/24 19:11 Order name: LFT's 02/24 19:11 Order name: Magnesium; Complete Time: 23:01 02/24 23:01 Interpretation: Abnormal: MG 3.0. 02/24 19:11 Order name: NT PRO-BNP; Complete Time: 23:01 02/24 23:01 Interpretation: Normal except: NT PRO-BNP 78640. 02/24 19:11 Order name: PT-INR; Complete Time: 22:27 02/24 22:49 Interpretation: Reviewed. 02/24 19:11 Order name: Troponin (emerg Dept Use Only); Complete Time: 23:01 02/24 23:02 Interpretation: Abnormal: TROPED 0.17. 02/24 19:11 Order name: Blood Culture Adult (2) 02/24 19:11 Order name: Procalcitonin; Complete Time: 22:49 02/24 22:49 Interpretation: Abnormal: Procalcitonin 0.07. 02/24 19:11 Order name: Lactate; Complete Time: 22:49 02/24 22:49 Interpretation: Reviewed. 02/24 19:11 Order name: Urine Microscopic Only 02/24 19:12 Order name: Basic Metabolic Panel; Complete Time: 23:01 EDID 02/24 23:01 Interpretation: Normal except: CL 109; CO2 19; GLUC 126; BUN 49; CRE 2.72; GFR 22. 02/24 19:12 Order name: CBC with Automated Diff; Complete Time: 22:27 [facility] 02/24 22:27 Interpretation: Normal except: WBC 9.40; RBC 4.11; HGB 12.8; HCT 39.5; JHON% 83.7; LYM% cp 7.9. 02/24 19:11 Order name: XRAY Chest (1 view); Complete Time: 20:29 02/24 22:28 Interpretation: Report review. 02/24 19:12 Order name: Liver (Hepatic) Function; Complete Time: 23:01 EDID 02/24 19:12 Order name: Blood Culture [facility] 02/25 02:31 Order name: Basic Metabolic Panel [facility] 02/25 02:31 Order name: Basic Metabolic Panel [facility] 02/25 02:31 Order name: NT PRO-BNP [facility] 02/25 02:32 Order name: CBC with Automated Diff [facility] 02/25 02:32 Order name: NT PRO-BNP [facility] 02/25 02:32 Order name: Troponin I [facility] 02/25 02:32 Order name: Troponin I EDID 02/25 02:32 Order name: Troponin I [facility] 02/25 02:32 Order name: CBC with Automated Diff EDID 02/24 19:11 Order name: EKG; Complete Time: 19:12 02/24 19:11 Order name: Cardiac monitoring 02/24 19:11 Order name: EKG - Nurse/Tech; Complete Time: 22:49 02/24 19:11 Order name: IV Saline Lock; Complete Time: 22:30 02/24 19:11 Order name: Labs collected and sent; Complete Time: 22:30 02/24 19:11 Order name: O2 Per Protocol; Complete Time: 22:35 cp 02/24 19:11 Order name: O2 Sat Monitoring; Complete Time: 22:35 cp 02/24 19:11 Order name: Urine Dipstick-Ancillary (obtain specimen) 02/25 02:32 Order name: Regular EDID EC:50 Rate is 76 beats/min. Rhythm is regular. [place] interval is prolonged at 206 msec. QRS cp interval is normal. QT interval is normal. T waves are Inverted in leads V4, V5, V6. Interpreted by me. Reviewed by me. Administered Medications: 22:34 Drug: NS 0.9% 250 ml Route: IV; Rate: bolus; Site: right forearm; bb 22:34 Drug: NS 0.9% 750 ml Route: IV; Rate: 75 ml/hr; Site: right forearm; bb 22:34 Drug: Rocephin - (cefTRIAXone) 1 grams Route: IVPB; Infused Over: 30 mins; Site: right bb forearm; 02/25 00:36 Drug: Lovenox (enoxaparin) 1 mg/kg Route: Sub-Q; Site: abdomen; cg 00:36 Drug: Aspirin Chewable Tablet 324 mg Route: PO; cg 00:37 Drug: LevaQUIN (levofloxacin) 500 mg Volume: 100 ml; Route: IVPB; Infused Over: 60 cg mins; Site: right forearm; Disposition: 02/26 07:23 Co-signature as Attending Physician, Jeffrey Dozier MD I agree with the assessment and hilda plan of care. Disposition Summary: 02/24/21 23:10 Hospitalization Ordered Hospitalization Status: Inpatient Admission cp Provider: Luis Fontana cp Condition: Fair cp Problem: new cp Symptoms: are unchanged cp Bed/Room Type: Standard cp Location: Telemetry/MedSurg (Inpatient)(02/25/21 15:07) ja1 Room Assignment: [facility](02/25/21 15:07) ja Diagnosis - Pneumonia, unspecified organism cp - Acute kidney failure, unspecified cp Forms: - Medication Reconciliation Form cp - SBAR form cp Signatures: Dispatcher [employer] EDID Jeffrey Dozier MD MD cha Ballard, Brenda, RN RN bb Page, Corey, PA PA cp Garcia, Cindy, RN RN cg Aguilar, Jose, RN RN ja1 Dilshad Carbajal PA PA ej Corrections: (The following items were deleted from the chart) 02/25 00:20 02/24 20:05 COVID-19/FLU A+B+MOL.LAB.BRZ ordered. EDMS EDMS 02/25 04:39 02/24 23:10 Telemetry/MedSurg (Inpatient) [facility] 02/25 04:39 02/24 23:10 [facility] 02/25 15:07 04:39 [facility] ER HOLD cg ja1 15:07 04:39 ERHOLD- cg ja
[2021-02-24 23:29] LABS: SARS-COV-2 RT PCR NEGATIVE (NEGATIVE)
[2021-02-25] MEDS ORDERED: ASPIRIN EC 81 MG TAB PO ONE (00:31)
[2021-02-25] MEDS ORDERED: Levofloxacin500mg IV 500 MG/100 ML BAG IV ONE (00:31)
[2021-02-25] MEDS ORDERED: ENOXAPARIN 80 MG/0.8 ML SQ ONE (00:32)
[2021-02-25] MEDS ORDERED: IPRATROPIUM BROM 0.5MG/2.5ML NEB PRN (02:27)
[2021-02-25] MEDS ORDERED: ALBUTEROL 2.5 MG/3 ML NEB SOL NEB PRN (02:27)
[2021-02-25] MEDS ORDERED: ONDANSETRON 4 MG/2 ML VIAL IV PRN (02:27)
[2021-02-25] MEDS: NA CHLORIDE 0.9% 1,000 ML IV SCH ×3 (03:00→21:26)
[2021-02-25 03:20] VITALS: BMI 21.7
[2021-02-25 04:13] LABS: Urine Bacteria <20 /HPF (NONE SEEN); Urine RBC NONE SEEN /HPF (NONE SEEN)
[2021-02-25] MEDS: VIT B COMPLEX AND C PO SCH (09:00)
[2021-02-25] MEDS: FOLIC ACID PO SCH (09:00)
[2021-02-25] MEDS ORDERED: NA CHLORIDE 0.9% 1,000 ML ONE (09:28)
[2021-02-25] MEDS: FINASTERIDE 5 MG TAB PO SCH (09:29)
[2021-02-25] MEDS: MEMANTINE HCL 10 MG TABLET PO SCH ×2 (09:29→21:25)
--- NOTE | 2021-02-25 09:31 | P.HP ---
Certification for Inpatient Patient admitted to: Inpatient With expected LOS: >2 Midnights Patient will require the following post-hospital care: Half-Way Practitioner: I am a practitioner with admitting privileges, knowledge of patient current condition, hospital course, and medical plan of care. Services: Services provided to patient in accordance with Admission requirements found in Title 42 Section 412.3 of the Code of Federal Regulations Patient History Date of Service: 02/25/21 Primary Care Provider: Addi Reason for admission: Health care associated pneumonia History of Present Illness: Patient of mine in [facility] He has been having some cough and decreased energy. Last week a infiltrate was seen on Xray. He was started on zithromax PO. The patient did not improve and had a repeat xray and blood work. He was lethargic on Wednesday. His BUN 46. His creatine which is normally 1.8 was 2.6. So the patient was sent to the hospital for fluids and antibiotics. His CURB 65 score is 3. Which would be associated with a 17% 30day mortality Allergies codeine Allergy (Verified 12/27/19 14:32) Rash Home Medications: Donepezil HCl [Aricept] 10 mg PO BEDTIME 05/09/20 Finasteride [Proscar] 5 mg PO DAILY 05/09/20 Folic Acid/Vit B Complex and C [Folbee Plus Tablet] 2.5 mg PO DAILY 05/09/20 Memantine HCl [Namenda*] 1 tab PO BID 05/09/20 Verapamil HCl [Verapamil ER] 180 mg PO DAILY 05/09/20 - Past Medical/Surgical History Has patient received pneumonia vaccine in the past: Yes Diabetic: No -: gerd -: hypertension -: shingles -: colitis -: pancreatitis -: carpel tunnel surgery -: carotid endarterectomy 1999 -: gall baldder removed -: colitis -: Dementia - Family History Mother -: Heart disease, Hypertension Notes: [place] Father -: Cancer - Social History Alcohol use: No CD- Drugs: No Caffeine use: Yes Review of Systems 10-point ROS is otherwise unremarkable General: Weakness Respiratory: Cough Physical Examination - Vital Signs Temperature: 98.8 F Blood Pressure: 116/62 Pulse: 67 Respirations: 20 Pulse Ox (%): 100 - Physical Exam General: Alert (improved mentation over the past Wednesday when I saw him last), In no apparent distress HEENT: Atraumatic, PERRLA, Mucous membr. moist/pink, EOMI, Sclerae nonicteric Neck: Supple, 2+ carotid pulse no bruit, No LAD, Without JVD or thyroid abnormality Respiratory: Clear to auscultation bilaterally, Normal air movement Cardiovascular: Regular rate/rhythm, Normal S1 S2 Gastrointestinal: Normal bowel sounds, No tenderness Musculoskeletal: No tenderness Integumentary: No rashes Neurological: Normal gait, Normal speech, Normal strength at 5/5 x4 extr, Normal tone, Normal affect Lymphatics: No axilla or inguinal lymphadenopathy - Studies Laboratory Data (last 24 hrs) 02/24/21 22:00: PT 13.3 H, INR 1.15 02/24/21 22:00: WBC 9.40 D, Hgb 12.8 L, Hct 39.5 L, Plt Count 251 02/24/21 22:00: Sodium 137, Potassium 5.1, BUN 49 H, Creatinine 2.72 H, Glucose 126 H, Magnesium 3.0 H D, Total Bilirubin 0.4, AST 15, ALT 18, Alkaline Phosphatase 124 H Assessment and Plan - Problems (Diagnosis) (1) Pneumonia Current Visit: Yes Status: Acute Plan: will start the patient on levaquin and fluids. Will await cultures. Qualifiers: Pneumonia type: due to group B Streptococcus (2) Dementia Current Visit: Yes Status: Acute Plan: continue namenda and donepezil. Qualifiers: Dementia type: Alzheimer's (3) Acute on chronic renal failure Current Visit: No Status: Acute Plan: start the patient on fluids Will monitor the creatine Qualifiers: Chronic kidney disease stage: stage 4 (severe) (4) Essential hypertension Current Visit: No Status: Acute Discharge Plan: Home Plan to discharge in: 24 Hours - Advance Directives Does patient have a Living Will: No Does patient have a Durable POA for Healthcare: No - Code Status/Comfort Care Code Status Assessed: No Code Status: Full Code Physician Review: Patient Assessed, Agree with Above Assessment and Plan Critical Care: No Time Spent Managing Pts Care (In Minutes): 50
[2021-02-25] MEDS: ACETAMINOPHEN 500 MG TAB PO PRN ×2 (15:25→21:25)
[2021-02-25] MEDS ORDERED: ACETAMINOPHEN 500 MG TAB ONE (15:25)
[2021-02-25] MEDS ORDERED: ENOXAPARIN 30 MG/0.3 ML SQ ONE (16:25)
[2021-02-25] MEDS: ENOXAPARIN 30 MG/0.3 ML SQ SCH (16:29)
[2021-02-25] MEDS: DONEPEZIL HCL 5 MG TAB PO SCH (21:25)
[2021-02-25] MEDS: carvediloL 3.125 MG TAB PO SCH (22:45)
[2021-02-26 04:41] LABS: Absolute Lymphocytes (CBC) 0.4 K/uL (0.7-4.9); Hematocrit 36.9 % (39.6-49.0); Lymphocytes % 3.5 % (15.3-44.8); MPV 9.3 fL (7.6-11.3); RBC Red Blood Cell Count 3.81 M/uL (4.33-5.43)
[2021-02-26 05:03] LABS: Potassium 5.4 mmol/L (3.5-5.1)
[2021-02-26] MEDS: PANTOPRAZOLE 40MG TABLET PO SCH (05:08)
[2021-02-26 05:24] LABS: Blood Morphology Comment NOT SEEN (NOT SEEN); Platelet Estimate ADEQ; Platelets, Giant NOTED; White Blood Cell Scan OK (OK)
[2021-02-26] MEDS: VIT B COMPLEX AND C PO SCH (09:00)
[2021-02-26] MEDS: FOLIC ACID PO SCH (09:00)
--- NOTE | 2021-02-26 09:17 | P.PN ---
Subjective Date of Service: 02/26/21 Primary Care Provider: Addi Chief Complaint: Health care associated pneumonia Subjective: Improving (Patient is awake and doing well.), New changes (mild improvement of creatine) Review of Systems 10-point ROS is otherwise unremarkable Physical Examination - Vital Signs Temperature: 97.6 F Blood Pressure: 120/70 Pulse: 94 Respirations: 18 Pulse Ox (%): 93 - Physical Exam General: Alert, In no apparent distress HEENT: Atraumatic, PERRLA, EOMI Neck: Supple, JVD not distended Respiratory: Clear to auscultation bilaterally, Normal air movement Cardiovascular: Regular rate/rhythm, Normal S1 S2 Gastrointestinal: Normal bowel sounds, No tenderness Musculoskeletal: No tenderness Integumentary: No rashes Neurological: Normal speech, Normal tone, Normal affect Lymphatics: No axilla or inguinal lymphadenopathy Assessment & Plan - Problems (Diagnosis) (1) Pneumonia Current Visit: Yes Status: Acute Plan: will start the patient on levaquin and fluids. Will await cultures. cultures are negative at 24 hours Qualifiers: Pneumonia type: due to group B Streptococcus (2) Dementia Current Visit: Yes Status: Acute Plan: continue namenda and donepezil. Qualifiers: Dementia type: Alzheimer's (3) Acute on chronic renal failure Current Visit: No Status: Acute Plan: start the patient on fluids Will monitor the creatine 02/26 slow improvement. Continue fluids Qualifiers: Chronic kidney disease stage: stage 4 (severe) (4) Essential hypertension Current Visit: No Status: Acute Discharge Plan: Usp - Code Status/Comfort Care Code Status Assessed: No Physician Review: Patient Assessed, Agree with Above Assessment and Plan Critical Care: No Time Spent Managing Pts Care (In Minutes): 20
[2021-02-26] MEDS: MEMANTINE HCL 10 MG TABLET PO SCH ×2 (09:22→20:38)
[2021-02-26] MEDS: carvediloL 3.125 MG TAB PO SCH ×2 (09:22→20:38)
[2021-02-26] MEDS: FINASTERIDE 5 MG TAB PO SCH (09:23)
[2021-02-26] MEDS: NA CHLORIDE 0.9% 1,000 ML IV SCH ×2 (09:23→16:38)
[2021-02-26] MEDS: ENOXAPARIN 30 MG/0.3 ML SQ SCH (16:38)
[2021-02-26] MEDS: DONEPEZIL HCL 5 MG TAB PO SCH (20:38)
[2021-02-27] MEDS: Levofloxacin500mg IV 500 MG/100 ML BAG IV SCH (00:13)
[2021-02-27] MEDS: PANTOPRAZOLE 40MG TABLET PO SCH (06:08)
[2021-02-27] MEDS: FOLIC ACID PO SCH (09:00)
[2021-02-27] MEDS: NA CHLORIDE 0.9% 1,000 ML IV SCH ×2 (09:00→22:13)
[2021-02-27] MEDS: VIT B COMPLEX AND C PO SCH (09:00)
[2021-02-27] MEDS: carvediloL 3.125 MG TAB PO SCH ×2 (09:01→22:14)
[2021-02-27] MEDS: FINASTERIDE 5 MG TAB PO SCH (09:01)
[2021-02-27] MEDS: MEMANTINE HCL 10 MG TABLET PO SCH ×2 (09:01→22:14)
--- NOTE | 2021-02-27 12:37 | P.PN ---
Subjective Date of Service: 02/27/21 Primary Care Provider: Addi Chief Complaint: Health care associated pneumonia Subjective: No new changes Review of Systems 10-point ROS is otherwise unremarkable Physical Examination - Vital Signs Temperature: 97.7 F Blood Pressure: 141/79 Pulse: 100 Respirations: 18 Pulse Ox (%): 95 - Physical Exam General: Alert, In no apparent distress HEENT: Atraumatic, PERRLA, EOMI Neck: Supple, JVD not distended Respiratory: Clear to auscultation bilaterally, Normal air movement Cardiovascular: Regular rate/rhythm, Normal S1 S2 Gastrointestinal: Normal bowel sounds, No tenderness Musculoskeletal: No tenderness Integumentary: No rashes Neurological: Normal speech, Normal tone, Normal affect Lymphatics: No axilla or inguinal lymphadenopathy Assessment & Plan - Problems (Diagnosis) (1) Pneumonia Current Visit: Yes Status: Acute Plan: will start the patient on levaquin and fluids. Will await cultures. cultures are negative at 24 hours Qualifiers: Pneumonia type: due to group B Streptococcus (2) Dementia Current Visit: Yes Status: Acute Plan: continue namenda and donepezil. Qualifiers: Dementia type: Alzheimer's (3) Acute on chronic renal failure Current Visit: No Status: Acute Plan: start the patient on fluids Will monitor the creatine 02/26 slow improvement. Continue fluids Qualifiers: Chronic kidney disease stage: stage 4 (severe) (4) Essential hypertension Current Visit: No Status: Acute Discharge Plan: Skilled Nursing Plan to discharge in: 24 Hours - Code Status/Comfort Care Code Status Assessed: No Physician Review: Patient Assessed, Agree with Above Assessment and Plan Critical Care: No Time Spent Managing Pts Care (In Minutes): 20
[2021-02-27] MEDS: ENOXAPARIN 30 MG/0.3 ML SQ SCH (17:43)
[2021-02-27] MEDS: DONEPEZIL HCL 5 MG TAB PO SCH (22:14)
[2021-02-28 03:47] LABS: Albumin 2.2 g/dL (3.4-5.0); Bilirubin Total 0.3 mg/dL (0.2-1.0)
--- NOTE | 2021-02-28 08:31 | P.PN ---
Subjective Date of Service: 02/28/21 Primary Care Provider: Addi Chief Complaint: Health care associated pneumonia Subjective: New changes (Patient had chest pain last night with elevated creatine) Review of Systems 10-point ROS is otherwise unremarkable Cardiovascular: Chest Pain Physical Examination - Vital Signs Temperature: 97.6 F Blood Pressure: 117/69 Pulse: 81 Respirations: 16 Pulse Ox (%): 96 - Physical Exam General: Alert, In no apparent distress HEENT: Atraumatic, PERRLA, EOMI Neck: Supple, JVD not distended Respiratory: Clear to auscultation bilaterally, Normal air movement Cardiovascular: Regular rate/rhythm, Normal S1 S2 Gastrointestinal: Normal bowel sounds, No tenderness Musculoskeletal: No tenderness Integumentary: No rashes Neurological: Normal speech, Normal tone, Normal affect Lymphatics: No axilla or inguinal lymphadenopathy Assessment & Plan - Problems (Diagnosis) (1) NSTEMI (non-ST elevated myocardial infarction) Current Visit: Yes Status: Acute Plan: Will monitor serial troponins. Consult to Dr. Onofre. Considering his advanced age and worsening dementia. Medical management may be appropriate. (2) Pneumonia Current Visit: Yes Status: Acute Plan: will start the patient on levaquin and fluids. Will await cultures. cultures are negative at 24 hours Qualifiers: Pneumonia type: due to group B Streptococcus (3) Dementia Current Visit: Yes Status: Acute Plan: continue namenda and donepezil. Qualifiers: Dementia type: Alzheimer's (4) Acute on chronic renal failure Current Visit: No Status: Acute Plan: start the patient on fluids Will monitor the creatine 02/26 slow improvement. Continue fluids Qualifiers: Chronic kidney disease stage: stage 4 (severe) (5) Essential hypertension Current Visit: No Status: Acute Discharge Plan: Halfway Plan to discharge in: Greater than 2 days - Code Status/Comfort Care Code Status Assessed: No Physician Review: Patient Assessed, Agree with Above Assessment and Plan Critical Care: No Time Spent Managing Pts Care (In Minutes): 25
[2021-02-28] MEDS: PANTOPRAZOLE 40MG TABLET PO SCH (08:55)
[2021-02-28] MEDS: MEMANTINE HCL 10 MG TABLET PO SCH ×2 (08:55→20:15)
[2021-02-28] MEDS: carvediloL 3.125 MG TAB PO SCH (08:55)
[2021-02-28] MEDS: VIT B COMPLEX AND C PO SCH (08:56)
[2021-02-28] MEDS: FINASTERIDE 5 MG TAB PO SCH (08:56)
[2021-02-28] MEDS: FOLIC ACID PO SCH (08:56)
[2021-02-28] MEDS: NA CHLORIDE 0.9% 1,000 ML IV SCH (08:56)
--- NOTE | 2021-02-28 15:43 | CON ---
Date of Consultation: 02/28/2021 Reason For Consultation: Elevated troponin. History Of Present Illness: 86-year-old male presents to the emergency room with a complaint of coug h and shortness of breath, found to have pneumonia, was admitted, started on IV antibiotics. He had cardiac enzymes were checked last night and troponin came back at 4.7 and is trending down. Today, i t is a 3.53. Patient claims that he had chest pain earlier, but no further chest pain episodes. Imelda saez apparently has significant dementia as well. At the present time, he is chest pain free. The p atient is not a very reliable history ulrich to get the information on the cardiac status. Past Medical History: Hypertension, acid reflux disease. Medications: Refer reconciliation sheet for detailed list. Allergies: CODEINE. Family History: No mature coronary artery disease. Social History: Does not smoke or drink. Does not use any drugs. Review of Systems: All systems reviewed and they were negative except as mentioned in HPI. Physical Examination: Vital Signs: Reviewed. Temperature is 97.3, pulse 84, breathing at 18, blood pressure 120/74, satur ating 96% on room air. General: Pleasant elderly male, in no distress. Head and Neck: Pupils are equal, reactive to light. Intact eye movements. No JVD. No cervical lym phadenopathy. Neck is supple. Thyroid is not enlarged. Lungs: Clear to auscultation bilaterally. No rhonchi, rales, or crackles. No accessory muscle use. Heart: Regular rate and rhythm. No extra sounds. Abdomen: Soft, nontender. Bowel sounds positive. No organomegaly. No masses or hernia. No rigidi ty or rebound. Extremities: There is no edema, clubbing, or cyanosis. Intact pulses. Skin: No rash. Neurologic: Alert, awake, oriented x3. No acute focal deficits appreciated. Investigations: Troponin peaked at 4.7 and today it is 3.5. Creatinine is 2.33, down from 2.55. Assessment And Recommendations: Non-ST elevation myocardial infarction. Further ischemic workup is indicated. However, the patient has advanced dementia. Discussed the case with Dr. Fontana earlier. I recommend a conference with the family and healthcare decision makers and to decide whether to go f or conservative medical management of coronary artery disease versus invasive method with coronary an giogram. The patient has advanced kidney failure, stage 4 at least and definitely coronary angiogram will increase the risk of worsening kidney function and possible dialysis. If family decides for ag gressive and invasive workup, I recommend to get Nephrology involved and to determine the risk of pos t contrast exposure for worsening kidney function and possibility of dialysis. In the interim, pleas e load the patient with 325 mg of aspirin and then start 81 mg daily. Also load with 300 mg of Plavi x and then 75 mg daily and anticoagulate with IV heparin and obtain echocardiogram. Decision will be made after conferencing with the family. The patient definitely needs a coronary angiogram if the f amily determines that they want invasive measures. Thank you for the consult. /BHAVESH Voice ID: [id number] Report ID: [id number]
[2021-02-28] MEDS: ENOXAPARIN 30 MG/0.3 ML SQ SCH (16:54)
[2021-02-28] MEDS: carvediloL 6.25 MG TAB PO SCH (18:35)
[2021-02-28] MEDS: DONEPEZIL HCL 5 MG TAB PO SCH (20:15)
[2021-03-01] MEDS: Levofloxacin500mg IV 500 MG/100 ML BAG IV SCH (00:16)
[2021-03-01] MEDS: NA CHLORIDE 0.9% 1,000 ML IV SCH ×2 (00:17→13:32)
[2021-03-01] MEDS: MORPHINE 2 MG/ML SYR IV PRN ×2 (06:44→13:32)
[2021-03-01 07:15] LABS: Albumin 2.3 g/dL (3.4-5.0); Bilirubin Total 0.3 mg/dL (0.2-1.0); Potassium 4.9 mmol/L (3.5-5.1); Protein, Total 6.2 g/dL (6.4-8.2)
[2021-03-01] MEDS: VIT B COMPLEX AND C PO SCH (08:19)
[2021-03-01] MEDS: FOLIC ACID PO SCH (08:19)
[2021-03-01] MEDS: FINASTERIDE 5 MG TAB PO SCH (08:28)
[2021-03-01] MEDS: carvediloL 6.25 MG TAB PO SCH ×2 (08:28→20:33)
[2021-03-01] MEDS: PANTOPRAZOLE 40MG TABLET PO SCH (08:28)
[2021-03-01] MEDS: MEMANTINE HCL 10 MG TABLET PO SCH ×2 (08:28→20:32)
[2021-03-01] MEDS ORDERED: CLOPIDOGREL 75 MG TABLET PO ONE (11:04)
--- NOTE | 2021-03-01 11:19 | P.PN ---
Subjective Date of Service: 03/01/21 Primary Care Provider: Addi Chief Complaint: Health care associated pneumonia Subjective: New changes (still having chest pain) Review of Systems 10-point ROS is otherwise unremarkable Cardiovascular: Chest Pain Physical Examination - Vital Signs Temperature: 97.2 F Blood Pressure: 136/60 Pulse: 76 Respirations: 18 Pulse Ox (%): 98 - Physical Exam General: Alert, In no apparent distress HEENT: Atraumatic, PERRLA, EOMI Neck: Supple, JVD not distended Respiratory: Clear to auscultation bilaterally, Normal air movement Cardiovascular: Regular rate/rhythm, Normal S1 S2 Gastrointestinal: Normal bowel sounds, No tenderness Musculoskeletal: No tenderness Integumentary: No rashes Neurological: Normal speech, Normal tone, Normal affect Lymphatics: No axilla or inguinal lymphadenopathy Assessment & Plan - Problems (Diagnosis) (1) NSTEMI (non-ST elevated myocardial infarction) Current Visit: Yes Status: Acute Plan: Will monitor serial troponins. Consult to Dr. Onofre. Considering his advanced age and worsening dementia. Medical management may be appropriate. 03/01/21 will start him on anticoagulation. get an echo and try getting a family meeting. Will also consult nephrology (2) Pneumonia Current Visit: Yes Status: Acute Plan: will start the patient on levaquin and fluids. Will await cultures. cultures are negative at 24 hours Qualifiers: Pneumonia type: due to group B Streptococcus (3) Dementia Current Visit: Yes Status: Acute Plan: continue namenda and donepezil. Qualifiers: Dementia type: Alzheimer's (4) Acute on chronic renal failure Current Visit: No Status: Acute Plan: start the patient on fluids Will monitor the creatine 02/26 slow improvement. Continue fluids Qualifiers: Chronic kidney disease stage: stage 4 (severe) (5) Essential hypertension Current Visit: No Status: Acute Discharge Plan: Home Plan to discharge in: 24 Hours - Code Status/Comfort Care Code Status Assessed: No Code Status: Full Code Physician Review: Patient Assessed, Agree with Above Assessment and Plan Critical Care: No Time Spent Managing Pts Care (In Minutes): 30
[2021-03-01] MEDS ORDERED: HEPARIN 5000 UNIT/ML 1 ML VIAL IV SCH (12:00)
[2021-03-01 12:30] LABS: Absolute Lymphocytes (CBC) 0.8 K/uL (0.7-4.9); Hematocrit 37.8 % (39.6-49.0); Lymphocytes % 11.8 % (15.3-44.8); MPV 9.7 fL (7.6-11.3); RBC Red Blood Cell Count 3.89 M/uL (4.33-5.43)
[2021-03-01 12:35] LABS: Protime INR 1.21
--- NOTE | 2021-03-01 13:43 | P.PN ---
Date of Service: 03/01/21 Have discussed the patient with Mr Birdie Guerra and his daughter Yolanda. The patient is a signed DNR. His daughter is wondering about hospice. She is his primary advocate. She states he would not want to be on dialysis. The family would perfer medical management only.
[2021-03-01] MEDS: HEPARIN/D5W 25,000 UNIT/500 ML BAG IV SCH (13:56)
[2021-03-01] MEDS: SODIUM BICARB 325 MG TAB PO SCH ×2 (17:38→20:32)
--- NOTE | 2021-03-01 18:06 | PN ---
Date of Progress Note: 03/01/2021 Subjective: Seen at bedside. He is asymptomatic. He had an episode of chest pain yesterday, self-l imited and resolved. Review of Systems: No chest pain or shortness of breath. No cough. No nausea, vomiting, diarrhea. All other systems r eviewed are negative. Objective: Vital Signs: Temperature is 97.2, pulse 76, breathing at 18, blood pressure , saturating 98%. GENERAL: Pleasant, elderly male, no distress. Head and Neck: Pupils are equal, reactive to light. Intact eye movements. No JVD. No cervical lym phadenopathy. Neck: Supple. Thyroid is not enlarged. Lungs: Clear to auscultation bilaterally. No rhonchi, rales, or crackles. No accessory muscle use. Heart: Regular rate and rhythm. No extra sounds. Abdomen: Soft, nontender. Bowel sounds positive. No organomegaly. No masses or hernia. No rigidi ty or rebound. Extremities: No edema, clubbing, cyanosis. Intact pulses. Skin: No rashes. Neurologic: Alert, awake, with confusion. No focal deficits appreciated. Investigations: Creatinine 2.05 today. Assessment And Recommendation: 1.Non-ST elevation myocardial infarction and still having some chest pain. Place the patient on nit roglycerin patch 1 inch to upper chest q.8 hours and continue aspirin. Continue Plavix 75 mg daily. Await on family decision on the invasive approach to treat his non-STEMI as the patient has signific ant dementia. I discussed the case with Dr. Fontana as well. After meeting with the family physician, the decision was made for invasive measures for plan for coronary angiogram on Wednesday. 2.Chronic kidney disease that would put him at significant risk for further kidney damage and possib le dialysis, and I recommend Nephrology involvement prior to coronary angiogram if it is to be done as outlined above. /BHAVESH Voice ID: [id number] Report ID: [id number]
[2021-03-01] MEDS: DONEPEZIL HCL 5 MG TAB PO SCH (20:32)
--- NOTE | 2021-03-01 20:45 | P.CNS ---
Date of Consult: 03/01/21 Reason for Consult: LANCE/ CKD Requesting Physician: Luis Fontana Primary Care Provider: Addi Chief Complaint: Health care associated pneumonia History of Present Illness: 86 yo WM HTN, CKD presented to the ER with one week of moderate, progressive malaise with associated cough. He was started on abx for PNA. His admission was complicated by LANCE. He denies NSAIDs. He denies difficulty with urination. Patient of mine in [place] long term He has been having some cough and decreased energy. Last week a infiltrate was seen on Xray. He was started on zithromax PO. The patient did not improve and had a repeat xray and blood work. He was lethargic on Wednesday. His BUN 46. His creatine which is normally 1.8 was 2.6. So the patient was sent to the hospital for fluids and antibiotics. His CURB 65 score is 3. Which would be associated with a 17% 30day mortality 19:20 This 86 yrs old Male presents to ER via Unassigned with complaints of Cough. cp 19:20 The patient or guardian reports cough, that is intermittent. Onset: The cp symptoms/episode began/occurred at an unknown time. Severity of symptoms: in the emergency department the symptoms are unchanged, despite EMS interventions. 19:20 Associated signs and symptoms: Pertinent negatives: chest pain, fever, vomiting. Allergies codeine Allergy (Verified 12/27/19 14:32) Rash Home medications list reviewed: Yes Home Medications: Donepezil HCl [Aricept] 10 mg PO BEDTIME 05/09/20 Finasteride [Proscar] 5 mg PO DAILY 05/09/20 Folic Acid/Vit B Complex and C [Folbee Plus Tablet] 2.5 mg PO DAILY 05/09/20 Memantine HCl [Namenda*] 1 tab PO BID 05/09/20 Verapamil HCl [Verapamil ER] 2 tab PO DAILY 05/09/20 Acetaminophen [Acetaminophen Extra Strength] 1 tab PO TID 02/25/21 Acetaminophen [Acetaminophen Extra Strength] 2 tab PO BEDTIME 02/25/21 Albuterol Neb [Proventil 0.083% Neb Soln] 1 amp NEB Q4H PRN 02/25/21 Fluticasone [Flonase 50MCG Nasal [place]*] 2 sprays JUAN RAMON BEDTIME 02/25/21 Loratadine [Claritin*] 1 tab PO DAILY 02/25/21 Polyethylene Glycol 3350 [Miralax] 1 dose PO DAILY 02/25/21 Sennosides/Docusate Sodium [Senokot-S Tablet] 8.6 - 50 mg PO DAILY 02/25/21 traMADol HCL [Ultram*] 1 tab PO Q6H PRN 02/25/21 - Past Medical/Surgical History Diabetic: No -: gerd -: hypertension -: shingles -: colitis -: pancreatitis -: diverticulitis -: hyperlipidemia -: BPH -: carpel tunnel surgery -: carotid endarterectomy 1999 -: gall baldder removed -: colitis -: Dementia - Family History Mother Medical History: Heart disease, Hypertension Notes: [place] Father Medical History: Cancer - Social History Alcohol use: No CD- Drugs: No Caffeine use: Yes Review of Systems 10-point ROS is otherwise unremarkable General: Weakness Respiratory: Cough, SOB with Excertion Cardiovascular: Chest Pain, Edema Neurological: Weakness Physical Examination Temp Pulse Resp BP Pulse Ox 97.8 F 99 H 20 148/88 H 97 03/01/21 16:00 03/01/21 20:33 03/01/21 16:00 03/01/21 20:33 03/01/21 16:00 General: In no apparent distress, Cooperative HEENT: Atraumatic Neck: Supple Respiratory: Clear to auscultation bilaterally Cardiovascular: Regular rate/rhythm, Edema Gastrointestinal: Soft and benign, Non-distended Musculoskeletal: No clubbing, No contractures Integumentary: No rashes, No cyanosis Neurological: Normal speech Blood work reviewed in the chart. Imagings Data: EXAM DESCRIPTION: RAD - Chest Single View - 02/24/2021 8:08 pm CLINICAL HISTORY: COUGH Chest pain. COMPARISON: Chest Single View dated 05/08/2020; Chest Single View dated 02/18/2019 FINDINGS: Portable technique limits examination quality. Moderate bilateral interstitial lung opacities are present, most severe in the right lower lobe likely representing pneumonia. The heart is upper limit normal in size. No displaced fractures. Conclusions/Impression: LANCE in the setting of hypovolemia slowly improving CKD III -No NSAIDs -Start NAC for possible IVC administration -Change gentle IVF 1/2NS Hyperkalemia -Low potassium diet Acidosis -Start oral bicarb -Change IVF 1/2NS Hypomagnesemia -Replete magnesium prn HTN with CKD -Continue Coreg LE Edema -Consider a repeat CXR to reevaluate his volume status Moderate malnutrition -Recommend protein supplementation BPH -Continue finasteride Case reviewed with Dr. Fontana Thank you kindly for the consultation.
[2021-03-02 03:54] LABS: Phosphorus 2.8 mg/dL (2.5-4.9); Uric Acid 6.3 mg/dL (3.5-7.2)
[2021-03-02 03:55] LABS: Magnesium 1.4 mg/dL (1.8-2.4)
[2021-03-02] MEDS: NA CHLORIDE 0.9% 1,000 ML IV SCH (04:47)
[2021-03-02 06:56] LABS: Albumin 2.1 g/dL (3.4-5.0); Bilirubin Total 0.1 mg/dL (0.2-1.0); Protein, Total 5.8 g/dL (6.4-8.2)
[2021-03-02] MEDS: VIT B COMPLEX AND C PO SCH (08:00)
[2021-03-02] MEDS: FOLIC ACID PO SCH (08:00)
[2021-03-02] MEDS: SODIUM BICARB 325 MG TAB PO SCH ×3 (08:22→21:07)
[2021-03-02] MEDS: PANTOPRAZOLE 40MG TABLET PO SCH (08:23)
[2021-03-02] MEDS: ASPIRIN EC 81 MG TAB PO SCH (08:23)
[2021-03-02] MEDS: MEMANTINE HCL 10 MG TABLET PO SCH ×2 (08:23→21:08)
[2021-03-02] MEDS: carvediloL 6.25 MG TAB PO SCH ×2 (08:23→21:11)
[2021-03-02] MEDS: FINASTERIDE 5 MG TAB PO SCH (08:23)
--- NOTE | 2021-03-02 11:27 | P.PN ---
Subjective Date of Service: 03/02/21 Primary Care Provider: Addi Chief Complaint: Health care associated pneumonia Review of Systems 10-point ROS is otherwise unremarkable Cardiovascular: Chest Pain Physical Examination - Vital Signs Temperature: 97 F Blood Pressure: 136/84 Pulse: 89 Respirations: 18 Pulse Ox (%): 95 - Physical Exam General: Alert, In no apparent distress HEENT: Atraumatic, PERRLA, EOMI Neck: Supple, JVD not distended Respiratory: Clear to auscultation bilaterally, Normal air movement Cardiovascular: Regular rate/rhythm, Normal S1 S2 Gastrointestinal: Normal bowel sounds, No tenderness Musculoskeletal: No tenderness Integumentary: No rashes Neurological: Normal speech, Normal tone, Normal affect Lymphatics: No axilla or inguinal lymphadenopathy - Studies Microbiology Data (last 24 hrs): 02/24/21 22:20 Blood - Blood Aerobic Blood Culture - Final No growth in 5 days. 02/24/21 22:20 Blood - Blood Anaerobic Blood Culture - Final No growth in 5 days. 02/24/21 22:00 Blood - Blood Aerobic Blood Culture - Final No growth in 5 days. 02/24/21 22:00 Blood - Blood Anaerobic Blood Culture - Final No growth in 5 days. Assessment & Plan - Problems (Diagnosis) (1) NSTEMI (non-ST elevated myocardial infarction) Current Visit: Yes Status: Acute Plan: Will monitor serial troponins. Consult to Dr. Onofre. Considering his advanced age and worsening dementia. Medical management may be appropriate. 03/02 family (Yolanda Guerra daughter) Wishes medical management only (2) Pneumonia Current Visit: Yes Status: Acute Plan: will start the patient on levaquin and fluids. Will await cultures. cultures are negative at 24 hours Qualifiers: Pneumonia type: due to group B Streptococcus (3) Dementia Current Visit: Yes Status: Acute Plan: continue namenda and donepezil. Qualifiers: Dementia type: Alzheimer's (4) Acute on chronic renal failure Current Visit: No Status: Acute Plan: start the patient on fluids Will monitor the creatine 03/02/21 family does not want dialysis. Patient has also stated this in the past. Qualifiers: Chronic kidney disease stage: stage 4 (severe) (5) Essential hypertension Current Visit: No Status: Acute (6) End of life care Current Visit: Yes Status: Acute Plan: family wants medical management. Daughter has been thinking about Hospice. Will consult [facility] to discuss and educate with the family about they're options. Physician Review: Patient Assessed, Agree with Above Assessment and Plan Critical Care: No Time Spent Managing Pts Care (In Minutes): 25
[2021-03-02 14:54] LABS: Urine Appearance CLEAR (Clear); Urine Bilirubin NEGATIVE (Negative); Urine Blood NEGATIVE (Negative); Urine Color YELLOW (Yellow); Urine Glucose NEGATIVE (Negative); Urine Protein TRACE (Negative); Urine Specific Gravity 1.015 (1.005-1.030); Urine Urobilinogen 0.2 mg/dL (0.2-1.0)
[2021-03-02 15:47] LABS: Urine Amorphous Sediment 1+ /HPF (NONE SEEN); Urine Bacteria <20 /HPF (NONE SEEN); Urine RBC <5 /HPF (NONE SEEN)
[2021-03-02] MEDS ORDERED: ACETYLCYST 6,000 MG/30 ML VIAL PO SCH (21:00)
[2021-03-02] MEDS: HEPARIN/D5W 25,000 UNIT/500 ML BAG IV SCH (21:08)
[2021-03-02] MEDS: DONEPEZIL HCL 5 MG TAB PO SCH (21:08)
[2021-03-02] MEDS: NACHLORIDE 0.45% 1,000 ML IV SCH (21:14)
[2021-03-03] MEDS: Levofloxacin500mg IV 500 MG/100 ML BAG IV SCH (01:01)
[2021-03-03 06:07] LABS: Albumin 2.1 g/dL (3.4-5.0); Bilirubin Total 0.3 mg/dL (0.2-1.0); Potassium 5.2 mmol/L (3.5-5.1); Protein, Total 5.9 g/dL (6.4-8.2); Uric Acid 8.9 mg/dL (3.5-7.2)
[2021-03-03] MEDS ORDERED: ACETYLCYST 6,000 MG/30 ML VIAL PO SCH (09:00)
[2021-03-03] MEDS: VIT B COMPLEX AND C PO SCH (09:00)
[2021-03-03] MEDS: FOLIC ACID PO SCH (09:00)
[2021-03-03] MEDS ORDERED: ACETYLCYST 20% 800 MG/4 ML VIAL PO SCH (09:00)
[2021-03-03] MEDS: ASPIRIN EC 81 MG TAB PO SCH (09:39)
[2021-03-03] MEDS: NACHLORIDE 0.45% 1,000 ML IV SCH (09:39)
[2021-03-03] MEDS: MEMANTINE HCL 10 MG TABLET PO SCH ×2 (09:40→20:14)
[2021-03-03] MEDS: SODIUM BICARB 325 MG TAB PO SCH ×3 (09:40→20:14)
[2021-03-03] MEDS: FINASTERIDE 5 MG TAB PO SCH (09:40)
[2021-03-03] MEDS: PANTOPRAZOLE 40MG TABLET PO SCH (09:40)
[2021-03-03] MEDS: carvediloL 6.25 MG TAB PO SCH ×2 (09:40→20:14)
--- NOTE | 2021-03-03 11:35 | P.PN ---
Date of Service: 03/03/21 Vital Signs Temp Pulse Resp BP Pulse Ox 96.9 F 92 H 18 134/90 97 03/03/21 08:00 03/03/21 09:40 03/03/21 08:00 03/03/21 09:40 03/03/21 08:00 Medications Acetaminophen (Acetaminophen 500 Mg Tab) 500 mg PO Q6H PRN PRN Reason: TEMP > 100' F Last Admin: 02/25/21 21:25 Dose: 500 mg Documented by: Acetylcysteine (Acetylcyst 20% 800 Mg/4 Ml Vial) 600 mg PO BID [facility] Stop: 03/05/21 21:01 Last Admin: 03/03/21 09:54 Dose: 600 mg Documented by: Albuterol Sulfate (Albuterol 2.5 Mg/3 Ml Neb [place]) 2.5 mg NEB Q4H PRN PRN Reason: WHEEZING Aspirin (Aspirin Ec 81 Mg Tab) 81 mg PO DAILY [facility] Last Admin: 03/03/21 09:39 Dose: 81 mg Documented by: Carvedilol (Carvedilol 6.25 Mg Tab) 6.25 mg PO BID [facility] Last Admin: 03/03/21 09:40 Dose: 6.25 mg Documented by: Donepezil HCl (Donepezil Hcl 5 Mg Tab) 10 mg PO BEDTIME [facility] Last Admin: 03/02/21 21:08 Dose: 10 mg Documented by: Finasteride (Finasteride 5 Mg Tab) 5 mg PO DAILY [facility] Last Admin: 03/03/21 09:40 Dose: 5 mg Documented by: Heparin Sodium (Porcine) (Heparin 1,000 Unit/Ml Vial) 0 unit IV PRN PRN PRN Reason: Heparin Re-Bolus Per Protocol Home Med (Folic Acid/Vit B Complex And C [Folbee Plus Tablet]) 2.5 mg PO DAILY [facility] Last Admin: 03/03/21 09:00 Dose: Not Given Documented by: Levofloxacin/Dextrose (Levaquin 500 Mg/100 Ml Ivpb) 500 mg in 100 mls @ 100 mls/hr IV Q48H [facility]; Protocol Last Admin: 03/03/21 01:01 Dose: 100 mls Documented by: Heparin Sodium/Dextrose (Heparin Drip 25,000 Units/5oo Ml Premix) 25,000 unit in 500 mls @ 0 mls/hr IV UD [facility]; Protocol Last Admin: 03/02/21 21:08 Dose: 500 mls Documented by: Sodium Chloride (Sodium Chloride 0.45%) 1,000 mls @ 75 mls/hr IV .[id number] [facility] Last Admin: 03/03/21 09:39 Dose: 1,000 mls Documented by: Ipratropium [place] (Ipratropium Brom 0.5mg/2.5ml) 0.5 mg NEB Q4H PRN PRN Reason: WHEEZING Last Admin: 02/27/21 06:30 Dose: 0.5 mg Documented by: Memantine (Memantine Hcl 10 Mg Tablet) 10 mg PO BID [facility] Last Admin: 03/03/21 09:40 Dose: 10 mg Documented by: Morphine Sulfate (Morphine 2 Mg/Ml Syr) 2 mg IV Q4H PRN PRN Reason: Pain scale 5-7 (Moderate) Last Admin: 03/01/21 13:32 Dose: 2 mg Documented by: Ondansetron HCl (Ondansetron 4 Mg/2 Ml Vial) 4 mg IV Q6H PRN PRN Reason: NAUSEA / VOMITING Last Admin: 02/25/21 21:25 Dose: 4 mg Documented by: Pantoprazole Sodium (Pantoprazole 40mg Tablet) 40 mg PO ACB [facility]; Protocol Last Admin: 03/03/21 09:40 Dose: 40 mg Documented by: Sodium Bicarbonate (Sodium Bicarb 325 Mg Tab) 650 mg PO TID [facility] Last Admin: 03/03/21 09:40 Dose: 650 mg Documented by: Sodium Chloride (Flush Normal Saline 10 Ml) 10 ml IV BID [facility] Last Admin: 03/03/21 09:00 Dose: Not Given Documented by: Microbiology Results 02/24/21 22:20 Blood - Blood Aerobic Blood Culture - Final No growth in 5 days. 02/24/21 22:20 Blood - Blood Anaerobic Blood Culture - Final No growth in 5 days. 02/24/21 22:00 Blood - Blood Aerobic Blood Culture - Final No growth in 5 days. 02/24/21 22:00 Blood - Blood Anaerobic Blood Culture - Final No growth in 5 days. Assessment/ Plan: Nephrology No dyspnea No chest pain Weakness and malaise No acute events overnight Vitals, medications, blood work and imaging reviewed in the chart General: In no apparent distress, Cooperative HEENT: Atraumatic Neck: Supple Respiratory: Clear to auscultation bilaterally Cardiovascular: Regular rate/rhythm, Edema Gastrointestinal: Soft and benign, Non-distended Musculoskeletal: No clubbing, No contractures Integumentary: No rashes, No cyanosis Neurological: Normal speech Blood work reviewed in the chart. Imagings Data: EXAM DESCRIPTION: RAD - Chest Single View - 02/24/2021 8:08 pm CLINICAL HISTORY: COUGH Chest pain. COMPARISON: Chest Single View dated 05/08/2020; Chest Single View dated 02/18/2019 FINDINGS: Portable technique limits examination quality. Moderate bilateral interstitial lung opacities are present, most severe in the right lower lobe likely representing pneumonia. The heart is upper limit normal in size. No displaced fractures. Conclusions/Impression: LANCE may be due to CRS CKD III -No NSAIDs -Discontinue IVF -Start diuretic therapy Hyperkalemia -Low potassium diet Acidosis -Continue oral bicarb Hypomagnesemia -Replete magnesium prn HTN with CKD/ CHF -Continue Coreg Systolic CHF/ LE Edema -Metolazone X1 -Start oral furosemide BID Moderate malnutrition -Recommend protein supplementation BPH -Continue finasteride -Consider flomax prn Case reviewed with Dr. Fontana
--- NOTE | 2021-03-03 14:09 | ECHO ---
HEIGHT: 6 ft 0 in WEIGHT: 159 lb 1.6 oz DATE OF STUDY: 03/03/[address]: Luis Fontana MD 2-DIMENSIONAL: YES M.MODE: YES DOPPLER: YES COLOR FLOW: YES TDS: NO PORTABLE: NO DEFINITY: NO BUBBLE STUDY: NO DIAGNOSIS: NSTEMI CARDIAC HISTORY: CATHERIZATION: NO SURGERY: NO PROSTHETIC VALVE: NO PACEMAKER: NO MEASUREMENTS (cm) DIASTOLIC (NORMALS) SYSTOLIC (NORMALS) IVSd 1.2 (0.6-1.2) LA Diam 3.7 (1.9-4.0) LVEF 28/% LVIDd 4.6 (3.5-5.7) LVIDs 4.0 (2.0-3.5) %FS 13% LVPWd 1.2 (0.6-1.2) Ao Diam 3.2 (2.0-3.7) 2 DIMENSIONAL ASSESSMENT: RIGHT ATRIUM: NORMAL LEFT ATRIUM: NORMAL RIGHT VENTRICLE: NORMAL LEFT VENTRICLE: DEPRESSED EJECTION FRACTION TRICUSPID VALVE: MILD TRICUSPID REGURGITATION MITRAL VALVE: MILD MITRAL REGURGITATION PULMONIC VALVE: NORMAL AORTIC VALVE: NORMAL PERICARDIAL EFFUSION: PLEURAL EFFUSION IS PRESENT AORTIC ROOT: NORMAL LEFT VENTRICULAR WALL MOTION: SEVERE ANTERIOR APICAL HYPOKINESIS. DOPPLER/COLOR FLOW: SEE BELOW. 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 SEVERE ANTERIOR / APICAL HYPOKINESIS. MILD MITRAL REGURGITATION, MILD TRICUSPID REGURGITATION. DIASTOLIC DYSFUNCTION. PLEURAL EFFUSION IS PRESENT. TECHNOLOGIST: KIESHA ROCK
--- NOTE | 2021-03-03 14:20 | P.PN ---
Subjective Date of Service: 03/03/21 Primary Care Provider: Addi Chief Complaint: Health care associated pneumonia Subjective: No new changes Review of Systems 10-point ROS is otherwise unremarkable Physical Examination - Vital Signs Temperature: 97 F Blood Pressure: 122/86 Pulse: 93 Respirations: 20 Pulse Ox (%): 99 - Physical Exam General: Alert, In no apparent distress HEENT: Atraumatic, PERRLA, EOMI Neck: Supple, JVD not distended Respiratory: Clear to auscultation bilaterally, Normal air movement Cardiovascular: Regular rate/rhythm, Normal S1 S2 Gastrointestinal: Normal bowel sounds, No tenderness Musculoskeletal: No tenderness Integumentary: No rashes Neurological: Normal speech, Normal tone, Normal affect Lymphatics: No axilla or inguinal lymphadenopathy Assessment & Plan - Problems (Diagnosis) (1) NSTEMI (non-ST elevated myocardial infarction) Current Visit: Yes Status: Acute Plan: Will monitor serial troponins. Consult to Dr. Onofre. Considering his advanced age and worsening dementia. Medical management may be appropriate. 03/02 family (Yolanda Guerra daughter) Wishes medical management only (2) Pneumonia Current Visit: Yes Status: Acute Plan: will start the patient on levaquin and fluids. Will await cultures. cultures are negative at 24 hours Qualifiers: Pneumonia type: due to group B Streptococcus (3) Dementia Current Visit: Yes Status: Acute Plan: continue namenda and donepezil. Qualifiers: Dementia type: Alzheimer's (4) Acute on chronic renal failure Current Visit: No Status: Acute Plan: start the patient on fluids Will monitor the creatine 03/02/21 family does not want dialysis. Patient has also stated this in the past. Qualifiers: Chronic kidney disease stage: stage 4 (severe) (5) Essential hypertension Current Visit: No Status: Acute (6) End of life care Current Visit: Yes Status: Acute Plan: family wants medical management. Daughter has been thinking about Hospice. Will consult [facility] to discuss and educate with the family about they're options. 03/03/21 [facility] Discharge Plan: [facility] Plan to discharge in: 48 Hours - Code Status/Comfort Care Code Status Assessed: No Physician Review: Patient Assessed, Agree with Above Assessment and Plan Critical Care: No Time Spent Managing Pts Care (In Minutes): 20
[2021-03-03] MEDS ORDERED: METOLAZONE 5 MG TABLET PO ONE (18:30)
[2021-03-03] MEDS: DONEPEZIL HCL 5 MG TAB PO SCH (20:14)
--- NOTE | 2021-03-03 22:09 | PN ---
Date of Progress Note: 03/03/2021 Mr. Gonzalez has been followed by Dr. Fontana and Dr. Onofre for non-STEMI, renal failure, altered mental status, and dementia. Final plan by Dr. Onofre and the family was to be conservative without having to do a heart catheterization mainly because of the renal function and dementia and age. The patient is hemodynamically stable. No cardiac complaints. Nephrology is following. Echocardiogram is pend ing today. We will continue present regimen. We will continue to follow on an as-needed basis. FRANK/BHAVESH Voice ID: [id number] Report ID: [id number]
[2021-03-04] MEDS: FINASTERIDE 5 MG TAB PO SCH (08:46)
[2021-03-04] MEDS: carvediloL 6.25 MG TAB PO SCH ×2 (08:46→21:00)
[2021-03-04] MEDS: SODIUM BICARB 325 MG TAB PO SCH ×3 (08:47→21:51)
[2021-03-04] MEDS: PANTOPRAZOLE 40MG TABLET PO SCH (08:47)
[2021-03-04] MEDS: FOLIC ACID PO SCH (08:47)
[2021-03-04] MEDS: FUROSEMIDE 40 MG TABLET PO SCH ×2 (08:47→17:28)
[2021-03-04] MEDS: MEMANTINE HCL 10 MG TABLET PO SCH ×2 (08:47→21:52)
[2021-03-04] MEDS: ASPIRIN EC 81 MG TAB PO SCH (08:47)
[2021-03-04] MEDS: VIT B COMPLEX AND C PO SCH (08:47)
[2021-03-04] MEDS ORDERED: IPRATROPIUM BROM 0.5MG/2.5ML NEB PRN (15:00)
[2021-03-04] MEDS ORDERED: ALBUTEROL 2.5 MG/3 ML NEB SOL NEB PRN (15:00)
--- NOTE | 2021-03-04 15:25 | P.DS ---
Admission Date: 02/25/21 Discharge Date: 03/04/21 Primary Care Provider: Addi Disposition: TRANSFER TO SENIOR CARE Discharge Condition: FAIR Reason for Admission: Health care associated pneumonia - Problems (1) NSTEMI (non-ST elevated myocardial infarction) Current Visit: Yes Status: Acute (2) Pneumonia Current Visit: Yes Status: Acute Qualifiers: Pneumonia type: due to group B Streptococcus (3) Dementia Current Visit: Yes Status: Acute Qualifiers: Dementia type: Alzheimer's (4) Acute on chronic renal failure Current Visit: No Status: Acute Qualifiers: Chronic kidney disease stage: stage 4 (severe) (5) Essential hypertension Current Visit: No Status: Acute (6) End of life care Current Visit: Yes Status: Acute Brief History of Present Illness: Patient of mine in [facility] He has been having some cough and decreased energy. Last week a infiltrate was seen on Xray. He was started on zithromax PO. The patient did not improve and had a repeat xray and blood work. He was lethargic on Wednesday. His BUN 46. His creatine which is normally 1.8 was 2.6. So the patient was sent to the hospital for fluids and antibiotics. His CURB 65 score is 3. Which would be associated with a 17% 30day mortality Hospital Course: Patient came in for pneumonia Unfortunately he had acute on chronic renal failure. The patient also suffered an NSTEMI in house. The patient was seen by Dr. Onofre An angiogram would most likely damage his kidneys to the point of needing dialysis. Was seen by Dr Benites. The patient daughter and stated he would not want dialysis and is a dnr. Considering his prognosis decided on hospice. The patient was accepted by [facility]. will send him back to [facility]. Will have him on 3 days of levaquin to complete course of pnemonia treatment Thank you for allowing me to take part in the patient care Vital Signs/Physical Exam: Temp Pulse Resp BP Pulse Ox 97.5 F 62 22 H 110/66 97 03/04/21 12:00 03/04/21 12:00 03/04/21 12:00 03/04/21 12:00 03/04/21 12:00 General: Alert, In no apparent distress HEENT: Atraumatic, PERRLA, EOMI Neck: Supple, JVD not distended Respiratory: Clear to auscultation bilaterally, Normal air movement Cardiovascular: Regular rate/rhythm, Normal S1 S2 Gastrointestinal: Normal bowel sounds, No tenderness Musculoskeletal: No tenderness Integumentary: No rashes Neurological: Normal speech, Normal tone, Normal affect Lymphatics: No axilla or inguinal lymphadenopathy Laboratory Data at Discharge: WBC 6.90 K/uL (4.3-10.9) D 03/01/21 12:05 Hgb 12.1 g/dL (13.6-17.9) L 03/01/21 12:05 Hct 37.8 % (39.6-49.0) L 03/01/21 12:05 Plt Count 178 K/uL (152-406) 03/01/21 12:05 PT 13.9 SECONDS (9.5-12.5) H 03/01/21 12:05 INR 1.21 03/01/21 12:05 APTT Cancelled 03/03/21 13:30 Sodium 139 mmol/L (136-145) 03/03/21 04:46 Potassium 5.2 mmol/L (3.5-5.1) H 03/03/21 04:46 BUN 42 mg/dL (7-18) H 03/03/21 04:46 Creatinine 2.01 mg/dL (0.55-1.3) H 03/03/21 04:46 Glucose 109 mg/dL (74-106) H 03/03/21 04:46 Uric Acid 8.9 mg/dL (3.5-7.2) H D 03/03/21 04:46 Phosphorus 2.8 mg/dL (2.5-4.9) 03/02/21 03:13 Magnesium 2.3 mg/dL (1.8-2.4) D 03/02/21 08:33 Total Bilirubin 0.3 mg/dL (0.2-1.0) 03/03/21 04:46 AST 24 U/L (15-37) 03/03/21 04:46 ALT 40 U/L (12-78) 03/03/21 04:46 Alkaline Phosphatase 105 U/L (45-117) D 03/03/21 04:46 Troponin I 3.53 ng/mL (0.0-0.045) H* 02/28/21 10:59 Home Medications: Donepezil HCl [Aricept] 10 mg PO BEDTIME 05/09/20 Finasteride [Proscar] 5 mg PO DAILY 05/09/20 Folic Acid/Vit B Complex and C [Folbee Plus Tablet] 2.5 mg PO DAILY 05/09/20 Memantine HCl [Namenda*] 1 tab PO BID 05/09/20 Verapamil HCl [Verapamil ER] 2 tab PO DAILY 05/09/20 Acetaminophen [Acetaminophen Extra Strength] 1 tab PO TID 02/25/21 Acetaminophen [Acetaminophen Extra Strength] 2 tab PO BEDTIME 02/25/21 Albuterol Neb [Proventil 0.083% Neb Soln] 1 amp NEB Q4H PRN 02/25/21 Fluticasone [Flonase 50MCG Nasal [place]*] 2 sprays JUAN RAMON BEDTIME 02/25/21 Loratadine [Claritin*] 1 tab PO DAILY 02/25/21 Polyethylene Glycol 3350 [Miralax] 1 dose PO DAILY 02/25/21 Sennosides/Docusate Sodium [Senokot-S Tablet] 8.6 - 50 mg PO DAILY 02/25/21 traMADol HCL [Ultram*] 1 tab PO Q6H PRN 02/25/21 Levofloxacin [Levaquin] 500 mg PO DAILY #4 tablet 03/04/21 New Medications: Levofloxacin [Levaquin] 500 mg PO DAILY #4 tablet Diet: Regular Activity: Ad marlene Followup: Luis Fontana MD [Primary Care Provider] - Physician Review: Patient Assessed, Agree with Above Assessment and Plan Time spent managing pt's care (in minutes): 40
[2021-03-04] MEDS ORDERED: levoFLOXacin 500 MG TAB PO SCH (21:00)
[2021-03-04 21:50] VITALS: O2SAT 96
[2021-03-04] MEDS: DONEPEZIL HCL 5 MG TAB PO SCH (21:52)
[2021-03-04 22:12] VITALS: BP 121/64; TEMP 97
--- NOTE | 2021-03-04 22:50 | P.PN ---
Date of Service: 03/04/21 Vital Signs Temp Pulse Resp BP Pulse Ox 97 F 71 18 121/64 97 03/04/21 20:00 03/04/21 20:00 03/04/21 20:00 03/04/21 20:00 03/04/21 20:00 Medications Acetaminophen (Acetaminophen 500 Mg Tab) 500 mg PO Q6H PRN PRN Reason: TEMP > 100' F OR MILD PAIN Last Admin: 02/25/21 21:25 Dose: 500 mg Documented by: Albuterol Sulfate (Albuterol 2.5 Mg/3 Ml Neb [place]) 2.5 mg NEB [id number] PRN PRN Reason: WHEEZING Aspirin (Aspirin Ec 81 Mg Tab) 81 mg PO DAILY [facility] Last Admin: 03/04/21 08:47 Dose: 81 mg Documented by: Carvedilol (Carvedilol 6.25 Mg Tab) 6.25 mg PO BID [facility] Last Admin: 03/04/21 08:46 Dose: 6.25 mg Documented by: Donepezil HCl (Donepezil Hcl 5 Mg Tab) 10 mg PO BEDTIME [facility] Last Admin: 03/04/21 21:52 Dose: 10 mg Documented by: Finasteride (Finasteride 5 Mg Tab) 5 mg PO DAILY [facility] Last Admin: 03/04/21 08:46 Dose: 5 mg Documented by: Furosemide (Furosemide 40 Mg Tablet) 40 mg PO BIDL [facility] Last Admin: 03/04/21 17:28 Dose: 40 mg Documented by: Home Med (Folic Acid/Vit B Complex And C [Folbee Plus Tablet]) 2.5 mg PO DAILY [facility] Last Admin: 03/04/21 08:47 Dose: Not Given Documented by: Ipratropium [place] (Ipratropium Brom 0.5mg/2.5ml) 0.5 mg NEB [id number] PRN PRN Reason: WHEEZING Levofloxacin (Levofloxacin 500 Mg Tab) 500 mg PO Q48H [facility] Last Admin: 03/04/21 21:52 Dose: 500 mg Documented by: Memantine (Memantine Hcl 10 Mg Tablet) 10 mg PO BID [facility] Last Admin: 03/04/21 21:52 Dose: 10 mg Documented by: Morphine Sulfate (Morphine 2 Mg/Ml Syr) 2 mg IV Q4H PRN PRN Reason: Pain scale 5-7 (Moderate) Last Admin: 03/01/21 13:32 Dose: 2 mg Documented by: Ondansetron HCl (Ondansetron 4 Mg/2 Ml Vial) 4 mg IV Q6H PRN PRN Reason: NAUSEA / VOMITING Last Admin: 02/25/21 21:25 Dose: 4 mg Documented by: Pantoprazole Sodium (Pantoprazole 40mg Tablet) 40 mg PO ACB [facility]; Protocol Last Admin: 03/04/21 08:47 Dose: 40 mg Documented by: Sodium Bicarbonate (Sodium Bicarb 325 Mg Tab) 650 mg PO TID [facility] Last Admin: 03/04/21 21:51 Dose: 650 mg Documented by: Sodium Chloride (Flush Normal Saline 10 Ml) 10 ml IV BID [facility] Last Admin: 03/04/21 21:00 Dose: 10 ml Documented by: Microbiology Results 02/24/21 22:20 Blood - Blood Aerobic Blood Culture - Final No growth in 5 days. 02/24/21 22:20 Blood - Blood Anaerobic Blood Culture - Final No growth in 5 days. 02/24/21 22:00 Blood - Blood Aerobic Blood Culture - Final No growth in 5 days. 02/24/21 22:00 Blood - Blood Anaerobic Blood Culture - Final No growth in 5 days. Assessment/ Plan: Nephrology No dyspnea No chest pain Weakness and malaise No acute events overnight Vitals, medications, blood work and imaging reviewed in the chart General: In no apparent distress, Cooperative HEENT: Atraumatic Neck: Supple Respiratory: Clear to auscultation bilaterally Cardiovascular: Regular rate/rhythm, Edema Gastrointestinal: Soft and benign, Non-distended Musculoskeletal: No clubbing, No contractures Integumentary: No rashes, No cyanosis Neurological: Minimal speech. Somnolent. Blood work reviewed in the chart. Imagings Data: EXAM DESCRIPTION: RAD - Chest Single View - 02/24/2021 8:08 pm CLINICAL HISTORY: COUGH Chest pain. COMPARISON: Chest Single View dated 05/08/2020; Chest Single View dated 02/18/2019 FINDINGS: Portable technique limits examination quality. Moderate bilateral interstitial lung opacities are present, most severe in the right lower lobe likely representing pneumonia. The heart is upper limit normal in size. No displaced fractures. Conclusions/Impression: LANCE may be due to CRS CKD III -No NSAIDs -Continue Lasix 40mg BID Hyperkalemia -Low potassium diet -Continue Lasix Acidosis -Continue oral bicarb Hypomagnesemia -Replete magnesium prn HTN with CKD/ CHF -Continue Coreg Systolic CHF/ LE Edema -Lasix 40mg BID Moderate malnutrition -Recommend protein supplementation BPH -Continue finasteride -Consider flomax prn
== END 2021-03-04 23:15 | disposition hospice, inpatient (51) | DRG 193 ==
LOC: ER 18:21 → ERHOLD 02-25 02:37 → 2ND 02-25 18:28
PROVIDERS: ADMIT Internal Medicine; ATTEND Internal Medicine
DX: J15.3 Pneumonia due to streptococcus, group B (principal); I21.4 Non-ST elevation (NSTEMI) myocardial infarction; U07.1 COVID-19; N17.9 Acute kidney failure, unspecified; N18.4 Chronic kidney disease, stage 4 (severe); E87.2 Acidosis; E44.0 Moderate protein-calorie malnutrition; I50.20 Unspecified systolic (congestive) heart failure; I13.0 Hypertensive heart and chronic kidney disease with heart failure and stage 1 through stage 4 chronic kidney disease, or unspecified chronic kidney disease; E87.5 Hyperkalemia; N40.0 Benign prostatic hyperplasia without lower urinary tract symptoms; E83.42 Hypomagnesemia; G30.9 Alzheimer's disease, unspecified; F02.80 Dementia in other diseases classified elsewhere, unspecified severity, without behavioral disturbance, psychotic disturbance, mood disturbance, and anxiety; Y95 Nosocomial condition; Z66 Do not resuscitate; Z79.899 Other long term (current) drug therapy; Z88.5 Allergy status to narcotic agent; Z68.21 Body mass index [BMI] 21.0-21.9, adult; Z51.5 Encounter for palliative care
CPT/HCPCS: 0240U; 36415; 71045; 80048; 80053; 80076; 81001; 81015; 82550; 82570; 82947; 83605; 83735; 83880; 84100; 84145; 84300; 84484; 84550; 85025; 85610; 85730; 87040; 93005; 93306; 94640; 94760; 96372; 96374; 96375; 97110; 97161; 97530; 99284; J1644; J1650; J2270; J2405; J7030; U0003

== ENCOUNTER 2021-05-13 02:46 | Emergency (ER) | payer OTHER ==
--- OUTSIDE RECORDS SUMMARY | 2021-05-13 02:50 | XMS REPORT | Continuity of Care Document ---
:1935 Author Organization [facility] t Address [address] [place] [address] Care Team Providers Name Role Phone Asked, Pcp Primary Care Physician Unavailable Carrie HUGHES Attending Clinician Unavailable Jessica Srinivasan MD Attending Clinician Carrie Hughes MD Attending Clinician Kev Cruz MD Attending Clinician Alice Delgado CRNA Attending Clinician Kristen Kay MD Attending Clinician JESSICA SRINIVASAN Admitting Clinician Unavailable Payers Payer Name Policy Type Policy Number Effective Date Expiration Date S abrahan MEDICARE A B [id number] 2021 00:00:00 GENERIC COMMERCIAL [id number] 2011 00:00:00 Problems Condition Condition Condition Status Onset Resolution Last Treating Co mments Source Name Details Category Date Date Treatment Clinician Date Traumatic Traumatic Disease Active 2020-[address] [facility]29 [facility] - displaced displaced 00:00: Medi cherry fracture fracture 00 Center of of proximal proximal end of end of left left humerus, humerus, initial initial encounter encounter Age-relate Age-relate Disease Active 2020-[address] d d 03-29 [facility] - osteoporos osteoporos 00:00: Me dical is with is with 00 Center current current pathologic pathologic al al fracture fracture Fall, Fall, Disease Active 2020-[address] [facility] [address] initial initial 03-29 [facility] - encounter encounter 00:00: Medi cherry 00 Center GI bleed GI bleed Disease Active 2020-03 [facility] 03[facility]28 [facility] - 00:00: Medical 00 Center Dementia Problem Active 2020-06-08 Mem oria (disorder) 21:58:26 l Dementia Ady n (disorder) Active Problem 06/08/2020 [facility] Hypertensi Problem Active 2020-06-08 M emoria ve 21:58:26 l disorder, [place] systemic Hypertensi arterial ve (disorder) disorder, systemic arterial (disorder) Active Problem 06/08/2020 [facility] Carotid Problem Active 2020-06-08 Roger rio bruit 21:58:26 l (finding) Carotid Herm brandon bruit (finding) Active Problem 06/08/2020 [facility] Lumbago Lumbago Problem [facility] [...] Type Date Date Clinician Codeine Propensi Active 2020-[address] [facility] ty to 03-28 [facility] - adverse 00:00: Medical reaction 00 Center s CODEINE Allergy Active 2020-[address] 03-28 [facility] - 00:00: Medical 00 Center Codeine Propensi Active 2017-03 Hard to Method i ty to 0-[address] adverse 00:00: Hospita reaction 00 l s to drug codeine codeine Active [facility] l [place] codeine Adverse Active Info Not [facility] Reaction Available [facility] Family History Family Member Diagnosis Comments Start Date Stop Date Source Natural father Cancer [facility] Natural mother Heart disease [facility] Natural mother Hypertension [facility] Social History Social Habit Start Date Stop Date Quantity Comments Source History SDOH [facility] Std Medical Cente r Drinks History SDOH [facility] - Alcohol Binge Medical Arun ter History SDOH [facility] - Alcohol Comment Medical C enter History SDOH 2021-01-27 2021-01-[address] [facility] - Alcohol Frequency 00:00:00 00:00:00 [facility] Social History 2020-01-12 2020-01-12 [facility] 18:09:38 18:09:38 Alcohol intake 2017-12-09 2017-12-09 Current drinker [facility] 00:00:00 00:00:00 [facility] Tobacco use and 2017-12-03 2017-12-03 Former smokeless Met [facility]odist exposure 00:00:00 00:00:00 tobacco user Hospital Sex Assigned At [birth year] Yarsani 00:00:00 00:00:00 Hospital Smoking Status Start Date Stop Date Source Never smoker [facility] Ex-smoker 2017-12-03 00:00:00 2017-12-03 [facility]00:[facility] Ordered Filled Start Stop Current Ordering Indication Dosage Frequency Signature Comments Components Source Medication Medication Date Date Medication? Clinician (SIG) Name Name polyethylen 2020-03 Yes 17g QD Take [address] e glycol 2-02 by mouth [facility] - (GLYCOLAX) 00:00: daily. Medic al 17 gram 00 Center packet polyethylen 2020-03 Yes 17g QD Take [address] e glycol 2-02 by mouth [facility] - (GLYCOLAX) 00:00: daily. Medic al 17 gram 00 Center packet acetaminoph 2020-03 Yes pain 500mg Take [address] en 2-01 mg by [facility] - (TYLENOL) 17:07: mouth Medical 500 MG 37 every 8 Center tablet (eight) hours as needed for Pain. donepeziL 2020-03 Yes 10mg QD Take [address] (ARICEPT) 2-01 by mouth [facility] - 10 MG 17:07: nightly. Medical tablet 37 [place] finasteride 2020-03 Yes benign 5mg QD Take [address] (PROSCAR) 5 2-01 prostatic by mouth [facility] - mg tablet 17:07: hyperplasia daily. Medical 37 with lower Center urinary tract sx memantine 2020-03 Yes 5mg Q.5D Take [address] (NAMENDA) 5 2-01 by mouth 2 Liana kes - MG tablet 17:07: (two) Medical 37 times Center daily. multivitami 2020-03 Yes 1{tbl} QD Take [address] n with 2-01 tablet by [facility] - minerals 17:07: mouth Medical tablet 37 daily. [place] traMADoL 2020-03 Yes 50mg Take [address] (ULTRAM) 50 2-01 by mouth Luke s - mg tablet 17:07: every 6 Medic al 37 (six) Center hours as needed for Pain. verapamiL 2020-03 Yes hypertensio 360mg QD Take [address] (CALAN-SR) 2-01 n mg by [facility]ukes - 180 MG ER 17:07: mouth Medical tablet 37 daily. [place] acetaminoph 2020-03 Yes pain 500mg Take [address] en 2-01 mg by [facility] - (TYLENOL) 17:07: mouth Medical 500 MG 37 every 8 Center tablet (eight) hours as needed for Pain. donepeziL 2020-03 Yes 10mg QD Take [address] (ARICEPT) 2-01 by mouth [facility] - 10 MG 17:07: nightly. Medical tablet 37 [place] finasteride 2020-03 Yes benign 5mg QD Take [address] (PROSCAR) 5 2-01 prostatic by mouth [facility] - mg tablet 17:07: hyperplasia daily. Medical 37 with lower Center urinary tract sx memantine 2020-03 Yes 5mg Q.5D Take [address] (NAMENDA) 5 2-01 by mouth 2 Liana kes - MG tablet 17:07: (two) Medical 37 times Center daily. multivitami 2020-03 Yes 1{tbl} QD Take [address] n with 2-01 tablet by [facility]ukes - minerals 17:07: mouth Medical tablet 37 daily. [place] traMADoL 2020-03 Yes 50mg Take [address] (ULTRAM) 50 2-01 by mouth Luke s - mg tablet 17:07: every 6 Medic al 37 (six) Center hours as needed for Pain. verapamiL 2020-03 Yes hypertensio 360mg QD Take [address] (CALAN-SR) 2-01 n mg by [facility]ukes - 180 MG ER 17:07: mouth Medical tablet 37 daily. [place] acetaminoph 2020-03- No pain 1000mg QD Take 1,[address] en 2- 12- mg by Lukes - (TYLENOL) 13:43: 00:00 mouth Medica l 500 MG 26 :00 nightly. Center tablet ibuprofen 2020-03- No 200mg QD Take [address] (ADVIL,MOTR 2- 12- mg by [facility]ukes - IN) 200 MG 13:43: 00:00 mouth Medic al tablet 26 :00 daily. [place] sen 2020-03- No 1{tbl} QD Take [address] (SENOKOT) 201-29 tablet by Luke s - 8.6 mg 13:43: 00:00 mouth Medical tablet 26 :00 daily. [facility] 2020-03- No pain 1000mg QD Take 1,[address] en 2- 12- mg by Lukes - (TYLENOL) 13:43: 00:00 mouth Medica l 500 MG 26 :00 nightly. Center tablet ibuprofen 2020-03- No 200mg QD Take [address] (ADVIL,MOTR 2- 12- mg by [facility]ukes - IN) 200 MG 13:43: 00:00 mouth Medic al tablet 26 :00 daily. [place] senna 2020-03- No 1{tbl} QD Take [address] (SENOKOT) 04-01 tablet by Luke s - 8.6 mg 13:43: 00:00 mouth Medical tablet 26 :00 daily. [place] [facility] 2020-03- No 1{tbl} QD Take [address] ate 04-01 tablet by [facility]ukes - (SENOKOT S) 00:00: 23:59 mouth Medi cherry 8.6-50 mg 00 :00 nightly. [place] per tablet [facility] 2020-03- No 1{tbl} QD Take [address] ate 2-01 12-01 tablet by [facility] - (SENOKOT S) 00:00: 23:59 mouth Medi cherry 8.6-50 mg 00 :00 nightly. Center per tablet Memantine 2019-03 Yes 5 mg = 1 Roger rio hydrochlori 2-29 tab, PO, l de 5 MG 18:04: BID, # 60 Shweta nn Oral Tablet 00 tab, 3 [Namenda] Refill(s), Pharmacy: [id number], 177.8, cm, 02/27/20 11:51:00 [employer]N, Height, 73.182, kg, 02/27/20 11:51:00 [employer], Weight pantoprazol 2019-03 Yes 40 mg = [...] # [place] 00 30 tab, 0 Refill(s) lisinopril 2017-03 Yes 20mg QD Take 20 mg M ethodi (PRINIVIL,Z 0-[address] ESTRIL) 20 15:06: daily. Hospi ta mg tablet 52 l rivaroxaban 2017-03 Yes 20mg QD Take 20 mg Methodi (XARELTO) 0-[address] 20 mg 15:06: daily. Hospita tablet 52 l metoprolol 2017-03 Yes 25mg Q.5D Take 25 mg M ethodi tartrate 0-[address] (LOPRESSOR) 15:06: (two) Hospi ta 25 mg 52 times a l tablet day. atorvastati 2017-03 Yes 40mg QD Take 40 mg Methodi n (LIPITOR) 0-[address] 40 MG 15:06: daily. Hospita tablet 52 l amLODIPine 2017-03 Yes 10mg QD Take 10 mg M ethodi (NORVASC) 0-[address] 10 mg 15:06: daily. Hospita tablet 52 l Verapamil Verapamil Yes Dave 1 tablet [facility] [address] HCl ER HCl ER [facility] Clinics Vital Signs Vital Name Observation Time Observation Value Comments Source HEIGHT 2021-01-26 23:20:00 188 cm WEIGHT 2021-01-26 23:20:00 73.437 kg HEIGHT 2021-01-26 23:20:00 188 cm WEIGHT 2021-01-26 23:20:00 73.437 kg Systolic blood 2021-01-29 15:00:00 135 mm[Hg] [facility] Diastolic blood 2021-01-29 15:00:00 65 mm[Hg] [facility] Heart rate 2021-01-29 15:00:00 79 /min [facility] Body temperature 2021-01-29 15:00:00 36.72 Sarai [facility] Respiratory rate 2021-01-29 15:00:00 18 /min [facility] Oxygen saturation in 2021-01-29 15:00:00 95 /min [facility] Arterial blood by Medical Ce nter Pulse oximetry Body height 2021-01-26 23:20:00 188 cm [facility] Body weight 2021-01-26 23:20:00 73.437 kg [facility] BMI 2021-01-26 23:20:00 20.79 kg/m2 [facility] Systolic (mm Hg) 2020-02-27 17:39:00 Roger velez [address] Diastolic (mm Hg) 2020-02-27 17:39:00 Mem orial [place] Heart Rate 2020-02-27 17:39:00 [facility] [address] Respitory Rate 2020-02-27 17:39:00 Memori al [place] Height 2020-02-27 17:39:00 [facility] 2020-02-27 17:39:00 [facility] [place] BMI Calculated 2020-02-27 17:39:00 Carlitos Damianann Height 2020-01-12 17:46:00 180.34 cm [facility] [address] Weight 2020-01-12 17:46:00 Parrish [place] BMI Calculated 2020-01-12 17:46:00 Carlitos Gomez Procedures Procedure Date / Time Performing Clinician Source Performed POCT-GLUCOSE METER 2021-01-29 15:31:00 Minal Hughes [facility] POCT-GLUCOSE METER 2021-01-29 11:51:00 Minal Hughes [facility] CBC W/PLT COUNT & AUTO 2021-01-29 04:13:00 Kj Kay [facility] BASIC METABOLIC PANEL (7) 2021-01-29 04:13:00 Kj Kay [facility] CBC W/PLT COUNT & AUTO 2021-01-29 04:13:00 Kj Kay [facility] SARS-COV2/RT-PCR ([facility] & 2021-01-28 16:22:00 Clifford Hughes [facility] - REF LABS) [facility] COLONOSCOPY 2021-01-28 11:28:00 Kj Kay [facility] CBC W/PLT COUNT & AUTO 2021-01-28 04:08:00 Kj Kay [facility] BASIC METABOLIC PANEL (7) 2021-01-28 04:08:00 Kj Kay [facility] CBC W/PLT COUNT & AUTO 2021-01-28 04:08:00 Minal Hughes [facility] CBC W/PLT COUNT & AUTO 2021-01-27 17:54:00 Abhilash Srinivasan [facility] CBC W/PLT COUNT & AUTO 2021-01-27 17:54:00 Zarina, [facility] NM GI BLEED STUDY 2021-01-27 16:15:00 [facility] W/[facility]T [facility] & AUTO 2021-01-27 10:10:00 Zarina [facility] CBC W/PLT COUNT & AUTO 2021-01-27 10:10:00 Zarina [facility] XR SHOULDER COMPLETE 2 2021-01-27 06:12:00 [facility]OL[facility] (7) 2021-01-27 05:28:00 Zarina [facility] CBC W/PLT COUNT & AUTO 2021-01-27 05:28:00 Zarina [facility] TYPE AND SCREEN, 2021-01-27 05:28:00 [facility] & AUTO 2021-01-27 05:28:00 Zarina [facility] BASIC METABOLIC PANEL (7) 2021-01-27 00:03:00 Abhilash Srinivasan [facility] HEPATIC FUNCTION PANEL 2021-01-27 00:03:00 [facility] MAGNESIUM 2021-01-27 00:03:00 [facility]ilash [facility]ias[facility] PHOSPHORUS 2021-01-27 00:03:00 Zarina [facility] PROTHROMBIN TIME/INR 2021-01-27 00:03:00 Abhilash Srinivasan [facility] CBC W/PLT COUNT & AUTO 2021-01-27 00:03:00 Zarina [facility] CBC W/PLT COUNT & AUTO 2021-01-27 00:03:00 Zarina [facility] REPORT OF PROCEDURE - 2021-01-26 00:00:00 Provider, Default [facility] - ENDOSCOPY SCAN Scanning [facility] Carotid endarterectomy [facility] Emergency Department Planned Activity Planned Date Details Comments Source Future Scheduled 2021-03-[address] [facility] - Test 00:00:00 (12+) [code = [facility] DEPRESSION SCREENING (12+)] Future Scheduled 2021-03-01 FALLS RISK SCREENING [facility] - Test 00:00:00 [code = FALLS RISK Medical C enter SCREENING] Future Scheduled 2021-03-[address] [facility] - Test 00:00:00 (12+) [code = Medical Center DEPRESSION SCREENING (12+)] Future Scheduled 2021-03-01 FALLS RISK SCREENING [facility] - Test 00:00:00 [code = FALLS RISK Medical C enter SCREENING] Future Scheduled 2021-01-[address] [facility] - Test 00:00:00 (WELCOME TO MEDICARE) Medica l Center [code = Medicare IPPE (WELCOME TO MEDICARE)] Future Scheduled 2021-01-[address] [facility] - Test 00:00:00 (WELCOME TO MEDICARE) Medica l Center [code = Medicare IPPE (WELCOME TO MEDICARE)] Future Scheduled 2020-12-15 COVID-19 VACCINE (3 [facility] Test 00:00:00 Booster for Pfizer Medical C enter series) [code = COVID-19 VACCINE (3 - Booster for Pfizer series)] Future Scheduled 2020-12-15 COVID-19 VACCINE (3 - [facility] Test 00:00:00 Booster for Pfizer Medical C enter series) [code = COVID-19 VACCINE (3 - Booster for Pfizer series)] Future Scheduled 2020-10-[address] [facility] - Test 00:00:00 (#1) [code = [facility] INFLUENZA VACCINE (#1)] Future Scheduled 2020-10-[address] [facility] - Test 00:00:00 (#1) [code = [facility] INFLUENZA VACCINE (#1)] Future Scheduled 1984-02-13 SHINGLES VACCINES ([address] [facility] - Test 00:00:00 of 2) [code = [facility] SHINGLES VACCINES (1 of 2)] Future Scheduled 1984-02-13 SHINGLES VACCINES ([address] [facility] - Test 00:00:00 of 2) [code = Medical Center SHINGLES VACCINES (1 of 2)] Future Scheduled 1953 DTAP/TDAP/TD VACCINES [facility] Test 00:00:00 (1 - Tdap) [code = Medical C enter DTAP/TDAP/TD VACCINES (1 - Tdap)] Future Scheduled 1954 DTAP/TDAP/TD VACCINES [facility] Test 00:00:00 (1 - Tdap) [code = Medical C enter DTAP/TDAP/TD VACCINES (1 - Tdap)] Encounters Start End Encounter Admission Attending Care Care Encounter Source Date/Time Date/Time Type Type Clinicians Facility Department ID 2021-03-26 Outpatient [facility] 14:28:12 [id number] 2021-03-26 Outpatient [facility] 14:26:04 [id number] [facility] 2021-01-26 2021-01-29 Inpatient ER ELLEN, [facility] Internal [id number] [facility] 22:55:00 17:00:00 MINAL [facility] 2021-01-26 2021-01-29 Hospital ER Abhilash Srinivasan [facility] [id number] [facility] 22:55:00 17:00:00 Encounter Minal Hughes [facility] 2021-01-28 2021-01-28 Anesthesia Neville Cruz [facility] [id number] [facility] 11:28:00 11:49:00 Event Jimy Delgado [facility] 2021-01-28 2021-01-28 Surgery Rahul, [facility] [id number] 11:00:00 11:30:00 Kj Peterson [facility] 2021-01-27 2021-01-27 Travel [facility] [id number] [facility] 00:[facility]00 00:00:00 [facility] 2020-06-06 2020-06-06 Ambulatory nullFlavo MNA [id number] Memoria 19:15:00 19:15:00 Pre-Reg r Neurology 04 l Joelle Fitch 2020-05-10 2020-05-10 Ambulatory nullFlavo MNA [id number] [facility] 19:00:00 19:00:00 Pre-Reg r Neurology 03 l Joelle Fitch 2020-02-27 2020-02-28 Outpatient nullFlavo MNA [id number] [facility] 17:15:00 05:59:59 r Neurology 02 l Joelle Fitch 2020-01-12 2020-01-13 Outpatient nullFlavo MNA [id number] [facility] 17:30:00 05:59:59 r Neurology 01 l Joelle Fitch 2019-03-14 2019-03-14 [facility] [id number] [facility] 11:28:00 11:28:00 [facility] Medicine Outpati ent Clinics 2019-01-20 2019-01-20 [facility] [id number] 14:42:00 14:42:00 [facility] Medicine Outpati ent Clinics 2018-12-07 2018-12-07 [facility] [id number] 13:15:00 13:15:00 [facility] Medicine Outpati ent Clinics 2018-11-21 2018-11-21 [facility] [id number] 13:00:00 13:00:00 [facility] Medicine Outpati ent Clinics 2018-08-22 2018-08-22 [facility] [id number] 14:45:00 14:45:00 [facility] Medicine Outpati ent Clinics 2018-06-27 2018-06-27 [facility] [id number] 16:01:00 16:01:00 [facility] Medicine Outpati ent Clinics 2018-06-27 2018-06-27 [facility] [id number] 09:57:00 09:57:00 [facility] Medicine Outpati ent Clinics 2018-06-22 2018-06-24 Outside nullFlavo MNA [id number] [facility] 18:07:00 04:59:59 Medical r Neurology 00 l Records Joelle Fitch 2018-06-20 2018-06-20 [facility] [id number] 14:00:00 14:00:00 [facility] Medicine Medicine Outpati ent Clinics 2018-05-19 2018-05-19 Outpatient [facility] [id number] 14:00:00 14:00:00 [facility] Medicine Medicine Outpati ent Clinics 2018-05-05 2018-05-05 Outpatient Jenn[facility] [id number] 14:30:00 14:30:00 [facility] Medicine Outpati ent Clinics 2018-04-13 2018-04-13 Outpatient [facility] [id number] [facility] 13:00:00 13:00:00 00 yakelin Fitch 2017-09-07 2017-09-07 [facility] [id number] 11:00:00 11:00:00 [facility] Medicine Outpati ent Clinics Results Test Description Test Time Test Comments Results Result Comments Source POC-Glucose meter 2021-01-29 15:42:37 Test Item Value Reference Range Interpretation Comme nts POC-Glucose Meter (test code = 127 mg/dL 70-110 H : TESTED AT [facility] [address] [place] [address] 1538) [place] [address]: Sports Doctor/Techni kaley ID = [id number] for Grover, Samaria dominik Lab Interpretation (test code = Abnormal 73771-9) [facility] [id number] 15:42:37 Test Item Value Reference Range Interpretation Comments POC-Glucose Meter (test 127 mg/dL 70-110 H : TE STED AT [facility] code = 1538) [address] [facility] [address]: Sports Doctor/Techni kaley ID = [id number] for Grover, Samaria dominik Lab Interpretation (test Abnormal code = 82514-7) [facility]-GLUCOSE [id number] 15:42:37 Test Item Value Reference Range Interpretation Comments POC-GLUCOSE METER 127 mg/dL 70-110 H : TESTED A T [facility] [address] (BEAKER) (test code [address], = 1538) [facility] 77 478: Sports Doctor/Techni kaley ID = [id number] for Sravanthi Bustillo POCT-GLUCOSE [id number] 12:07:15 Test Item Value Reference Range Interpretation Comments POC-GLUCOSE METER 140 mg/dL 70-110 H : TESTED A T [facility] [address] (BEAKER) (test code [address], = 1538) [facility] 77 478: Sports Doctor/Techni kaley ID = [id number] for Sravanthi Bustillo Basic metabolic [id number] 05:43:03 Test Item Value Reference Interpretation Comments Range Sodium (test code = 139 meq/L 684-830 4194-2) Potassium (test code 4.4 meq/L 3.6-5.5 = 2823-3) Chloride (test code 108 meq/L 98-106 H = 2075-0) CO2 (test code = 19 meq/L 20-29 L 2028-9) BUN (test code = 25 mg/dL 10-26 3094-0) Creatinine (test 1.96 mg/dL 0.50-1.20 H code = 2160-0) Glucose (test code = 96 mg/dL 70-110 2345-7) Calcium (test code = 8.4 mg/dL 8.5-10.5 L 29690-3) EGFR (test code = 33 mL/min/1.73 sq ESTIMATE D GFR 27177-7) m IS NOT ACCURATE CREATININE CLEARANCE IN PREDICTING GLOMERULAR FILTRATION RATE. ESTIMATED GFR IS NOT APPLICABLE FOR DIALYSIS PATIENTS. JONNATHAN (test code = Sports Doctor ID - JONNATHAN) DSENSONOperator ID - DSENSONOperator ID - DSENSONOperator ID - DSENSONOperator ID - DSENSONOperator ID - DSENSONOperator ID - DSENSONOperator ID - DSENSONOperator ID - DSENSONOperator ID - DSENSONOperator ID - DSENSONOperator ID - DSENSONOperator ID - DSENSON Lab Interpretation Abnormal (test code = 24718-2) [facility] [id number] 05:43:03 Test Item Value Reference Interpretation Comments Range Sodium (test code = 139 meq/L 622-563 6390-2) Potassium (test code 4.4 meq/L 3.6-5.5 = 2823-3) Chloride (test code 108 meq/L 98-106 H = 2075-0) CO2 (test code = 19 meq/L 20-29 L 2028-9) BUN (test code = 25 mg/dL 10-26 3094-0) Creatinine (test 1.96 mg/dL 0.50-1.20 H code = 2160-0) Glucose (test code = 96 mg/dL 70-110 2345-7) Calcium (test code = 8.4 mg/dL 8.5-10.5 L 22510-7) EGFR (test code = 33 mL/min/1.73 sq ESTIMATE D GFR 11298-9) m IS NOT ACCURATE CREATININE CLEARANCE IN PREDICTING GLOMERULAR FILTRATION RATE. ESTIMATED GFR IS NOT APPLICABLE FOR DIALYSIS PATIENTS. JONNATHAN (test code = Sports Doctor ID - JONNATHAN) DSENSONOperator ID - DSENSONOperator ID - DSENSONOperator ID - DSENSONOperator ID - DSENSONOperator ID - DSENSONOperator ID - DSENSONOperator ID - DSENSONOperator ID - DSENSONOperator ID - DSENSONOperator ID - DSENSONOperator ID - DSENSONOperator ID - DSENSON Lab Interpretation Abnormal (test code = 89846-9) [facility] METABOLIC [id number] 05:43:03 Test Item Value Reference Range Interpretation Comments SODIUM (BEAKER) 139 meq/L 135-148 (test code = 381) POTASSIUM (BEAKER) 4.4 meq/L 3.6-5.5 (test code = 379) CHLORIDE (BEAKER) 108 meq/L 98-106 H (test code = 382) CO2 (BEAKER) (test 19 meq/L 20-29 L code = 355) BLOOD UREA NITROGEN 25 mg/dL - (BEAKER) (test code = 354) CREATININE (BEAKER) 1.96 mg/dL 0.50-1.20 H (test code = 358) GLUCOSE RANDOM 96 mg/dL 70-110 (BEAKER) (test code = 652) CALCIUM (BEAKER) 8.4 mg/dL 8.5-10.5 L (test code = 697) EGFR (ALEXANDRA) (test 33 mL/min/1.73 ESTIMA MIRELA GFR IS code = 1092) sq m NOT ACCURATE CREATININE CLEARANCE IN PREDICTING GLOMERULAR FILTRATION RATE . ESTIMATED GFR I S NOT APPLICABLE FOR DIALYSIS PATIEN TS. Sports Doctor ID - DSENSONOperator ID - DSENSONOperator ID - DSENSONOperator ID - DSENSONOperator ID - DSENSONOperator ID - DSENSONOperator ID - DSENSONOperator ID - DSENSONOperator ID - DSENSONOperator ID - DSENSONOperator ID - DSENSONOperator ID - DSENSONOperator ID - DSENSONCBC with platelet count + automated [id number] 05:21:56 Test Item Value Reference Range Interpretation Comments WBC (test code = 6690-2) 8.8 See_Comment [A utomated message] The system [employer] generated this result transmitted ref erence range: 4.0 - 10 .0 K/L. The refe rence range was not u sed to interpret this result as normal/abnor mal. RBC (test code = 789-8) 3.22 See_Comment L [Au tomated message] The system [employer] generated this result transmitted ref erence range: 4.20 - 5 .80 M/L. The refe rence range was not u sed to interpret this result as normal/abnor mal. MCHC (test code = 786-4) 32.3 See_Comment L [A utomated message] The system [facility] generated this result transmitted ref erence range: 32.0 - 3 6.0 GM/DL. The refe rence range was not u sed to interpret this result as normal/abnor mal. Hematocrit (test code = 31.0 % 36.0-50.0 L 4544-3) MCV (test code = 787-2) 96.3 fL 82.0-99.0 MCH (test code = 785-6) 31.1 pg 27.0-33.0 RDW (test code = 788-0) 13.0 % 12.0-15.0 Platelets (test code = 176 See_Comment [Aut omated message] 997-3) The system [facility] generated this result transmitted ref erence range: 150 - 43 0 K/CU MM. The referen ce range was not u sed to interpret this result as normal/abnor mal. MPV (test code = 10.8 fL 6.0-11.5 00305-7) nRBC (test code = 413) 0 See_Comment [Aut omated message] The system [facility] generated this result transmitted ref erence range: 0 - 0 /1 00 WBC. The refere nce range was not u sed to interpret this result as normal/abnor mal. % Neutros (test code = 69 % 429) % Lymphs (test code = 16 % 430) % Monos (test code = 10 % 431) % Eos (test code = 432) 4 % % Baso (test code = 437) 1 % # Neutros (test code = 6.07 See_Comment [Aut omated message] 670) The system [facility] generated this result transmitted ref erence range: 1.80 - 8 .00 K/L. The refe rence range was not u sed to interpret this result as normal/abnor mal. # Lymphs (test code = 1.45 See_Comment L [Auto mated message] 414) The system [employer] generated this result transmitted ref erence range: 1.48 - 4 .50 K/L. The refe rence range was not u sed to interpret this result as normal/abnor mal. # Monos (test code = 0.87 See_Comment [Autom ated message] 415) The system [facility] generated this result transmitted ref erence range: 0.00 - 1 .30 K/L. The refe rence range was not u sed to interpret this result as normal/abnor mal. # Eos (test code = 416) 0.37 See_Comment [Au tomated message] The system [employer] generated this result transmitted ref erence range: 0.00 - 0 .50 K/L. The refe rence range was not u sed to interpret this result as normal/abnor mal. # Baso (test code = 417) 0.04 See_Comment [A utomated message] The system [facility] generated this result transmitted ref erence range: 0.00 - 0 .20 K/L. The refe rence range was not u sed to interpret this result as normal/abnor mal. Immature 0 % 0-0 Granulocytes-Relative (test code = 2801) Lab Interpretation (test Abnormal code = 99824-6) [facility] with platelet count + automated [id number] 05:21:56 Test Item Value Reference Range Interpretation Comments WBC (test code = 6690-2) 8.8 See_Comment [A utomated message] The system [employer] generated this result transmitted ref erence range: 4.0 - 10 .0 K/L. The refe rence range was not u sed to interpret this result as normal/abnor mal. RBC (test code = 789-8) 3.22 See_Comment L [Au tomated message] The system [employer] generated this result transmitted ref erence range: 4.20 - 5 .80 M/L. The refe rence range was not u sed to interpret this result as normal/abnor mal. MCHC (test code = 786-4) 32.3 See_Comment L [A utomated message] The system [employer] generated this result transmitted ref erence range: 32.0 - 3 6.0 GM/DL. The refe rence range was not u sed to interpret this result as normal/abnor mal. Hematocrit (test code = 31.0 % 36.0-50.0 L 4544-3) MCV (test code = 787-2) 96.3 fL 82.0-99.0 MCH (test code = 785-6) 31.1 pg 27.0-33.0 RDW (test code = 788-0) 13.0 % 12.0-15.0 Platelets (test code = 176 See_Comment [Aut omated message] 777-3) The system [facility] generated this result transmitted ref erence range: 150 - 43 0 K/CU MM. The referen ce range was not u sed to interpret this result as normal/abnor mal. MPV (test code = 10.8 fL 6.0-11.5 00706-2) nRBC (test code = 413) 0 See_Comment [Aut omated message] The system [facility] generated this result transmitted ref erence range: 0 - 0 /1 00 WBC. The refere nce range was not u sed to interpret this result as normal/abnor mal. % Neutros (test code = 69 % 429) % Lymphs (test code = 16 % 430) % Monos (test code = 10 % 431) % Eos (test code = 432) 4 % % Baso (test code = 437) 1 % # Neutros (test code = 6.07 See_Comment [Aut omated message] 670) The system [facility] generated this result transmitted ref erence range: 1.80 - 8 .00 K/L. The refe rence range was not u sed to interpret this result as normal/abnor mal. # Lymphs (test code = 1.45 See_Comment L [Auto mated message] 414) The system [facility] generated this result transmitted ref erence range: 1.48 - 4 .50 K/L. The refe rence range was not u sed to interpret this result as normal/abnor mal. # Monos (test code = 0.87 See_Comment [Autom ated message] 415) The system [facility] generated this result transmitted ref erence range: 0.00 - 1 .30 K/L. The refe rence range was not u sed to interpret this result as normal/abnor mal. # Eos (test code = 416) 0.37 See_Comment [Au tomated message] The system [facility] generated this result transmitted ref erence range: 0.00 - 0 .50 K/L. The refe rence range was not u sed to interpret this result as normal/abnor mal. # Baso (test code = 417) 0.04 See_Comment [A utomated message] The system [facility] generated this result transmitted ref erence range: 0.00 - 0 .20 K/L. The refe rence range was not u sed to interpret this result as normal/abnor mal. Immature 0 % 0-0 Granulocytes-Relative (test code = 2801) Lab Interpretation (test Abnormal code = 18944-5) [facility] W/PLT COUNT & AUTO [id number] 05:21:56 Test Item Value Reference Range Interpretation [...] 0-0 PERCENT (BEAKER) (test code = 2801) SARS-CoV2/RT-PCR (Asymptomatic ONLY)2021-01-28 17:42:47 Test Item Value Reference Interpretation Comments Range SARS-COV2/RT-PCR Negative Negative The SARS-Co V-2 (test code = target nucleic 78140-4) acids are not detected in thi s specimen. Nega tive results do not preclude SARS-C oV-2 infection and should not be u sed as the sole bas is for patient management decisions. Nega tive results must be combined with clinical observations, patient history , and epidemiolog ical information. A false negative result may occu r if a specimen is improperly collected, transported or handled. This SARS CoV-2 test is a rapid, real-t lizzeth RT-PCR test intended for th e qualitative detection of nucleic acid fr om SARS-CoV-2 in a nasopharyngeal swab specimen collec mirela from individual s suspected of COVID-19 by the ir healthcare provider. JONNATHAN (test code = This test has been JONNATHAN) authorized by FDA under an EUA for use by authorized laboratories. This test is only authorized for the duration of the declaration that circumstances exist justifying the authorization of emergency use of in vitro diagnostic tests for detection and/or diagnosis of COVID-19 under Section 564(b)(1) of the Federal Food, Drug and Cosmetic Act, 21 U.S.C. 360bbb-3(b)(1), unless the authorization is terminated or revoked sooner. Fact Sheet for Healthcare Providers: https://www.[employer]/Documents/Xp ert%20Xpress%20SAR S%20CoV-2/Fact%20S heets/302-3802%20S ARS-COV-2%20HEALTH CARE%20PROVIDERS%2 0FACT%20SHEET.pdf Fact Sheet for Healthcare Patients: https://www.[employer]/Documents/Xp ert%20Xpress%20SAR S%20CoV-2/Fact%20S heets/302-3801%20S ARS-COV-2%20PATIEN T%20FACT%20SHEET.p df Lab Interpretation Normal (test code = 85926-4) [facility] 17:42:47 Test Item Value Reference Interpretation Comments Range SARS-COV2/RT-PCR Negative Negative The SARS-Co V-2 (test code = target nucleic 20108-1) acids are not detected in thi s specimen. Nega tive results do not preclude SARS-C oV-2 infection and should not be u sed as the sole bas is for patient management decisions. Nega tive results must be combined with clinical observations, patient history , and epidemiolog ical information. A false negative result may occu r if a specimen is improperly collected, transported or handled. This SARS CoV-2 test is a rapid, real-t lizzeth RT-PCR test intended for e qualitative detection of nucleic acid fr om SARS-CoV-2 in a nasopharyngeal swab specimen collec mirela from individual s suspected of COVID-19 by the ir healthcare provider. JONNATHAN (test code = This test has been JONNATHAN) authorized by FDA under an EUA for use by authorized laboratories. This test is only authorized for the duration of the declaration that circumstances exist justifying the authorization of emergency use of in vitro diagnostic tests for detection and/or diagnosis of COVID-19 under Section 564(b)(1) of the Federal Food, Drug and Cosmetic Act, 21 U.S.C. 360bbb-3(b)(1), unless the authorization is terminated or revoked sooner. Fact Sheet for Healthcare Providers: https://www.[employer]/Documents/Xp ert%20Xpress%20SAR S%20CoV-2/Fact%20S heets/302-3802%20S ARS-COV-2%20HEALTH CARE%20PROVIDERS%2 0FACT%20SHEET.pdf Fact Sheet for Healthcare Patients: https://www.[employer]/Documents/Xp ert%20Xpress%20SAR S%20CoV-2/Fact%20S heets/302-3801%20S ARS-COV-2%20PATIEN T%20FACT%20SHEET.p df Lab Interpretation Normal (test code = 41534-2) [facility]2021-01-28 17:42:47 Test Item Value Reference Range Interpretation Comments SARS-COV2/RT-PCR Negative Negative The SARS-Co V-2 target (test code = nucleic acids a re not 5419221) detected in thi s specimen. Negative result [...] revoked sooner. Fact Sheet for Healthcare Providers: https://www.[employer]/Documents/Xpert%20Xpress%20SARS%20CoV-2/Fact%20Sheets/302-3802%20SARS-COV -2%20HEALTHCARE%20PROVIDERS%20FACT%20SHEET.pdf Fact Sheet for Healthcare Patients: https://www.[employer]/Documents/Xpert %20Xpress%20SARS%20CoV-2/Fact%20Sheets/302-3801%45ZUCA-OOB-9%20PATIENT%20FACT%20 SHEET.pdfBASI METABOLIC [id number] 05:10:34 Test Item Value Reference Range Interpretation [...] S NOT APPLICABLE FOR DIALYSIS PATIEN TS. [facility] Doctor ID - [id number] ID - LGWG22Dwyiicyt ID - JLAC10Wfdxtjqu ID - SLOI27Vfehowyu ID - EXSN30Ldrzmfvp ID - JEVH69Ughydoui ID - FBEX88Pxisccug ID - NDAH95Spngzogj ID - FMIX65Ybykoqea ID - PECF47Otzinxtt ID - KJGC76Qtftuttx ID - TOQC81Ujwsfsic ID - KOBR22SGF W/PLT COUNT & AUTO [id number] 04:43:13 Test Item Value Reference Range Interpretation [...] = 2801) CBC W/PLT COUNT & AUTO [id number] 18:12:06 Test Item Value Reference Range Interpretation [...] (BEAKER) (test code = 2801) HEMORRHAGE IMAGING, [id number] 16:36:00Unlisted Reason for Exam - Click Yes and Enter Reason Below->No [facility] : 1935 Sex: MFINAL REPORT PROCEDURE: HEMORRHAGE STUDY with RBCs CPT CODE: 41165 INDICATION: Gastrointestinal Bleeding PROTOCOL: 26.1 mCi of Tc-99m was injected intravenously as labeled autologous red blood cells. Flow images of the abdomen were obtained, followed by serial images over approximately 60 minutes. Additional images were obtained at four hours post injection. FINDINGS: No active hemorrhage is seen. Additional images will be obtained in the morning IMPRESSION: Interim Report Signed: Mk Dangelo Verified Date/Time: 116:36:49 CBC W/PLT COUNT & AUTO [id number] 10:20:36 Test Item Value Reference Range Interpretation [...] 2801) RAD, SHOULDER, COMPLETE (MIN 2 VIEWS), [id number] 07:36:00Reason for exam:- >[facility] : 1935 Sex: MFINAL [...] of the proximal left humerus. Signed: Modesto Randallort Verified Date/Time: 01/27/2021 07:36:50 Reading Location: [facility] Radiology Reading Room Type and screen, [id number] 07:35:00 Test Item Value Reference Range Interpretation Comments ABO/RH AUTOMATED (BEAKER) (test O POSITIVE echo code = 2260) Ab Scrn (test code = 890-4) [facility] [id number] 07:35:00 Test Item Value Reference Range Interpretation Comments ABO/RH AUTOMATED (BEAKER) (test O POSITIVE echo code = 2260) Ab Scrn (test code = 890-4) NEGATIVE echo [facility]OL[facility] [id number] 05:57:08 Test Item Value Reference Range Interpretation [...] S NOT APPLICABLE FOR DIALYSIS PATIEN TS. [facility] Doctor ID - ERINYOperator ID - ERINYOperator ID - ERINYOperator ID - ERINYOperator ID - ERINYOperator ID - ERINYOperator ID - ERINYOperator ID - ERINYOperator ID - ERINYOperator ID - ERINYOperator ID- ERINYOperator ID - ERINY CBC W/PLT COUNT & AUTO [id number] 05:41:08 Test Item Value Reference Range Interpretation [...] = 2801) CBC W/PLT COUNT & AUTO [id number] 00:53:04 Test Item Value Reference Range Interpretation [...] 0-0 PERCENT (BEAKER) (test code = 2801) [id number] 00:36:35 Test Item Value Reference Range Interpretation Comments Magnesium (test code = 1.8 mg/dL 1.5-3.0 49389-7) JONNATHAN (test code = JONNATHAN) [facility] ID - ERINYOperator ID - ERINYOperator ID - ERINYOperator ID - ERINY Lab Interpretation Normal (test code = 98142-6) [facility] 00:[facility]35 Test Item Value Reference Range Interpretation Comments Magnesium (test code = 1.8 mg/dL 1.5-3.0 94535-9) JONNATHAN (test code = JONNATHAN) [facility] ID - ERINYOperator ID - ERINYOperator ID - ERINYOperator ID - ERINY Lab Interpretation Normal (test code = 10115-1) [facility] 00:36[facility]35 Test Item Value Reference Range Interpretation Comments MAGNESIUM (BEAKER) (test code = 1.8 mg/dL 1.5-3.0 627) [facility] ID - ERINYOperator ID - ERINYOperator ID - ERINYOperator ID - ERINY Hepatic function [id number] 00:36:29 Test Item Value Reference Range Interpretation Comments Protein, Total (test 6.5 See_Comment [Autom ated code = 2885-2) message] The system which generated this result transmitted reference range : 6.0 - 8.5 gm/dL . The reference range was not used to interpret this result as normal/abnormal . Albumin (test code = 3.4 g/dL 3.5-5.0 L 29459-7) Total Bilirubin 0.6 mg/dL 0.1-1.2 (test code = 1974-2) Bilirubin, Direct 0.2 mg/dL 0.0-0.4 (test code = 1967-7) Alkaline Phosphatase 94 U/L 30-115 (test code = 6768-6) AST (test code = 14 U/L 1920-8) ALT (test code = 13 U/L 50 1742-6) JONNATHAN (test code = [facility] ID - JONNATHAN) ERINYOperator ID - ERINYOperator ID - ERINYOperator ID - ERINYOperator ID - ERINYOperator ID - ERINYOperator ID - ERINY Lab Interpretation Abnormal (test code = 73748-3) [facility] function [id number] 00:36:29 Test Item Value Reference Range Interpretation Comments Protein, Total (test 6.5 See_Comment [Autom ated code = 2885-2) message] The system which generated this result transmitted reference range : 6.0 - 8.5 gm/dL . The reference range was not used to interpret this result as normal/abnormal . Albumin (test code = 3.4 g/dL 3.5-5.0 L 38582-9) Total Bilirubin 0.6 mg/dL 0.1-1.2 (test code = 1974-2) Bilirubin, Direct 0.2 mg/dL 0.0-0.4 (test code = 1967-7) Alkaline Phosphatase 94 U/L 30-115 (test code = 6768-6) AST (test code = 14 U/L 1920-8) ALT (test code = 13 U/L 50 1742-6) JONNATHAN (test code = [facility] ID - JONNATHAN) ERINYOperator ID - ERINYOperator ID - ERINYOperator ID - ERINYOperator ID - ERINYOperator ID - ERINYOperator ID - ERINY Lab Interpretation Abnormal (test code = 35997-9) [facility]AT[facility] FUNCTION [id number] 00:36:29 Test Item Value Reference Range Interpretation [...] (test code = 13 U/L 5-50 347) [facility] ID - ERINYOperator ID - ERINYOperator ID - ERINYOperator ID - ERINYOperator ID - ERINYOperator ID - ERINYOperator ID - ERINYBASIC METABOLIC [id number] 00:34:38 Test Item Value Reference Range Interpretation [...] S NOT APPLICABLE FOR DIALYSIS PATIEN TS. [facility] ID - ERINYOperator ID - ERINYOperator ID - ERINYOperator ID - ERINYOperator ID - ERINYOperator ID - ERINYOperator ID - ERINYOperator ID - ERINYOperator ID - [id number] 00:32:54 Test Item Value Reference Range Interpretation Comments Phosphorus (test code = 3.1 mg/dL 2.5-4.5 2777-1) JONNATHAN (test code = JONNATHAN) [facility] ID - ERINY Lab Interpretation (test Normal code = 25699-2) [facility] 00:32:54 Test Item Value Reference Range Interpretation Comments Phosphorus (test code = 3.1 mg/dL 2.5-4.5 2777-1) JONNATHAN (test code = JONNATHAN) [facility] ID - ANAISY Lab Interpretation (test Normal code = 11590-1) [facility]2021-[facility]-29 00:32:54 Test Item Value Reference Range Interpretation Comments PHOSPHORUS (BEAKER) (test code = 3.1 mg/dL 2.5-4.5 604) [facility] ID - ERINYProthrombin time/[id number] 00:31:37 Test Item Value Reference Interpretation Comments Range Protime (test code = 11.2 See_Comment Final 5902-2) Information (Auto Output) [Automated message] The system which generated this result transmitted reference range : 9.3 - 12.0 seconds. The reference range was not used to interpret this result as normal/abnormal . INR (test code = 1.01 See_Comment Final 6301-6) Information (Auto Output) [Automated message] The system which generated this result transmitted reference range : <=5.90. The reference range was not used to interpret this result as normal/abnormal . JONNATHAN (test code = RECOMMENDED JONNATHAN) COUMADIN/WARFARIN INR THERAPY RANGESSTANDARD DOSE: 2.0 - 3.0 Includes: PROPHYLAXIS for venous thrombosis, systemic embolization; TREATMENT for venous thrombosis and/or pulmonary embolus.HIGH RISK: Target INR is 2.5-3.5 for patients with mechanical heart valves. Lab Interpretation Normal (test code = 59303-4) [facility] HospitalProthrombin time/[id number] 00:31:37 Test Item Value Reference Interpretation Comments Range Protime (test code = 11.2 See_Comment Final 5902-2) Information (Auto Output) [Automated message] The system which generated this result transmitted reference range : 9.3 - 12.0 seconds. The reference range was not used to interpret this result as normal/abnormal . INR (test code = 1.01 See_Comment Final 6301-6) Information (Auto Output) [Automated message] The system which generated this result transmitted reference range : <=5.90. The reference range was not used to interpret this result as normal/abnormal . JONNATHAN (test code = RECOMMENDED JONNATHAN) COUMADIN/WARFARIN INR THERAPY RANGESSTANDARD DOSE: 2.0 - 3.0 Includes: PROPHYLAXIS for venous thrombosis, systemic embolization; TREATMENT for venous thrombosis and/or pulmonary embolus.HIGH RISK: Target INR is 2.5-3.5 for patients with mechanical heart valves. Lab Interpretation Normal (test code = 21983-1) [facility] HospitalPROTHROMBIN TIME/[id number] 00:31:37 Test Item Value Reference Range Interpretation Comments PROTIME (BEAKER) 11.2 seconds 9.3-12.0 Final Infor mation (test code = 759) (Auto Outp ut) INR (BEAKER) (test 1.01 See_Comment Final Inf ormation code = 370) (Auto Output) [Automated mess age] The system [facility] generated this result transmitted ref erence range: <=5.90. The reference range was not used to int erpret this result as normal/abnormal . RECOMMENDED COUMADIN/WARFARIN INR THERAPY RANGESSTANDARD DOSE: 2.0 - 3.0 Includes: PROPHYLAXIS forvenous thrombosis, systemic embolization; TREATMENT for venous thrombosis and/or pulmonary embolus.HIGH RISK: Target INR is 2.5-3.5 for patients with mechanical heart valves.
--- NOTE | 2021-05-13 05:10 | ER ---
[facility] Age: 86 yrs Sex: Male : 1935 Arrival Date: 05/13/2021 Time: 02:48 Bed 5 Private MD: Diagnosis: Fall from bed, initial encounter;Contusion of unspecified part of head;Abrasion of scalp Presentation: 05/13 02:57 Chief complaint: EMS states: Patient fell at nursing facility and sustained a skin tear ke1 on forehead. Patient is on hospice at nursing facility. 02:57 Acuity: CLAIRE 3 ke1 02:57 Care prior to arrival:. Mechanism of Injury: Fall out of bed. Trauma event details: ke1 Injury occurred: May 13, 2021. 02:57 Method Of Arrival: EMS: [facility] ke1 03:00 Coronavirus screen: Vaccine status: unknown. Ebola Screen: No symptoms or risks ke1 identified at this time. Initial Sepsis Screen: Does the patient meet any 2 criteria? No. Patient's initial sepsis screen is negative. Does the patient have a suspected source of infection? No. Patient's initial sepsis screen is negative. 03:00 Risk Assessment: Do you want to hurt yourself or someone else? Unable to obtain. Onset ke1 of symptoms was May 13, 2021. Triage Assessment: 04:04 General: Appears malnourished, Behavior is. Pain: Unable to use pain scale. Patient is ke1 disoriented. Does not appear to understand pain scale. Neuro: Level of Consciousness is lethargic. Respiratory: Airway on N/C Respiratory effort is even, unlabored, Respiratory pattern is regular, symmetrical. 05:12 Derm: Skin has skin tears on forehead, left arm, left elbow, opening both great toes. ke1 Historical: - PMHx: 04:04 GERD; Hypertension; shingles; ke1 - Immunization history:: Adult Immunizations unknown. - Social history:: Smoking status: unknown. Screenin:00 Fall Risk Fall in past 12 months (25 points). Secondary diagnosis (15 points) dementia, ke1 IV access (20 points). Ambulatory Aid- None/Bed Rest/Nurse Assist (0 pts). Gait- Normal/Bed Rest/Wheelchair (0 pts) Mental Status- Overestimates/Forgets Limitations (15 pts.). Total Joe Fall Scale indicates High Risk Score (45 or more points). Fall prevention measures have been instituted. Side Rails Up X 2 Placed Close to Nursing Station Frequent Obs/Assessments Occuring. 03:00 Nutritional screening: Difficulty chewing/swallowing?. ke1 05:33 Abuse screen: Denies threats or abuse. Tuberculosis screening: No symptoms or risk ke1 factors identified. Assessment: 04:00 Reassessment: see triage. ke1 Vital Signs: 02:51 BP 127 / 87; Pulse 105; Resp 16; Temp 98.4(A); Pulse Ox 96% on 3 lpm NC; ke1 05:15 BP 127 / 82; Pulse 110; Resp 18; Pulse Ox 94% on 3 lpm NC; ke1 ED Course: 02:48 Patient arrived in ED. tw5 02:48 Alexander Castle MD is Attending Physician. [facility] 02:57 Jazmin Damon, RN is Primary Nurse. ke1 03:17 CT Head C Spine In Process Unspecified. EDMS 04:00 Bed in low position. Side rails up X2. ke1 04:03 Triage completed. ke1 05:34 Arm band placed on. ke1 05:35 No provider procedures requiring assistance completed. ke1 05:43 Patient did not have IV access during this emergency room visit. ke1 Administered Medications: 05:27 Drug: Tetanus-Diphtheria Toxoid Adult 0.5 ml {Scientific Programmer: [employer]. Exp: ke1 07/19/2022. Lot #: [id number]. } Route: IM; Site: left deltoid; 05:44 Follow up: Response: No adverse reaction ke1 Point of Care Testing: Blood Glucose: 03:18 Blood Glucose: 70 mg/dL; [facility] Ranges: Outcome: 05:[address] . [facility] 05:37 Discharged to care home. Report called to nurse Dayanara ke 05:43 Condition: stable ke1 05:43 Discharge instructions given to EMS. 05:44 Patient left the ED. ke1 Signatures: Dispatcher [employer] EDMS Alexander Castle MD MD 7 Linda Reyes tw5 Nayla Granados RN RN 5 Jazmin Damon RN RN [facility] Corrections: (The following items were deleted from the chart) 05:19 02:51 BP 127 / 87; Pulse 105bpm; Resp 16bpm; Pulse Ox 96%; ke1 ke1 05:51 02:51 BP 127 / 87; Pulse 105bpm; Resp 16bpm; Pulse Ox 96% 3 lpm Nasal Cannula; ke1 ke1
--- NOTE | 2021-05-13 05:10 | EDPHYS ---
Physician Documentation [facility] Name: Carlos Guerra Age: 86 yrs Sex: Male : 1935 Arrival Date: 05/13/2021 Time: 02:48 Bed 5 Private MD: ED Physician Aelxander Castle HPI: 05/13 03:02 This 86 yrs old Male presents to ER via Unassigned with complaints of Fall Injury. mh7 03:02 Details of fall: The patient fell from a supine position, out of bed, and struck a tile mh7 surface. Onset: The symptoms/episode began/occurred today, at an unknown time. Associated injuries: The patient sustained injury to the head, abrasion, Skin tear. Severity of symptoms: At their worst the symptoms were mild, earlier today, in the emergency department the symptoms are unchanged. Sent from halfway due to fall out of bed with head injury.. Historical: - PMHx: 04:04 GERD; Hypertension; shingles; ke1 - Immunization history:: Adult Immunizations unknown. - Social history:: Smoking status: unknown. ROS: 03:02 Unable to obtain ROS due to baseline dementia. mh7 Exam: 03:02 Eyes: Pupils equal round and reactive to light, extra-ocular motions intact. Lids and mh7 lashes normal. Conjunctiva and sclera are non-icteric and not injected. Cornea within normal limits. Periorbital areas with no swelling, redness, or edema. Neck: Trachea midline, no thyromegaly or masses palpated, and no cervical lymphadenopathy. Supple, full range of motion without nuchal rigidity, or vertebral point tenderness. No Meningismus. Chest/axilla: Normal chest wall appearance and motion. Nontender with no deformity. No lesions are appreciated. Cardiovascular: Regular rate and rhythm with a normal S1 and S2. No gallops, murmurs, or rubs. Normal PMI, no JVD. No pulse deficits. Respiratory: Lungs have equal breath sounds bilaterally, clear to auscultation and percussion. No rales, rhonchi or wheezes noted. No increased work of breathing, no retractions or nasal flaring. Abdomen/GI: Soft, non-tender, with normal bowel sounds. No distension or tympany. No guarding or rebound. No evidence of tenderness throughout. Back: No spinal tenderness. No costovertebral tenderness. Full range of motion. 03:02 Constitutional: The patient appears in no acute distress, Sleeping but easily arousable to verbal stimuli 03:02 Head/face: Noted is abrasion(s), that are mild, of the top of head. 03:02 Skin: Warm, dry with normal turgor. Normal color with no rashes, no lesions, and no [facility] evidence of cellulitis. MS/ Extremity: Pulses equal, no cyanosis. Neurovascular intact. Full, normal range of motion. 03:02 Neuro: Orientation: unable to test, the patient has a history of dementia, Mentation: unable to test, the patient has a history of dementia, Memory: unable to test, the patient has a history of dementia, Cranial nerves: unable to test, the patient has a history of dementia, Cerebellar function: unable to test, the patient has a history of dementia, Motor: is grossly normal based on the patient's age, Sensation: no obvious gross deficits, Gait: not tested. seizure activity, is not displayed by the patient, Abnormal movements: there are no abnormal movements. Vital Signs: 02:51 BP 127 / 87; Pulse 105; Resp 16; Temp 98.4(A); Pulse Ox 96% on 3 lpm NC; ke1 05:15 BP 127 / 82; Pulse 110; Resp 18; Pulse Ox 94% on 3 lpm NC; ke1 MDM: 05:07 Differential diagnosis: abrasion, closed head injury, contusion, fracture. Data [facility] reviewed: vital signs, nurses notes, EMS record, halfway records, old medical records, lab test result(s), finger stick glucose, radiologic studies, CT scan. Data interpreted: Pulse oximetry: on room air is 98 %. Interpretation: normal. Counseling: I had a detailed discussion with the patient and/or guardian regarding: the historical points, exam findings, and any diagnostic results supporting the discharge/admit diagnosis, radiology results, the need for outpatient follow up, to return to the emergency department if symptoms worsen or persist or if there are any questions or concerns that arise at home. 05:09 Patient medically screened. [facility] 05/13 03:28 Order name: Glucose, Ancillary Testing; Complete Time: 03:54 EDMS 05/13 02:52 Order name: CT Head C Spine mh7 Administered Medications: 05:27 Drug: Tetanus-Diphtheria Toxoid Adult 0.5 ml {Wire Bender: EPS. Exp: ke1 07/19/2022. Lot #: [id number]. } Route: IM; Site: left deltoid; 05:44 Follow up: Response: No adverse reaction ke1 Point of Care Testing: Blood Glucose: 03:18 Blood Glucose: 70 mg/dL; sm5 Ranges: Critical Glucose Levels:Adult <50 mg/dl or >400 mg/dl <40 mg/dl or >180 mg/dl Disposition Summary: 05/13/21 05:09 Discharge Ordered Location: Home [facility] Problem: an acute exacerbation 7 Symptoms: have improved mh7 Condition: Stable 7 Diagnosis - Fall from bed, initial encounter 7 - Contusion of unspecified part of head 7 - Abrasion of scalp [facility] Followup: [facility] - With: Private Physician - When: 1 - 2 days - Reason: Worsening of condition, Recheck today's complaints, Continuance of care, Re-evaluation by your physician Discharge Instructions: - Discharge Summary Sheet 7 - Abrasion, [id number] 7 - Fall Prevention in the Home, Adult, [id number] 7 - Facial or Scalp Contusion, [id number] [facility] Forms: - Medication Reconciliation Form 7 - Thank You Letter 7 - Antibiotic Education 7 - Prescription Opioid Use 7 - SBAR form tw5 Signatures: Dispatcher [employer] Alexander Hall MD MD [facility] Jazmin Damon RN RN ke1
[2021-05-13] MEDS ORDERED: TETANUS & DIPHTHERIA TOX,ADULT 0.5 ML VIAL ONE (05:26)
[2021-05-13 05:55] VITALS: BP 127/82; O2SAT 94
--- NOTE | 2021-05-13 12:54 | RAD REPORT ---
EXAM DESCRIPTION: CT - Head C Spine Mpr Wo Con - 05/13/2021 6:25 am CLINICAL HISTORY: Fall/pain. COMPARISON: 02/19/2019 TECHNIQUE: Axial CT of the head obtained from the skull apex to the skull base without contrast. Axi al CT images of the cervical spine obtained from the skull base through the thoracic inlet. Sagittal and coronal reformatted images available. This exam was performed according to our departmental dose- optimization program, which includes automated exposure control, adjustment of the mA and/or kV accor ding to patient size and/or use of iterative reconstruction technique. FINDINGS: CT head: No acute intracranial hemorrhage identified. No mass, mass effect, shift of the midline, abnormal ext ra-axial fluid collection or CT evidence of acute ischemic change identified. Mild prominence of the ventricular system relative to the sulcal spaces. Confluent areas of hypodensity throughout the sup ratentorial white matter are nonspecific and may be related to chronic small vessel ischemic change. The visualized paranasal sinuses and mastoid air cells are well aerated. No skull fracture identifi ed. Visualized orbits and globes are unremarkable. Atherosclerotic calcification of the intracranial internal carotid arteries. Cervical CT: Alignment of the cervical spine is maintained without evidence of subluxation. The atlantoaxial, at lantodental, and occipitoatlantal intervals are preserved. No fracture identified. Vertebral body h eight preserved. Prevertebral soft tissues are unremarkable. Multilevel endplate spondylosis and facet arthropathy. Intervertebral disc height is relatively well- preserved. Visualized skull base is intact. No fracture of the visualized facial bones. Visualized mastoid air c ells and paranasal sinuses are well aerated. Visualized thyroid is unremarkable. No cervical lymphadenopathy. No pneumothorax in the visualized lung apices. Bilateral pleural effusions. Carotid artery atherosclerosis. IMPRESSION: 1. No acute intracranial abnormality by CT criteria. 2. No acute fracture or subluxation of the cervical spine. 3. Mild enlargement of ventricular system out of proportion to the sulcal spaces. These findings co uld be seen with normal pressure/communicating hydrocephalus. Electronically signed by: Ted Gabriel 05/13/2021 4:18 AM CDT Due to temporary technical issues with the PACS/Fluency reporting system, reports are being signed b y the in house radiologists without review as a courtesy to insure prompt reporting. The interpreting radiologist is fully responsible for the content of the report.
== END 2021-05-13 05:44 | disposition home or self-care (01) ==
LOC: ER 02:46
DX: S00.01XA Abrasion of scalp, initial encounter (principal); W06.XXXA Fall from bed, initial encounter; Z23 Encounter for immunization; F03.90 Unspecified dementia, unspecified severity, without behavioral disturbance, psychotic disturbance, mood disturbance, and anxiety; I10 Essential (primary) hypertension
CPT/HCPCS: 70450; 72125; 82947; 90471; 90714; 99284